=== PATIENT | male | born 1965 | race Hispanic/Latino ===

== ENCOUNTER 2022-12-14 12:26 | Observation (INO) | payer MEDICARE ==
--- OUTSIDE RECORDS SUMMARY | 2022-12-14 12:39 | XMS REPORT | Continuity of Care Document ---
:1965 Author Organization [facility] t Address [address] [place] [address] [place] [id number] Care Team Providers Name Role Phone Jamie Smith MD Primary Care Physician JOSELUIS LANIER Attending Clinician Unavailable ASTRID BANKS Attending Clinician Unavailable INOCENTE PATEL Attending Clinician Unavailable Jamie Smith MD Attending Clinician Tosha Bennett LVN Attending Clinician Unavailable JAMIE SMITH Attending Clinician Unavailable ROLAND DICKSON Attending Clinician Unavailable Epic, Generic Transmittal User Attending Clinician UnavailRAHUL Knight Attending Clinician Unavailable Teresa Cutler RN, I Attending Clinician Unavailable FRANKIE MONTANEZ Attending Clinician Unavailable AMANDA FELICIANO Attending Clinician Unavailable JAMIE SMITH Attending Clinician Unavailable Stew Payne LVN Attending Clinician Unavailable JOSELUIS LANIER Attending Clinician Unavailable Ashley Bell MA Attending Clinician Unavailable Gage Chambers MD Attending Clinician Bandar Bowser MD Attending Clinician Valerie Chase RPH Attending Clinician Unavailable MALACHI TRIPP Attending Clinician Unavailable Tej Brooke Attending Clinician ROLAND DICKSON Admitting Clinician Unavailable ANTONY BENDER Admitting Clinician Unavailable Payers Payer Name Policy Type Policy Number Effective Date Expiration Date S [place] [id number] 2022 ADVANTAGE HMO 00:00:00 [facility] [id number] 2020 00:00:00 [facility] [id number] 2022 (MEDICARE 00:00:00 REPLACEMENT HMO) [place] MEDICARE [id number] 2022 00:00:00 [facility] [id number] 2021 [employer]ICE [employer] 00:00:00 [facility] [id number] 2018 2020 00:00:00 00:00:00 Problems Condition Condition Condition Status Onset Resolution Last Treating Co mments Source Name Details Category Date Date Treatment Clinician Date Chronic Chronic Disease Active [facility] bilateral bilateral 5-18 [facility]al th low back low back 00:00: pain pain 00 without without sciatica sciatica Acute Acute Disease Active [facility] medial medial 4-06 Health meniscus meniscus 00:00: tear of tear of 00 right knee right knee Acute Acute Disease Active 2019-05 [facility] medial medial 2-11 Health meniscus meniscus 00:00: tear of tear of 00 left knee left knee Chondromal Chondromal Disease Active 2019-05 [facility] 2[facility]11 [facility] left left 00:00: patella patella 00 Chondromal Chondromal Disease Active [facility]10 [facility] right right 00:00: patella patella 00 Lumbar Lumbar Disease Active [facility] radiculopa radiculopa 8-06 He alth thy thy 00:00: 00 Osteoarthr Osteoarthr Disease Active [facility]is [facility] 7[facility]16 [facility] left knee left knee 00:00: 00 Osteoarthr Osteoarthr Disease Active [facility] 3-25 [facility] right knee right knee 00:00: 00 Migraine Migraine Disease Active Harri s without without 07-13 Health status status 00:00: migrainosu migrainosu 00 s, not s, not intractabl intractabl e e Type 2 Type 2 Disease Active Tan diabetes, diabetes, 07-13 Heal th controlled controlled 00:00: , with , with 00 neuropathy neuropathy Essential Essential Disease Active Bruce ris hypertensi hypertensi 07-13 He alth on, benign on, benign 00:00: 00 Mixed Mixed Disease Active Tan dyslipidem dyslipidem 07-13 He alth ia ia 00:00: 00 Primary Primary Disease Active Tan osteoarthr osteoarthr 07-13 He alth itis of itis of 00:00: both knees both knees 00 Benign Benign Disease Active Tan prostatic prostatic 07-13 Heal hyperplasi hyperplasi 00:00: a with a with 00 lower lower urinary urinary tract tract symptoms symptoms LUIS LUIS Disease Active 2014-05 Tan (obstructi (obstructi 0- He alth ve sleep ve sleep 00:00: apnea) apnea) 00 Major Major Disease Active Tan depression depression 02 He alth , , 00:00: recurrent recurrent 00 Degenerati Degenerati Disease Active H arris ve disc ve disc 5-28 Health disease, disease, 00:00: cervical cervical 00 Degenerati Degenerati Disease Active H arris ve disc ve disc 5-28 Health disease, disease, 00:00: lumbar lumbar 00 SENTHIL KNEE SENTHIL KNEE Diagnosis Active 2015-09-15 Memoria Active MH 16:54:00 l [facility] Allergies, Adverse Reactions, Alerts Allergy Allergy Status Severity Reaction(s) Onset Inactive Treating Comm ents Source Name Type Date Date Clinician Celecoxi Propensi Active Rash Tan b ty to 12 Health adverse 00:00: reaction 00 s to drug No Known DA Active U 2018-05 [facility] 06[facility]09 [facility] 00[facility]: e 00 [facility] No Known DA Active U 2018-05 [facility] 1[facility]19 [facility] [facility] e [facility] No Known DA Active U [facility] Allergie 4- Clear s 00:00: George 00 [facility] Family History Family Member Diagnosis Comments Start Date Stop Date Source Natural brother Diabetes Tan [place] Social History Social Habit Start Date Stop Date Quantity Comments Source Exposure to Not sure [facility] SARS-CoV-2 (event) [facility] Alcohol Std Drinks History [facility] Health Alcohol Binge [facility] Alcohol Comment History [facility] 2021-04-01 2021-04-01 1 [place] [facility] Worry 00:00:00 00:00:00 History [facility] Food 2021-04-01 2021-04-01 1 [place] [facility] Scarcity 00:00:00 00:00:00 Alcohol intake 2021-03-16 2021-03-16 Lifetime [facility] 00:00:00 00:00:00 non-drinker (finding) History [facility] 2020-12-30 2020-12-30 1 [facility] Alcohol Frequency 00:00:00 00:00:00 Social History 2020-06-29 2020-06-29 [facility] 23:53:06 23:53:06 Tobacco use and 2013-09-12 2013-09-12 Smokeless tobacco [facility] exposure 00:00:00 00:00:00 non-user Sex [birth year] Tan Maki alth 00:00:00 00:00:00 Smoking Status Start Date Stop Date Source Tobacco smoking consumption unknown [facility] Never smoked tobacco [facility] Medications Ordered Filled Start Stop Current Ordering Indication Dosage Frequency Signature Comments Components Source Medication Medication Date Date Medication? Clinician (SIG) Name Name fenofibrate 2021-05 Yes Mixed Take 1 Bruce ris (LOFIBRA) 1-15 dyslipidemi tablet by [employer] 160 mg 00:00: a mouth once tablet 00 daily glyBURIDE 2021-05 Yes Type 2 TAKE 1 Tere is (DIABETA) 5 1-15 diabetes TABLET BY [facility] mg tablet 00:00: mellitus MOUTH 00 without TWICE A complicatio DAY WITH n, with MEALS long-term current use of insulin metoprolol 2021-05 Yes Essential 25mg QD Take 1 [place]ox succinate 1-15 hypertensio tablet by [employer] (TOPROL XL) 00:00: n, benign mouth 25 mg 00 daily extended release tablet Miscellaneo 2021-05 Yes Impaired High [facility] rris [facility] 05-30 mobility Strength [facility] 00:[place]: and ADLs Light 00 Wheel Chair to Assist with ADLSElectr onically Signed Miscellaneo 2021-05 Yes Chronic Wheelchair Maddox [facility] 05-22 midline low [facility] 00:00: back pain ally 00 with Signed bilateral sciatica ticagrelor 2021-05 Yes Coronary 90mg Q.5D Take 1 H arris (BRILINTA) 05-22 artery tablet by alth 90 mg 00:00: disease mouth 2 tablet 00 involving times [place] daily heart without angina pectoris, unspecified vessel or lesion type lidocaine 2021-05 Yes Neuropathic 1{patch QD Apply 1 [place] (LIDODERM) 05-22 pain } [facility] patch 00:00: skin as 00 directed daily Leave patch(es) on for up to 12 hours, then 12 hours off. pregabalin Yes Neuropathy 150mg Q.5D Take 1 [place]ox (LYRICA) 7- capsule by [facility] 150 mg 00:00: mouth 2 capsule 00 times daily gabapentin Yes Neuropathy TAKE 2 [place]ox (NEURONTIN) 7- TABLETS BY alth 600 mg 00:00: MOUTH tablet 00 THREE TIMES DAILY hydroCHLORO Yes Essential 25mg QD Take 1 [place] thiazide 12-17 hypertensio tablet by [facility] (HYDRODIURI 00:00: n, benign mouth L) 25 mg 00 daily tablet losartan Yes Essential 100mg QD Take 1 H arris (COZAAR) 12-17 hypertensio tablet by [facility] 100 mg 00:00: n, benign mouth tablet 00 daily diazePAM Yes Depression 5mg Take 1 H arris (VALIUM) 5 12-17 with tablet by [facility] th mg tablet 00:00: anxiety mouth 00 every 12 hours as needed for Anxiety sertraline Yes Depression 25mg QD Take 1 [place]ox (ZOLOFT) 25 12-17 with tablet by [facility] lth mg tablet 00:00: anxiety mouth 00 daily fenofibrate 0 2021- No Mixed 160mg QD Take 1 H arris (LOFIBRA) 12-17 11-15 dyslipidemi tablet by [facility] 160 mg 00:00: 00:00 a mouth tablet 00 :00 daily pregabalin 2021- No Neuropathy 150mg Q.5D Take 1 [place] (LYRICA) 11-12 capsule by [facility] 150 mg 00:00: 00:00 mouth 2 capsule 00 :00 times daily triamcinolo 2021- Yes Pruritic Q.5D Apply to [place]ox ne 10-22 dermatitis affected Healt (KENALOG) 00:00: area 2 0.1 % 00 times ointment daily gabapentin 2021- No Neuropathy TAKE 2 [place]ox (NEURONTIN) 10-22 TABLETS BY [facility] 600 mg 00:00: 00:00 MOUTH tablet 00 :00 THREE TIMES DAILY hydroCHLORO 2021- No Essential 25mg QD Take 1 [place]ox thiazide 10-22 hypertensio tablet by [facility] (HYDRODIURI 00:00: 00:00 n, benign mouth L) 25 mg 00 :00 daily tablet losartan 2021- No Essential 100mg QD Take 1 [place] (COZAAR) 10-22 hypertensio tablet by [facility] 100 mg 00:00: 00:00 n, benign mouth tablet 00 :00 daily diazePAM 2021- No Depression 5mg Take 1 [place] (VALIUM) 5 10-22 with tablet by [facility] lth mg tablet 00:00: 00:00 anxiety mouth 00 :00 every 12 hours as needed for Anxiety sertraline 2021- No Depression 25mg QD Take 1 [place] (ZOLOFT) 25 10-22 with tablet by alth mg tablet 00:00: 00:00 anxiety mouth 00 :00 daily gabapentin 2021- No Neuropathy TAKE 2 [place] (NEURONTIN) 08-25 TABLETS BY [facility] 600 mg 00:00: 00:00 MOUTH tablet 00 :00 THREE TIMES DAILY ondansetron Yes COVID-19 4mg TAKE 1 [place] (ZOFRAN) 4 - virus TABLET BY [facility] lth mg tablet 00:00: infection MOUTH 00 EVERY 8 HOURS NEEDED FOR NAUSEA azithromyci 2021- Yes COVID-19 TAKE 2 [place] n 3-01 virus TABLETS BY [facility] (ZITHROMAX) 00:00: infection MOUTH ON 250 mg 00 DAY 1, AND tablet THEN TAKE 1 TABLET BY MOUTH ONCE A DAY ON DAY 2 THROUGH DAY 5 clonazePAM Anxiety .5mg Take 1 H arris (KLONOPIN) 06-23 state tablet by alth 0.5 mg 00:00: 00:00 mouth tablet 00 :00 daily as needed for Anxiety codeine-gua No COVID-19 5mL Take 5 mL [place] iFENesin 06-23 virus by mouth 3 [facility] (CHERATUSSI 00:00: 00:00 infection times N AC) 00 :00 daily as 10-100 mg/5 needed for mL syrup Cough azithromyci 2021- No COVID-19 Take 2 [place] n 06-23 virus tablets by [facility] (ZITHROMAX) 00:00: 00:00 infection mouth on 250 mg 00 :00 the first tablet day, then take one tablet every day for the next 4 days ondansetron COVID-19 4mg Take 1 [place] (ZOFRAN) 4 06-23 virus tablet by alth mg tablet 00:00: 00:00 infection mouth 00 :00 every 8 hours as needed for Nausea codeine-gua No COVID-19 5mL Take 5 mL [place] iFENesin 06-23 virus by mouth 3 [facility] (CHERATUSSI 00:00: 00:00 infection times N AC) 00 :00 daily as 10-100 mg/5 needed for mL syrup Cough losartan Yes Essential Take 1 [place] (COZAAR) 1-18 hypertensio tablet by [facility] 100 mg 00:00: n, benign mouth once tablet 00 daily fenofibrate Yes Mixed Take 1 Bruce ris (LOFIBRA) 1-18 dyslipidemi tablet by [facility] 160 mg 00:00: a mouth once tablet 00 daily hydroCHLORO Yes Essential Take 1 [place] thiazide 1-18 hypertensio tablet by [facility] (HYDRODIURI 00:00: n, benign mouth once L) 25 mg 00 daily tablet fenofibrate 2021- No Mixed Take 1 [place] r[facility] (LOFIBRA) 1-18 - dyslipidemi tablet by [facility] 160 mg 00:00: 00:00 a mouth once tablet 00 :00 daily losartan 2021- No Essential Take 1 H arris (COZAAR) 06-08 hypertensio tablet by [facility] 100 mg 00:00: 00:00 n, benign mouth once tablet 00 :00 daily hydroCHLORO 2021- No Essential Take 1 [place] thiazide 06-08 hypertensio tablet by [facility] (HYDRODIURI 00:00: 00:00 n, benign mouth once L) 25 mg 00 :00 daily tablet oxyCODONE-a 2020-05- No [id number] 1{tbl} Take 1-2 UT cetaminophe -04 05- 9109 tablets by kaye newsome 00:00: 05:59 mouth (Percocet) 00 :00 every 4 5-325 MG (four) tablet hours if needed for severe pain for up to 10 days. celecoxib 2020-05 Yes [id number] TAKE ONE UT (CeleBREX) 2-13 9109 CAPSULE BY a lth 200 MG 00:00: MOUTH capsule 00 TWICE A DAY FOR 14 DAYS celecoxib 2020-05 Yes [id number] TAKE ONE UT (CeleBREX) 2-13 9109 CAPSULE BY [facility] 200 MG 00:00: MOUTH capsule 00 TWICE A DAY FOR 14 DAYS celecoxib 2020-05 Yes [id number] TAKE ONE UT (CeleBREX) 2-13 9109 CAPSULE BY [facility] 200 MG 00:00: MOUTH capsule 00 TWICE A DAY FOR 14 DAYS celecoxib 2020-05 Yes [id number] TAKE ONE UT (CeleBREX) 2-13 9109 CAPSULE BY [facility] 200 MG 00:00: MOUTH capsule 00 TWICE A DAY FOR 14 DAYS celecoxib 2020-05 Yes [id number] TAKE ONE UT (CeleBREX) 2-13 9109 CAPSULE BY [facility] 200 MG 00:00: MOUTH capsule 00 TWICE A DAY FOR 14 DAYS celecoxib 2020-05 Yes [id number] TAKE ONE UT (CeleBREX) 2-13 9109 CAPSULE BY [facility] 200 MG 00:00: MOUTH capsule 00 TWICE A DAY FOR 14 DAYS Docusate 2020-05 No Notes: Memoria 2-02 (Same as: l 15:00: Colace) (Do Not Crush) Synjardy XR 2020-05 No Synjardy Me moria 12.5 2-02 XR 12.5 l mg-1000 mg 15:00: mg-1000 mg H ermann oral 00 oral tablet, tablet, extended extended release release, 1 tab, Route: PO, Daily, 04/22/21 9:00:00 CNC TECHNICIAN, Duration: 30 day, Stop date: 05/21/21 9:00:00 CNC TECHNICIAN ezetimibe 2020-05 No Notes: Memori a 2-02 (Same as: l 15:00: Zetia) Tricor 2020-05 No Notes: Memoria 2-02 (Same as: l 15:00: Tricor) Vascepa 1 g 2020-05 No Vascepa 1 M emoria oral 2-02 g oral l capsule 15:00: capsule, 2 Herm sheila 00 gm, Route: PO, Daily, 04/22/21 9:00:00 CNC TECHNICIAN, Duration: 30 day, Stop date: 05/21/21 9:00:00 CNC TECHNICIAN Tresiba 2020-05 No Tresiba Memoria FlexTouch 2-02 FlexTouch, l 15:00: 80 unit, Route: SUB-Q, Daily, 04/22/21 9:00:00 CNC TECHNICIAN, Duration: 30 day, Stop date: 05/21/21 9:00:00 CNC TECHNICIAN montelukast 2020-05 No Notes: Jesse elin 2-02 (Same l 15:00: as:Singula ir) pregabalin 2020-05 No Notes: Memor ia 2-02 (Same as: l 15:00: Lyrica) tadalafil 2020-05 No 5 mg, Memoria 2-02 Route: PO, l 15:00: Daily, Dosing Weight 121.818, kg, Start date: 04/22/21 9:00:00 CNC TECHNICIAN, Duration: 30 day, Stop date: 05/21/21 9:00:00 CNC TECHNICIAN Urecholine 2020-05 No Notes: Memor ia 2-02 Take on l 05:56: empty stomach. (Same As: Urecholine ) Cefazolin 2020-05 No Notes: Memori a 2-02 Same as: l 04:00: Ancef Carrier 00 Aspirin 81 2020-05 No Notes: Do Me moria MG Enteric 2-02 not crush l Coated 03:00: or chew. Scot Tablet 00 (Same As: Ecotrin) Celebrex 2020-05 No Notes: Memoria 2-02 NSAID. l 03:00: Please Scot 00 check indication . Not for seizure. (Same As: CeleBREX) sennosides, 2020-05 No Notes: Jesse elin NURSING HOME 2-02 (Same as: l 03:00: Senokot) Carrier rosuvastati 2020-05 No Notes: Jesse elin n 2-02 (Same As: l 03:00: Crestor) Scot Hydrochloro 2020-05 No Notes: Jesse elin thiazide 2-02 (Same as: l 02:00: Hydrodiuri Scot 00 l) With food. Losartan 2020-05 No Notes: Memoria 2-02 (Same as: l 02:00: Cozaar) Scot Metoprolol 2020-05 No Notes: Memor ia Succinate 2- (Same as: l ER 50 mg 02:00: Toprol XL) Her elliott oral 00 May split tablet, tab, but extended do not release crush. Acetaminoph 2020-05 No Notes: Max Memoria en 2-02 acetaminop l 01:00: hen 4000 Scot 00 mg/day (4 gm/day). (Same as: Tylenol Extra Strength) pregabalin 2020-05 No 100 mg, Jesse elin 2-02 Route: PO, l 01:00: Q8Hnow, Dosing Weight 121.818, kg, Start date: 04/21/21 19:00:00 CNC TECHNICIAN, Duration: 30 day, Stop date: 05/21/21 11:00:00 CNC TECHNICIAN celecoxib 2020-05 No 200 mg, Memor ia 2-02 Route: PO, l 01:00: [id number], Scot 00 Dosing Weight 121.818, kg, Not recommende d for eGFR < 30 or acute kidney injury., Start date: 04/21/21 19:00:00 CNC TECHNICIAN, Duration: 30 day, Stop date: 05/21/21 7:00:00 CNC TECHNICIAN Oxycodone 2020-05 No Notes: Memori a 2-02 (Same as: l 00:59: Roxicodone ) Morphine 2020-05 No Notes: Memoria 2-02 (Same l 00:59: as:MORPhin e Sulfate) Naloxone 2020-05 No Notes: Memoria 2- Same as l 00:59: Narcan tizanidine 2020-05 No Notes: Memor ia 2- (Same As: l 00:59: Zanaflex) Ondansetron 2020-05 No Notes: Jesse elin 2- (Same as: l 00:59: Zofran) MEDICATION WASTE Product Size: 4 mg Product Wasted: ___ mg Melatonin 2020-05 No Notes: Memori a 2- (Same as: l 00:59: Melatonin) Nalbuphine 2020-05 No Notes: Memor ia 2- (Same As: l 00:59: Nubain) gabapentin 2020-05 No Notes: Memor ia 600 MG Oral 2- (Same as: l Tablet 23:00: Neurontin) Glyburide 2020-05 No Notes: Memori a 2-01 Non-Formul l 23:00: karlene (Same as: Micronase, Diabeta) Take with meals. Hydralazine 2020-05 No Notes: Jesse elin 2-01 (Same as: l 22:16: Apresoline ) Push over 5 minutes propofol 2020-05 No Route: IV, Mem oria (ANES) 2- Drug form: l 22:10: INJ, ONCE, Stop date: 04/21/21 16:10:00 CNC TECHNICIAN ondansetron 2020-05 No Route: IV, Memoria (ANES) 2- Drug form: l 22:10: INJ, ONCE, Stop date: 04/21/21 16:10:00 CNC TECHNICIAN ropivacaine 2020-05 No Route: Jesse elin (ANES) 2- NERVE l 22:10: BLOCK, Drug Form: INJ, ONCE, Stop date: 04/21/21 16:10:00 CNC TECHNICIAN Trulicity 2020-05 No Trulicity Mem oria Pen - Pen, 3 mg, l 22:00: Route: Scot SUB-Q, qWeek, 04/21/21 16:00:00 CNC TECHNICIAN, Duration: 30 day, Stop date: 05/19/21 9:00:00 CNC TECHNICIAN Cefazolin 2020-05 No 2 gm, Memoria 06-22 Route: l 22:00: IVPB, Drug form: INJ, Q8H, Dosing Weight 121.818, kg, Start date: 04/21/21 16:00:00 CNC TECHNICIAN, Duration: 3 doses or times, Stop date: 04/22/21 8:00:00 CNC TECHNICIAN, ABX Indication : Surgical Prophylaxi s phenylephri 2020-05 No Route: IV, Memoria ne (ANES) 06-22 Drug form: l 21:49: INJ, ONCE, Stop date: 04/21/21 15:49:00 CNC TECHNICIAN ePHEDrine 2020-05 No Route: IV, Me moria (ANES) 06-22 Drug form: l 21:39: INJ, ONCE, Stop date: 04/21/21 15:39:00 CNC TECHNICIAN Synjardy XR 2020-05 Yes Synjardy Me moria 12.5 06-22 XR 12.5 l mg-1000 mg 21:34: mg-1000 mg H erm oral oral tablet, tablet, extended extended release release, 1 tab, PO, Daily, Refill(s) 0 Tresiba 2020-05 Yes Tresiba Memoria FlexTouch 06-22 FlexTouch, l 21:34: 80 unit =, Carrier SUB-Q, Daily, Refill(s) 0 Methocarbam 2020-05 No Notes: Jesse elin ol 06-22 (Same l 21:31: as:Robaxin Carrier ) Nitroglycer 2020-05 No Notes: Jesse elin in 0.4 MG 06-22 (Same l Sublingual 21:31: as:Nitroqu H ermann Tablet 00 ick, Nitrostat) "Do Not Crush" Sublingual tablet 1/2 NS 2020-05 No 1,000 mL, Memori a 1,000 mL 06-22 Rate: 75 l 21:30: ml/hr, Infuse over: 13.3 hr, Route: IV, Dosing Weight 121.818 kg, Total Volume: 1,000, Start date: 04/21/21 15:30:00 CNC TECHNICIAN, Duration: 30 day, Stop date: 05/21/21 15:29:00 CNC TECHNICIAN, BSA: 2.47 m2, 0 Lactated 2020-05 No Route: IV, Mem oria Ringers 06-22 Total l Injection 20:53: Volume: Nelly nn IV (ANES) 00 1,000, 1000 mL Start date: 04/21/21 14:53:00 CNC TECHNICIAN, Stop date: 04/21/21 15:53:00 CNC TECHNICIAN lidocaine 2020-05 No Route: IV, Me moria (ANES) 06-22 Drug form: l 20:48: INJ, ONCE, Stop date: 04/21/21 14:48:00 CNC TECHNICIAN Labetalol 2020-05 No 10 mg, 2 Jesse elin 2- mL, Route: l 20:46: IVP, Drug form: INJ, Q5Min, Dosing Weight 121.818, kg, PRN Elevated BP, Start date: 04/21/21 14:46:00 CNC TECHNICIAN, Duration: 5 doses or times, Stop date: Limited # of times, 0 Ibuprofen 2020-05 No Notes: Memori a 2- (Same as: l 20:46: Motrin) "Do Not Crush" Take with food. Oxycodone 2020-05 No Notes: Memori a Hydrochlori 2- (Same as: l de 5 MG 20:46: Roxicodone Herm sheila Oral Tablet ) Morphine 2020-05 No Notes: Memoria 2- (Same l 20:46: as:MORPhin Scot e Sulfate) Oxycodone 2020-05 No Notes: Memori a 2- (Same as: l 20:46: 'Roxicodon Scot e) Hydromorpho 2020-05 No Notes: Jesse elin ne - Same as: l 20:46: Dilaudid Carrier Fentanyl 2020-05 No Notes: Memoria 2- (Same as: l 20:46: Sublimaze) Scot Preservati ve free. Flumazenil 2020-05 No Notes: Memor ia 2-01 (Same as: l 20:46: Romazicon) Naloxone 2020-05 No Notes: Memoria 2-01 Same as l 20:46: Narcan Ephedrine 2020-05 No Notes: Memori a 2-01 final l 20:46: concentrat Carrier 00 ion 5 mg/mL Albuterol 2020-05 No Notes: SEE Me moria 0.83 MG/ML 2- RT l Inhalant 20:46: DOCUMENTAT Her elliott Solution 00 ION (Same as: Proventil) Diphenhydra 2020-05 No Notes: Jesse elin mine 2- (Same as: l 20:46: Benadryl) Racepinephr 2020-05 No Notes: Jesse elin ine 2- (racepinep l 20:46: hrine *2.25% inh 0.5ml SOLN) (Same as:S2) glycopyrron 2020-05 No Notes: Jesse elin ium 2- (Same as: l 20:46: Robinul) Meperidine 2020-05 No Notes: Memor ia 2-01 (Same as: l 20:46: Demerol) "Use Precaution in Elderly, Seizure disorders, and Renal impairment " naloxone 2020-05 No Notes: Memoria 400 2-01 Same as l microgram + 20:46: Narcan 00 Chloride 0.9% IV 1,000 mL Ondansetron 2020-05 No Notes: Jesse elin 2-01 (Same as: l 20:46: Zofran) MEDICATION WASTE Product Size: 4 mg Product Wasted: ___ mg Lorazepam 2020-05 No Notes: Memori a 2-01 (Same as: l 20:46: Ativan) fentaNYL 2020-05 No Route: IV, Mem oria (ANES) 2- Drug form: l 20:43: INJ, ONCE, Stop date: 04/21/21 14:43:00 CNC TECHNICIAN ropivacaine 2020-05 No Route: Jesse elin (ANES) 2- NERVE l 20:43: BLOCK, Scot 00 Drug Form: INJ, ONCE, Stop date: 04/21/21 14:43:00 CNC TECHNICIAN midazolam 2020-05 No Route: IV, Me moria (ANES) 2- Drug form: l 20:37: SOLN, Carrier 00 ONCE, Stop date: 04/21/21 14:37:00 CNC TECHNICIAN propofol 2020-05 No Route: IV, Mem oria (ANES) 2- Drug form: l 20:37: INJ, ONCE, Carrier 00 Stop date: 04/21/21 14:37:00 CNC TECHNICIAN Dilaudid 2020-05 No Route: IV, Mem oria (ANES) 2 Drug form: l 20:37: INJ, ONCE, Carrier 00 Stop date: 04/21/21 14:37:00 CNC TECHNICIAN ceFAZolin 2020-05 No Route: IV, Me moria (ANES) 2 Drug form: l 20:32: INJ, ONCE, Carrier 00 Stop date: 04/21/21 14:32:00 CNC TECHNICIAN tranexamic 2020-05 No Route: IV, M emoria acid (ANES) 06-22 Drug form: l 100 mg 19:55: INJ, Start Nelly nn 00 date: 04/21/21 13:55:00 CNC TECHNICIAN, Stop date: 04/21/21 14:55:00 CNC TECHNICIAN Lactated 2020-05 No Route: IV, Mem oria Ringers 06-22 Total l Injection 19:40: Volume: Nelly nn IV (ANES) 00 1,000, 1000 mL Start date: 04/21/21 13:40:00 CNC TECHNICIAN, Stop date: 04/21/21 14:40:00 CNC TECHNICIAN Ancef 2020-05 No Notes: Memoria 2- Same as: l 17:00: Ancef Scot 00 Lidocaine 2020-05 No Notes: Memori a Hydrochlori - Preservati l de 10 MG/ML 16:00: ve free. He rmann Injectable 00 (Same as: Solution Xylocaine MPF) ropivacaine 2020-05 No Notes: Jesse elin - NOT FOR l 16:00: IV use Carrier 00 Each mL contains: Ropivacain e 2.46 mg, Epinephrin e 0.005 mg, Clonidine 0.0008 mg and Ketorolac 0.3 mg in Sodium Chloride Tranexamic 2020-05 No Notes: Memor ia Acid 06-22 (Same As: l 16:00: Cyklokapro Scot 00 n) Cefazolin 2020-05 No 2 gm, Memoria 06-22 Route: l 16:00: IVP, Carrier 00 ONCALL, Dosing Weight 122.784, kg, (Patients weighing < 120 kg), Start date: 04/21/21 10:00:00 CNC TECHNICIAN, Duration: 1 doses or times, ABX Indication : Surgical Prophylaxi s Calcium 2020-05 No 1,000 mL, Memor ia Chloride 06-22 Rate: 75 l 0.0014 15:33: ml/hr, Carrier MEQ/ML / 00 Infuse Potassium over: 13.3 Chloride hr, Route: 0.004 IV, Dosing MEQ/ML / Weight Sodium 122.784 Chloride kg, Total 0.103 Volume: MEQ/ML / 1,000, Sodium Start Lactate date: 0.028 04/21/21 MEQ/ML 9:33:00 Injectable CNC TECHNICIAN, Solution Duration: 30 day, Stop date: 05/21/21 9:32:00 CNC TECHNICIAN, BSA: 2.48 m2, 0 Acetaminoph 2020-05 No Notes: Max Memoria en 06-22 acetaminop l 15:33: hen 4000 Scot 00 mg/day (4 gm/day). (Same as: Tylenol Extra Strength) Baclofen 2020-05 No Notes: Memoria 06-22 (Same As: l 15:33: Lioresal) Carrier 00 tiZANidine 2020-05 Yes [id number] 4mg Q6H Take 1 [facility] (Zanaflex) 1-30 9109 tablet (4 [facility]al [facility] 4 MG tablet 00:00: mg total) 00 by mouth every 6 (six) hours if needed for muscle spasms for up to 10 days. tiZANidine 2020-05 Yes [id number] 4mg Q6H Take 1 [facility] (Zanaflex) 1-30 9109 tablet (4 [facility] 4 MG tablet 00:00: mg total) 00 by mouth every 6 (six) hours if needed for muscle spasms for up to 10 days. tiZANidine 2020-05 Yes [id number] 4mg Q6H Take 1 [facility] (Zanaflex) 1-30 9109 tablet (4 [facility]al [facility] 4 MG tablet 00:00: mg total) 00 by mouth every 6 (six) hours if needed for muscle spasms for up to 10 days. tiZANidine 2020-05 Yes [id number] 4mg Q6H Take 1 UT (Zanaflex) 1-30 9109 tablet (4 [facility]al [facility] 4 MG tablet 00:00: mg total) 00 by mouth every 6 (six) hours if needed for muscle spasms for up to 10 days. tiZANidine 2020-05 Yes [id number] 4mg Q6H Take 1 UT (Zanaflex) 1-30 9109 tablet (4 [facility]al [facility] 4 MG tablet 00:00: mg total) 00 by mouth every 6 (six) hours if needed for muscle spasms for up to 10 days. tiZANidine 2020-05 Yes [id number] 4mg Q6H Take 1 UT (Zanaflex) 1-30 9109 tablet (4 [facility]al [facility] 4 MG tablet 00:00: mg total) 00 by mouth every 6 (six) hours if needed for muscle spasms for up to 10 days. gabapentin 2020-05 Yes Neuropathy TAKE 2 [facility] (NEURONTIN) 1-30 TABLETS BY [facility] al[facility] 600 mg 00:00: MOUTH tablet 00 THREE TIMES DAILY gabapentin 2020-05- No Neuropathy TAKE 2 [facility]ox (NEURONTIN) 1-30 -06 TABLETS BY H ealth 600 mg 00:00: 00:00 MOUTH tablet 00 :00 THREE TIMES DAILY aspirin 81 2020-05- No [id number] 81mg Q.5D Chew 1 UT MG chewable 06-20 9109 tablet (81 H ealth tablet 00:00: 05:59 mg total) 00 :00 2 (two) times a day. aspirin 81 2020-05- No [id number] 81mg Q.5D Chew 1 UT MG chewable -05-21 9109 tablet (81 H ealth tablet 00:00: 05:59 mg total) 00 :00 2 (two) times a day. celecoxib 2020-05- No [id number] 200mg Q.5D Take 1 [facility] (CeleBREX) 1-30 05-03 9109 capsule [facility]alt [facility] 200 MG 00:00: 00:00 (200 mg capsule 00 :00 total) by mouth 2 (two) times a day for 14 days. Aspirin 2020-05 No 81 mg, Memoria 1-17 Daily, 0 l 21:00: Refill(s) Scot 00 celecoxib 2020-05 No 200 mg = 1 Me moria 200 MG Oral 1-17 cap, PO, l Capsule 20:59: BID, 0 Scot [Celebrex] 00 Refill(s) rosuvastati 2020-05 Yes 40 mg = 1 M emoria n 40 mg 1-17 tab, PO, l oral tablet 20:55: Bedtime, # Carrier 00 90 tab, 1 Refill(s) Vitamin D2 2020-05 No 50,000 Memor ia 1-17 IntlUnit, l 20:53: PO, qWeek, Scot 00 0 Refill(s) Ensure 2020-05 No Notes: Memoria Pre-Surgery 1-16 (Same as: l Clear 21:00: Ensure Carrier 00 Pre-Surger y Clear) store in refrigerat or empaglifloz 2020-05 Yes Type 2 Take by Florentino dorsey in-metformi 06-03 diabetes mouth. He alth n 00:00: mellitus (SYNJARDY) 00 without 12.5-1,000 complicatio mg Tab n, without long-term current use of insulin insulin 2020-05 Yes Type 2 80U QD Inject 80 Bruce ris degludec - diabetes Units Health (TRESIBA 00:00: mellitus under the FLEXTOUCH 00 without skin U-100) 100 complicatio daily. unit/mL (3 n, without mL) InPn long-term current use of insulin dulaglutide 2020-05 Yes Type 2 Inject Phipps rris (TRULICITY) - diabetes under the Health 3 mg/0.5 mL 00:00: mellitus skin ONCE PnIj 00 without A WEEK. complicatio n, without long-term current use of insulin icosapent 2020-05 Yes Mixed Take by Tere stubbs ethyL 06-03 hyperlipide mouth. Healt h (VASCEPA) 1 00:00: daniella gram cap 00 empaglifloz 2020-05 Yes Type 2 Take by H willian in-metformi 1-13 diabetes mouth. He alth n 00:00: mellitus (SYNJARDY) 00 without 12.5-1,000 complicatio mg Tab n, without long-term current use of insulin insulin 2020-05 Yes Type 2 80U QD Inject 80 Bruce ris degludec - diabetes Units Health (TRESIBA 00:00: mellitus under the FLEXTOUCH 00 without skin U-100) 100 complicatio daily. unit/mL (3 n, without mL) InPn long-term current use of insulin dulaglutide 2020-05 Yes Type 2 Inject Phipps rris (TRULICITY) 06-03 diabetes under the Health 3 mg/0.5 mL 00:00: mellitus skin ONCE PnIj 00 without A WEEK. complicatio n, without long-term current use of insulin icosapent 2020-05 Yes Mixed Take by Tere is ethyL 13 hyperlipide mouth. Healt h (VASCEPA) 1 00:00: daniella gram cap 00 Tadalafil 5 2020-05 Yes Lower 5mg QD Take 1 Bruce ris mg tablet 0-13 urinary tablet by He alth 00:00: tract mouth 00 symptoms daily. (LUTS) Tadalafil 5 2020-05 Yes Lower 5mg QD Take 1 Bruce ris mg tablet 0-13 urinary tablet by He alth 00:00: tract mouth 00 symptoms daily. (LUTS) Metoprolol 2020-05 Yes 50 mg = 1 Me moria Succinate 0-11 tab, PO, l ER 50 mg 17:18: Daily, # Nelly nn oral 00 30 tab, 0 tablet, Refill(s) extended release ezetimibe 2020-05 Yes 10 mg = 1 Mem oria 10 mg oral 0-11 tab, PO, l tablet 17:18: Daily, # Scot 00 30 tab, 0 Refill(s) isosorbide 2020-05 Yes 60 mg = 1 Me moria mononitrate 0-11 tab, PO, l 60 mg oral 17:18: QAM, # 30 He rmann tablet, 00 tab, 0 extended Refill(s) release Sodium 2020-05 No 1,000 mL, Memori a Chloride 0-11 Rate: 75 l 0.9% IV 17:16: ml/hr, Carrier 1,000 mL 00 Infuse over: 13.3 hr, Route: IV, Dosing Weight 124.545 kg, Total Volume: 1,000, Start date: 03/01/21 12:16:00 CDT, Duration: 1 day, Stop date: 03/02/21 12:15:00 CDT, BSA: 2.5 m2, 0 icosapent 2020-05 Yes 2 gm = 2 Jesse elin ethyl 1000 0-11 cap, PO, l MG Oral 17:16: Daily, 0 Jose n Capsule 00 Refill(s) [Vascepa] losartan 2021- No Essential Take 1 H arris (COZAAR) 02-15 hypertensio tablet by [facility] 100 mg 00:00: 00:00 n, benign mouth once tablet 00 :00 daily hydroCHLORO 2021- No Essential Take 1 Maddox thiazide 02-15 hypertensio tablet by [facility] (HYDRODIURI 00:00: 00:00 n, benign mouth once L) 25 mg 00 :00 daily tablet losartan 2021- No Essential Take 1 H arris (COZAAR) 02-15 hypertensio tablet by [facility] 100 mg 00:00: 00:00 n, benign mouth once tablet 00 :00 daily hydroCHLORO 2021- No Essential Take 1 [place]ox thiazide 02-15 hypertensio tablet by [facility] (HYDRODIURI 00:00: 00:00 n, benign mouth once L) 25 mg 00 :00 daily tablet celecoxib Yes 100 mg = 1 Me moria 100 MG Oral 9-15 cap, PO, l Capsule 14:49: BID, PRN Jose n [Celebrex] 00 Pain Score 4-6, # 60 cap, 0 Refill(s), Pharmacy: [id number], 175.26, cm, 11/30/20 3:38:00 CDT, Height, 125.909, kg, 11/30/20 3:38:00 CDT, Weight celecoxib No 100 mg = 1 Me moria 100 MG Oral 9-15 cap, PO, l Capsule 14:47: BID, PRN Jose n [Celebrex] 00 Pain Score 4-6, # 60 cap, 0 Refill(s), Pharmacy: [id number], 175.26, cm, 11/30/20 3:38:00 CDT, Height, 125.909, kg, 11/30/20 3:38:00 CDT, Weight CPAP Device Yes Obstructive Auto CPAP Maddox 8-18 sleep apnea DeviceUse Hea lth 00:00: device as 00 directed. Date of Study: 09/21/2020 Diagnosis: G47.33Auto CPAP Pressure: 10-16 cm H2O with mask (fit to patient) and supplies as needed: YesElectro nically Signed. CPAP Device Yes Obstructive Auto CPAP Maddox 8-18 sleep apnea DeviceUse Hea lth 00:00: device as 00 directed. Date of Study: 09/21/2020 Diagnosis: G47.33Auto CPAP Pressure: 10-16 cm H2O with mask (fit to patient) and supplies as needed: YesElectro nically Signed. CPAP Device Yes Obstructive Auto CPAP Maddox 8-18 sleep apnea DeviceUse Hea lth 00:00: device as 00 directed. Date of Study: 09/21/2020 Diagnosis: G47.33Auto CPAP Pressure: 10-16 cm H2O with mask (fit to patient) and supplies as needed: YesElectro nically Signed. No known No No known UT medications 8-13 medication He alth 12:48: s 05 No known No No known UT medications 8-13 medication He alth 12:48: s 05 Ketorolac No 15 mg, Memori a 7-12 Route: IM, l 10:08: ONCE, Scot 00 Dosing Weight 125.909, kg, Start date: 11/30/20 5:08:00 CDT, Stop date: 11/30/20 5:08:00 CDT glyBURIDE Yes Type 2 TAKE 1 Tere is (DIABETA) 5 7-09 diabetes TABLET BY [facility] mg tablet 00:00: mellitus MOUTH 00 without TWICE A complicatio DAY WITH n, with MEALS. long-term current use of insulin pregabalin Yes DM type 2, 150mg Q.5D Take 1 Maddox (LYRICA) 11-27 uncontrolle capsule by [facility] 150 mg 00:00: d, with mouth 2 capsule 00 neuropathy times daily glyBURIDE Yes Type 2 TAKE 1 Tere is (DIABETA) 5 7-09 diabetes TABLET BY Health mg tablet 00:00: mellitus MOUTH 00 without TWICE A complicatio DAY WITH n, with MEALS. long-term current use of insulin pregabalin Yes DM type 2, 150mg Q.5D Take 1 [facility]ox (LYRICA) 11-27 uncontrolle capsule by Health 150 mg 00:00: d, with mouth 2 capsule 00 neuropathy times daily glyBURIDE Yes Type 2 TAKE 1 Tere is (DIABETA) 5 11-27 diabetes TABLET BY Health mg tablet 00:00: mellitus MOUTH 00 without TWICE A complicatio DAY WITH n, with MEALS. long-term current use of insulin pregabalin Yes DM type 2, 150mg Q.5D Take 1 [facility]ox (LYRICA) 11-27 uncontrolle capsule by Health 150 mg 00:00: d, with mouth 2 capsule 00 neuropathy times daily glyBURIDE 2021- No Type 2 TAKE 1 Bruce ris (DIABETA) 5 11-27 11-15 diabetes TABLET BY Health mg tablet 00:00: 00:00 mellitus MOUTH 00 :00 without TWICE A complicatio DAY WITH n, with MEALS. long-term current use of insulin pregabalin 2021- No DM type 2, 150mg Q.5D Take 1 [facility]ox (LYRICA) 11-27 06-24 uncontrolle capsule by Health 150 mg 00:00: 00:00 d, with mouth 2 capsule 00 :00 neuropathy times daily Tadalafil 5 Yes Lower TAKE ONE H arris mg tablet 6-16 urinary TABLET BY He alth 00:00: tract MOUTH 00 symptoms DAILY (LUTS) Tadalafil 5 Yes Lower TAKE ONE H arris mg tablet 6-16 urinary TABLET BY He alth 00:00: tract MOUTH 00 symptoms DAILY (LUTS) Tadalafil 5 2020- No Lower TAKE ONE Maddox mg tablet 6-16 10-13 urinary TABLET BY H ealth 00:00: 00:00 tract MOUTH 00 :00 symptoms DAILY (LUTS) fenofibrate Yes Mixed Take 1 Bruce ris (LOFIBRA) 5-27 dyslipidemi tablet by Health 160 mg 00:00: a mouth once tablet 00 daily fenofibrate Yes Mixed Take 1 Bruce ris (LOFIBRA) 10-15 dyslipidemi tablet by Health 160 mg 00:00: a mouth once tablet 00 daily fenofibrate 2021- No Mixed Take 1 Phipps rris (LOFIBRA) 10-15 dyslipidemi tablet by Health 160 mg 00:00: 00:00 a mouth once tablet 00 :00 daily fenofibrate 2021- No Mixed Take 1 Phipps rris (LOFIBRA) 10-15 dyslipidemi tablet by Health 160 mg 00:00: 00:00 a mouth once tablet 00 :00 daily lidocaine 2020- No [id number] 1mL UT (Xylocaine) 10-06 9106 Health 1 % 17:21: 17:21 injection 1 16 :00 mL bupivacaine 2020- No [id number] 1mL UT (Marcaine) 10-06 9106 Health 0.25 % 17:21: 17:21 injection 1 16 :00 mL methylPREDN 2020- No [id number] 40mg UT ISolone 10-06 9106 Health acetate 17:21: 17:21 (DEPO-Medro 16 :00 l) injection 40 mg methylPREDN 2020- No [id number] 40mg 40 mg, UT ISolone 10-06 9106 Intra-jaiden Healt [facility] acetate 17:21: 17:21 cular, (DEPO-Medro 16 :00 Once PRN l) Procedure, injection Starting 40 mg on Mon10/06/20 at 1221, For 1 dose bupivacaine 2020- No [id number] 1mL 1 mL, UT (Marcaine) 10-06 9106 Injection, He alth 0.25 % 17:21: 17:21 Once PRN injection 1 16 :00 Procedure, mL Starting on Mon10/06/20 at 1221, For 1 dose lidocaine 2020- No [id number] 1mL 1 mL, UT (Xylocaine) 10-06 9106 Injection, H ealth 1 % 17:21: 17:21 Once PRN injection 1 16 :00 Procedure, mL Starting on Mon10/06/20 at 1221, For 1 dose Trulicity 3 2020-0 Yes INJECT 3MG UT MG/0.5ML 5-11 (0.5ML) Health solution 00:00: SUBCUTANEO pen-injecto 00 USLY ONCE r A WEEK Trulicity 3 2020-0 Yes INJECT 3MG UT MG/0.5ML 5-11 (0.5ML) Health solution 00:00: SUBCUTANEO pen-injecto 00 USLY ONCE r A WEEK Trulicity 3 0 Yes INJECT 3MG UT MG/0.5ML 5-11 (0.5ML) Health solution 00:00: SUBCUTANEO pen-injecto 00 USLY ONCE r A WEEK Trulicity 3 0 Yes INJECT 3MG UT MG/0.5ML 5-11 (0.5ML) Health solution 00:00: SUBCUTANEO pen-injecto 00 USLY ONCE r A WEEK ulicity 3 0 Yes INJECT 3MG UT MG/0.5ML 5-11 (0.5ML) Health solution 00:00: SUBCUTANEO pen-injecto 00 USLY ONCE r A WEEK ulicity 3 0 Yes INJECT 3MG UT MG/0.5ML 5-11 (0.5ML) Health solution 00:00: SUBCUTANEO pen-injecto 00 USLY ONCE r A WEEK ulicity 3 0 Yes INJECT 3MG UT MG/0.5ML 5-11 (0.5ML) Health solution 00:00: SUBCUTANEO pen-injecto 00 USLY ONCE r A WEEK ulicity 3 0 Yes INJECT 3MG UT MG/0.5ML 5-11 (0.5ML) Health solution 00:00: SUBCUTANEO pen-injecto 00 USLY ONCE r A WEEK ulicity 3 0 Yes INJECT 3MG UT MG/0.5ML 5-11 (0.5ML) Health solution 00:00: SUBCUTANEO pen-injecto 00 USLY ONCE r A WEEK ulicity 3 0 Yes INJECT 3MG UT MG/0.5ML 5-11 (0.5ML) Health solution 00:00: SUBCUTANEO pen-injecto 00 USLY ONCE r A WEEK Trulicity 3 2021-0 Yes INJECT 3MG UT MG/0.5ML 5-11 (0.5ML) Health solution 00:00: SUBCUTANEO pen-injecto 00 USLY ONCE r A WEEK Trulicity 3 2020-0 Yes INJECT 3MG UT MG/0.5ML 5-11 (0.5ML) Health solution 00:00: SUBCUTANEO pen-injecto 00 USLY ONCE r A WEEK Trulicity 3 2020-0 Yes INJECT 3MG UT MG/0.5ML 5-11 (0.5ML) Health solution 00:00: SUBCUTANEO pen-injecto 00 USLY ONCE r A WEEK Trulicity 3 2020-0 Yes INJECT 3MG UT MG/0.5ML 5-11 (0.5ML) Health solution 00:00: SUBCUTANEO pen-injecto 00 USLY ONCE r A WEEK Trulicity 3 0 Yes INJECT 3MG UT MG/0.5ML 5-11 (0.5ML) Health solution 00:00: SUBCUTANEO pen-injecto 00 USLY ONCE r A WEEK Trulicity 3 2020-0 Yes INJECT 3MG UT MG/0.5ML 5-11 (0.5ML) Health solution 00:00: SUBCUTANEO pen-injecto 00 USLY ONCE r A WEEK Trulicity 3 0 Yes INJECT 3MG UT MG/0.5ML 5-11 (0.5ML) Health solution 00:00: SUBCUTANEO pen-injecto 00 USLY ONCE r A WEEK Trulicity 3 2020-0 Yes INJECT 3MG UT MG/0.5ML 5-11 (0.5ML) Health solution 00:00: SUBCUTANEO pen-injecto 00 USLY ONCE r A WEEK Trulicity 3 2020-0 Yes INJECT 3MG UT MG/0.5ML 5-11 (0.5ML) Health solution 00:00: SUBCUTANEO pen-injecto 00 USLY ONCE r A WEEK Trulicity 3 0 Yes INJECT 3MG UT MG/0.5ML 5-11 (0.5ML) Health solution 00:00: SUBCUTANEO pen-injecto 00 USLY ONCE r A WEEK Trulicity 3 2020-0 Yes INJECT 3MG UT MG/0.5ML 5-11 (0.5ML) Health solution 00:00: SUBCUTANEO pen-injecto 00 USLY ONCE r A WEEK Trulicity 3 2020-0 Yes INJECT 3MG UT MG/0.5ML 5-11 (0.5ML) Health solution 00:00: SUBCUTANEO pen-injecto 00 USLY ONCE r A WEEK Trulicity 3 2020-0 Yes INJECT 3MG UT MG/0.5ML 5-11 (0.5ML) Health solution 00:00: SUBCUTANEO pen-injecto 00 USLY ONCE r A WEEK Trulicity 3 0 Yes INJECT 3MG UT MG/0.5ML 5-11 (0.5ML) Health solution 00:00: SUBCUTANEO pen-injecto 00 USLY ONCE r A WEEK Trulicity 3 Yes INJECT 3MG UT MG/0.5ML 5-11 (0.5ML) Health solution 00:00: SUBCUTANEO pen-injecto 00 USLY ONCE r A WEEK metoprolol 0 Yes 50mg QD Take 50 mg U T succinate 5-10 by mouth 1 Heal th XL 00:00: (one) time (Toprol-XL) 00 each day. 50 MG 24 hr tablet rosuvastati 0 Yes 40mg QD Take 40 mg UT n (Crestor) 5-10 by mouth 1 He alth 40 MG 00:00: (one) time tablet 00 each day. Synjardy XR Yes 2{tbl} QD Take 2 UT 12.5-1000 5-10 tablets by Heal th MG 24 hr 00:00: mouth 1 tablet 00 (one) time each day. metoprolol 0 Yes 50mg QD Take 50 mg U T succinate 5-10 by mouth 1 Heal th XL 00:00: (one) time (Toprol-XL) 00 each day. 50 MG 24 hr tablet rosuvastati 2020-0 Yes 40mg QD Take 40 mg UT n (Crestor) 5-10 by mouth 1 He alth 40 MG 00:00: (one) time tablet 00 each day. Synjardy XR 2020-0 Yes 2{tbl} QD Take 2 UT 12.5-1000 5-10 tablets by Heal th MG 24 hr 00:00: mouth 1 tablet 00 (one) time each day. metoprolol 2021-0 Yes 50mg QD Take 50 mg U T succinate 5-10 by mouth 1 Heal th XL 00:00: (one) time (Toprol-XL) 00 each day. 50 MG 24 hr tablet rosuvastati 2021-0 Yes 40mg QD Take 40 mg UT n (Crestor) 5-10 by mouth 1 He alth 40 MG 00:00: (one) time tablet 00 each day. Synjardy XR 2021-0 Yes 2{tbl} QD Take 2 UT 12.5-1000 5-10 tablets by Heal th MG 24 hr 00:00: mouth 1 tablet 00 (one) time each day. metoprolol 2021-0 Yes 50mg QD Take 50 mg U T succinate 5-10 by mouth 1 Heal th XL 00:00: (one) time (Toprol-XL) 00 each day. 50 MG 24 hr tablet rosuvastati 2021-0 Yes 40mg QD Take 40 mg UT n (Crestor) 5-10 by mouth 1 He alth 40 MG 00:00: (one) time tablet 00 each day. Synjardy XR 2021-0 Yes 2{tbl} QD Take 2 UT 12.5-1000 5-10 tablets by Heal th MG 24 hr 00:00: mouth 1 tablet 00 (one) time each day. metoprolol 2021-0 Yes 50mg QD Take 50 mg U T succinate 5-10 by mouth 1 Heal th XL 00:00: (one) time (Toprol-XL) 00 each day. 50 MG 24 hr tablet rosuvastati 2021-0 Yes 40mg QD Take 40 mg UT n (Crestor) 5-10 by mouth 1 He alth 40 MG 00:00: (one) time tablet 00 each day. Synjardy XR 2021-0 Yes 2{tbl} QD Take 2 UT 12.5-1000 5-10 tablets by Heal th MG 24 hr 00:00: mouth 1 tablet 00 (one) time each day. metoprolol 2021-0 Yes 50mg QD Take 50 mg U T succinate 5-10 by mouth 1 Heal th XL 00:00: (one) time (Toprol-XL) 00 each day. 50 MG 24 hr tablet rosuvastati 2021-0 Yes 40mg QD Take 40 mg UT n (Crestor) 5-10 by mouth 1 He alth 40 MG 00:00: (one) time tablet 00 each day. Synjardy XR 2021-0 Yes 2{tbl} QD Take 2 UT 12.5-1000 5-10 tablets by Heal th MG 24 hr 00:00: mouth 1 tablet 00 (one) time each day. metoprolol 2021-0 Yes 50mg QD Take 50 mg U T succinate 5-10 by mouth 1 Heal th XL 00:00: (one) time (Toprol-XL) 00 each day. 50 MG 24 hr tablet rosuvastati 2021-0 Yes 40mg QD Take 40 mg UT n (Crestor) 5-10 by mouth 1 He alth 40 MG 00:00: (one) time tablet 00 each day. Synjardy XR 2021-0 Yes 2{tbl} QD Take 2 UT 12.5-1000 5-10 tablets by Heal th MG 24 hr 00:00: mouth 1 tablet 00 (one) time each day. metoprolol 2021-0 Yes 50mg QD Take 50 mg U T succinate 5-10 by mouth 1 Heal th XL 00:00: (one) time (Toprol-XL) 00 each day. 50 MG 24 hr tablet rosuvastati 2021-0 Yes 40mg QD Take 40 mg UT n (Crestor) 5-10 by mouth 1 He alth 40 MG 00:00: (one) time tablet 00 each day. Synjardy XR 2021-0 Yes 2{tbl} QD Take 2 UT 12.5-1000 5-10 tablets by Heal th MG 24 hr 00:00: mouth 1 tablet 00 (one) time each day. metoprolol 2021-0 Yes 50mg QD Take 50 mg U T succinate 5-10 by mouth 1 Heal th XL 00:00: (one) time (Toprol-XL) 00 each day. 50 MG 24 hr tablet rosuvastati 2021-0 Yes 40mg QD Take 40 mg UT n (Crestor) 5-10 by mouth 1 He alth 40 MG 00:00: (one) time tablet 00 each day. Synjardy XR 2021-0 Yes 2{tbl} QD Take 2 UT 12.5-1000 5-10 tablets by Heal th MG 24 hr 00:00: mouth 1 tablet 00 (one) time each day. Synjardy XR 2021-0 Yes 2{tbl} QD Take 2 UT 12.5-1000 5-10 tablets by [facility]al th MG 24 hr 00:00: mouth 1 tablet 00 (one) time each day. metoprolol 2021-0 Yes 50mg QD Take 50 mg U T succinate 5-10 by mouth 1 Heal th XL 00:00: (one) time (Toprol-XL) 00 each day. 50 MG 24 hr tablet rosuvastati 2021-0 Yes 40mg QD Take 40 mg UT n (Crestor) 5-10 by mouth 1 He alth 40 MG 00:00: (one) time tablet 00 each day. Synjardy XR 2021-0 Yes 2{tbl} QD Take 2 UT 12.5-1000 5-10 tablets by Heal th MG 24 hr 00:00: mouth 1 tablet 00 (one) time each day. metoprolol 2021-0 Yes 50mg QD Take 50 mg U T succinate 5-10 by mouth 1 Heal th XL 00:00: (one) time (Toprol-XL) 00 each day. 50 MG 24 hr tablet rosuvastati 2021-0 Yes 40mg QD Take 40 mg UT n (Crestor) 5-10 by mouth 1 He alth 40 MG 00:00: (one) time tablet 00 each day. Synjardy XR 2021-0 Yes 2{tbl} QD Take 2 UT 12.5-1000 5-10 tablets by Heal th MG 24 hr 00:00: mouth 1 tablet 00 (one) time each day. metoprolol 2021-0 Yes 50mg QD Take 50 mg U T succinate 5-10 by mouth 1 Heal th XL 00:00: (one) time (Toprol-XL) 00 each day. 50 MG 24 hr tablet rosuvastati 2021-0 Yes 40mg QD Take 40 mg UT n (Crestor) 5-10 by mouth 1 He alth 40 MG 00:00: (one) time tablet 00 each day. Synjardy XR 2021-0 Yes 2{tbl} QD Take 2 UT 12.5-1000 5-10 tablets by Heal th MG 24 hr 00:00: mouth 1 tablet 00 (one) time each day. metoprolol 2021-0 Yes 50mg QD Take 50 mg U T succinate 5-10 by mouth 1 Heal th XL 00:00: (one) time (Toprol-XL) 00 each day. 50 MG 24 hr tablet rosuvastati 2021-0 Yes 40mg QD Take 40 mg UT n (Crestor) 5-10 by mouth 1 He alth 40 MG 00:00: (one) time tablet 00 each day. metoprolol 2021-0 Yes 50mg QD Take 50 mg U T succinate 5-10 by mouth 1 Heal th XL 00:00: (one) time (Toprol-XL) 00 each day. 50 MG 24 hr tablet Synjardy XR 2021-0 Yes 2{tbl} QD Take 2 UT 12.5-1000 5-10 tablets by Heal th MG 24 hr 00:00: mouth 1 tablet 00 (one) time each day. metoprolol 1-0 Yes 50mg QD Take 50 mg U T succinate 5-10 by mouth 1 Heal th XL 00:00: (one) time (Toprol-XL) 00 each day. 50 MG 24 hr tablet rosuvastati 2021-0 Yes 40mg QD Take 40 mg UT n (Crestor) 5-10 by mouth 1 He alth 40 MG 00:00: (one) time tablet 00 each day. rosuvastati 1-0 Yes 40mg QD Take 40 mg UT n (Crestor) 5-10 by mouth 1 He alth 40 MG 00:00: (one) time tablet 00 each day. Synjardy XR 1-0 Yes 2{tbl} QD Take 2 UT 12.5-1000 5-10 tablets by Heal th MG 24 hr 00:00: mouth 1 tablet 00 (one) time each day. metoprolol 1-0 Yes 50mg QD Take 50 mg U T succinate 5-10 by mouth 1 Heal th XL 00:00: (one) time (Toprol-XL) 00 each day. 50 MG 24 hr tablet rosuvastati 2021-0 Yes 40mg QD Take 40 mg UT n (Crestor) 5-10 by mouth 1 He alth 40 MG 00:00: (one) time tablet 00 each day. Synjardy XR 2021-0 Yes 2{tbl} QD Take 2 UT 12.5-1000 5-10 tablets by Heal th MG 24 hr 00:00: mouth 1 tablet 00 (one) time each day. metoprolol 2021-0 Yes 50mg QD Take 50 mg U T succinate 5-10 by mouth 1 Heal th XL 00:00: (one) time (Toprol-XL) 00 each day. 50 MG 24 hr tablet rosuvastati 2021-0 Yes 40mg QD Take 40 mg UT n (Crestor) 5-10 by mouth 1 He alth 40 MG 00:00: (one) time tablet 00 each day. Synjardy XR 2021-0 Yes 2{tbl} QD Take 2 UT 12.5-1000 5-10 tablets by Heal th MG 24 hr 00:00: mouth 1 tablet 00 (one) time each day. metoprolol 2021-0 Yes 50mg QD Take 50 mg U T succinate 5-10 by mouth 1 Heal th XL 00:00: (one) time (Toprol-XL) 00 each day. 50 MG 24 hr tablet rosuvastati 2021-0 Yes 40mg QD Take 40 mg UT n (Crestor) 5-10 by mouth 1 He alth 40 MG 00:00: (one) time tablet 00 each day. Synjardy XR 2021-0 Yes 2{tbl} QD Take 2 UT 12.5-1000 5-10 tablets by Heal th MG 24 hr 00:00: mouth 1 tablet 00 (one) time each day. Synjardy XR 2021-0 Yes 2{tbl} QD Take 2 UT 12.5-1000 5-10 tablets by Heal th MG 24 hr 00:00: mouth 1 tablet 00 (one) time each day. metoprolol 2021-0 Yes 50mg QD Take 50 mg U T succinate 5-10 by mouth 1 Heal th XL 00:00: (one) time (Toprol-XL) 00 each day. 50 MG 24 hr tablet rosuvastati 2021-0 Yes 40mg QD Take 40 mg UT n (Crestor) 5-10 by mouth 1 He alth 40 MG 00:00: (one) time tablet 00 each day. Synjardy XR 2021-0 Yes 2{tbl} QD Take 2 UT 12.5-1000 5-10 tablets by Heal th MG 24 hr 00:00: mouth 1 tablet 00 (one) time each day. metoprolol 2021-0 Yes 50mg QD Take 50 mg U T succinate 5-10 by mouth 1 Heal th XL 00:00: (one) time (Toprol-XL) 00 each day. 50 MG 24 hr tablet rosuvastati 2021-0 Yes 40mg QD Take 40 mg UT n (Crestor) 5-10 by mouth 1 He alth 40 MG 00:00: (one) time tablet 00 each day. Synjardy XR 2021-0 Yes 2{tbl} QD Take 2 UT 12.5-1000 5-10 tablets by Heal th MG 24 hr 00:00: mouth 1 tablet 00 (one) time each day. metoprolol 2021-0 Yes 50mg QD Take 50 mg U T succinate 5-10 by mouth 1 Heal th XL 00:00: (one) time (Toprol-XL) 00 each day. 50 MG 24 hr tablet rosuvastati 2021-0 Yes 40mg QD Take 40 mg UT n (Crestor) 5-10 by mouth 1 He alth 40 MG 00:00: (one) time tablet 00 each day. Synjardy XR 2021-0 Yes 2{tbl} QD Take 2 UT 12.5-1000 5-10 tablets by [facility] MG 24 hr 00:00: mouth 1 tablet 00 (one) time each day. metoprolol 2021-0 Yes 50mg QD Take 50 mg U T succinate 5-10 by mouth 1 [facility] XL 00:00: (one) time (Toprol-XL) 00 each day. 50 MG 24 hr tablet rosuvastati 2021-0 Yes 40mg QD Take 40 mg UT n (Crestor) 5-10 by mouth 1 He alth 40 MG 00:00: (one) time tablet 00 each day. Synjardy XR 2021-0 Yes 2{tbl} QD Take 2 UT 12.5-1000 5-10 tablets by [facility] MG 24 hr 00:00: mouth 1 tablet 00 (one) time each day. metoprolol 2021-0 Yes 50mg QD Take 50 mg U T succinate 5-10 by mouth 1 [facility] XL 00:00: (one) time (Toprol-XL) 00 each day. 50 MG 24 hr tablet rosuvastati 2021-0 Yes 40mg QD Take 40 mg UT n (Crestor) 5-10 by mouth 1 He alth 40 MG 00:00: (one) time tablet 00 each day. Synjardy XR 2021-0 Yes 2{tbl} QD Take 2 UT 12.5-1000 5-10 tablets by [facility] MG 24 hr 00:00: mouth 1 tablet 00 (one) time each day. metoprolol 2021-0 Yes 50mg QD Take 50 mg U T succinate 5-10 by mouth 1 [facility] XL 00:00: (one) time (Toprol-XL) 00 each day. 50 MG 24 hr tablet rosuvastati 2021-0 Yes 40mg QD Take 40 mg UT n (Crestor) 5-10 by mouth 1 He alth 40 MG 00:00: (one) time tablet 00 each day. Synjardy XR 2021-0 Yes 2{tbl} QD Take 2 UT 12.5-1000 5-10 tablets by [facility] MG 24 hr 00:00: mouth 1 tablet 00 (one) time each day. metoprolol 2021-0 Yes 50mg QD Take 50 mg U T succinate 5-10 by mouth 1 [facility] XL 00:00: (one) time (Toprol-XL) 00 each day. 50 MG 24 hr tablet rosuvastati 1-0 Yes 40mg QD Take 40 mg UT n (Crestor) 5-10 by mouth 1 He alth 40 MG 00:00: (one) time tablet 00 each day. celecoxib 2021-0 Yes 200mg Q.5D Take 200 [facility] (CeleBREX) 5-07 mg by Health 200 MG 11:33: mouth 2 capsule 23 (two) times a day. celecoxib 2021-0 Yes 200mg Q.5D Take 200 [facility] (CeleBREX) 5-07 mg by Health 200 MG 11:33: mouth 2 capsule 23 (two) times a day. celecoxib 2021-0 Yes 200mg Q.5D Take 200 [facility] (CeleBREX) 5-07 mg by Health 200 MG 11:33: mouth 2 capsule 23 (two) times a day. celecoxib 2021-0 Yes 200mg Q.5D Take 200 [facility] (CeleBREX) 5-07 mg by Health 200 MG 11:33: mouth 2 capsule 23 (two) times a day. celecoxib 2021-0 Yes 200mg Q.5D Take 200 [facility] (CeleBREX) 5-07 mg by Health 200 MG 06:33: mouth 2 capsule 23 (two) times a day. celecoxib 2021-0 Yes 200mg Q.5D Take 200 [facility] (CeleBREX) 5-07 mg by Health 200 MG 06:33: mouth 2 capsule 23 (two) times a day. celecoxib 2021-0 Yes 200mg Q.5D Take 200 [facility] (CeleBREX) 5-07 mg by Health 200 MG 06:33: mouth 2 capsule 23 (two) times a day. celecoxib 2021-0 Yes 200mg Q.5D Take 200 [facility] (CeleBREX) 5-07 mg by Health 200 MG 06:33: mouth 2 capsule 23 (two) times a day. celecoxib 2021-0 Yes 200mg Q.5D Take 200 [facility] (CeleBREX) 5-07 mg by Health 200 MG 06:33: mouth 2 capsule 23 (two) times a day. celecoxib 2021-0 Yes 200mg Q.5D Take 200 [facility] (CeleBREX) 5-07 mg by Health 200 MG 06:33: mouth 2 capsule 23 (two) times a day. celecoxib 1-0 Yes 200mg Q.5D Take 200 [facility] (CeleBREX) 5-07 mg by Health 200 MG 06:33: mouth 2 capsule 23 (two) times a day. celecoxib 1-0 Yes 200mg Q.5D Take 200 [facility] (CeleBREX) 5-07 mg by Health 200 MG 06:33: mouth 2 capsule 23 (two) times a day. celecoxib 1-0 Yes 200mg Q.5D Take 200 [facility] (CeleBREX) 5-07 mg by Health 200 MG 06:33: mouth 2 capsule 23 (two) times a day. celecoxib 2021-0 Yes 200mg Q.5D Take 200 [facility] (CeleBREX) 5-07 mg by Health 200 MG 06:33: mouth 2 capsule 23 (two) times a day. celecoxib 2021-0 Yes 200mg Q.5D Take 200 [facility] (CeleBREX) 5-07 mg by Health 200 MG 06:33: mouth 2 capsule 23 (two) times a day. celecoxib 2021-0 Yes 200mg Q.5D Take 200 [facility] (CeleBREX) 5-07 mg by Health 200 MG 06:33: mouth 2 capsule 23 (two) times a day. celecoxib 2021-0 Yes 200mg Q.5D Take 200 [facility] (CeleBREX) 5-07 mg by Health 200 MG 06:33: mouth 2 capsule 23 (two) times a day. celecoxib 2021-0 Yes 200mg Q.5D Take 200 [facility] (CeleBREX) 5-07 mg by [facility] 200 MG 06:33: mouth 2 capsule 23 (two) times a day. celecoxib 2021-0 Yes 200mg Q.5D Take 200 [facility] (CeleBREX) 5-07 mg by [facility] 200 MG 06:33: mouth 2 capsule 23 (two) times a day. celecoxib 2021-0 Yes 200mg Q.5D Take 200 [facility] (CeleBREX) 5-07 mg by [facility] 200 MG 06:33: mouth 2 capsule 23 (two) times a day. celecoxib 2021-0 Yes 200mg Q.5D Take 200 [facility] (CeleBREX) 5-07 mg by [facility] 200 MG 06:33: mouth 2 capsule 23 (two) times a day. celecoxib 1-0 Yes 200mg Q.5D Take 200 [facility] (CeleBREX) 5-07 mg by [facility] 200 MG 06:33: mouth 2 capsule 23 (two) times a day. celecoxib 1-0 Yes 200mg Q.5D Take 200 [facility] (CeleBREX) 5-07 mg by Health 200 MG 06:33: mouth 2 capsule 23 (two) times a day. celecoxib 2020-0 Yes 200mg Q.5D Take 200 [facility] (CeleBREX) 5-07 mg by [facility] 200 MG 06:33: mouth 2 capsule 23 (two) times a day. celecoxib 2020-0 Yes 200mg Q.5D Take 200 [facility] (CeleBREX) 5-07 mg by [facility] 200 MG 06:33: mouth 2 capsule 23 (two) times a day. Tresiba 0 Yes INJECT 80 [facility] FlexTouch 4-13 UNITS Health 200 UNIT/ML 00:00: SUBCUTANEO injection 00 USLY ONCE DAILY Tresiba 2020-0 Yes INJECT 80 [facility] FlexTouch 4-13 UNITS [facility] 200 UNIT/ML 00:00: SUBCUTANEO injection 00 USLY ONCE DAILY Tresiba 2020-0 Yes INJECT 80 [facility] FlexTouch 4-13 UNITS [facility] 200 UNIT/ML 00:00: SUBCUTANEO injection 00 USLY ONCE DAILY Tresiba 2020-0 Yes INJECT 80 [facility] FlexTouch 4-13 UNITS [facility] 200 UNIT/ML 00:00: SUBCUTANEO injection 00 USLY ONCE DAILY Tresiba 2020-0 Yes INJECT 80 [facility] FlexTouch 4-13 UNITS [facility] 200 UNIT/ML 00:00: SUBCUTANEO injection 00 USLY ONCE DAILY Tresiba 0 Yes INJECT 80 [facility] FlexTouch 4-13 UNITS [facility] 200 UNIT/ML 00:00: SUBCUTANEO injection 00 USLY ONCE DAILY Tresiba 0 Yes INJECT 80 [facility] FlexTouch 4-13 UNITS [facility] 200 UNIT/ML 00:00: SUBCUTANEO injection 00 USLY ONCE DAILY Tresiba 0 Yes INJECT 80 [facility] FlexTouch 4-13 UNITS [facility] 200 UNIT/ML 00:00: SUBCUTANEO injection 00 USLY ONCE DAILY Tresiba 0 Yes INJECT 80 [facility] FlexTouch 4-13 UNITS [facility] 200 UNIT/ML 00:00: SUBCUTANEO injection 00 USLY ONCE DAILY Tresiba 0 Yes INJECT 80 [facility] FlexTouch 4-13 UNITS [facility] 200 UNIT/ML 00:00: SUBCUTANEO injection 00 USLY ONCE DAILY Tresiba 0 Yes INJECT 80 [facility] FlexTouch 4-13 UNITS [facility] 200 UNIT/ML 00:00: SUBCUTANEO injection 00 USLY ONCE DAILY Tresiba 0 Yes INJECT 80 [facility] FlexTouch 4-13 UNITS [facility] 200 UNIT/ML 00:00: SUBCUTANEO injection 00 USLY ONCE DAILY T[place]iba 0 Yes INJECT 80 [facility] FlexTouch 4-13 UNITS [facility] 200 UNIT/ML 00:00: SUBCUTANEO injection 00 USLY ONCE DAILY T[place]iba 0 Yes INJECT 80 [facility] FlexTouch 4-13 UNITS [facility] 200 UNIT/ML 00:00: SUBCUTANEO injection 00 USLY ONCE DAILY Tresiba 0 Yes INJECT 80 [facility] FlexTouch 4-13 UNITS [facility] 200 UNIT/ML 00:00: SUBCUTANEO injection 00 USLY ONCE DAILY Tresiba 0 Yes INJECT 80 [facility] FlexTouch 4-13 UNITS [facility] 200 UNIT/ML 00:00: SUBCUTANEO injection 00 USLY ONCE DAILY Tresiba 0 Yes INJECT 80 [facility] FlexTouch 4-13 UNITS [facility] 200 UNIT/ML 00:00: SUBCUTANEO injection 00 USLY ONCE DAILY Tresiba 0 Yes INJECT 80 [facility] FlexTouch 4-13 UNITS [facility] 200 UNIT/ML 00:00: SUBCUTANEO injection 00 USLY ONCE DAILY T[place]iba 2021-0 Yes INJECT 80 [facility] FlexTouch 4-13 UNITS [facility] 200 UNIT/ML 00:00: SUBCUTANEO injection 00 USLY ONCE DAILY [place] Yes INJECT 80 [facility] FlexTouch 4-13 UNITS [facility] 200 UNIT/ML 00:00: SUBCUTANEO injection 00 USLY ONCE DAILY [place] Yes INJECT 80 [facility] FlexTouch 4-13 UNITS [facility] 200 UNIT/ML 00:00: SUBCUTANEO injection 00 USLY ONCE DAILY T[place] Yes INJECT 80 [facility] FlexTouch 4-13 UNITS [facility] 200 UNIT/ML 00:00: SUBCUTANEO injection 00 USLY ONCE DAILY [place] Yes INJECT 80 [facility] FlexTouch 4-13 UNITS [facility] 200 UNIT/ML 00:00: SUBCUTANEO injection 00 USLY ONCE DAILY [place] Yes INJECT 80 [facility] FlexTouch 4-13 UNITS [facility] 200 UNIT/ML 00:00: SUBCUTANEO injection 00 USLY ONCE DAILY [place] Yes INJECT 80 [facility] FlexTouch 4-13 UNITS [facility] 200 UNIT/ML 00:00: SUBCUTANEO injection 00 USLY ONCE DAILY glyBURIDE 2020- No Type 2 TAKE 1 Bruce ris (DIABETA) 5 08-26 diabetes TABLET BY Health mg tablet 00:00: 00:00 mellitus MOUTH 00 :00 without TWICE A complicatio DAY WITH n, with MEALS long-term current use of insulin glyBURIDE 2020- No Type 2 TAKE 1 Bruce ris (DIABETA) 5 08-26 diabetes TABLET BY Health mg tablet 00:00: 00:00 mellitus MOUTH 00 :00 without TWICE A complicatio DAY WITH n, with MEALS long-term current use of insulin glyBURIDE 2020- No Type 2 TAKE 1 Bruce ris (DIABETA) 5 08-26- diabetes TABLET BY Health mg tablet 00:00: 00:00 mellitus MOUTH 00 :00 without TWICE A complicatio DAY WITH n, with MEALS long-term current use of insulin insulin Yes 80U QD Inject 80 [facility] degludec 3-30 Units Health (Tres[place] 00:00: under the FlexTouch) 00 skin 1 100 UNIT/ML (one) time injection each day. losartan 2021-0 Yes 100mg QD Take 100 [facility] (Cozaar) 3-30 mg by Health 100 MG 00:00: mouth 1 tablet 00 (one) time each day. gabapentin 2021-0 Yes 1200mg Take 1,200 [facility] (Neurontin) 3-30 mg by Health 600 MG 00:00: mouth. tablet 00 insulin 2021-0 Yes 80U QD Inject 80 [facility] degludec 3-30 Units [facility] ([place] 00:00: under the FlexTouch) 00 skin 1 100 UNIT/ML (one) time injection each day. losartan 2021-0 Yes 100mg QD Take 100 [facility] (Cozaar) 3-30 mg by Health 100 MG 00:00: mouth 1 tablet 00 (one) time each day. gabapentin 202-0 Yes 1200mg Take 1,200 [facility] (Neurontin) 3-30 mg by Health 600 MG 00:00: mouth. tablet 00 insulin 2020-0 Yes 80U QD Inject 80 [facility] degludec 3-30 Units [facility] ([place] 00:00: under the FlexTouch) 00 skin 1 100 UNIT/ML (one) time injection each day. losartan 2021-0 Yes 100mg QD Take 100 [facility] (Cozaar) 3-30 mg by Health 100 MG 00:00: mouth 1 tablet 00 (one) time each day. gabapentin 2020-0 Yes 1200mg Take 1,200 [facility] (Neurontin) 3-30 mg by Health 600 MG 00:00: mouth. tablet 00 insulin 2021-0 Yes 80U QD Inject 80 [facility] degludec 3-30 Units [facility] ([place] 00:00: under the FlexTouch) 00 skin 1 100 UNIT/ML (one) time injection each day. losartan 2021-0 Yes 100mg QD Take 100 [facility] (Cozaar) 3-30 mg by Health 100 MG 00:00: mouth 1 tablet 00 (one) time each day. gabapentin 2021-0 Yes 1200mg Take 1,200 [facility] (Neurontin) 3-30 mg by [facility] 600 MG 00:00: mouth. tablet 00 insulin 2021-0 Yes 80U QD Inject 80 [facility] degludec 3-30 Units [facility] ([place] 00:00: under the FlexTouch) 00 skin 1 100 UNIT/ML (one) time injection each day. losartan 2021-0 Yes 100mg QD Take 100 [facility] (Cozaar) 3-30 mg by [facility] 100 MG 00:00: mouth 1 tablet 00 (one) time each day. gabapentin 2020-0 Yes 1200mg Take 1,200 [facility] (Neurontin) 3-30 mg by Health 600 MG 00:00: mouth. tablet 00 insulin 2020-0 Yes 80U QD Inject 80 [facility] degludec 3-30 Units [facility] ([place] 00:00: under the FlexTouch) 00 skin 1 100 UNIT/ML (one) time injection each day. losartan 202-0 Yes 100mg QD Take 100 [facility] (Cozaar) 3-30 mg by Health 100 MG 00:00: mouth 1 tablet 00 (one) time each day. gabapentin 2020-0 Yes 1200mg Take 1,200 [facility] (Neurontin) 3-30 mg by Health 600 MG 00:00: mouth. tablet 00 insulin 2020-0 Yes 80U QD Inject 80 [facility] degludec 3-30 Units [facility] ([place] 00:00: under the FlexTouch) 00 skin 1 100 UNIT/ML (one) time injection each day. losartan 2020-0 Yes 100mg QD Take 100 [facility] (Cozaar) 3-30 mg by Health 100 MG 00:00: mouth 1 tablet 00 (one) time each day. gabapentin 2020-0 Yes 1200mg Take 1,200 [facility] (Neurontin) 3-30 mg by Health 600 MG 00:00: mouth. tablet 00 insulin 2020-0 Yes 80U QD Inject 80 [facility] degludec 3-30 Units [facility] ([place] 00:00: under the FlexTouch) 00 skin 1 100 UNIT/ML (one) time injection each day. losartan 2020-0 Yes 100mg QD Take 100 [facility] (Cozaar) 3-30 mg by Health 100 MG 00:00: mouth 1 tablet 00 (one) time each day. gabapentin 2020-0 Yes 1200mg Take 1,200 [facility] (Neurontin) 3-30 mg by Health 600 MG 00:00: mouth. tablet 00 insulin 2020-0 Yes 80U QD Inject 80 [facility] degludec 3-30 Units [facility] ([place] 00:00: under the FlexTouch) 00 skin 1 100 UNIT/ML (one) time injection each day. losartan 2021-0 Yes 100mg QD Take 100 [facility] (Cozaar) 3-30 mg by Health 100 MG 00:00: mouth 1 tablet 00 (one) time each day. gabapentin 2021-0 Yes 1200mg Take 1,200 [facility] (Neurontin) 3-30 mg by Health 600 MG 00:00: mouth. tablet 00 insulin 2021-0 Yes 80U QD Inject 80 [facility] degludec 3-30 Units [facility] ([place] 00:00: under the FlexTouch) 00 skin 1 100 UNIT/ML (one) time injection each day. losartan 2021-0 Yes 100mg QD Take 100 [facility] (Cozaar) 3-30 mg by Health 100 MG 00:00: mouth 1 tablet 00 (one) time each day. gabapentin 2021-0 Yes 1200mg Take 1,200 [facility] (Neurontin) 3-30 mg by Health 600 MG 00:00: mouth. tablet 00 gabapentin 2021-0 Yes 1200mg Take 1,200 [facility] (Neurontin) 3-30 mg by Health 600 MG 00:00: mouth. tablet 00 insulin 2021-0 Yes 80U QD Inject 80 [facility] degludec 3-30 Units [facility] ([place] 00:00: under the FlexTouch) 00 skin 1 100 UNIT/ML (one) time injection each day. losartan 2021-0 Yes 100mg QD Take 100 [facility] (Cozaar) 3-30 mg by Health 100 MG 00:00: mouth 1 tablet 00 (one) time each day. insulin 2021-0 Yes 80U QD Inject 80 [facility] degludec 3-30 Units [facility] ([place] 00:00: under the FlexTouch) 00 skin 1 100 UNIT/ML (one) time injection each day. gabapentin 2021-0 Yes 1200mg Take 1,200 [facility] (Neurontin) 3-30 mg by Health 600 MG 00:00: mouth. tablet 00 insulin 2021-0 Yes 80U QD Inject 80 [facility] degludec 3-30 Units [facility] ([place] 00:00: under the FlexTouch) 00 skin 1 100 UNIT/ML (one) time injection each day. losartan 2021-0 Yes 100mg QD Take 100 [facility] (Cozaar) 3-30 mg by Health 100 MG 00:00: mouth 1 tablet 00 (one) time each day. gabapentin 2021-0 Yes 1200mg Take 1,200 [facility] (Neurontin) 3-30 mg by Health 600 MG 00:00: mouth. tablet 00 losartan 2020-0 Yes 100mg QD Take 100 [facility] (Cozaar) 3-30 mg by Health 100 MG 00:00: mouth 1 tablet 00 (one) time each day. insulin 2021-0 Yes 80U QD Inject 80 [facility] degludec 3-30 Units [facility] ([place] 00:00: under the FlexTouch) 00 skin 1 100 UNIT/ML (one) time injection each day. losartan 202-0 Yes 100mg QD Take 100 [facility] (Cozaar) 3-30 mg by Health 100 MG 00:00: mouth 1 tablet 00 (one) time each day. gabapentin 2020-0 Yes 1200mg Take 1,200 [facility] (Neurontin) 3-30 mg by Health 600 MG 00:00: mouth. tablet 00 insulin 2020-0 Yes 80U QD Inject 80 [facility] degludec 3-30 Units [facility] ([place] 00:00: under the FlexTouch) 00 skin 1 100 UNIT/ML (one) time injection each day. losartan 2020-0 Yes 100mg QD Take 100 [facility] (Cozaar) 3-30 mg by Health 100 MG 00:00: mouth 1 tablet 00 (one) time each day. gabapentin 2020-0 Yes 1200mg Take 1,200 [facility] (Neurontin) 3-30 mg by Health 600 MG 00:00: mouth. tablet 00 insulin 2020-0 Yes 80U QD Inject 80 [facility] degludec 3-30 Units [facility] ([place] 00:00: under the FlexTouch) 00 skin 1 100 UNIT/ML (one) time injection each day. losartan 1-0 Yes 100mg QD Take 100 [facility] (Cozaar) 3-30 mg by Health 100 MG 00:00: mouth 1 tablet 00 (one) time each day. gabapentin 2020-0 Yes 1200mg Take 1,200 [facility] (Neurontin) 3-30 mg by Health 600 MG 00:00: mouth. tablet 00 insulin 2020-0 Yes 80U QD Inject 80 [facility] degludec 3-30 Units [facility] ([place] 00:00: under the FlexTouch) 00 skin 1 100 UNIT/ML (one) time injection each day. losartan 2021-0 Yes 100mg QD Take 100 [facility] (Cozaar) 3-30 mg by Health 100 MG 00:00: mouth 1 tablet 00 (one) time each day. gabapentin 2020-0 Yes 1200mg Take 1,200 [facility] (Neurontin) 3-30 mg by Health 600 MG 00:00: mouth. tablet 00 insulin 2020-0 Yes 80U QD Inject 80 [facility] degludec 3-30 Units [facility] ([place] 00:00: under the FlexTouch) 00 skin 1 100 UNIT/ML (one) time injection each day. losartan 2020-0 Yes 100mg QD Take 100 [facility] (Cozaar) 3-30 mg by Health 100 MG 00:00: mouth 1 tablet 00 (one) time each day. gabapentin 2020-0 Yes 1200mg Take 1,200 [facility] (Neurontin) 3-30 mg by Health 600 MG 00:00: mouth. tablet 00 losartan 0 Yes Essential 100mg QD Take 1 H arris (COZAAR) 3-30 hypertensio tablet by Health 100 mg 00:00: n, benign mouth tablet 00 daily. gabapentin 2020- Yes Neuropathy 1200mg Take 2 Maddox (NEURONTIN) 3-30 tablets by He alth 600 mg 00:00: mouth 3 tablet 00 times daily. dulaglutide Yes Inject Tere is (TRULICITY) 3-30 under the Hea lt 3 mg/0.5 mL 00:00: skin ONCE PnIj 00 A WEEK. insulin 2020-0 Yes 80U QD Inject 80 Harri s degludec 3-30 Units Health (TRESIBA 00:00: under the FLEXTOUCH 00 skin U-100) 100 daily. unit/mL (3 mL) InPn empaglifloz Yes Take by Bruce gabriel in-metformi 3-30 mouth. Health n 00:00: (SYNJARDY) 00 12.5-1,000 mg Tab losartan 2020-0 Yes Essential 100mg QD Take 1 H arris (COZAAR) 3-30 hypertensio tablet by Health 100 mg 00:00: n, benign mouth tablet 00 daily. gabapentin 2020-0 Yes Neuropathy 1200mg Take 2 Maddox (NEURONTIN) 3-30 tablets by He alth 600 mg 00:00: mouth 3 tablet 00 times daily. dulaglutide 2020- Yes Inject Tere is (TRULICITY) 3-30 under the Hea lth 3 mg/0.5 mL 00:00: skin ONCE PnIj 00 A WEEK. insulin 2020-0 Yes 80U QD Inject 80 Harri s degludec 3-30 Units Health (TRESIBA 00:00: under the FLEXTOUCH 00 skin U-100) 100 daily. unit/mL (3 mL) InPn empaglifloz 2020-0 Yes Take by Bruce ris in-metformi 3-30 mouth. Health n 00:00: (SYNJARDY) 00 12.5-1,000 mg Tab gabapentin 2020-0 Yes 1200mg Take 1,200 [facility] (Neurontin) 3-30 mg by Health 600 MG 00:00: mouth. tablet 00 insulin 2020-0 Yes 80U QD Inject 80 [facility] degludec 3-30 Units [facility] ([place] 00:00: under the FlexTouch) 00 skin 1 100 UNIT/ML (one) time injection each day. losartan 2020-0 Yes 100mg QD Take 100 [facility] (Cozaar) 3-30 mg by Health 100 MG 00:00: mouth 1 tablet 00 (one) time each day. gabapentin 2020-0 Yes 1200mg Take 1,200 [facility] (Neurontin) 3-30 mg by Health 600 MG 00:00: mouth. tablet 00 insulin 2020-0 Yes 80U QD Inject 80 [facility] degludec 3-30 Units [facility] ([place] 00:00: under the FlexTouch) 00 skin 1 100 UNIT/ML (one) time injection each day. losartan 2020-0 Yes 100mg QD Take 100 [facility] (Cozaar) 3-30 mg by Health 100 MG 00:00: mouth 1 tablet 00 (one) time each day. gabapentin 2020-0 Yes 1200mg Take 1,200 [facility] (Neurontin) 3-30 mg by Health 600 MG 00:00: mouth. tablet 00 insulin 2020-0 Yes 80U QD Inject 80 [facility] degludec 3-30 Units [facility] ([place] 00:00: under the FlexTouch) 00 skin 1 100 UNIT/ML (one) time injection each day. losartan 2021-0 Yes 100mg QD Take 100 [facility] (Cozaar) 3-30 mg by Health 100 MG 00:00: mouth 1 tablet 00 (one) time each day. gabapentin 202-0 Yes 1200mg Take 1,200 [facility] (Neurontin) 3-30 mg by Health 600 MG 00:00: mouth. tablet 00 insulin 2020-0 Yes 80U QD Inject 80 [facility] degludec 3-30 Units [facility] ([place] 00:00: under the FlexTouch) 00 skin 1 100 UNIT/ML (one) time injection each day. losartan 2020-0 Yes 100mg QD Take 100 [facility] (Cozaar) 3-30 mg by Health 100 MG 00:00: mouth 1 tablet 00 (one) time each day. gabapentin 2020-0 Yes 1200mg Take 1,200 [facility] (Neurontin) 3-30 mg by Health 600 MG 00:00: mouth. tablet 00 insulin 2020-0 Yes 80U QD Inject 80 [facility] degludec 3-30 Units [facility] ([place] 00:00: under the FlexTouch) 00 skin 1 100 UNIT/ML (one) time injection each day. losartan 2020-0 Yes 100mg QD Take 100 [facility] (Cozaar) 3-30 mg by Health 100 MG 00:00: mouth 1 tablet 00 (one) time each day. gabapentin 2020-0 Yes 1200mg Take 1,200 [facility] (Neurontin) 3-30 mg by Health 600 MG 00:00: mouth. tablet 00 insulin 2020-0 Yes 80U QD Inject 80 [facility] degludec 3-30 Units [facility] ([place] 00:00: under the FlexTouch) 00 skin 1 100 UNIT/ML (one) time injection each day. losartan 2020-0 Yes 100mg QD Take 100 [facility] (Cozaar) 3-30 mg by Health 100 MG 00:00: mouth 1 tablet 00 (one) time each day. gabapentin 2020-0 Yes 1200mg Take 1,200 [facility] (Neurontin) 3-30 mg by Health 600 MG 00:00: mouth. tablet 00 insulin 2020-0 Yes 80U QD Inject 80 [facility] degludec 3-30 Units [facility] ([place] 00:00: under the FlexTouch) 00 skin 1 100 UNIT/ML (one) time injection each day. losartan 2020-0 Yes 100mg QD Take 100 [facility] (Cozaar) 3-30 mg by Health 100 MG 00:00: mouth 1 tablet 00 (one) time each day. gabapentin 2020-0 2021- No Neuropathy 1200mg Take 2 Maddox (NEURONTIN) 3-30 11-30 tablets by ealth 600 mg 00:00: 00:00 mouth 3 tablet 00 :00 times daily. dulaglutide 2020- No Inject Bruce ris (TRULICITY) 08-18 under the He alth 3 mg/0.5 mL 00:00: 00:00 skin ONCE PnIj 00 :00 A WEEK. insulin 2020- No 80U QD Inject 80 Tere is degludec 08-18 Units Health (TRESIBA 00:00: 00:00 under the FLEXTOUCH 00 :00 skin U-100) 100 daily. unit/mL (3 mL) InPn empaglifloz 2020- No Take by Phipps rris in-metformi 08-18 mouth. Healt h n 00:00: 00:00 (SYNJARDY) 00 :00 12.5-1,000 mg Tab losartan 2020- No Essential 100mg QD Take 1 Maddox (COZAAR) 08-18 hypertensio tablet by Health 100 mg 00:00: 00:00 n, benign mouth tablet 00 :00 daily. losartan 2020- No Essential TAKE 1 H arris (COZAAR) 07-21 hypertensio TABLET BY Health 100 mg 00:00: 00:00 n, benign MOUTH tablet 00 :00 EVERY DAY losartan 2020- No Essential TAKE 1 H arris (COZAAR) 07-21 hypertensio TABLET BY Health 100 mg 00:00: 00:00 n, benign MOUTH tablet 00 :00 EVERY DAY losartan 2020- No Essential TAKE 1 H arris (COZAAR) 07-21 hypertensio TABLET BY Health 100 mg 00:00: 00:00 n, benign MOUTH tablet 00 :00 EVERY DAY Dilaudid No Route: IV, Mem oria (ANES) 2-10 Drug form: l 15:32: INJ, ONCE, Stop date: 07/01/20 9:32:00 CNC TECHNICIAN fentaNYL No Route: IV, Mem oria (ANES) 2-10 Drug form: l 15:21: INJ, ONCE, Stop date: 07/01/20 9:21:00 CNC TECHNICIAN Hydralazine No Notes: Jesse elin 2-10 (Same as: l 15:20: Apresoline ) Push over 5 minutes Labetalol No 10 mg, 2 Jesse elin 2-10 mL, Route: l 15:20: IVP, Drug form: INJ, Q5Min, Dosing Weight 123.636, kg, PRN Elevated BP, Start date: 07/01/20 9:20:00 CNC TECHNICIAN, Duration: 5 doses or times, Stop date: Limited # of times, 0 Ketorolac Yes 4 days Memor ia 2-10 l 15:20: MEDICATION WASTE Product Size: 30 mg Product Wasted: ___ mg Acetaminoph No Notes: Jesse elin en 2-10 Infuse l 15:20: over 15 minutes Do not exceed 4gm/day of acetaminop hen MEDICATION WASTE Product Size: 1000 mg Product Wasted: ___ mg Hydromorpho No Notes: Jesse elin ne 2-10 Same as: l 15:20: Dilaudid Flumazenil No Notes: Memor ia 2-10 (Same as: l 15:20: Romazicon) Naloxone No Notes: Memoria 2-10 Same as l 15:20: Narcan Ephedrine No Notes: Memori a 2-10 final l 15:20: concentrat ion 5 mg/mL Albuterol No Notes: SEE Me moria 0.83 MG/ML 2-10 RT l Inhalant 15:20: DOCUMENTAT Her elliott Solution 00 ION (Same as: Proventil) Diphenhydra No Notes: Jesse elin mine 2-10 (Same as: l 15:20: Benadryl) glycopyrron No Notes: Jesse elin ium 2-10 (Same as: l 15:20: Robinul) Meperidine No Notes: Memor ia 2-10 (Same as: l 15:20: Demerol) "Use Precaution in Elderly, Seizure disorders, and Renal impairment " Ondansetron No Notes: Jesse elin 2-10 (Same as: l 15:20: Zofran) MEDICATION WASTE Product Size: 4 mg Product Wasted: ___ mg Promethazin No 6.25 mg, Me moria e 2-10 25 mL, l 15:20: Route: IVPB, Drug form: SOLN, ONCE, Dosing Weight 123.636, kg, PRN Nausea & Vomiting, Start date: 07/01/20 9:20:00 CNC TECHNICIAN, 0 Fentanyl No Notes: Memoria 2-10 (Same as: l 15:20: Sublimaze) Preservati ve free. lidocaine No Route: IV, Me moria (ANES) 2-10 Drug form: l 15:16: INJ, ONCE, Stop date: 07/01/20 9:16:00 CNC TECHNICIAN propofol No Route: IV, Mem oria (ANES) 2-10 Drug form: l 15:16: INJ, ONCE, Stop date: 07/01/20 9:16:00 CNC TECHNICIAN ePHEDrine No Route: IV, Me moria (ANES) 2-10 Drug form: l 15:16: INJ, ONCE, Stop date: 07/01/20 9:16:00 CNC TECHNICIAN ceFAZolin No Route: IV, Me moria (ANES) 2-10 Drug form: l 15:11: INJ, ONCE, Stop date: 07/01/20 9:11:00 CNC TECHNICIAN midazolam No Route: IV, Me moria (ANES) 2-10 Drug form: l 15:06: SOLN, ONCE, Stop date: 07/01/20 9:06:00 CNC TECHNICIAN famotidine No Route: IV, M emoria (ANES) 2-10 Drug form: l 15:06: INJ, ONCE, Stop date: 07/01/20 9:06:00 CNC TECHNICIAN ondansetron No Route: IV, Memoria (ANES) 2-10 Drug form: l 15:06: INJ, ONCE, Stop date: 07/01/20 9:06:00 CNC TECHNICIAN Lactated No Route: IV, Mem oria Ringers 2-10 Total l Injection 14:26: Volume: Nelly nn IV (ANES) 00 1,000, 1000 mL Start date: 07/01/20 8:26:00 CNC TECHNICIAN, Stop date: 07/01/20 9:26:00 CNC TECHNICIAN Calcium No 1,000 mL, Memor ia Chloride 2-10 Rate: 75 l 0.0014 00:28: ml/hr, Scot MEQ/ML / 00 Infuse Potassium over: 13.3 Chloride hr, Route: 0.004 IV, Dosing MEQ/ML / Weight Sodium 123.636 Chloride kg, Total 0.103 Volume: MEQ/ML / 1,000, Sodium Start Lactate date: 0.028 06/30/20 MEQ/ML 18:28:00 Injectable CNC TECHNICIAN, Solution Duration: 30 day, Stop date: 07/30/20 18:27:00 CNC TECHNICIAN, 2.49, m2, 0 Acetaminoph No Notes: Max Memoria en 2-10 acetaminop l 00:28: hen 4000 mg/day (4 gm/day). (Same as: Tylenol Extra Strength) Baclofen No Notes: Memoria 2-10 (Same As: l 00:28: Lioresal) Cefazolin No Notes: Memori a 2-09 (Same As: l 21:00: Ancef, Kefzol) MEDICATION WASTE Product Size: 1000 mg Product Wasted: ___ mg Benadryl Yes 25 mg, PO, Mem oria 2-08 Daily, 0 l 22:52: Refill(s) Zyrtec Yes 10 mg, PO, Memor ia 2-08 Daily, 0 l 22:52: Refill(s) Omeprazole Yes 20 mg, PO, M emoria 2-08 Daily, 0 l 22:52: Refill(s) Aspirin Yes 162 mg, Memoria 2-08 PO, Daily, l 22:51: 0 Carrier 00 Refill(s) 24 HR 0 Yes 1 tab, PO, Memori a empaglifloz 2-08 Daily, 0 l in 12.5 MG 22:50: Refill(s) He rmann / Metformin 00 hydrochlori de 1000 MG Extended Release Oral Tablet [Synjardy] multivitami Yes 1 tab, PO, Memoria n 2-08 Daily, 0 l 22:50: Refill(s) Scot 00 Nitroglycer Yes 0.4 mg = 1 Memoria in 0.4 MG 2-08 tab, SL, l Sublingual 22:49: Q5Min, PRN H ermann Tablet 00 Chest pain, Give up to 3 doses. Call 911 if pain persists., # 100 tab, 0 Refill(s) Tresiba Yes 80 unit, Memori a FlexTouch 2-08 SUB-Q, l 22:49: Daily, 0 Scot 00 Refill(s) Trulicity Yes 3 mg, Memoria Pen 2-08 SUB-Q, l 22:49: qWeek, 0 Scot 00 Refill(s) montelukast Yes 10 mg, PO, Memoria 2-08 Daily, 0 l 22:48: Refill(s) Acetaminoph Yes 1 tab, PO, Memoria en 325 MG / 2-08 Q4H, PRN l butalbital 22:47: Headache, He rmann 50 MG / 00 Not to Caffeine 40 exceed MG Oral more than Tablet 6 tablets in 24 hours, # 60 tab, 0 Refill(s) metoprolol Yes 25 mg = 1 Me moria 25 mg oral 2-08 tab, PO, l tablet, 22:46: Daily, 0 Jose n extended 00 Refill(s) release pregabalin Yes 150 mg, Jesse elin 2-08 PO, Daily, l 22:46: 0 Carrier 00 Refill(s) tadalafil Yes 5 mg, PO, Mem oria 2-08 Daily, 0 l 22:45: Refill(s) rosuvastati Yes 10 mg, PO, Memoria n 2-08 Daily, 0 l 22:45: Refill(s) Scot 00 methocarbam Yes 1,500 mg = Memoria ol 750 mg 2-08 2 tab, PO, l oral tablet 22:44: TID, PRN He rmann 00 Spasm, # 42 tab, 0 Refill(s) Ketoconazol Yes 1 Memori a e 20 MG/ML 2-08 applicatio l Topical 22:44: n, TOP, 0 Nelly nn Cream 00 Refill(s) fenofibrate Yes TAKE 1 UT (Triglide) 1-25 TABLET BY [facility] 160 MG 00:00: MOUTH tablet 00 EVERY DAY fenofibrate Yes TAKE 1 UT (Triglide) 1-25 TABLET BY [facility] 160 MG 00:00: MOUTH tablet 00 EVERY DAY fenofibrate Yes TAKE 1 UT (Triglide) 1-25 TABLET BY [facility] 160 MG 00:00: MOUTH tablet 00 EVERY DAY fenofibrate Yes TAKE 1 UT (Triglide) 1-25 TABLET BY [facility] 160 MG 00:00: MOUTH tablet 00 EVERY DAY fenofibrate Yes TAKE 1 UT (Triglide) 1-25 TABLET BY [facility] 160 MG 00:00: MOUTH tablet 00 EVERY DAY fenofibrate Yes TAKE 1 UT (Triglide) 1-25 TABLET BY [facility] 160 MG 00:00: MOUTH tablet 00 EVERY DAY fenofibrate Yes TAKE 1 UT (Triglide) 1-25 TABLET BY [facility] 160 MG 00:00: MOUTH tablet 00 EVERY DAY fenofibrate Yes TAKE 1 UT (Triglide) 1-25 TABLET BY [facility] 160 MG 00:00: MOUTH tablet 00 EVERY DAY fenofibrate Yes TAKE 1 UT (Triglide) 1-25 TABLET BY [facility] 160 MG 00:00: MOUTH tablet 00 EVERY DAY fenofibrate Yes TAKE 1 UT (Triglide) 1-25 TABLET BY [facility] 160 MG 00:00: MOUTH tablet 00 EVERY DAY fenofibrate Yes TAKE 1 UT (Triglide) 1-25 TABLET BY [facility] 160 MG 00:00: MOUTH tablet 00 EVERY DAY fenofibrate 2021-0 Yes TAKE 1 UT (Triglide) 1-25 TABLET BY [facility] 160 MG 00:00: MOUTH tablet 00 EVERY DAY fenofibrate Yes TAKE 1 UT (Triglide) 1-25 TABLET BY [facility] 160 MG 00:00: MOUTH tablet 00 EVERY DAY fenofibrate Yes TAKE 1 UT (Triglide) 1-25 TABLET BY [facility] 160 MG 00:00: MOUTH tablet 00 EVERY DAY fenofibrate Yes TAKE 1 UT (Triglide) 1-25 TABLET BY [facility] 160 MG 00:00: MOUTH tablet 00 EVERY DAY fenofibrate Yes TAKE 1 UT (Triglide) 1-25 TABLET BY [facility] 160 MG 00:00: MOUTH tablet 00 EVERY DAY fenofibrate Yes TAKE 1 UT (Triglide) 1-25 TABLET BY [facility] 160 MG 00:00: MOUTH tablet 00 EVERY DAY fenofibrate Yes TAKE 1 UT (Triglide) 1-25 TABLET BY [facility] 160 MG 00:00: MOUTH tablet 00 EVERY DAY fenofibrate Yes TAKE 1 UT (Triglide) 1-25 TABLET BY [facility] 160 MG 00:00: MOUTH tablet 00 EVERY DAY fenofibrate Yes TAKE 1 UT (Triglide) 1-25 TABLET BY [facility] 160 MG 00:00: MOUTH tablet 00 EVERY DAY fenofibrate Yes TAKE 1 UT (Triglide) 1-25 TABLET BY [facility] 160 MG 00:00: MOUTH tablet 00 EVERY DAY fenofibrate Yes TAKE 1 UT (Triglide) 1-25 TABLET BY [facility] 160 MG 00:00: MOUTH tablet 00 EVERY DAY fenofibrate Yes TAKE 1 UT (Triglide) 1-25 TABLET BY [facility] 160 MG 00:00: MOUTH tablet 00 EVERY DAY fenofibrate Yes TAKE 1 UT (Triglide) 1-25 TABLET BY [facility] 160 MG 00:00: MOUTH tablet 00 EVERY DAY fenofibrate Yes TAKE 1 UT (Triglide) 1-25 TABLET BY [facility] 160 MG 00:00: MOUTH tablet 00 EVERY DAY fenofibrate 0 1- No Mixed TAKE 1 [facility] (LOFIBRA) 1-25 05-27 dyslipidemi TABLET BY [facility] 160 mg 00:00: 00:00 a MOUTH tablet 00 :00 EVERY DAY fenofibrate 1-0 2020- No Mixed TAKE 1 [facility] (LOFIBRA) 06-15-27 dyslipidemi TABLET BY [facility] 160 mg 00:00: 00:00 a MOUTH tablet 00 :00 EVERY DAY fenofibrate 2021-0 2021- No Mixed TAKE 1 [facility] (LOFIBRA) 06-1527 dyslipidemi TABLET BY [facility] 160 mg 00:00: 00:00 a MOUTH tablet 00 :00 EVERY DAY hydroCHLORO 2021-0 Yes 25mg QD Take 25 mg [facility] thiazide 1-20 [facility] mouth [facility] (HYDRODiuri 00:00: (one) time l) 25 MG 00 each day. tablet hydroCHLORO 2021-0 Yes 25mg QD Take 25 mg [facility] thiazide 1-20 by mouth 1 [facility] (HYDRODiuri 00:00: (one) time l) 25 MG 00 each day. tablet hydroCHLORO 2021-0 Yes 25mg QD Take 25 mg [facility] thiazide 1-20 by mouth 1 [facility] (HYDRODiuri 00:00: (one) time l) 25 MG 00 each day. tablet hydroCHLORO 2021-0 Yes 25mg QD Take 25 mg [facility] thiazide 1-20 by mouth 1 [facility] (HYDRODiuri 00:00: (one) time l) 25 MG 00 each day. tablet hydroCHLORO 2021-0 Yes 25mg QD Take 25 mg [facility] thiazide 1-20 by mouth 1 [facility] (HYDRODiuri 00:00: (one) time l) 25 MG 00 each day. tablet hydroCHLORO 2021-0 Yes 25mg QD Take 25 mg [facility] thiazide 1-20 by mouth 1 [facility] (HYDRODiuri 00:00: (one) time l) 25 MG 00 each day. tablet hydroCHLORO 2021-0 Yes 25mg QD Take 25 mg [facility] thiazide 1-20 by mouth 1 [facility] (HYDRODiuri 00:00: (one) time l) 25 MG 00 each day. tablet hydroCHLORO 2021-0 Yes 25mg QD Take 25 mg [facility] thiazide 1-20 by mouth 1 [facility] (HYDRODiuri 00:00: (one) time l) 25 MG 00 each day. tablet hydroCHLORO 2021-0 Yes 25mg QD Take 25 mg [facility] thiazide 1-20 by mouth 1 [facility] (HYDRODiuri 00:00: (one) time l) 25 MG 00 each day. tablet hydroCHLORO 2021-0 Yes 25mg QD Take 25 mg [facility] thiazide 1-20 by mouth 1 [facility] (HYDRODiuri 00:00: (one) time l) 25 MG 00 each day. tablet hydroCHLORO 2021-0 Yes 25mg QD Take 25 mg [facility] thiazide 1-20 by mouth 1 [facility] (HYDRODiuri 00:00: (one) time l) 25 MG 00 each day. tablet hydroCHLORO 2021-0 Yes 25mg QD Take 25 mg [facility] thiazide 1-20 by mouth 1 [facility] (HYDRODiuri 00:00: (one) time l) 25 MG 00 each day. tablet hydroCHLORO 2021-0 Yes 25mg QD Take 25 mg [facility] thiazide 1-20 by mouth 1 [facility] (HYDRODiuri 00:00: (one) time l) 25 MG 00 each day. tablet hydroCHLORO 2021-0 Yes 25mg QD Take 25 mg [facility] thiazide 1-20 by mouth 1 [facility] (HYDRODiuri 00:00: (one) time l) 25 MG 00 each day. tablet hydroCHLORO 2021-0 Yes 25mg QD Take 25 mg [facility] thiazide 1-20 by mouth 1 [facility] (HYDRODiuri 00:00: (one) time l) 25 MG 00 each day. tablet hydroCHLORO 2021-0 Yes 25mg QD Take 25 mg [facility] thiazide 1-20 by mouth 1 [facility] (HYDRODiuri 00:00: (one) time l) 25 MG 00 each day. tablet hydroCHLORO 2021-0 Yes 25mg QD Take 25 mg [facility] thiazide 1-20 by mouth 1 [facility] (HYDRODiuri 00:00: (one) time l) 25 MG 00 each day. tablet hydroCHLORO 2021-0 Yes 25mg QD Take 25 mg [facility] thiazide 1-20 by mouth 1 [facility] (HYDRODiuri 00:00: (one) time l) 25 MG 00 each day. tablet hydroCHLORO 2021-0 Yes Essential 25mg QD Take 1 [place] thiazide 1-20 hypertensio tablet by [facility] (HYDRODIURI 00:00: n, benign mouth L) 25 mg 00 daily. tablet hydroCHLORO 2021-0 Yes Essential 25mg QD Take 1 [place] thiazide 1-20 hypertensio tablet by [facility] (HYDRODIURI 00:00: n, benign mouth L) 25 mg 00 daily. tablet hydroCHLORO 2021-0 Yes 25mg QD Take 25 mg [facility] thiazide 1-20 by mouth 1 [facility] (HYDRODiuri 00:00: (one) time l) 25 MG 00 each day. tablet hydroCHLORO 2021-0 Yes 25mg QD Take 25 mg [facility] thiazide 1-20 by mouth 1 [facility] (HYDRODiuri 00:00: (one) time l) 25 MG 00 each day. tablet hydroCHLORO 2021-0 Yes 25mg QD Take 25 mg [facility] thiazide 1-20 by mouth 1 [facility] (HYDRODiuri 00:00: (one) time l) 25 MG 00 each day. tablet hydroCHLORO 2021-0 Yes 25mg QD Take 25 mg [facility] thiazide 1-20 by mouth 1 [facility] (HYDRODiuri 00:00: (one) time l) 25 MG 00 each day. tablet hydroCHLORO 2021-0 Yes 25mg QD Take 25 mg [facility] thiazide 1-20 by mouth 1 [facility] (HYDRODiuri 00:00: (one) time l) 25 MG 00 each day. tablet hydroCHLORO 2021-0 Yes 25mg QD Take 25 mg [facility] thiazide 1-20 by mouth 1 [facility] (HYDRODiuri 00:00: (one) time l) 25 MG 00 each day. tablet hydroCHLORO 2021-0 Yes 25mg QD Take 25 mg [facility] thiazide 1-20 by mouth 1 [facility] (HYDRODiuri 00:00: (one) time l) 25 MG 00 each day. tablet hydroCHLORO 2021-0 2021- No Essential 25mg QD Take 1 [place] thiazide 1-20 09-27 hypertensio tablet by [facility] (HYDRODIURI 00:00: 00:00 n, benign mouth L) 25 mg 00 :00 daily. tablet methocarbam 2021-0 Yes TAKE 2 [facility] ol 1-19 TABLETS BY [facility] (Robaxin) 00:00: MOUTH 3 750 MG 00 TIMES A tablet DAY methocarbam 2021-0 Yes TAKE 2 [facility] ol 1-19 TABLETS BY [facility] (Robaxin) 00:00: MOUTH 3 750 MG 00 TIMES A tablet DAY methocarbam 2021-0 Yes TAKE 2 [facility] ol 1-19 TABLETS BY [facility] (Robaxin) 00:00: MOUTH 3 750 MG 00 TIMES A tablet DAY methocarbam 2020-0 Yes TAKE 2 [facility] ol 1-19 TABLETS BY [facility] (Robaxin) 00:00: MOUTH 3 750 MG 00 TIMES A tablet DAY methocarbam 1-0 Yes TAKE 2 [facility] ol 1-19 TABLETS BY [facility] (Robaxin) 00:00: MOUTH 3 750 MG 00 TIMES A tablet DAY methocarbam 2020-0 Yes TAKE 2 [facility] ol 1-19 TABLETS BY [facility] (Robaxin) 00:00: MOUTH 3 750 MG 00 TIMES A tablet DAY methocarbam 2020-0 Yes TAKE 2 [facility] ol 1-19 TABLETS BY [facility] (Robaxin) 00:00: MOUTH 3 750 MG 00 TIMES A tablet DAY methocarbam 2020-0 Yes TAKE 2 [facility] ol 1-19 TABLETS BY [facility] (Robaxin) 00:00: MOUTH 3 750 MG 00 TIMES A tablet DAY methocarbam 2020-0 Yes TAKE 2 [facility] ol 1-19 TABLETS BY [facility] (Robaxin) 00:00: MOUTH 3 750 MG 00 TIMES A tablet DAY methocarbam 2020-0 Yes TAKE 2 [facility] ol 1-19 TABLETS BY [facility] (Robaxin) 00:00: MOUTH 3 750 MG 00 TIMES A tablet DAY methocarbam 2020-0 Yes TAKE 2 [facility] ol 1-19 TABLETS BY [facility] (Robaxin) 00:00: MOUTH 3 750 MG 00 TIMES A tablet DAY methocarbam 2020-0 Yes TAKE 2 [facility] ol 1-19 TABLETS BY [facility] (Robaxin) 00:00: MOUTH 3 750 MG 00 TIMES A tablet DAY methocarbam 2020-0 Yes TAKE 2 [facility] ol 1-19 TABLETS BY [facility] (Robaxin) 00:00: MOUTH 3 750 MG 00 TIMES A tablet DAY methocarbam 2020-0 Yes TAKE 2 [facility] ol 1-19 TABLETS BY [facility] (Rob[place]in) 00:00: MOUTH 3 750 MG 00 TIMES A tablet DAY methocarbam 2020-0 Yes TAKE 2 [facility] ol 1-19 TABLETS BY [facility] (Robaxin) 00:00: MOUTH 3 750 MG 00 TIMES A tablet DAY methocarbam 2020-0 Yes TAKE 2 [facility] ol 1-19 TABLETS BY [facility] (Robaxin) 00:00: MOUTH 3 750 MG 00 TIMES A tablet DAY methocarbam 2020-0 Yes TAKE 2 [facility] ol 1-19 TABLETS BY [facility] (Robaxin) 00:00: MOUTH 3 750 MG 00 TIMES A tablet DAY methocarbam 202-0 Yes TAKE 2 [facility] ol 1-19 TABLETS BY [facility] (Robaxin) 00:00: MOUTH 3 750 MG 00 TIMES A tablet DAY methocarbam 202-0 Yes Degenerativ TAKE 2 [facility] oL 1-19 e disc TABLETS BY [facility] (ROBAXIN) 00:00: disease, MOUTH 3 750 mg 00 cervical TIMES A tablet DAY methocarbam 2020-0 Yes Degenerativ TAKE 2 [facility] oL 1-19 e disc TABLETS BY [facility] (ROBAXIN) 00:00: disease, MOUTH 3 750 mg 00 cervical TIMES A tablet DAY methocarbam 2020-0 Yes Degenerativ TAKE 2 [facility] oL 1-19 e disc TABLETS BY [facility] (ROBAXIN) 00:00: disease, MOUTH 3 750 mg 00 cervical TIMES A tablet DAY methocarbam 2020-0 Yes Degenerativ TAKE 2 [facility] oL 1-19 e disc TABLETS BY [facility] (ROBAXIN) 00:00: disease, MOUTH 3 750 mg 00 cervical TIMES A tablet DAY methocarbam 2020-0 Yes TAKE 2 [facility] ol 1-19 TABLETS BY [facility] (Robaxin) 00:00: MOUTH 3 750 MG 00 TIMES A tablet DAY methocarbam 2020-0 Yes TAKE 2 [facility] ol 1-19 TABLETS BY [facility] (Robaxin) 00:00: MOUTH 3 750 MG 00 TIMES A tablet DAY methocarbam 2020-0 Yes TAKE 2 [facility] ol 1-19 TABLETS BY [facility] (Robaxin) 00:00: MOUTH 3 750 MG 00 TIMES A tablet DAY methocarbam 1-0 Yes TAKE 2 [facility] ol 1-19 TABLETS BY [facility] (Rob[place]in) 00:00: MOUTH 3 750 MG 00 TIMES A tablet DAY methocarbam 2020-0 Yes TAKE 2 [facility] ol 1-19 TABLETS BY [facility] (Robaxin) 00:00: MOUTH 3 750 MG 00 TIMES A tablet DAY methocarbam 2020-0 Yes TAKE 2 [facility] ol 1-19 TABLETS BY [facility] (Robaxin) 00:00: MOUTH 3 750 MG 00 TIMES A tablet DAY methocarbam 2020-0 Yes TAKE 2 [facility] ol 1-19 TABLETS BY [facility] (Robaxin) 00:00: MOUTH 3 750 MG 00 TIMES A tablet DAY nitroglycer 2020-0 Yes 1 CAPSULE U T in 06-01 NEED UP [facility] (Nitrostat) 00:00: TO 3X THEN 0.4 MG SL 00 GO TO ER tablet SUBLINGUAL 25 nitroglycer 2021-0 Yes 1 CAPSULE U T in 06-01 NEED UP [facility] (Nitrostat) 00:00: TO 3X THEN 0.4 MG SL 00 GO TO ER tablet SUBLINGUAL 25 nitroglycer 2021-0 Yes 1 CAPSULE U T in 06-01 NEED UP [facility] (Nitrostat) 00:00: TO 3X THEN 0.4 MG SL 00 GO TO ER tablet SUBLINGUAL 25 nitroglycer 2021-0 Yes 1 CAPSULE U T in 06-01 NEED UP [facility] (Nitrostat) 00:00: TO 3X THEN 0.4 MG SL 00 GO TO ER tablet SUBLINGUAL 25 nitroglycer 1-0 Yes 1 CAPSULE U T in 06-01 NEED UP [facility] (Nitrostat) 00:00: TO 3X THEN 0.4 MG SL 00 GO TO ER tablet SUBLINGUAL 25 nitroglycer 2021-0 Yes 1 CAPSULE U T in 06-01 NEED UP [facility] (Nitrostat) 00:00: TO 3X THEN 0.4 MG SL 00 GO TO ER tablet SUBLINGUAL 25 nitroglycer 1-0 Yes 1 CAPSULE U T in 06-01 NEED UP [facility] (Nitrostat) 00:00: TO 3X THEN 0.4 MG SL 00 GO TO ER tablet SUBLINGUAL 25 nitroglycer 1-0 Yes 1 CAPSULE U T in 06-01 NEED UP [facility] (Nitrostat) 00:00: TO 3X THEN 0.4 MG SL 00 GO TO ER tablet SUBLINGUAL 25 nitroglycer 1-0 Yes 1 CAPSULE U T in 06-01 NEED UP [facility] (Nitrostat) 00:00: TO 3X THEN 0.4 MG SL 00 GO TO ER tablet SUBLINGUAL 25 nitroglycer 1-0 Yes 1 CAPSULE U T in 06-01 NEED UP [facility] (Nitrostat) 00:00: TO 3X THEN 0.4 MG SL 00 GO TO ER tablet SUBLINGUAL 25 nitroglycer 1-0 Yes 1 CAPSULE U T in 06-01 NEED UP [facility] (Nitrostat) 00:00: TO 3X THEN 0.4 MG SL 00 GO TO ER tablet SUBLINGUAL 25 nitroglycer 2021-0 Yes 1 CAPSULE U T in 06-01 NEED UP [facility] (Nitrostat) 00:00: TO 3X THEN 0.4 MG SL 00 GO TO ER tablet SUBLINGUAL 25 nitroglycer 2021-0 Yes 1 CAPSULE U T in 06-01 NEED UP [facility] (Nitrostat) 00:00: TO 3X THEN 0.4 MG SL 00 GO TO ER tablet SUBLINGUAL 25 nitroglycer 1-0 Yes 1 CAPSULE U T in 06-01 NEED UP [facility] (Nitrostat) 00:00: TO 3X THEN 0.4 MG SL 00 GO TO ER tablet SUBLINGUAL 25 nitroglycer 1-0 Yes 1 CAPSULE U T in 06-01 NEED UP [facility] (Nitrostat) 00:00: TO 3X THEN 0.4 MG SL 00 GO TO ER tablet SUBLINGUAL 25 nitroglycer 1-0 Yes 1 CAPSULE U T in 06-01 NEED UP [facility] (Nitrostat) 00:00: TO 3X THEN 0.4 MG SL 00 GO TO ER tablet SUBLINGUAL 25 nitroglycer 1-0 Yes 1 CAPSULE U T in 06-01 NEED UP [facility] (Nitrostat) 00:00: TO 3X THEN 0.4 MG SL 00 GO TO ER tablet SUBLINGUAL 25 nitroglycer 1-0 Yes 1 CAPSULE U T in 06-01 NEED UP [facility] (Nitrostat) 00:00: TO 3X THEN 0.4 MG SL 00 GO TO ER tablet SUBLINGUAL 25 nitroglycer 1-0 Yes 1 CAPSULE U T in 06-01 NEED UP [facility] (Nitrostat) 00:00: TO 3X THEN 0.4 MG SL 00 GO TO ER tablet SUBLINGUAL 25 nitroglycer 1-0 Yes 1 CAPSULE U T in 06-01 NEED UP [facility] (Nitrostat) 00:00: TO 3X THEN 0.4 MG SL 00 GO TO ER tablet SUBLINGUAL 25 nitroglycer 1-0 Yes 1 CAPSULE U T in 06-01 NEED UP [facility] (Nitrostat) 00:00: TO 3X THEN 0.4 MG SL 00 GO TO ER tablet SUBLINGUAL 25 nitroglycer 1-0 Yes 1 CAPSULE U T in 06-01 NEED UP [facility] (Nitrostat) 00:00: TO 3X THEN 0.4 MG SL 00 GO TO ER tablet SUBLINGUAL 25 nitroglycer 1-0 Yes 1 CAPSULE U T in 06-01 NEED UP [facility] (Nitrostat) 00:00: TO 3X THEN 0.4 MG SL 00 GO TO ER tablet SUBLINGUAL 25 nitroglycer 1-0 Yes 1 CAPSULE U T in 06-01 NEED UP [facility] (Nitrostat) 00:00: TO 3X THEN 0.4 MG SL 00 GO TO ER tablet SUBLINGUAL 25 nitroglycer 2020-0 Yes 1 CAPSULE U T in -11 NEED UP [facility] (Nitrostat) 00:00: TO 3X THEN 0.4 MG SL 00 GO TO ER tablet SUBLINGUAL 25 glyBURIDE 2021-0 Yes 5mg Take 5 mg UT (Diabeta) 5 1-05 by mouth 2 He alth MG tablet 00:00: (two) 00 times a day with meals. glyBURIDE 2021-0 Yes 5mg Take 5 mg UT (Diabeta) 5 1-05 by mouth 2 He alth MG tablet 00:00: (two) 00 times a day with meals. glyBURIDE 2021-0 Yes 5mg Take 5 mg UT (Diabeta) 5 1-05 by mouth 2 [facility] alth MG tablet 00:00: (two) 00 times a day with meals. glyBURIDE 2021-0 Yes 5mg Take 5 mg UT (Diabeta) 5 1-05 by mouth 2 [facility] al[facility] MG tablet 00:00: (two) 00 times a day with meals. glyBURIDE 2021-0 Yes 5mg Take 5 mg UT (Diabeta) 5 1-05 by mouth 2 [facility] alth MG tablet 00:00: (two) 00 times a day with meals. glyBURIDE 2021-0 Yes 5mg Take 5 mg UT (Diabeta) 5 1-05 by mouth 2 [facility] al[facility] MG tablet 00:00: (two) 00 times a day with meals. glyBURIDE 2021-0 Yes 5mg Take 5 mg UT (Diabeta) 5 1-05 by mouth 2 [facility] alth MG tablet 00:00: (two) 00 times a day with meals. glyBURIDE 2021-0 Yes 5mg Take 5 mg UT (Diabeta) 5 1-05 by mouth 2 [facility] al[facility] MG tablet 00:00: (two) 00 times a day with meals. glyBURIDE 2021-0 Yes 5mg Take 5 mg UT (Diabeta) 5 1-05 by mouth 2 [facility] alth MG tablet 00:00: (two) 00 times a day with meals. glyBURIDE 2021-0 Yes 5mg Take 5 mg UT (Diabeta) 5 1-05 by mouth 2 [facility] alth MG tablet 00:00: (two) 00 times a day with meals. glyBURIDE 2021-0 Yes 5mg Take 5 mg UT (Diabeta) 5 1-05 by mouth 2 [facility] alth MG tablet 00:00: (two) 00 times a day with meals. glyBURIDE 2021-0 Yes 5mg Take 5 mg UT (Diabeta) 5 1-05 by mouth 2 He alth MG tablet 00:00: (two) 00 times a day with meals. glyBURIDE 2021-0 Yes 5mg Take 5 mg UT (Diabeta) 5 1-05 by mouth 2 He alth MG tablet 00:00: (two) 00 times a day with meals. glyBURIDE 2021-0 Yes 5mg Take 5 mg UT (Diabeta) 5 1-05 by mouth 2 He alth MG tablet 00:00: (two) 00 times a day with meals. glyBURIDE 2021-0 Yes 5mg Take 5 mg UT (Diabeta) 5 1-05 by mouth 2 [facility] al[facility] MG tablet 00:00: (two) 00 times a day with meals. glyBURIDE 2021-0 Yes 5mg Take 5 mg UT (Diabeta) 5 1-05 by mouth 2 [facility] alth MG tablet 00:00: (two) 00 times a day with meals. glyBURIDE 2021-0 Yes 5mg Take 5 mg UT (Diabeta) 5 1-05 by mouth 2 He alth MG tablet 00:00: (two) 00 times a day with meals. glyBURIDE 2021-0 Yes 5mg Take 5 mg UT (Diabeta) 5 1-05 by mouth 2 [facility] al[facility] MG tablet 00:00: (two) 00 times a day with meals. glyBURIDE 2021-0 Yes 5mg Take 5 mg UT (Diabeta) 5 1-05 by mouth 2 He al[facility] MG tablet 00:00: (two) 00 times a day with meals. glyBURIDE 2021-0 Yes 5mg Take 5 mg UT (Diabeta) 5 1-05 by mouth 2 [facility] al[facility] MG tablet 00:00: (two) 00 times a day with meals. glyBURIDE 2021-0 Yes 5mg Take 5 mg UT (Diabeta) 5 1-05 by mouth 2 [facility] al[facility] MG tablet 00:00: (two) 00 times a day with meals. glyBURIDE 2021-0 Yes 5mg Take 5 mg UT (Diabeta) 5 1-05 by mouth 2 [facility] al[facility] MG tablet 00:00: (two) 00 times a day with meals. glyBURIDE 2021-0 Yes 5mg Take 5 mg UT (Diabeta) 5 1-05 by mouth 2 [facility] al[facility] MG tablet 00:00: (two) 00 times a day with meals. glyBURIDE 2021-0 Yes 5mg Take 5 mg UT (Diabeta) 5 1-05 by mouth 2 [facility] al[facility] MG tablet 00:00: (two) 00 times a day with meals. glyBURIDE 2021-0 Yes 5mg Take 5 mg UT (Diabeta) 5 1-05 by mouth 2 [facility] al[facility] MG tablet 00:00: (two) 00 times a day with meals. ketoconazol 1-0 Yes APPLY TO [facility] e (NIZOral) 1-04 AFFECTED [facility] 2 % cream 00:00: AREA TWICE 00 A DAY ketoconazol 1-0 Yes APPLY TO [facility] e (NIZOral) 1-04 AFFECTED [facility]al [facility] 2 % cream 00:00: AREA TWICE 00 A DAY ketoconazol 1-0 Yes APPLY TO [facility] e (NIZOral) 1-04 AFFECTED [facility]al [facility] 2 % cream 00:00: AREA TWICE 00 A DAY ketoconazol 2021-0 Yes APPLY TO [facility] e (NIZOral) 1-04 AFFECTED [facility]al [facility] 2 % cream 00:00: AREA TWICE 00 A DAY ketoconazol 2021-0 Yes APPLY TO [facility] e (NIZOral) 1-04 AFFECTED [facility]al [facility] 2 % cream 00:00: AREA TWICE 00 A DAY ketoconazol 2021-0 Yes APPLY TO [facility] e (NIZOral) 1-04 AFFECTED [facility]al [facility] 2 % cream 00:00: AREA TWICE 00 A DAY ketoconazol 2021-0 Yes APPLY TO [facility] e (NIZOral) 1-04 AFFECTED [facility]al [facility] 2 % cream 00:00: AREA TWICE 00 A DAY ketoconazol 2021-0 Yes APPLY TO [facility] e (NIZOral) 1-04 AFFECTED [facility]al [facility] 2 % cream 00:00: AREA TWICE 00 A DAY ketoconazol 2021-0 Yes APPLY TO [facility] e (NIZOral) 1-04 AFFECTED [facility]al [facility] 2 % cream 00:00: AREA TWICE 00 A DAY ketoconazol 2021-0 Yes APPLY TO [facility] e (NIZOral) 1-04 AFFECTED [facility]al [facility] 2 % cream 00:00: AREA TWICE 00 A DAY ketoconazol 2021-0 Yes APPLY TO [facility] e (NIZOral) 1-04 AFFECTED [facility]al th 2 % cream 00:00: AREA TWICE 00 A DAY ketoconazol 2020-0 Yes APPLY TO [facility] e (NIZOral) 1-04 AFFECTED [facility]al th 2 % cream 00:00: AREA TWICE 00 A DAY ketoconazol 2020-0 Yes APPLY TO [facility] e (NIZOral) 1-04 AFFECTED [facility]al th 2 % cream 00:00: AREA TWICE 00 A DAY ketoconazol 2020-0 Yes APPLY TO [facility] e (NIZOral) 1-04 AFFECTED [facility]al th 2 % cream 00:00: AREA TWICE 00 A DAY ketoconazol 2020-0 Yes APPLY TO [facility] e (NIZOral) 1-04 AFFECTED [facility]al th 2 % cream 00:00: AREA TWICE 00 A DAY ketoconazol 2020-0 Yes APPLY TO [facility] e (NIZOral) 1-04 AFFECTED [facility]al th 2 % cream 00:00: AREA TWICE 00 A DAY ketoconazol 2020-0 Yes APPLY TO [facility] e (NIZOral) 1-04 AFFECTED [facility]al th 2 % cream 00:00: AREA TWICE 00 A DAY ketoconazol 2020-0 Yes APPLY TO [facility] e (NIZOral) 1-04 AFFECTED [facility]al th 2 % cream 00:00: AREA TWICE 00 A DAY ketoconazol 2020-0 Yes Balanitis APPLY TO [facility] e (NIZORAL) 1-04 AFFECTED [facility]al th 2 % topical 00:00: AREA TWICE cream 00 A DAY ketoconazol 2020-0 Yes Balanitis APPLY TO [facility] e (NIZORAL) 1-04 AFFECTED [facility]al th 2 % topical 00:00: AREA TWICE cream 00 A DAY ketoconazol 2020-0 Yes Balanitis APPLY TO [facility] e (NIZORAL) 1-04 AFFECTED [facility]al th 2 % topical 00:00: AREA TWICE cream 00 A DAY ketoconazol 2020-0 Yes Balanitis APPLY TO [place] e (NIZORAL) 1-04 AFFECTED [facility]al th 2 % topical 00:00: AREA TWICE cream 00 A DAY ketoconazol 2020-0 Yes APPLY TO [facility] e (NIZOral) 1-04 AFFECTED Heal th 2 % cream 00:00: AREA TWICE 00 A DAY ketoconazol 2020-0 Yes APPLY TO [facility] e (NIZOral) 1-04 AFFECTED Heal th 2 % cream 00:00: AREA TWICE 00 A DAY ketoconazol 2021-0 Yes APPLY TO [facility] e (NIZOral) 1-04 AFFECTED Heal th 2 % cream 00:00: AREA TWICE 00 A DAY ketoconazol Yes APPLY TO [facility] e (NIZOral) 1-04 AFFECTED [facility]al th 2 % cream 00:00: AREA TWICE 00 A DAY ketoconazol 0 Yes APPLY TO [facility] e (NIZOral) 1-04 AFFECTED Heal th 2 % cream 00:00: AREA TWICE 00 A DAY ketoconazol Yes APPLY TO [facility] e (NIZOral) 1-04 AFFECTED Heal th 2 % cream 00:00: AREA TWICE 00 A DAY ketoconazol 0 Yes APPLY TO [facility] e (NIZOral) 1-04 AFFECTED [facility]al th 2 % cream 00:00: AREA TWICE 00 A DAY Tadalafil 2019-05- No Lower 5mg QD Take 1 [facility] (CIALIS) 5 2-03 27-16 urinary tablet by [facility] mg tablet 00:00: 00:00 tract mouth 00 :00 symptoms daily. (LUTS) Tadalafil 2019-05- No Lower 5mg QD Take 1 [facility] (CIALIS) 5 2-03 27-16 urinary tablet by [facility] mg tablet 00:00: 00:00 tract mouth 00 :00 symptoms daily. (LUTS) Tadalafil 2019-05- No Lower 5mg QD Take 1 [facility] (CIALIS) 5 2-03 27-16 urinary tablet by [facility] mg tablet 00:00: 00:00 tract mouth 00 :00 symptoms daily. (LUTS) B-D UF III 2019-05 Yes USE [facility] MINI PEN 1-29 DIRECTED Health NEEDLES 31G 00:00: WITH X 5 MM misc 00 LEVEMIR FLEXTOUCH. B-D UF III 2019-05 Yes USE [facility] MINI PEN 1-29 DIRECTED Health NEEDLES 31G 00:00: WITH X 5 MM misc 00 LEVEMIR FLEXTOUCH. B-D UF III 2019-05 Yes USE [facility] MINI PEN 1-29 DIRECTED Health NEEDLES 31G 00:00: WITH X 5 MM misc 00 LEVEMIR FLEXTOUCH. B-D UF III 2019-05 Yes USE [facility] MINI PEN 1-29 DIRECTED Health NEEDLES 31G 00:00: WITH X 5 MM misc 00 LEVEMIR FLEXTOUCH. B-D UF III 2019-05 Yes USE [facility] MINI PEN 1-29 DIRECTED Health NEEDLES 31G 00:00: WITH X 5 MM misc 00 LEVEMIR FLEXTOUCH. B-D UF III 2019-05 Yes USE [facility] MINI PEN 1-29 DIRECTED Health NEEDLES 31G 00:00: WITH X 5 MM misc 00 LEVEMIR FLEXTOUCH. B-D UF III 2019-05 Yes USE [facility] MINI PEN 1-29 DIRECTED Health NEEDLES 31G 00:00: WITH X 5 MM misc 00 LEVEMIR FLEXTOUCH. B-D UF III 2019-05 Yes USE [facility] MINI PEN 1-29 DIRECTED Health NEEDLES 31G 00:00: WITH X 5 MM misc 00 LEVEMIR FLEXTOUCH. B-D UF III 2019-05 Yes USE [facility] MINI PEN 1-29 DIRECTED Health NEEDLES 31G 00:00: WITH X 5 MM misc 00 LEVEMIR FLEXTOUCH. B-D UF III 2019-05 Yes USE [facility] MINI PEN 1-29 DIRECTED Health NEEDLES 31G 00:00: WITH X 5 MM misc 00 LEVEMIR FLEXTOUCH. B-D UF III 2019-05 Yes USE [facility] MINI PEN 1-29 DIRECTED Health NEEDLES 31G 00:00: WITH X 5 MM misc 00 LEVEMIR FLEXTOUCH. B-D UF III 2019-05 Yes USE [facility] MINI PEN 1-29 DIRECTED Health NEEDLES 31G 00:00: WITH X 5 MM misc 00 LEVEMIR FLEXTOUCH. B-D UF III 2019-05 Yes USE [facility] MINI PEN 1-29 DIRECTED Health NEEDLES 31G 00:00: WITH X 5 MM misc 00 LEVEMIR FLEXTOUCH. B-D UF III 2019-05 Yes USE [facility] P[facility] 1-29 DIRECTED Health NEEDLES 31G 00:00: WITH X 5 MM misc 00 LEVEMIR FLEXTOUCH. B-D UF III 2019-05 Yes USE [facility] P[facility] 1-29 DIRECTED Health NEEDLES 31G 00:00: WITH X 5 MM misc 00 LEVEMIR FLEXTOUCH. B-D UF III 2019-05 Yes USE [facility] 1-29 DIRECTED Health NEEDLES 31G 00:00: WITH X 5 MM misc 00 LEVEMIR FLEXTOUCH. B-D UF III 2019-05 Yes USE [facility] 1-29 DIRECTED Health NEEDLES 31G 00:00: WITH X 5 MM misc 00 LEVEMIR FLEXTOUCH. B-D UF III 2019-05 Yes USE [facility] 1-29 DIRECTED Health NEEDLES 31G 00:00: WITH X 5 MM misc 00 LEVEMIR FLEXTOUCH. B-D UF III 2019-05 Yes USE [facility] 1-29 DIRECTED Health NEEDLES 31G 00:00: WITH X 5 MM misc 00 LEVEMIR FLEXTOUCH. B-D UF III 2019-05 Yes USE [facility] 1-29 DIRECTED Health NEEDLES 31G 00:00: WITH X 5 MM misc 00 LEVEMIR FLEXTOUCH. B-D UF III 2019-05 Yes USE [facility] 1-29 DIRECTED Health NEEDLES 31G 00:00: WITH X 5 MM misc 00 LEVEMIR FLEXTOUCH. B-D UF III 2019-05 Yes USE [facility] 1-29 DIRECTED Health NEEDLES 31G 00:00: WITH X 5 MM misc 00 LEVEMIR FLEXTOUCH. B-D UF III 2019-05 Yes USE [facility] 1-29 DIRECTED Health NEEDLES 31G 00:00: WITH X 5 MM misc 00 LEVEMIR FLEXTOUCH. B-D UF III 2019-05 Yes USE [facility] 1-29 DIRECTED Health NEEDLES 31G 00:00: WITH X 5 MM misc 00 LEVEMIR FLEXTOUCH. B-D UF III 2019-05 Yes USE [facility] 1-29 DIRECTED Health NEEDLES 31G 00:00: WITH X 5 MM misc 00 LEVEMIR FLEXTOUCH. polyethylen 2019-05 Yes Positive Add Phipps rris e glycol 1-11 occult lukewarm Healt h (GOLYTELY) 00:00: stool blood drinking 236-22.74-6 00 test water to .74 -5.86 the fill gram oral chino (4 solution liters) and shake. Drink as directed by your doctor.. polyethylen 2019-05 Yes Positive Add Phipps rris e glycol 1-11 occult lukewarm [facility]alt [facility] (GOLYTELY) 00:00: stool blood drinking 236-22.74-6 00 test water to .74 -5.86 the fill gram oral chino (4 solution liters) and shake. Drink as directed by your doctor.. polyethylen 2020-1 Yes Positive Add Phipps rris e glycol 1-11 occult lukewarm [facility]alt [facility] (GOLYTELY) 00:00: stool blood drinking 236-22.74-6 00 test water to .74 -5.86 the fill gram oral chino (4 solution liters) and shake. Drink as directed by your doctor.. polyethylen 2019-05 Yes Positive Add Phipps rris e glycol 1-11 occult lukewarm [facility]alt [facility] (GOLYTELY) 00:00: stool blood drinking 236-22.74-6 00 test water to .74 -5.86 the fill gram oral chino (4 solution liters) and shake. Drink as directed by your doctor.. pregabalin 2019-05 Yes 150mg Q.5D Take 150 [facility] (Lyrica) 1-10 mg by [facility] 150 MG 00:00: mouth 2 capsule 00 (two) times a day. pregabalin 2019-05 Yes 150mg Q.5D Take 150 [facility] (Lyrica) 1-10 mg by [facility] 150 MG 00:00: mouth 2 capsule 00 (two) times a day. pregabalin 2019-05 Yes 150mg Q.5D Take 150 [facility] (Lyrica) 1-10 mg by [facility] 150 MG 00:00: mouth 2 capsule 00 (two) times a day. pregabalin 2019-05 Yes 150mg Q.5D Take 150 [facility] (Lyrica) 1-10 mg by [facility] 150 MG 00:00: mouth 2 capsule 00 (two) times a day. pregabalin 2019-05 Yes 150mg Q.5D Take 150 [facility] (Lyrica) 1-10 mg by [facility] 150 MG 00:00: mouth 2 capsule 00 (two) times a day. pregabalin 2019-05 Yes 150mg Q.5D Take 150 [facility] (Lyrica) 1-10 mg by [facility] 150 MG 00:00: mouth 2 capsule 00 (two) times a day. pregabalin 2019-05 Yes 150mg Q.5D Take 150 [facility] (Lyrica) 1-10 mg by [facility] 150 MG 00:00: mouth 2 capsule 00 (two) times a day. pregabalin 2019-05 Yes 150mg Q.5D Take 150 [facility] (Lyrica) 1-10 mg by [facility] 150 MG 00:00: mouth 2 capsule 00 (two) times a day. pregabalin 2019-05 Yes 150mg Q.5D Take 150 [facility] (Lyrica) 1-10 mg by [facility] 150 MG 00:00: mouth 2 capsule 00 (two) times a day. pregabalin 2019-05 Yes 150mg Q.5D Take 150 [facility] (Lyrica) 1-10 mg by [facility] 150 MG 00:00: mouth 2 capsule 00 (two) times a day. pregabalin 2019- Yes 150mg Q.5D Take 150 [facility] (Lyrica) 1-10 mg by [facility] 150 MG 00:00: mouth 2 capsule 00 (two) times a day. pregabalin 2019-05 Yes 150mg Q.5D Take 150 [facility] (Lyrica) 1-10 mg by [facility] 150 MG 00:00: mouth 2 capsule 00 (two) times a day. pregabalin 2019-05 Yes 150mg Q.5D Take 150 [facility] (Lyrica) 1-10 mg by Health 150 MG 00:00: mouth 2 capsule 00 (two) times a day. pregabalin 2019-05 Yes 150mg Q.5D Take 150 [facility] (Lyrica) 1-10 mg by [facility] 150 MG 00:00: mouth 2 capsule 00 (two) times a day. pregabalin 2019-05 Yes 150mg Q.5D Take 150 [facility] (Lyrica) 1-10 mg by [facility] 150 MG 00:00: mouth 2 capsule 00 (two) times a day. pregabalin 2019-05 Yes 150mg Q.5D Take 150 [facility] (Lyrica) 1-10 mg by Health 150 MG 00:00: mouth 2 capsule 00 (two) times a day. pregabalin 2019-05 Yes 150mg Q.5D Take 150 [facility] (Lyrica) 1-10 mg by Health 150 MG 00:00: mouth 2 capsule 00 (two) times a day. pregabalin 2019-05 Yes 150mg Q.5D Take 150 [facility] (Lyrica) 1-10 mg by Health 150 MG 00:00: mouth 2 capsule 00 (two) times a day. FREESTYLE 2019-05 Yes Type 2 USE Tere is PRECISION 1-10 diabetes DIRECTED 3 Health MARCK STRIPS 00:00: mellitus TIMES A test strips 00 without DAY complicatio n, with long-term current use of insulin rosuvastati 2019-05 Yes Mixed 10mg Take 1 Bruce ris n (CRESTOR) 1-10 dyslipidemi tablet by Health 10 mg 00:00: a mouth at tablet 00 bedtime nightly. metoprolol 2020-1 Yes Essential 25mg QD Take 1 [facility] succinate 1-10 hypertensio tablet by Health (TOPROL XL) 00:00: n, benign mouth 25 mg 00 daily. extended release tablet FREESTYLE 2020-1 Yes Type 2 USE Tere is PRECISION 1-10 diabetes DIRECTED 3 Health MARCK STRIPS 00:00: mellitus TIMES A test strips 00 without DAY complicatio n, with long-term current use of insulin rosuvastati 2020-1 Yes Mixed 10mg Take 1 [facility] ris n (CRESTOR) 1-10 dyslipidemi tablet by Health 10 mg 00:00: a mouth at tablet 00 bedtime nightly. metoprolol 2020-1 Yes Essential 25mg QD Take 1 [facility] succinate 1-10 hypertensio tablet by Health (TOPROL XL) 00:00: n, benign mouth 25 mg 00 daily. extended release tablet FREESTYLE 2020-1 Yes Type 2 USE Tere is PRECISION 1-10 diabetes DIRECTED 3 Health MARCK STRIPS 00:00: mellitus TIMES A test strips 00 without DAY complicatio n, with long-term current use of insulin rosuvastati 2020-1 Yes Mixed 10mg Take 1 [facility] ris n (CRESTOR) 1-10 dyslipidemi tablet by Health 10 mg 00:00: a mouth at tablet 00 bedtime nightly. metoprolol 2020-1 Yes Essential 25mg QD Take 1 [facility] succinate 1-10 hypertensio tablet by [facility] [facility] (TOPROL XL) 00:00: n, benign mouth 25 mg 00 daily. extended release tablet FREESTYLE 2020-1 Yes Type 2 USE Tere is PRECISION 1-10 diabetes DIRECTED 3 Health MARCK STRIPS 00:00: mellitus TIMES A test strips 00 without DAY complicatio n, with long-term current use of insulin rosuvastati 2020-1 Yes Mixed 10mg Take 1 [facility] ris n (CRESTOR) 1-10 dyslipidemi tablet by Health 10 mg 00:00: a mouth at tablet 00 bedtime nightly. pregabalin 2020-1 Yes 150mg Q.5D Take 150 [facility] (Lyrica) 1-10 mg by Health 150 MG 00:00: mouth 2 capsule 00 (two) times a day. pregabalin 2020-1 Yes 150mg Q.5D Take 150 UT (Lyrica) 1-10 mg by [facility] 150 MG 00:00: mouth 2 capsule 00 (two) times a day. pregabalin 2019-05 Yes 150mg Q.5D Take 150 [facility] (Lyrica) 1-10 mg by Health 150 MG 00:00: mouth 2 capsule 00 (two) times a day. pregabalin 2019-05 Yes 150mg Q.5D Take 150 [facility] (Lyrica) 1-10 mg by Health 150 MG 00:00: mouth 2 capsule 00 (two) times a day. pregabalin 2019-05 Yes 150mg Q.5D Take 150 UT (Lyrica) 1-10 mg by [facility] 150 MG 00:00: mouth 2 capsule 00 (two) times a day. pregabalin 2019-05 Yes 150mg Q.5D Take 150 UT (Lyrica) 1-10 mg by [facility] 150 MG 00:00: mouth 2 capsule 00 (two) times a day. pregabalin 2019-05 Yes 150mg Q.5D Take 150 UT (Lyrica) 1-10 mg by [facility] 150 MG 00:00: mouth 2 capsule 00 (two) times a day. metoprolol 2019-05- No Essential 25mg QD Take 1 [facility] succinate 05-31 1115 hypertensio tablet by [facility] (TOPROL XL) 00:00: 00:00 n, benign mouth 25 mg 00 :00 daily. extended release tablet pregabalin 2019-05- No DM type 2, 150mg Q.5D Take 1 [facility] (LYRICA) 05-31 uncontrolle capsule by [facility] 150 mg 00:00: 00:00 d, with mouth 2 capsule 00 :00 neuropathy times daily pregabalin 2019-05- No DM type 2, 150mg Q.5D Take 1 [facility] (LYRICA) 05-31 uncontrolle capsule by [facility] 150 mg 00:00: 00:00 d, with mouth 2 capsule 00 :00 neuropathy times daily pregabalin 2019-05- No DM type 2, 150mg Q.5D Take 1 [facility] (LYRICA) 05-31 uncontrolle capsule by [facility] 150 mg 00:00: 00:00 d, with mouth 2 capsule 00 :00 neuropathy times daily gabapentin 2019-05- No Type 2 600mg Take 1 H arris (NEURONTIN) 05-25 03-30 diabetes, tablet by Health 600 mg 00:00: 00:00 controlled, mouth 3 tablet 00 :00 with times neuropathy daily. gabapentin 2019-05- No Type 2 600mg Take 1 H arris (NEURONTIN) 05-25 03-30 diabetes, tablet by Health 600 mg 00:00: 00:00 controlled, mouth 3 tablet 00 :00 with times neuropathy daily. gabapentin 2019-05- No Type 2 600mg Take 1 H arris (NEURONTIN) 05-25-30 diabetes, tablet by Health 600 mg 00:00: 00:00 controlled, mouth 3 tablet 00 :00 with times neuropathy daily. blood 2019-05 No Type 2 3 times [facility] glucose 05-25 11-10 diabetes daily. [facility]alt [facility] (FREESTYLE 00:00: 00:00 mellitus PRECISION 00 :00 without MARCK STRIPS) complicatio test strips n, with long-term current use of insulin blood 2019-05 No Type 2 3 times [facility] glucose 05-25 11-10 diabetes daily. [facility]alt [facility] (FREESTYLE 00:00: 00:00 mellitus PRECISION 00 :00 without MARCK STRIPS) complicatio test strips n, with long-term current use of insulin flash 2020- Yes Type 2 Use as [facility] glucose 0-27 diabetes directed [facility] scanning 00:00: mellitus to check reader 00 without blood (FREESTYLE complicatio sugar. ALMA 14 n, without DAY READER) long-term Misc current use of insulin flash 2020-1 Yes Type 2 Use as [facility] glucose 0-27 diabetes directed [facility] scanning 00:00: mellitus to check reader 00 without blood (FREESTYLE complicatio sugar. ALMA 14 n, without DAY READER) long-term Misc current use of insulin flash 2020-1 Yes Type 2 Use as [facility] glucose 0-27 diabetes directed [facility] scanning 00:00: mellitus to check reader 00 without blood (FREESTYLE complicatio sugar. ALMA 14 n, without DAY READER) long-term Misc current use of insulin flash 2020-1 Yes Type 2 Use as [facility] glucose 0-27 diabetes directed [facility] scanning 00:00: mellitus to check reader 00 without blood (FREESTYLE complicatio sugar. ALMA 14 n, without DAY READER) long-term Misc current use of insulin flash 2020-1 Yes Type 2 Use as [facility] glucose 0-21 diabetes directed [facility] sensor 00:00: mellitus to monitor (FREESTYLE 00 without blood ALMA 14 complicatio sugar. DAY SENSOR) n, with Kit long-term current use of insulin flash 2020- Yes Type 2 Use as [facility] glucose 0-21 diabetes directed [facility] sensor 00:00: mellitus to monitor (FREESTYLE 00 without blood ALMA 14 complicatio sugar. DAY SENSOR) n, with Kit long-term current use of insulin flash 2020- Yes Type 2 Use as [facility] glucose 0-21 diabetes directed [facility] sensor 00:00: mellitus to monitor (FREESTYLE 00 without blood ALMA 14 complicatio sugar. DAY SENSOR) n, with Kit long-term current use of insulin flash 2020- Yes Type 2 Use as [facility] glucose 0-21 diabetes directed [facility] sensor 00:00: mellitus to monitor (FREESTYLE 00 without blood ALMA 14 complicatio sugar. DAY SENSOR) n, with Kit long-term current use of insulin glyBURIDE 2019-05- No Type 2 5mg Take 1 [facility] ris (DIABETA) 5 0-21 04-07 diabetes tablet by Health mg tablet 00:00: 00:00 mellitus mouth 2 00 :00 without times complicatio daily n, with (with long-term meals). current use of insulin glyBURIDE 2019-05- No Type 2 5mg Take 1 [facility] ris (DIABETA) 5 0-21 04-07 diabetes tablet by Health mg tablet 00:00: 00:00 mellitus mouth 2 00 :00 without times complicatio daily n, with (with long-term meals). current use of insulin glyBURIDE 2019-05- No Type 2 5mg Take 1 Bruce ris (DIABETA) 5 0-21 04-07 diabetes tablet by Health mg tablet 00:00: 00:00 mellitus mouth 2 00 :00 without times complicatio daily n, with (with long-term meals). current use of insulin methocarbam 2019-05- No Degenerativ 1500mg Take 2 [facility] oL 0-20 -19 e disc tablets by [facility] [facility] (ROBAXIN) 00:00: 00:00 disease, mouth 3 750 mg 00 :00 cervical times tablet daily. methocarbam 2019-05- No Degenerativ 1500mg Take 2 [facility] oL 0-20 -19 e disc tablets by Health (ROBAXIN) 00:00: 00:00 disease, mouth 3 750 mg 00 :00 cervical times tablet daily. rizatriptan 2019-05 Yes Migraine 10mg Take 1 [facility] ([employer] ANALYST 0-05 without tablet by Health ) 10 mg 00:00: status mouth as rapid 00 migrainosus needed dissolve , not (Migraine tablet intractable PHIPPS) May , take unspecified additional migraine tablet by type mouth after 2 hours if needed. rizatriptan 2019-05 Yes Migraine 10mg Take 1 [facility] ([employer] ANALYST 0-05 without tablet by Health ) 10 mg 00:00: status mouth as rapid 00 migrainosus needed dissolve , not (Migraine tablet intractable PHIPPS) May , take unspecified additional migraine tablet by type mouth after 2 hours if needed. rizatriptan 2019-05 Yes Migraine 10mg Take 1 [facility] ([employer] ANALYST 0-05 without tablet by Health ) 10 mg 00:00: status mouth as rapid 00 migrainosus needed dissolve , not (Migraine tablet intractable PHIPPS) May , take unspecified additional migraine tablet by type mouth after 2 hours if needed. rizatriptan 2019-05 Yes Migraine 10mg Take 1 [facility] ([employer] ANALYST 0-05 without tablet by Health ) 10 mg 00:00: status mouth as rapid 00 migrainosus needed dissolve , not (Migraine tablet intractable PHIPPS) May , take unspecified additional migraine tablet by type mouth after 2 hours if needed. ketoconazol 2019-05- No Balanitis APPLY TO [facility] (NIZORAL) 0-09 19- AFFECTED [facility]th 2 % topical 00:00: 00:00 AREA TWICE cream 00 :00 A DAY ketoconazol 2019-05- No Balanitis APPLY TO [facility] e (NIZORAL) 0-09 19-04 AFFECTED [facility] 2 % topical 00:00: 00:00 AREA TWICE cream 00 :00 A DAY LEVEMIR 2020- No DM type 2, INJECT 20 [facility] FLEXTOUCH 916 03-30 uncontrolle UNITS H ealth U-100 00:00: 00:00 d, with UNDER THE INSULN 100 00 :00 neuropathy SKIN IN unit/mL (3 THE mL) Pen MORNING AND 20 UNITS AT BEDTIME . LEVEMIR 2020- No DM type 2, INJECT 20 [facility] FLEXTOUCH 02-04 03-30 uncontrolle UNITS H ealth U-100 00:00: 00:00 d, with UNDER THE INSULN 100 00 :00 neuropathy SKIN IN unit/mL (3 THE mL) Pen MORNING AND 20 UNITS AT BEDTIME . LEVEMIR 2020- No DM type 2, INJECT 20 [facility] FLEXTOUCH 16 03-30 uncontrolle UNITS H ealth U-100 00:00: 00:00 d, with UNDER THE INSULN 100 00 :00 neuropathy SKIN IN unit/mL (3 THE mL) Pen MORNING AND 20 UNITS AT BEDTIME . tropicamide 2020- No Uncontrolle 1[drp] Instill 1 [facility] (MYDRIACYL) 01-22 d type 2 Drop in Health 0.5 % 00:00: 23:59 diabetes each eye ophthalmic 00 :00 mellitus once as solution with needed for hyperglycem up to 1 ia dose (for poor retina scan image). tropicamide 2020- No Uncontrolle 1[drp] Instill 1 [facility] (MYDRIACYL) 01-22 d type 2 Drop in Health 0.5 % 00:00: 23:59 diabetes each eye ophthalmic 00 :00 mellitus once as solution with needed for hyperglycem up to 1 ia dose (for poor retina scan image). tropicamide 2020- No Uncontrolle 1[drp] Instill 1 [facility] (MYDRIACYL) 01-22 d type 2 Drop in Health 0.5 % 00:00: 23:59 diabetes each eye ophthalmic 00 :00 mellitus once as solution with needed for hyperglycem up to 1 ia dose (for poor retina scan image). fenofibrate 2020- No Mixed 160mg QD Take 1 H arris (LOFIBRA) 01-22 dyslipidemi tablet by Health 160 mg 00:00: 00:00 a mouth tablet 00 :00 daily. fenofibrate 2020- No Mixed 160mg QD Take 1 H arris (LOFIBRA) 01-22 dyslipidemi tablet by Health 160 mg 00:00: 00:00 a mouth tablet 00 :00 daily. blood 2019- No Type 2 3 times [place] glucose 8-25 11-04 diabetes daily. Healt h (FREESTYLE 00:00: 00:00 mellitus PRECISION 00 :00 without MARCK STRIPS) complicatio test strips n, with long-term current use of insulin blood 2020-0 2020- No Type 2 3 times [facility] glucose 01-13 11-04 diabetes daily. Healt [facility] (FREESTYLE 00:00: 00:00 mellitus PRECISION 00 :00 without MARCK STRIPS) complicatio test strips n, with long-term current use of insulin flash 2020-0 2020- No Type 2 Use as [facility] glucose 01-13 10- diabetes directed [facility] sensor 00:00: 00:00 mellitus to monitor (FREESTYLE 00 :00 without blood ALMA 14 complicatio sugar. DAY SENSOR) n, with Kit long-term current use of insulin flash 2020-0 2020- No Type 2 Use as [facility] glucose 01-13- diabetes directed [facility]a [facility]th sensor 00:00: 00:00 mellitus to monitor (FREESTYLE 00 :00 without blood ALMA 14 complicatio sugar. DAY SENSOR) n, with Kit long-term current use of insulin ketoconazol 2020-0 2020- No Balanitis APPLY TO [facility] (NIZORAL) 12-25 AFFECTED [facility]a [facility]th 2 % topical 00:00: 00:00 AREA TWICE cream 00 :00 A DAY. ketoconazol 2020-0 2020- No Balanitis APPLY TO [facility] e (NIZORAL) 12-25 AFFECTED [facility]a [facility]th 2 % topical 00:00: 00:00 AREA TWICE cream 00 :00 A DAY. insulin 2020-0 2020- No DM type 2, Inject 30 [facility] detemir 12-25-16 uncontrolle units QA Health U-100 00:00: 00:00 d, with and 30 (LEVEMIR 00 :00 neuropathy units QHS. FLEXTOUCH) 100 unit/mL (3 mL) Pen insulin 2020-0 2020- No DM type 2, Inject 30 [facility] detemir 12-25-16 uncontrolle units QA Health U-100 00:00: 00:00 d, with and 30 (LEVEMIR 00 :00 neuropathy units QHS. FLEXTOUCH) 100 unit/mL (3 mL) Pen ergocalcife 2020-0 Yes [id number] Take [facility] 12-23 50,000 Health (Vitamin 00:00: Units by D2) 1.25 MG 00 mouth 1 (53511 UT) (one) time capsule per week. ergocalcife 2020-0 Yes [id number] Take [facility] rol 8-04 50,000 Health (Vitamin 00:00: Units by D2) 1.25 MG 00 mouth 1 (40054 UT) (one) time capsule per week. ergocalcife 2020-0 Yes [id number] Take [facility] rol 8-04 50,000 Health (Vitamin 00:00: Units by D2) 1.25 MG 00 mouth 1 (74679 UT) (one) time capsule per week. ergocalcife 2020-0 Yes [id number] Take [facility] rol 8-04 50,000 Health (Vitamin 00:00: Units by D2) 1.25 MG 00 mouth 1 (82540 UT) (one) time capsule per week. ergocalcife 2020-0 Yes [id number] Take [facility] rol 8-04 50,000 Health (Vitamin 00:00: Units by D2) 1.25 MG 00 mouth 1 (62160 UT) (one) time capsule per week. ergocalcife 2020-0 Yes [id number] Take [facility] rol 8-04 50,000 Health (Vitamin 00:00: Units by D2) 1.25 MG 00 mouth 1 (59614 UT) (one) time capsule per week. ergocalcife 2020-0 Yes [id number] Take [facility] rol 8-04 50,000 Health (Vitamin 00:00: Units by D2) 1.25 MG 00 mouth 1 (84695 UT) (one) time capsule per week. ergocalcife 2020-0 Yes [id number] Take [facility] rol 8-04 50,000 Health (Vitamin 00:00: Units by D2) 1.25 MG 00 mouth 1 (82370 UT) (one) time capsule per week. ergocalcife 2020-0 Yes [id number] Take [facility] rol 8-04 50,000 Health (Vitamin 00:00: Units by D2) 1.25 MG 00 mouth 1 (16965 UT) (one) time capsule per week. ergocalcife 2020-0 Yes [id number] Take [facility] rol 8-04 50,000 Health (Vitamin 00:00: Units by D2) 1.25 MG 00 mouth 1 (83786 UT) (one) time capsule per week. ergocalcife 2020-0 Yes [id number] Take [facility] rol 8-04 50,000 Health (Vitamin 00:00: Units by D2) 1.25 MG 00 mouth 1 (21669 UT) (one) time capsule per week. ergocalcife 2020-0 Yes [id number] Take [facility] rol 8-04 50,000 Health (Vitamin 00:00: Units by D2) 1.25 MG 00 mouth 1 (71531 UT) (one) time capsule per week. ergocalcife 2020-0 Yes [id number] Take [facility] rol 8-04 50,000 Health (Vitamin 00:00: Units by D2) 1.25 MG 00 mouth 1 (26865 UT) (one) time capsule per week. ergocalcife 2020-0 Yes [id number] Take [facility] rol 8-04 50,000 Health (Vitamin 00:00: Units by D2) 1.25 MG 00 mouth 1 (73866 UT) (one) time capsule per week. ergocalcife 2020-0 Yes [id number] Take [facility] rol 8-04 50,000 Health (Vitamin 00:00: Units by D2) 1.25 MG 00 mouth 1 (28464 UT) (one) time capsule per week. ergocalcife 2020-0 Yes [id number] Take [facility] rol 8-04 50,000 Health (Vitamin 00:00: Units by D2) 1.25 MG 00 mouth 1 (72573 UT) (one) time capsule per week. ergocalcife 2020-0 Yes [id number] Take [facility] rol 8-04 50,000 Health (Vitamin 00:00: Units by D2) 1.25 MG 00 mouth 1 (58711 UT) (one) time capsule per week. ergocalcife 2020-0 Yes [id number] Take [facility] rol 8-04 50,000 Health (Vitamin 00:00: Units by D2) 1.25 MG 00 mouth 1 (25202 UT) (one) time capsule per week. ergocalcife 2020-0 Yes [id number] Take [facility] rol 8-04 50,000 Health (Vitamin 00:00: Units by D2) 1.25 MG 00 mouth 1 (00955 UT) (one) time capsule per week. ergocalcife 2020-0 Yes [id number] Take [facility] rol 8-04 50,000 Health (Vitamin 00:00: Units by D2) 1.25 MG 00 mouth 1 (46252 UT) (one) time capsule per week. ergocalcife 2020-0 Yes [id number] Take [facility] rol 8-04 50,000 Health (Vitamin 00:00: Units by D2) 1.25 MG 00 mouth 1 (51074 UT) (one) time capsule per week. ergocalcife 2020-0 Yes [id number] Take [facility] rol 8-04 50,000 Health (Vitamin 00:00: Units by D2) 1.25 MG 00 mouth 1 (84179 UT) (one) time capsule per week. ergocalcife 2020-0 Yes [id number] Take [facility] rol 8-04 50,000 Health (Vitamin 00:00: Units by D2) 1.25 MG 00 mouth 1 (02652 UT) (one) time capsule per week. ergocalcife 2020-0 Yes [id number] Take [facility] rol 8-04 50,000 Health (Vitamin 00:00: Units by D2) 1.25 MG 00 mouth 1 (36277 UT) (one) time capsule per week. ergocalcife 2020-0 Yes [id number] Take [facility] rol 8-04 50,000 Health (Vitamin 00:00: Units by D2) 1.25 MG 00 mouth 1 (65673 UT) (one) time capsule per week. losartan 2020- No Essential 100mg QD Take 1 [facility] (COZAAR) 12-09 hypertensio tablet by Health 100 mg 00:00: 00:00 n, benign mouth tablet 00 :00 daily. losartan 2020- No Essential 100mg QD Take 1 [facility] (COZAAR) 12-09 hypertensio tablet by Health 100 mg 00:00: 00:00 n, benign mouth tablet 00 :00 daily. losartan 2020- No Essential 100mg QD Take 1 [facility] (COZAAR) 12-09 hypertensio tablet by Health 100 mg 00:00: 00:00 n, benign mouth tablet 00 :00 daily. gabapentin 2019-2019- No Type 2 600mg Take 1 H arris (NEURONTIN) 11-12 diabetes, tablet by Health 600 mg 00:00: 00:00 controlled, mouth 3 tablet 00 :00 with times neuropathy daily. gabapentin 2019-2019- No Type 2 600mg Take 1 H arris (NEURONTIN) 11-12 diabetes, tablet by Health 600 mg 00:00: 00:00 controlled, mouth 3 tablet 00 :00 with times neuropathy daily. flash 2020-0 Yes Type 2 Use as [facility] glucose 6-12 diabetes directed Heal th sensor 00:00: mellitus to check (FREESTYLE 00 without blood ALMA 14 complicatio sugar. DAY SENSOR) n, with Kit long-term current use of insulin flash 2020-0 Yes Type 2 Use as [facility] glucose 6-12 diabetes directed Heal sensor 00:00: mellitus to check (FREESTYLE 00 without blood ALMA 14 complicatio sugar. DAY SENSOR) n, with Kit long-term current use of insulin flash 2020-0 Yes Type 2 Use as [facility] glucose 6-12 diabetes directed Heal th sensor 00:00: mellitus to check (FREESTYLE 00 without blood ALMA 14 complicatio sugar. DAY SENSOR) n, with Kit long-term current use of insulin flash 2020-0 Yes Type 2 Use as [facility] glucose 6-12 diabetes directed Heal sensor 00:00: mellitus to check (FREESTYLE 00 without blood ALMA 14 complicatio sugar. DAY SENSOR) n, with Kit long-term current use of insulin FREESTYLE 2020-0 Yes DM type 2, USE [facility] ALMA 14 6-08 uncontrolle DIRECTED Health DAY SENSOR 00:00: d, with TO CHECK Kit 00 neuropathy BLOOD SUGAR FREESTYLE 2020-0 Yes DM type 2, USE [facility] ALMA 14 6-08 uncontrolle DIRECTED Health DAY SENSOR 00:00: d, with TO CHECK Kit 00 neuropathy BLOOD SUGAR FREESTYLE 2020-0 Yes DM type 2, USE [facility] ALMA 14 6-08 uncontrolle DIRECTED Health DAY SENSOR 00:00: d, with TO CHECK Kit 00 neuropathy BLOOD SUGAR FREESTYLE 2020-0 Yes DM type 2, USE [facility] ALMA 14 6-08 uncontrolle DIRECTED Health DAY SENSOR 00:00: d, with TO CHECK Kit 00 neuropathy BLOOD SUGAR glucose 2020-0 Yes CHECK [facility] blood 6-03 BLOOD Health (Precision 00:00: SUGAR 3 QID Test) 00 TIMES test strip DAILY. glucose 2020-0 Yes CHECK UT blood 6-03 BLOOD Health (Precision 00:00: SUGAR 3 QID Test) 00 TIMES test strip DAILY. glucose 2020-0 Yes CHECK UT blood 6-03 BLOOD Health (Precision 00:00: SUGAR 3 QID Test) 00 TIMES test strip DAILY. glucose 2020-0 Yes CHECK UT blood 6-03 BLOOD Health (Precision 00:00: SUGAR 3 QID Test) 00 TIMES test strip DAILY. glucose 2020-0 Yes CHECK UT blood 6-03 BLOOD Health (Precision 00:00: SUGAR 3 QID Test) 00 TIMES test strip DAILY. glucose 2020-0 Yes CHECK UT blood 6-03 BLOOD Health (Precision 00:00: SUGAR 3 QID Test) 00 TIMES test strip DAILY. glucose 2020-0 Yes CHECK UT blood 6-03 BLOOD Health (Precision 00:00: SUGAR 3 QID Test) 00 TIMES test strip DAILY. glucose 2020-0 Yes CHECK UT blood 6-03 BLOOD Health (Precision 00:00: SUGAR 3 QID Test) 00 TIMES test strip DAILY. glucose 2020-0 Yes CHECK UT blood 6-03 BLOOD Health (Precision 00:00: SUGAR 3 QID Test) 00 TIMES test strip DAILY. glucose 2020-0 Yes CHECK UT blood 6-03 BLOOD Health (Precision 00:00: SUGAR 3 QID Test) 00 TIMES test strip DAILY. glucose 2020-0 Yes CHECK UT blood 6-03 BLOOD Health (Precision 00:00: SUGAR 3 QID Test) 00 TIMES test strip DAILY. glucose 2020-0 Yes CHECK UT blood 6-03 BLOOD Health (Precision 00:00: SUGAR 3 QID Test) 00 TIMES test strip DAILY. glucose 2020-0 Yes CHECK UT blood 6-03 BLOOD Health (Precision 00:00: SUGAR 3 QID Test) 00 TIMES test strip DAILY. glucose 2020-0 Yes CHECK UT blood 6-03 BLOOD Health (Precision 00:00: SUGAR 3 QID Test) 00 TIMES test strip DAILY. glucose 2020-0 Yes CHECK UT blood 6-03 BLOOD Health (Precision 00:00: SUGAR 3 QID Test) 00 TIMES test strip DAILY. glucose 2020-0 Yes CHECK UT blood 6-03 BLOOD Health (Precision 00:00: SUGAR 3 QID Test) 00 TIMES test strip DAILY. glucose 2020-0 Yes CHECK UT blood 6-03 BLOOD Health (Precision 00:00: SUGAR 3 QID Test) 00 TIMES test strip DAILY. glucose 2020-0 Yes CHECK UT blood 6-03 BLOOD Health (Precision 00:00: SUGAR 3 QID Test) 00 TIMES test strip DAILY. blood 2020-0 Yes DM type 2, CHECK [facility] glucose 6-03 uncontrolle BLOOD Heal th test strips 00:00: d, with SUGAR 3 00 neuropathy TIMES DAILY. blood 2020-0 Yes DM type 2, CHECK [facility] glucose 6-03 uncontrolle BLOOD Heal th test strips 00:00: d, with SUGAR 3 00 neuropathy TIMES DAILY. blood 2020-0 Yes DM type 2, CHECK [facility] glucose 6-03 uncontrolle BLOOD Heal th test strips 00:00: d, with SUGAR 3 00 neuropathy TIMES DAILY. blood 2020-0 Yes DM type 2, CHECK [facility] glucose 6-03 uncontrolle BLOOD [facility]al th test strips 00:00: d, with SUGAR 3 00 neuropathy TIMES DAILY. glucose 2020-0 Yes CHECK [facility] blood 6-03 BLOOD Health (Precision 00:00: SUGAR 3 QID Test) 00 TIMES test strip DAILY. glucose 2020-0 Yes CHECK [facility] blood 6-03 BLOOD Health (Precision 00:00: SUGAR 3 QID Test) 00 TIMES test strip DAILY. glucose 2020-0 Yes CHECK [facility] blood 6-03 BLOOD Health (Precision 00:00: SUGAR 3 QID Test) 00 TIMES test strip DAILY. glucose 2020-0 Yes CHECK [facility] blood 6-03 BLOOD Health (Precision 00:00: SUGAR 3 QID Test) 00 TIMES test strip DAILY. glucose 2020-0 Yes CHECK [facility] blood 6-03 BLOOD Health (Precision 00:00: SUGAR 3 QID Test) 00 TIMES test strip DAILY. glucose 2020-0 Yes CHECK [facility] blood 6-03 BLOOD Health (Precision 00:00: SUGAR 3 QID Test) 00 TIMES test strip DAILY. glucose 2020-0 Yes CHECK [facility] blood 6-03 BLOOD Health (Precision 00:00: SUGAR 3 QID Test) 00 TIMES test strip DAILY. methocarbam 2020-0 2020- No Degenerativ 1500mg Take 2 [place] oL 5-29 10-20 e disc tablets by Health (ROBAXIN) 00:00: 00:00 disease, mouth 3 750 mg 00 :00 cervical times tablet daily. methocarbam 2020-0 2020- No Degenerativ 1500mg Take 2 [place] oL 5-29 10-20 e disc tablets by Health (ROBAXIN) 00:00: 00:00 disease, mouth 3 750 mg 00 :00 cervical times tablet daily. butalbital- 2018-05 Yes 1{capsu Take 1 U T acetaminoph 2-12 le} capsule by He alth en-caffeine 00:00: mouth. (Esgic) 00 50-325-40 MG capsule Continuous 2018-05 Yes Use as [facility] Blood Gluc 2-12 directed Healt h Potato Grader 00:00: to check (FreeStyle 00 blood [place] sugar. reader) device butalbital- 2018-05 Yes 1{capsu Take 1 U T acetaminoph 2-12 le} capsule by [facility] alth en-caffeine 00:00: mouth. (Esgic) 00 50-325-40 MG capsule Continuous 2018-05 Yes Use as [facility] Blood Gluc 2-12 directed [facility]alt [facility] Potato Grader 00:00: to check (FreeStyle 00 blood [place] sugar. reader) device butalbital- 2018-05 Yes 1{capsu Take 1 U T acetaminoph 2-12 le} capsule by [facility] alth en-caffeine 00:00: mouth. (Esgic) 00 50-325-40 MG capsule Continuous 2018-05 Yes Use as [facility] Blood Gluc 2-12 directed [facility]alt [facility] Pot[facility] Grader 00:00: to check (FreeStyle 00 blood [place] sugar. reader) device butalbital- 2018-05 Yes 1{capsu Take 1 U T acetaminoph 2-12 le} capsule by [facility] alth en-caffeine 00:00: mouth. (Esgic) 00 50-325-40 MG capsule Continuous 2018-05 Yes Use as [facility] Blood Gluc 2-12 directed [facility]alt [facility] Pot[facility]ader 00:00: to check (FreeStyle 00 blood [place] sugar. reader) device butalbital2018-05 Yes 1{capsu Take 1 U T acetaminoph 2-12 le} capsule by [facility] alth en-caffeine 00:00: mouth. (Esgic) 00 50-325-40 MG capsule Continuous 2018-05 Yes Use as [facility] Blood Gluc 2-12 directed [facility]alt [facility] Pot[facility] Grader 00:00: to check (FreeStyle 00 blood [place] sugar. reader) device butalbital2018-05 Yes 1{capsu Take 1 U T acetaminoph 2-12 le} capsule by [facility] alth en-caffeine 00:00: mouth. (Esgic) 00 50-325-40 MG capsule Continuous 2018-05 Yes Use as [facility] Blood Gluc 2-12 directed [facility]alt [facility] Potato Grader 00:00: to check (FreeStyle 00 blood [place] sugar. reader) device butalbital- 2018-05 Yes 1{capsu Take 1 U T acetaminoph 2-12 le} capsule by He alth en-caffeine 00:00: mouth. (Esgic) 00 50-325-40 MG capsule Continuous 2018-05 Yes Use as [facility] Blood Gluc 2-12 directed [facility]alt [facility] Pot[facility]ader 00:00: to check (FreeStyle 00 blood [place] sugar. reader) device butalbital- 2018-05 Yes 1{capsu Take 1 U T acetaminoph 2-12 le} capsule by He alth en-caffeine 00:00: mouth. (Esgic) 00 50-325-40 MG capsule butalbital- 2018-05 Yes 1{capsu Take 1 U T acetaminoph 2-12 le} capsule by [facility] alth en-caffeine 00:00: mouth. (Esgic) 00 50-325-40 MG capsule Continuous 2018-05 Yes Use as [facility] Blood Gluc 2-12 directed [facility]alt [facility] Potato Grader 00:00: to check (FreeStyle 00 blood [place] sugar. reader) device Continuous 2018-05 Yes Use as [facility] Blood Gluc 2-12 directed [facility]alt [facility] Potato Grader 00:00: to check (FreeStyle 00 blood [place] sugar. reader) device butalbital- 2018-05 Yes 1{capsu Take 1 U T acetaminoph 2-12 le} capsule by [facility] alth en-caffeine 00:00: mouth. (Esgic) 00 50-325-40 MG capsule Continuous 2018-05 Yes Use as UT Blood Gluc 2-12 directed [facility]alt [facility] Pot[facility] Grader 00:00: to check (FreeStyle 00 blood [place] sugar. reader) device butalbital2018-05 Yes 1{capsu Take 1 U T acetaminoph 2-12 le} capsule by [facility] alth en-caffeine 00:00: mouth. (Esgic) 00 50-325-40 MG capsule Continuous 2018-05 Yes Use as [facility] Blood Gluc 2-12 directed [facility]alt [facility] Pot[facility] Grader 00:00: to check (FreeStyle 00 blood [place] sugar. reader) device butalbital- 2018-05 Yes 1{capsu Take 1 U T acetaminoph 2-12 le} capsule by [facility] alth en-caffeine 00:00: mouth. (Esgic) 00 50-325-40 MG capsule Continuous 2018-05 Yes Use as UT Blood Gluc 2-12 directed [facility]alt [facility] Pot[facility] 00:00: to check (FreeStyle 00 blood [place] sugar. reader) device butalbital- 2018-05 Yes 1{capsu Take 1 U T acetaminoph 2-12 le} capsule by He alth en-caffeine 00:00: mouth. (Esgic) 00 50-325-40 MG capsule Continuous 2018-05 Yes Use as UT Blood Gluc 2-12 directed [facility]alt [facility] Potato Grader 00:00: to check (FreeStyle 00 blood [place] sugar. reader) device butalbital- 2018-05 Yes 1{capsu Take 1 U T acetaminoph 2-12 le} capsule by He alth en-caffeine 00:00: mouth. (Esgic) 00 50-325-40 MG capsule Continuous 2018-05 Yes Use as UT Blood Gluc 2-12 directed [facility]alt [facility] Potato Grader 00:00: to check (FreeStyle 00 blood [place] sugar. reader) device butalbital- 2018-05 Yes 1{capsu Take 1 U T acetaminoph 2-12 le} capsule by He alth en-caffeine 00:00: mouth. (Esgic) 00 50-325-40 MG capsule Continuous 2018-05 Yes Use as UT Blood Gluc 2-12 directed [facility]alt [facility] Pot[facility] Grader 00:00: to check (FreeStyle 00 blood [place] sugar. reader) device butalbital2018-05 Yes 1{capsu Take 1 U T acetaminoph 2-12 le} capsule by He alth en-caffeine 00:00: mouth. (Esgic) 00 50-325-40 MG capsule Continuous 2018-05 Yes Use as UT Blood Gluc 2-12 directed [facility]alt [facility] Pot[facility] 00:00: to check (FreeStyle 00 blood [place] sugar. reader) device butalbital- 2018-05 Yes 1{capsu Take 1 U T acetaminoph 2-12 le} capsule by He alth en-caffeine 00:00: mouth. (Esgic) 00 50-325-40 MG capsule Continuous 2018-05 Yes Use as UT Blood Gluc 2-12 directed [facility]alt [facility] Pot[facility] 00:00: to check (FreeStyle 00 blood [place] sugar. reader) device butalbital- 2018-05 Yes 1{capsu Take 1 U T acetaminoph 2-12 le} capsule by He alth en-caffeine 00:00: mouth. (Esgic) 00 50-325-40 MG capsule Continuous 2018-05 Yes Use as UT Blood Gluc 2-12 directed [facility]alt [facility] 00:00: to check (FreeStyle 00 blood [place] sugar. reader) device BUTALBITAL- 2018-05 Yes Migraine 1{capsu Take 1 [place] APAP-CAFFEI 2-12 without le} capsule by [facility] [place] 00:00: status mouth 50-325-40 00 migrainosus every 8 mg cap , not hours as intractable needed , (headache) unspecified . migraine type pen needle, 2018-05 Yes DM type 2, Use as [place] diabetic 31 2-12 uncontrolle directed Health gauge x 00:00: d, with with 3/16" 00 neuropathy Levemir needles Flextouch. flash 2018-05 Yes DM type 2, Use as [facility] is glucose 2-12 uncontrolle directed H ealth scanning 00:00: d, with to check reader 00 neuropathy blood (FREESTYLE sugar. [place] 10 DAY READER[place] [facility] [place]-05 Yes Migraine 1{capsu Take 1 [place] APAP-CAFFEI 2-12 without le} capsule by [facility] [place] 00:00: status mouth 50-325-40 00 migrainosus every 8 mg cap , not hours as intractable needed , (headache) unspecified . migraine type pen needle, 2018-05 Yes DM type 2, Use as [place] diabetic 31 2-12 uncontrolle directed Health gauge x 00:00: d, with with 3/16" 00 neuropathy Levemir needles Flextouch. flash 2018-05 Yes DM type 2, Use as [facility] is glucose 2-12 uncontrolle directed H ealth scanning 00:00: d, with to check reader 00 neuropathy blood (FREESTYLE sugar. [place] 10 DAY READER) [facility] [place]-05 Yes Migraine 1{capsu Take 1 [place] APAP-CAFFEI 2-12 without le} capsule by [facility] [place] 00:00: status mouth 50-325-40 00 migrainosus every 8 mg cap , not hours as intractable needed , (headache) unspecified . migraine type pen needle, 2018-05 Yes DM type 2, Use as [place] diabetic 31 2-12 uncontrolle directed Health gauge x 00:00: d, with with 3/16" 00 neuropathy Levemir needles Flextouch. flash 2018-05 Yes DM type 2, Use as [facility] is glucose 2-12 uncontrolle directed H ealth scanning 00:00: d, with to check reader 00 neuropathy blood (FREESTYLE sugar. [place] 10 DAY READER) [facility] [place] 2018-05 Yes Migraine 1{capsu Take 1 [place] APAP-CAFFEI 2-12 without le} capsule by [facility] [place] 00:00: status mouth 50-325-40 00 migrainosus every 8 mg cap , not hours as intractable needed , (headache) unspecified . migraine type pen needle, 2018-05 Yes DM type 2, Use as [place] diabetic 31 2-12 uncontrolle directed Health gauge x 00:00: d, with with 316" 00 neuropathy Levemir needles Flextouch. flash 2018-05 Yes DM type 2, Use as [facility] is glucose 2-12 uncontrolle directed H ealth scanning 00:00: d, with to check reader 00 neuropathy blood (FREESTYLE sugar. ALMA 10 DAY READER) Misc butalbital- 2018-05 Yes 1{capsu Take 1 U T acetaminoph 2-12 le} capsule by He alth en-caffeine 00:00: mouth. (Esgic) 00 50-325-40 MG capsule Continuous 2018-05 Yes Use as UT Blood Gluc 2-12 directed [facility]alt [facility] Pot[facility]ader 00:00: to check (FreeStyle 00 blood [place] sugar. reader) device butalbital- 2018-05 Yes 1{capsu Take 1 U T acetaminoph 2-12 le} capsule by He alth en-caffeine 00:00: mouth. (Esgic) 00 50-325-40 MG capsule Continuous 2018-05 Yes Use as UT Blood Gluc 2-12 directed Healt [facility] Potato Grader 00:00: to check (FreeStyle 00 blood [place] sugar. reader) device butalbital- 2018-05 Yes 1{capsu Take 1 U T acetaminoph 2-12 le} capsule by He alth en-caffeine 00:00: mouth. (Esgic) 00 50-325-40 MG capsule Continuous 2018-05 Yes Use as UT Blood Gluc 2-12 directed [facility]alt h Potato Grader 00:00: to check (FreeStyle 00 blood [place] sugar. reader) device butalbital- 2018-05 Yes 1{capsu Take 1 U T acetaminoph 2-12 le} capsule by He alth en-caffeine 00:00: mouth. (Esgic) 00 50-325-40 MG capsule Continuous 2018-05 Yes Use as UT Blood Gluc 2-12 directed [facility]alt [facility] Potato Grader 00:00: to check (FreeStyle 00 blood [place] sugar. reader) device butalbital- 2018-05 Yes 1{capsu Take 1 U T acetaminoph 2-12 le} capsule by He alth en-caffeine 00:00: mouth. (Esgic) 00 50-325-40 MG capsule Continuous 2018-05 Yes Use as UT Blood Gluc 2-12 directed [facility]alt h Potato Grader 00:00: to check (FreeStyle 00 blood [place] sugar. reader) device butalbital- 2018-05 Yes 1{capsu Take 1 U T acetaminoph 2-12 le} capsule by He alth en-caffeine 00:00: mouth. (Esgic) 00 50-325-40 MG capsule Continuous 2018-05 Yes Use as UT Blood Gluc 2-12 directed Healt h Potato Grader 00:00: to check (FreeStyle 00 blood [place] sugar. reader) device butalbital- 2018-05 Yes 1{capsu Take 1 U T acetaminoph 2-12 le} capsule by He alth en-caffeine 00:00: mouth. (Esgic) 00 50-325-40 MG capsule Continuous 2018-05 Yes Use as UT Blood Gluc 2-12 directed Healt [facility] Potato Grader 00:00: to check (FreeStyle 00 blood [place] sugar. reader) device tadalafil 2018-05 Yes 5mg QD Take 5 mg UT (Cialis) 5 0-23 by mouth 1 Hea lth MG tablet 00:00: (one) time 00 each day. tadalafil 2018-05 Yes 5mg QD Take 5 mg UT (Cialis) 5 0-23 by mouth 1 Hea lth MG tablet 00:00: (one) time 00 each day. tadalafil 2018-05 Yes 5mg QD Take 5 mg UT (Cialis) 5 0-23 by mouth 1 Hea lth MG tablet 00:00: (one) time 00 each day. tadalafil 2018- Yes 5mg QD Take 5 mg UT (Cialis) 5 0-23 by mouth 1 Hea lth MG tablet 00:00: (one) time 00 each day. tadalafil 2018- Yes 5mg QD Take 5 mg UT (Cialis) 5 0-23 by mouth 1 Hea lth MG tablet 00:00: (one) time 00 each day. tadalafil 2018-05 Yes 5mg QD Take 5 mg UT (Cialis) 5 0-23 by mouth 1 Hea lth MG tablet 00:00: (one) time 00 each day. tadalafil 2019- Yes 5mg QD Take 5 mg UT (Cialis) 5 0-23 by mouth 1 Hea lth MG tablet 00:00: (one) time 00 each day. tadalafil 2019-1 Yes 5mg QD Take 5 mg UT (Cialis) 5 0-23 by mouth 1 Hea lth MG tablet 00:00: (one) time 00 each day. tadalafil 2019-1 Yes 5mg QD Take 5 mg UT (Cialis) 5 0-23 by mouth 1 Hea lth MG tablet 00:00: (one) time 00 each day. tadalafil 2019-1 Yes 5mg QD Take 5 mg UT (Cialis) 5 0-23 by mouth 1 Hea lth MG tablet 00:00: (one) time 00 each day. tadalafil 2019- Yes 5mg QD Take 5 mg UT (Cialis) 5 0-23 by mouth 1 Hea lth MG tablet 00:00: (one) time 00 each day. tadalafil 2018- Yes 5mg QD Take 5 mg UT (Cialis) 5 0-23 by mouth 1 Hea lth MG tablet 00:00: (one) time 00 each day. tadalafil 2019-1 Yes 5mg QD Take 5 mg UT (Cialis) 5 0-23 by mouth 1 Hea lth MG tablet 00:00: (one) time 00 each day. tadalafil 2019- Yes 5mg QD Take 5 mg UT (Cialis) 5 0-23 by mouth 1 Hea lth MG tablet 00:00: (one) time 00 each day. tadalafil 2019-1 Yes 5mg QD Take 5 mg UT (Cialis) 5 0-23 by mouth 1 Hea lth MG tablet 00:00: (one) time 00 each day. tadalafil 2019-1 Yes 5mg QD Take 5 mg UT (Cialis) 5 0-23 by mouth 1 Hea lth MG tablet 00:00: (one) time 00 each day. tadalafil 2019-1 Yes 5mg QD Take 5 mg UT (Cialis) 5 0-23 by mouth 1 Hea lth MG tablet 00:00: (one) time 00 each day. tadalafil 2018-05 Yes 5mg QD Take 5 mg UT (Cialis) 5 0-23 by mouth 1 Hea lth MG tablet 00:00: (one) time 00 each day. isosorbide 2018-05 Yes Essential 30mg QD Take 1 [place] mononitrate 0-23 hypertensio tablet by Health (IMDUR) 30 00:00: n, benign mouth mg extended 00 daily. release tablet Tadalafil 2018-05 Yes Lower 5mg QD Take 1 [facility] (CIALIS) 5 0-23 urinary tablet by H ealth mg tablet 00:00: tract mouth 00 symptoms daily. (LUTS) isosorbide 2018-05 Yes Essential 30mg QD Take 1 [place] mononitrate 0-23 hypertensio tablet by [employer] (IMDUR) 30 00:00: n, benign mouth mg extended 00 daily. release tablet Tadalafil 2018-05 Yes Lower 5mg QD Take 1 [facility] (CIALIS) 5 0-23 urinary tablet by H ealth mg tablet 00:00: tract mouth 00 symptoms daily. (LUTS) isosorbide 2018-05 Yes Essential 30mg QD Take 1 [place] mononitrate 0-23 hypertensio tablet by [employer] (IMDUR) 30 00:00: n, benign mouth mg extended 00 daily. release tablet Tadalafil 2018-05 Yes Lower 5mg QD Take 1 [facility] (CIALIS) 5 0-23 urinary tablet by H ealth mg tablet 00:00: tract mouth 00 symptoms daily. (LUTS) isosorbide 2018-05 Yes Essential 30mg QD Take 1 [place] mononitrate 0-23 hypertensio tablet by Health (IMDUR) 30 00:00: n, benign mouth mg extended 00 daily. release tablet Tadalafil 2018-05 Yes Lower 5mg QD Take 1 [facility] (CIALIS) 5 0-23 urinary tablet by H ealth mg tablet 00:00: tract mouth 00 symptoms daily. (LUTS) tadalafil 2018-05 Yes 5mg QD Take 5 mg UT (Cialis) 5 0-23 by mouth 1 Hea lth MG tablet 00:00: (one) time 00 each day. tadalafil 2018-05 Yes 5mg QD Take 5 mg UT (Cialis) 5 0-23 by mouth 1 Hea lth MG tablet 00:00: (one) time 00 each day. tadalafil 2018- Yes 5mg QD Take 5 mg UT (Cialis) 5 0-23 by mouth 1 Hea lth MG tablet 00:00: (one) time 00 each day. tadalafil 2018- Yes 5mg QD Take 5 mg UT (Cialis) 5 0-23 by mouth 1 Hea lth MG tablet 00:00: (one) time 00 each day. tadalafil 2018- Yes 5mg QD Take 5 mg UT (Cialis) 5 0-23 by mouth 1 Hea lth MG tablet 00:00: (one) time 00 each day. tadalafil 2018- Yes 5mg QD Take 5 mg UT (Cialis) 5 0-23 by mouth 1 Hea lth MG tablet 00:00: (one) time 00 each day. tadalafil 2018- Yes 5mg QD Take 5 mg UT (Cialis) 5 0-23 by mouth 1 Hea lth MG tablet 00:00: (one) time 00 each day. metFORMIN 2018-05- No DM type 2, 1000mg Take 1 [place] (GLUCOPHAGE 0-23 03-30 uncontrolle tablet by [employer] ) 1,000 mg 00:00: 00:00 d, with mouth 2 tablet 00 :00 neuropathy times daily (with meals). metFORMIN 2018-05- No DM type 2, 1000mg Take 1 [place] (GLUCOPHAGE 0-23 03-30 uncontrolle tablet by [employer] ) 1,000 mg 00:00: 00:00 d, with mouth 2 tablet 00 :00 neuropathy times daily (with meals). metFORMIN 2018-05- No DM type 2, 1000mg Take 1 [place] (GLUCOPHAGE 0-23 03-30 uncontrolle tablet by [employer] ) 1,000 mg 00:00: 00:00 d, with mouth 2 tablet 00 :00 neuropathy times daily (with meals). hydroCHLORO 2018-05- No Essential 25mg QD Take 1 [place] thiazide 0-23 01-20 hypertensio tablet by [employer] (HYDRODIURI 00:00: 00:00 n, benign mouth L) 25 mg 00 :00 daily. tablet hydroCHLORO 2018-05- No Essential 25mg QD Take 1 [place] thiazide 0-23 01-20 hypertensio tablet by [employer] (HYDRODIURI 00:00: 00:00 n, benign mouth L) 25 mg 00 :00 daily. tablet rosuvastati 2018-05- No Mixed 10mg Take 1 [facility] rris n (CRESTOR) 0-23 11-10 dyslipidemi tablet by Health 10 mg 00:00: 00:00 a mouth at tablet 00 :00 bedtime nightly. metoprolol 2018-05- No Essential 25mg QD Take 1 [place] succinate 0-23 11-10 hypertensio tablet by [facility] (TOPROL XL) 00:00: 00:00 n, benign mouth 25 mg 00 :00 daily. extended release tablet pregabalin 2018-05- No DM type 2, 150mg Q.5D Take 1 [place] (LYRICA) 0- 11-10 uncontrolle capsule by [facility] 150 mg 00:00: 00:00 d, with mouth 2 capsule 00 :00 neuropathy times daily rosuvastati 2018-05- No Mixed 10mg Take 1 [facility]ipp[facility] rris n (CRESTOR) 0- 11-10 dyslipidemi tablet by Health 10 mg 00:00: 00:00 a mouth at tablet 00 :00 bedtime nightly. metoprolol 2018-05- No Essential 25mg QD Take 1 [place] succinate 0- 11-10 hypertensio tablet by [employer] (TOPROL XL) 00:00: 00:00 n, benign mouth 25 mg 00 :00 daily. extended release tablet pregabalin 2018-05- No DM type 2, 150mg Q.5D Take 1 [place] (LYRICA) 0- 11-10 uncontrolle capsule by Health 150 mg 00:00: 00:00 d, with mouth 2 capsule 00 :00 neuropathy times daily rizatriptan 2018-05- No Migraine 10mg Take 1 [place] ([employer] ANALYST 0-23 10-05 without tablet by Health ) 10 mg 00:00: 00:00 status mouth as rapid 00 :00 migrainosus needed dissolve , not (Migraine tablet intractable PHIPPS) May , take unspecified additional migraine tablet by type mouth after 2 hours if needed. rizatriptan 2018-05- No Migraine 10mg Take 1 [place] ([employer] ANALYST 0-23 10-05 without tablet by Health ) 10 mg 00:00: 00:00 status mouth as rapid 00 :00 migrainosus needed dissolve , not (Migraine tablet intractable PHIPPS) May , take unspecified additional migraine tablet by type mouth after 2 hours if needed. fenofibrate 2018-05 No Mixed 160mg QD Take 1 H arris (LOFIBRA) 01-22 dyslipidemi tablet by Health 160 mg 00:00: 00:00 a mouth tablet 00 :00 daily. fenofibrate 2018-05 No Mixed 160mg QD Take 1 H arris (LOFIBRA) 01-22 dyslipidemi tablet by Health 160 mg 00:00: 00:00 a mouth tablet 00 :00 daily. oxygen (O2) Yes Check [facility] gas 6-05 blood Health 00:00: sugar 4 00 times daily. oxygen (O2) Yes Check UT gas 6-05 blood Health 00:00: sugar 4 00 times daily. oxygen (O2) Yes Check UT gas 6-05 blood Health 00:00: sugar 4 00 times daily. oxygen (O2) Yes Check UT gas 6-05 blood Health 00:00: sugar 4 00 times daily. oxygen (O2) Yes Check UT gas 6-05 blood Health 00:00: sugar 4 00 times daily. oxygen (O2) Yes Check UT gas 6-05 blood Health 00:00: sugar 4 00 times daily. oxygen (O2) Yes Check UT gas 6-05 blood Health 00:00: sugar 4 00 times daily. oxygen (O2) Yes Check UT gas 6-05 blood Health 00:00: sugar 4 00 times daily. oxygen (O2) Yes Check UT gas 6-05 blood Health 00:00: sugar 4 00 times daily. oxygen (O2) Yes Check UT gas 6-05 blood Health 00:00: sugar 4 00 times daily. oxygen (O2) 0 Yes Check [facility] gas 6-05 blood Health 00:00: sugar 4 00 times daily. oxygen (O2) 0 Yes Check UT gas 6-05 blood Health 00:00: sugar 4 00 times daily. oxygen (O2) 2018-0 Yes Check UT gas 6-05 blood Health 00:00: sugar 4 00 times daily. oxygen (O2) Yes Check UT gas 6-05 blood Health 00:00: sugar 4 00 times daily. oxygen (O2) Yes Check UT gas 6-05 blood Health 00:00: sugar 4 00 times daily. oxygen (O2) Yes Check UT gas 6-05 blood Health 00:00: sugar 4 00 times daily. oxygen (O2) 0 Yes Check [facility] gas 6-05 blood Health 00:00: sugar 4 00 times daily. oxygen (O2) Yes Check [facility] gas 6-05 blood Health 00:00: sugar 4 00 times daily. blood Yes Diabetes Check [place] glucose 6-05 mellitus blood Health (TRUE 00:00: type 2, sugar 4 METRIX 00 uncontrolle times GLUCOSE d, without daily. TEST STRIP) complicatio test strips ns blood Yes Diabetes Check [place] glucose 6-05 mellitus blood Health (TRUE 00:00: type 2, sugar 4 METRIX 00 uncontrolle times GLUCOSE d, without daily. TEST STRIP) complicatio test strips ns blood Yes Diabetes Check [place] glucose 6-05 mellitus blood Health (TRUE 00:00: type 2, sugar 4 METRIX 00 uncontrolle times GLUCOSE d, without daily. TEST STRIP) complicatio test strips ns blood Yes Diabetes Check [place] glucose 6-05 mellitus blood Health (TRUE 00:00: type 2, sugar 4 METRIX 00 uncontrolle times GLUCOSE d, without daily. TEST STRIP) complicatio test strips ns oxygen (O2) Yes Check [facility] gas 6-05 blood Health 00:00: sugar 4 00 times daily. oxygen (O2) Yes Check UT gas 6-05 blood Health 00:00: sugar 4 00 times daily. oxygen (O2) Yes Check UT gas 6-05 blood Health 00:00: sugar 4 00 times daily. oxygen (O2) Yes Check UT gas 6-05 blood Health 00:00: sugar 4 00 times daily. oxygen (O2) Yes Check UT gas 6-05 blood Health 00:00: sugar 4 00 times daily. oxygen (O2) 0 Yes Check UT gas 6-05 blood Health 00:00: sugar 4 00 times daily. oxygen (O2) Yes Check UT gas 6-05 blood Health 00:00: sugar 4 00 times daily. blood Yes Diabetes Use as [place] glucose 5-08 mellitus directed.. He alth meter (TRUE 00:00: type 2, METRIX 00 uncontrolle GLUCOSE d, without METER) complicatio blood Yes Diabetes Use as [place] glucose 5-08 mellitus directed.. He alth meter (TRUE 00:00: type 2, METRIX 00 uncontrolle GLUCOSE d, without MET[facility]) [facility] Use as [place] glucose 5-08 mellitus directed.. He alth meter (TRUE 00:00: type 2, METRIX 00 uncontrolle GLUCOSE d, without METER) complicatio blood Yes Diabetes Use as [place] glucose 5-08 mellitus directed.. He alth meter (TRUE 00:00: type 2, METRIX 00 uncontrolle GLUCOSE d, without METER) [facility] Yes Chronic 10mg Q.5D Take 1 [facility] rris (ZYRTEC) 10 1-25 urticaria tablet by Health mg tablet 00:00: mouth 2 00 times daily. cetirizine Yes Chronic 10mg Q.5D Take 1 [facility] rris (ZYRTEC) 10 1-25 urticaria tablet by Health mg tablet 00:00: mouth 2 00 times daily. cetirizine Yes Chronic 10mg Q.5D Take 1 [facility] rris (ZYRTEC) 10 1-25 urticaria tablet by Health mg tablet 00:00: mouth 2 00 times daily. cetirizine Yes Chronic 10mg Q.5D Take 1 [facility] rris (ZYRTEC) 10 1-25 urticaria tablet by Health mg tablet 00:00: mouth 2 00 times daily. montelukast Yes Chronic 10mg Take 1 H arris (SINGULAIR) 1-24 urticaria tablet by Health 10 mg 00:00: mouth at tablet 00 bedtime nightly. montelukast Yes Chronic 10mg Take 1 H arris (SINGULAIR) 1-24 urticaria tablet by Health 10 mg 00:00: mouth at tablet 00 bedtime nightly. montelukast Yes Chronic 10mg Take 1 H arris (SINGULAIR) 1-24 urticaria tablet by Health 10 mg 00:00: mouth at tablet 00 bedtime nightly. montelukast Yes Chronic 10mg Take 1 H arris (SINGULAIR) 1-24 urticaria tablet by [facility] 10 mg 00:00: mouth at tablet 00 bedtime nightly. ergocalcife 2017-0 Yes Vitamin D 35804Q Take 1 [place] rol 7-13 deficiency capsule by [facility] (VITAMIN 00:00: mouth D2) 50,000 00 weekly. unit capsule ergocalcife Yes Vitamin D 35092F Take 1 [place] rol 7-13 deficiency capsule by [facility] (VITAMIN 00:00: mouth D2) 50,000 00 weekly. unit capsule ergocalcife 0 Yes Vitamin D 47409G Take 1 [place] rol 7-13 deficiency capsule by [facility] (VITAMIN 00:00: mouth D2) 50,000 00 weekly. unit capsule ergocalcife 0 Yes Vitamin D 39823M Take 1 [place] rol 7-13 deficiency capsule by [facility] (VITAMIN 00:00: mouth D2) 50,000 00 weekly. unit capsule Nitroglycer No 0.4 mg = 1 Memoria in 0.4 MG 15 tab, SL, l Sublingual 17:32: Q5Min, PRN H ermann Tablet 00 Chest Pain, Give up to 3 doses. Call 911 if pain persists. not to exceed 3 doses/15 min--if pain persists, seek medical attention, # 100 tab, 0 Refill(s) Nitroglycer No Notes: Jesse elin in 15 (Same l 17:31: as:Nitroqu ick, Nitrostat) "Do Not Crush" Sublingual tablet Insulin No Notes: Memoria Lispro -14 Roll in l 23:05: palms of Carrier 00 hands gently; Do not shake `vigorousl y. (Same as: Humalog ) "Single Patient Use Only " WASTE: F/P - Black; E - Municipal Trash Bin Stable for 28 days at room temperatur e. Expires in days from ____Date Dextrose No 12.5 gm, Memor ia 50% Syringe 1-14 25 mL, l 23:05: Route: Carrier 00 IVP, Drug Form: INJ, Dosing Weight 121.364, kg, PRN, PRN Blood Glucose Results, Start date: 06/04/17 17:05:00 CNC TECHNICIAN, Duration: 30 day, Stop date: 07/04/17 17:04:00 CNC TECHNICIAN Glucagon No 1 mg, Memoria 06-04 Route: IM, l 23:05: Drug form: PDR/INJ, PRN, Dosing Weight 121.364, kg, PRN Blood Glucose Results, Start date: 06/04/17 17:05:00 CNC TECHNICIAN, Duration: 30 day, Stop date: 07/04/17 17:04:00 CNC TECHNICIAN metoprolol No Notes: Memor ia extended 06-04 (Same as: l release 15:00: Toprol XL) Do Not Crush Losartan No Notes: Memoria 14 (Same as: l 15:00: Cozaar) aspirin 81 No Notes: Do Me moria mg tablet, 06-04 not crush l enteric 15:00: or chew. Jose n coated (Same As: Ecotrin) Fluoxetine No Notes: Memor ia 14 (Same as: l 15:00: Prozac) Aspirin 81 No Notes: Do Me moria MG Enteric 06-04 not crush l Coated 15:00: or chew. Tablet (Same As: Ecotrin) Dextrose No 25 mL, Memoria 50% Syringe 06-04 Route: l 14:47: IVP, Dosing Weight 121.364, kg, PRN, PRN Blood Glucose Results, Start date: 06/04/17 8:47:00 CNC TECHNICIAN, Duration: 30 day, Stop date: 07/04/17 8:46:00 CNC TECHNICIAN Glucagon No 1 mg, Memoria 06-04 Route: IM, l 14:47: PRN, Dosing Weight 121.364, kg, PRN Blood Glucose Results, Start date: 06/04/17 8:47:00 CNC TECHNICIAN, Duration: 30 day, Stop date: 07/04/17 8:46:00 CNC TECHNICIAN Glucotrol No Notes: Memori a -14 (Same as: l 13:30: Glucotrol) 30 min before meals. atorvastati No Notes: Jesse elin n -14 (Same as: l 03:00: Lipitor) Saline No Notes: Memoria Flush 0.9% 06-04 preservati l 03:00: ve free. Tylenol No Notes: Do Memor ia 06-04 not exceed l 02:29: 4 gm/day. (Same as: Tylenol) gabapentin Yes 600 mg = 1 M emoria 600 MG Oral -13 tab, PO, l Tablet 23:00: TID, # 90 Jose n 00 tab, 1 Refill(s) Alprazolam No 0.25 mg = Me moria 0.25 MG 13 1 tab, PO, l Oral Tablet 23:00: Daily, # He rmann 00 30 tab, 0 Refill(s) FLUoxetine Yes 20 mg = 2 Me moria 10 mg oral -13 cap, PO, l capsule 23:00: Daily, # Jose n 00 90 cap, 0 Refill(s) Acetaminoph No 1 tab, PO, Memoria en 300 MG / 13 Q4H, PRN l Codeine 23:00: Pain, # 42 Herm sheila Phosphate 00 tab, 0 30 MG Oral Refill(s) Tablet Ergocalcife Yes 50,000 Jesse elin rol [id number] 06-03 IntlUnit = l UNT Oral 23:00: 1 cap, PO, Her elliott Capsule 00 qWeek, # 12 cap, 0 Refill(s) methocarbam No 1,500 mg = Memoria ol 750 mg 06-03 2 tab, PO, l oral tablet 23:00: TID, # 84 H ermann 00 tab, 0 Refill(s) Metformin Yes 1,000 mg = Me moria hydrochlori 13 1 tab, PO, l de 1000 MG 23:00: BID-Meals, H ermann Oral Tablet 00 # 60 tab, 0 Refill(s) amLODIPine Yes 10 mg = 1 Me moria 10 mg oral -13 tab, PO, l tablet 23:00: Daily, # Scot 00 90 tab, 1 Refill(s) pregabalin No 150 mg = 1 M emoria 150 MG Oral 1-13 cap, PO, l Capsule 23:00: BID, # 60 Nelly nn [Lyrica] 00 cap, 1 Refill(s) losartan 2018-0 Yes 100 mg = 1 Mem oria 100 mg oral 1-13 tab, PO, l tablet 23:00: Daily, # Scot 00 90 tab, 1 Refill(s) Tricor 2018-0 Yes 145 mg, Memoria 1-13 PO, Daily, l 23:00: 0 Carrier 00 Refill(s) Hydrochloro 2018-0 Yes 25 mg, PO, Memoria thiazide 1-13 Daily, 0 l 23:00: Refill(s) Carrier tamsulosin Yes 0.4 mg = 1 M emoria 0.4 mg oral 1-13 cap, PO, l capsule 23:00: Daily, # Jose n 00 90 cap, 0 Refill(s) rosuvastati 0 Yes 10 mg = 1 M emoria n 10 mg 1-13 tab, PO, l oral tablet 23:00: Bedtime, # Scot 00 90 tab, 0 Refill(s) glyBURIDE 5 Yes 10 mg = 2 M emoria mg oral 1-13 tab, PO, l tablet 23:00: BID-Meals, Nelly nn 00 # 60 tab, 1 Refill(s) rizatriptan No 10 mg = 1 M emoria 10 mg oral 1-13 tab, PO, l tablet 23:00: Daily, PRN Nelly nn 00 for migraine headache, # 12 tab, 0 Refill(s) Nitroglycer No 0.4 mg = 1 Memoria in 0.4 MG -13 tab, SL, l Sublingual 23:00: Q5Min, PRN H ermann Tablet 00 Chest Pain, Give up to 3 doses. Call 911 if pain persists., # 25 tab, 3 Refill(s) Glyburide 0 No 10 mg, Memori a -13 Route: PO, l 23:00: Drug form: Scot TAB, BID, Dosing Weight 121.364, kg, Start date: 06/03/17 17:00:00 CNC TECHNICIAN, Duration: 30 day, Stop date: 07/03/17 9:00:00 CNC TECHNICIAN Heparin - 2017-0 No 4,000 Memoria one time 1-13 unit, 4 l bolus for 22:50: mL, Route: He rmann ACS 00 IV, Drug form: INJ, ONCE, Dosing Weight 121.364, kg, Priority: STAT, Start date: 06/03/17 16:50:00 CNC TECHNICIAN, Stop date: 06/03/17 16:50:00 CNC TECHNICIAN Heparin 60 0 No Route: Memor ia unit/kg 1-13 IVP, PRN, l Bolus 22:50: 5,400 Scot (Heparin 00 unit, 5.4 Dosing mL, Drug Weight) form: INJ, PRN, Heparin Protocol, Start date: 06/03/17 16:50:00 CNC TECHNICIAN Stop date: 07/03/17 16:49:00 CNC TECHNICIAN, 30 day heparin 2017-0 No 500 mL, Memoria additive 1- Rate: l 25,000 unit 22:50: 21.83 Nelly nn [12 00 ml/hr, unit/kg/hr] Infuse + Premix over: 22.9 Diluent hr, Route: Dextrose 5% IV, Dosing 500 mL Weight 90.97 kg, Total Volume: 500 mL, Start date: 06/03/17 16:50:00 CNC TECHNICIAN, Stop date: 07/03/17 16:49:00 CNC TECHNICIAN, 2.12, m2 Heparin 30 No Route: Memor ia unit/kg 1-13 IVP, PRN, l Bolus 22:50: 2,700 Scot (Heparin 00 unit, 2.7 Dosing mL, Drug Weight) form: INJ, PRN, Heparin Protocol, Start date: 06/03/17 16:50:00 CNC TECHNICIAN Stop date: 07/03/17 16:49:00 CNC TECHNICIAN, 30 day Glucagon 2018-0 No 1 mg, Memoria 1-13 Route: IM, l 22:49: Drug form: Carrier 00 PDR/INJ, PRN, Dosing Weight 121.364, kg, PRN Blood Glucose Results, Start date: 06/03/17 16:49:00 CNC TECHNICIAN, Duration: 30 day, Stop date: 07/03/17 16:48:00 CNC TECHNICIAN Dextrose 2018-0 No 12.5 gm, Memor ia 50% Syringe -13 25 mL, l 22:49: Route: Carrier 00 IVP, Drug Form: INJ, Dosing Weight 121.364, kg, PRN, PRN Blood Glucose Results, Start date: 06/03/17 16:49:00 CNC TECHNICIAN, Duration: 30 day, Stop date: 07/03/17 16:48:00 CNC TECHNICIAN Saline No Notes: Memoria Flush 0.9% 06-03 preservati l 21:15: ve free. Nitroglycer No Notes: Jesse elin in 06-03 (Same l 21:15: as:Nitroqu ick, Nitrostat) "Do Not Crush" Sublingual tablet Aspirin No 324 mg, Memoria 06-03 Route: l 19:12: CHEW, Drug form: CHEWTAB, ONCE, Dosing Weight 81.364, kg, Priority: STAT, Start date: 06/03/17 13:12:00 CNC TECHNICIAN, Stop date: 06/03/17 13:12:00 CNC TECHNICIAN Saline No Notes: Memoria Flush 0.9% 06-03 preservati l 19:11: ve free. nitroGLYCER Yes Coronary Dissolve 1 [place] 05-29 artery tablet [employer] (NITROSTAT) 00:00: disease of under the 0.4 mg 00 [place] tongue sublingual artery of every 5 tablet [place] minutes as heart with needed, up stable to 3 angina times. If pectoris chest pain persists, call 911. nitroGLYCER Yes Coronary Dissolve 1 [place] 05-29 artery tablet [employer] (NITROSTAT) 00:00: disease of under the 0.4 mg 00 [place] tongue sublingual artery of every 5 tablet [place] minutes as heart with needed, up stable to 3 angina times. If pectoris chest pain persists, call 911. nitroGLYCER Yes Coronary Dissolve 1 [place] 05-29 artery tablet Health (NITROSTAT) 00:00: disease of under the 0.4 mg 00 [place] tongue sublingual artery of every 5 tablet [place] minutes as heart with needed, up stable to 3 angina times. If pectoris chest pain persists, call 911. nitroGLYCER Yes Coronary Dissolve 1 [place] 05-29 artery tablet Health (NITROSTAT) 00:00: disease of under the 0.4 mg 00 [place] tongue sublingual artery of every 5 tablet [place] minutes as heart with needed, up stable to 3 angina times. If pectoris chest pain persists, call 911. blood 2015- Yes Type 2 3 times [place] glucose 4-25 diabetes daily to [facility] (TRUETEST 00:00: mellitus, test blood TEST 00 controlled sugar. STRIPS) test strips blood Yes Type 2 3 times [place] glucose 4-25 diabetes daily to [facility] (TRUETEST 00:00: mellitus, test blood TEST 00 controlled sugar. STRIPS) test strips blood Yes Type 2 3 times [place] glucose 4-25 diabetes daily to [facility] (TRUETEST 00:00: mellitus, test blood TEST 00 controlled sugar. STRIPS) test strips blood Yes Type 2 3 times [place] glucose 4-25 diabetes daily to [facility] (TRUETEST 00:00: mellitus, test blood TEST 00 controlled sugar. STRIPS) test strips Immunizations Ordered Immunization Filled Immunization Date Status Commen ts Source Name Name AGE 5 MOS+ INFLUENZA 2022-03-22 Completed [facility] VACCINE <AFLURIA, 00:00:00 FLUZONE, FLULAVAL, FLUARIX> PREFILLED SYRINGE, QUADD Zoster Vaccine 2022-03-22 Completed [facility] (Shingrix) 00:00:00 Pfizer Sars-cov-2 2021-08-13 Completed [facility] Vaccination 00:00:00 Pfizer Sars-cov-2 2021-07-23 Completed [facility] Vaccination 00:00:00 PPV 23 (Pneumococcal 2021-04-01 Completed [facility] Polysaccharide 23 00:00:00 Valent) PPV 23 (Pneumococcal 2021-04-01 Completed [facility] Polysaccharide 23 00:00:00 Valent) Influenza, 2021-03-10 Completed [facility] Vaccine<FLUCELVAX>(Mul 00:00:00 ti-Dose) Influenza, 2021-03-10 Completed [facility] Vaccine<FLUCELVAX>(Mul 00:00:00 ti-Dose) Influenza 2020-04-08 Completed [facility] <Unspecified> 00:00:00 Influenza 2020-04-08 Completed [facility] <Unspecified> 00:00:00 Influenza 2020-04-08 Completed [facility] <Unspecified> 00:00:00 Influenza 2020-04-08 Completed [facility] <Unspecified> 00:00:00 Zoster Vaccine 2020-03-20 Completed [facility] (Shingrix) 00:00:00 Zoster Vaccine 2020-03-20 Completed [facility] lth (Shingrix) 00:00:00 Zoster Vaccine 2020-03-20 [facility]:00 Zoster Vaccine 2020-03-20 Completed [facility] lth (Shingrix) 00:00:00 Influenza, 2019-03-13 Completed [facility] Vaccine<FLUCELVAX>(Mul 00:00:00 ti-Dose) Tdap (Tetanus Toxoid, 2019-03-13 Completed [facility] Reduced Diphtheria 00:00:00 Toxoid And Acellular Pertussis, Absorbed) Influenza, 2019-03-[address] [facility] Vaccine<FLUCELVAX>(Mul 00:00:00 ti-Dose) Tdap (Tetanus Toxoid, 2019-03-13 Completed [facility] Reduced Diphtheria 00:00:00 Toxoid And Acellular Pertussis, Absorbed) Influenza, 2019-03-[address] [facility] Vaccine<FLUCELVAX>(Mul 00:00:00 ti-Dose) Tdap (Tetanus Toxoid, 2019-03-13 Completed [facility] Reduced Diphtheria 00:00:00 Toxoid And Acellular Pertussis, Absorbed) Influenza, 2019-03-[address] [facility] Vaccine<FLUCELVAX>(Mul 00:00:00 ti-Dose) Tdap (Tetanus Toxoid, 2019-03-13 Completed [facility] Reduced Diphtheria 00:00:00 Toxoid And Acellular Pertussis, Absorbed) Influenza Vaccine, 2017-03-[address] [facility] Seasonal, Injectable 00:00:00 Influenza Vaccine, 2017-03-[address] [facility] Seasonal, Injectable 00:00:00 Influenza Vaccine, 2017-03-[address] [facility] Seasonal, Injectable 00:00:00 Influenza Vaccine, 2017-03-[address] [facility] Seasonal, Injectable 00:00:00 Influenza Vaccine 2016-03-09 Completed [facility] 00:00:00 Influenza Vaccine 2016-03-09 Completed [facility] 00:00:00 Influenza Vaccine 2016-03-09 Completed [facility] 00:00:00 Influenza Vaccine 2016-03-09 Completed [facility] 00:00:00 Vital Signs Vital Name Observation Time Observation Value Comments Source Body height 2021-03-16 18:46:00 [facility] weight 2021-03-16 18:46:00 [facility]471 [facility] BMI 2021-03-16 18:46:00 39.87 kg/m2 [facility] Body height 2021-02-26 15:32:47 [facility].3 [facility] Body weight 2021-02-26 15:32:47 124[facility]545 [facility] BMI 2021-02-26 15:32:47 40.55 kg/m2 [facility] Body height 2021-02-26 15:32:47 175.3 [facility] Body weight 2021-02-26 15:32:47 124.545 [facility] BMI 2021-02-26 15:32:47 40.55 kg/m2 [facility] Body height 2021-02-26 15:32:47 [facility].3 [facility] Body weight 2021-02-26 15:32:47 124.545 [facility] BMI 2021-02-26 15:32:47 40.55 kg/m2 [facility] Body height 2021-02-26 15:32:47 175.3 [facility] Body weight 2021-02-26 15:32:47 124.545 [facility] BMI 2021-02-26 15:32:47 40.55 kg/m2 [facility] Systolic blood 2020-12-30 19:41:00 135 mm[Hg] [facility] Diastolic blood 2020-12-30 19:41:00 80 mm[Hg] [facility] Heart rate 2020-12-30 19:41:00 76 /min [facility] Body temperature 2020-12-30 19:41:00 [facility].72 [facility] Body height 2020-12-30 19:41:00 [facility].3 [facility] Body weight 2020-12-30 19:41:00 124.286 [facility] BMI 2020-12-30 19:41:00 40.46 kg/m2 [facility] Systolic blood 2020-12-30 19:41:00 135 mm[Hg] [facility] Diastolic blood 2020-12-30 19:41:00 80 mm[Hg] [facility] Heart rate 2020-12-30 19:41:00 76 /min [facility] Body temperature 2020-12-30 19:41:00 [facility].72 [facility] Body height 2020-12-30 19:41:00 [facility].3 [facility] Body weight 2020-12-30 19:41:00 124.286 [facility] BMI 2020-12-30 19:41:00 40.46 kg[facility]m2 [facility] Body height 2020-12-18 18:56:00 [facility].3 [facility] Body weight 2020-12-18 18:56:00 124.286 [facility] BMI 2020-12-18 18:56:00 40.46 kg/m2 [facility] Body height 2020-12-18 18:56:00 [facility].3 cm [facility] Body weight 2020-12-18 18:56:00 124.286 [facility] BMI 2020-12-18 18:56:00 40.46 kg[facility]m2 [facility] Body height 2020-11-17 14:18:00 [facility].3 [facility] Body weight 2020-11-17 14:18:00 125.646 [facility] BMI 2020-11-17 14:18:00 40.91 kg[facility]m2 [facility] Body height 2020-11-17 14:18:00 [facility].3 [facility] Body weight 2020-11-17 14:18:00 125.646 [facility] BMI 2020-11-17 14:18:00 40.91 [facility]m2 [facility] Systolic blood 2021-10-22 14:10:00 99 mm[Hg] [facility] pressure Diastolic blood 2021-10-22 14:10:00 63 mm[Hg] [facility] Heart rate 2021-10-22 14:10:00 71 /min [facility] 2021-10-22 14:10:00 36.78 Gemini [facility] Respiratory rate 2021-10-22 14:10:00 18 /min [facility] Body height 2021-10-22 14:10:00 175.3 cm [facility] Body weight 2021-10-22 14:10:00 122.925 kg [facility] BMI 2021-10-22 14:10:00 40.02 kg/m2 [facility] Temperature Oral (F) 2021-04-22 17:00:00 98.7 F [facility] Heart Rate 2021-04-22 17:00:00 [facility] Respitory Rate 2021-04-22 17:00:00 [facility] Systolic (mm Hg) 2021-04-22 17:00:00 Jesse rial [facility] Diastolic (mm Hg) 2021-04-22 17:00:00 Mem orial Scot Respitory Rate 2021-04-22 13:33:00 Memori al [facility] Systolic (mm Hg) 2021-04-22 13:33:00 Jesse rial [facility] Diastolic (mm Hg) 2021-04-22 13:33:00 Mem orial [facility]rier Temperature Oral (F) 2021-04-22 13:33:00 97.7 F [facility] Heart Rate 2021-04-22 13:33:00 [facility] Heart Rate 2021-04-22 10:14:00 [facility] Respitory Rate 2021-04-22 10:14:00 Memori al Scot Systolic (mm Hg) 2021-04-22 10:14:00 Jesse rial [facility] Diastolic (mm Hg) 2021-04-22 10:14:00 Mem orial [facility] Temperature Oral (F) 2021-04-22 00:02:00 97.5 F [facility] Height 2021-04-21 16:29:00 175.26 cm [facility] Weight 2021-04-21 16:29:00 [facility] BMI Calculated 2021-04-21 16:29:00 Memori al Scot Height 2021-04-07 20:51:00 175.26 cm [facility] Weight 2021-04-07 20:51:00 [facility] BMI Calculated 2021-04-07 20:51:00 Memori al [facility] Systolic blood 2021-04-01 14:19:00 127 mm[Hg] [facility] pressure Diastolic blood 2021-04-01 14:19:00 66 mm[Hg] [facility] pressure Heart rate 2021-04-01 14:19:00 81 /min [facility] ealth Body temperature 2021-04-01 14:19:00 36.89 [facility] Respiratory rate 2021-04-01 14:19:00 20 /min [facility] Body height 2021-04-01 14:19:00 175.3 cm [facility] Body weight 2021-04-01 14:19:[address] [facility] BMI 2021-04-01 14:19:00 39.90 kg/m2 [facility] Respitory Rate 2021-03-01 19:55:00 Memori al [facility] Systolic (mm Hg) 2021-03-01 19:55:00 Jesse rial [facility] Diastolic (mm Hg) 2021-03-01 19:55:00 Mem orial Scot Respitory Rate 2021-03-01 19:40:00 Memori al Scot Systolic (mm Hg) 2021-03-01 19:40:00 Jesse rial Scot Diastolic (mm Hg) 2021-03-01 19:40:00 Mem orial [facility] Heart Rate 2021-03-01 19:25:00 [facility] Respitory Rate 2021-03-01 19:25:00 Memori al [facility] Systolic (mm Hg) 2021-03-01 19:25:00 Jesse rial Scot Diastolic (mm Hg) 2021-03-01 19:25:00 Mem orial [facility] Heart [facility] 2021-03-01 [facility] 15:32:00 175.26 cm [facility] Scot Weight 2021-02-26 [facility] 2021-02-26 15:32:00 Memori al [facility] Systolic (mm Hg) 2020-11-30 11:00:00 Jesse rial Scot Diastolic (mm Hg) 2020-11-30 11:00:00 Mem orial Scot Respitory Rate 2020-11-30 11:00:00 Memori al [facility] Systolic (mm Hg) 2020-11-30 10:00:00 Jesse rial [facility]rier Diastolic (mm Hg) 2020-11-30 10:00:00 Mem orial Scot Respitory Rate 2020-11-30 10:00:00 [facility] Systolic (mm Hg) 2020-11-30 09:12:00 Jesse rial [facility]rier Diastolic (mm Hg) 2020-11-30 09:12:00 Mem orial Scot Respitory Rate 2020-11-30 09:12:00 [facility] Height 2020-11-30 08:38:00 175.26 cm [facility] BMI Calculated 2020-11-30 08:38:00 Memori al Scot Weight 2020-11-30 08:38:00 [facility] Heart Rate 2020-11-30 08:38:00 [facility] Temperature Oral (F) 2020-11-30 08:38:00 98.2 F [facility] Respitory Rate 2020-07-01 17:40:00 [facility]ori [facility] Systolic (mm Hg) 2020-07-01 17:40:00 Jesse rial [facility]rier Diastolic (mm Hg) 2020-07-01 17:40:00 Mem orial [facility] Respitory Rate 2020-07-01 17:35:00 Memori al [facility] Systolic (mm Hg) 2020-07-01 17:35:00 Jesse rial Scot Diastolic (mm Hg) 2020-07-01 17:35:00 Mem orial Scot Respitory Rate 2020-07-01 17:25:00 Memori al Scot Systolic (mm Hg) 2020-07-01 17:25:00 Jesse rial Scot Diastolic (mm Hg) 2020-07-01 17:25:00 Mem orial Scot Heart Rate 2020-07-01 13:32:00 [facility] Height 2020-07-01 13:25:00 177.8 cm [facility] Weight 2020-07-01 13:25:00 [facility] BMI Calculated 2020-07-01 13:25:00 [facility] Height 2020-06-29 23:00:00 175.26 cm [facility] Weight 2020-06-29 23:00:00 [facility] BMI Calculated 2020-06-29 23:00:00 [facility] Body height 2020-05-06 10:41:00 175.3 cm [facility] Body weight 2020-05-06 10:41:00 120.657 kg [facility] BMI 2020-05-06 10:41:00 39.28 kg/m2 [facility] Systolic blood 2020-01-23 08:47:00 129 mm[Hg] [facility] pressure Diastolic blood 2020-01-23 08:47:00 59 mm[Hg] [facility] pressure Heart rate 2020-01-23 08:47:00 70 /min [facility] Body temperature 2020-01-23 08:47:00 36.67 [facility] Respiratory rate 2020-01-23 08:47:00 18 /min [facility] Heart Rate 2017-06-05 22:00:00 [facility] Systolic (mm Hg) 2017-06-05 22:00:00 Jesse rial [facility] Diastolic (mm Hg) 2017-06-05 22:00:00 Mem orial [facility] Respitory Rate 2017-06-05 22:00:00 [facility] Temperature Oral (F) 2017-06-05 22:00:00 98.8 F [facility] Heart Rate 2017-06-05 21:30:00 [facility] Respitory Rate 2017-06-05 21:30:00 [facility] Systolic (mm Hg) 2017-06-05 21:30:00 Jesse rial [facility] Diastolic (mm Hg) 2017-06-05 21:30:00 Mem o[facility] Heart Rate 2017-06-05 20:30:00 [facility] Respitory Rate 2017-06-05 20:30:00 Memori [facility] Systolic (mm Hg) 2017-06-05 20:30:00 Jesse rial Soct Diastolic (mm Hg) 2017-06-05 20:30:00 Mem orial Scot Temperature Oral (F) 2017-06-05 13:00:00 98.3 F [facility] Temperature Oral (F) 2017-06-05 10:00:00 97.9 F [facility] Height 2017-06-03 22:50:00 175.26 cm [facility] Weight 2017-06-03 22:50:00 [facility] BMI Calculated 2017-06-03 22:50:00 [facility] Height 2017-06-03 19:15:00 175.26 cm [facility] BMI Calculated 2017-06-03 19:15:00 [facility] Weight 2017-06-03 19:15:00 [facility] Procedures Procedure Date / Time Performing Clinician Source Performed XR KNEE 3 VIEWS LEFT 2021-05-04 17:30:10 Yolande [facility] DIABETIC FOOT EXAM 2021-04-01 14:48:38 Jamie [facility] SURGICAL PATHOLOGY 2021-03-01 19:16:00 [facility] 2021-03-01 19:16:00 [facility] MRI LUMBAR SPINE WO 2020-11-26 11:57:21 Yolande [facility] CONTRAST MRI LUMBAR SPINE WO 2020-11-26 11:57:21 [facility] CONTRAST CA ARTHROCENTESIS 2020-10-06 17:21:16 Yolande [facility] ASPIR&/INJ MAJOR JT/BURSA W/O OPHTHALMOLOGY RETINAL SCAN 2020-04-22 11:05:06 Jamie Smith [facility] LIPID PROFILE 2020-04-02 08:41:00 Jamie Smith HEMOGLOBIN A1C 2020-04-02 08:41:00 Jamie Smith COMPREHENSIVE METABOLIC 2020-04-02 08:41:00 Jamie Smith [facility] PANEL VIT D, 25-HYDROXY 2020-04-02 08:41:00 Jamie Smith [facility] TESTOSTERONE 2020-04-02 08:41:00 Jamie Smith PROSTATE SPECIFIC ANTIGEN 2020-04-02 08:41:00 Jamie Smith [facility] (PSA) FECAL OCCULT BLOOD 2020-03-16 16:18:00 Jamie Smith [facility] HEMOCCULT KIT FOR SPECIMEN 2020-03-11 14:17:36 Jamie Smith [facility] COLLECTION AT HOME HEMOCCULT KIT FOR SPECIMEN 2020-01-23 09:11:24 Jamie Smith [facility] COLLECTION AT HOME DIABETIC FOOT EXAM 2020-01-23 08:48:04 Jamie Smith [facility] U/S HERNIA ABDOMEN 2020-01-02 13:07:17 Jamie Smith [facility] CBC/DIFF 2020-01-02 07:55:[address] [facility] COMPREHENSIVE METABOLIC 2020-01-02 07:55:00 Valerie Chase [facility] PANEL HEMOGLOBIN A1C 2020-01-02 07:55:00 [facility] LIPID PROFILE 2020-01-02 07:55:00 Salvatore [facility] THYROID STIMULATING HORMONE 2020-01-02 07:55:[address] [facility] ([facility]) CBC 2020-01-02 07:55:00 Valerie [facility] Cardiac catheterization [facility] Plan of Care Planned Activity Planned Date Details Comments Source Future Scheduled Test 2029 Imm Pneumococcal 0-64 [facility] 00:00:00 (2 of 2 - PPSV23) [code = Imm Pneumococcal 0-64 (2 of 2 - PPSV23)] Future Scheduled Test 2022-04-01 DM Foot Exam (Yearly) [facility] 00:00:00 [code = DM Foot Exam (Yearly)] Future Scheduled Test 2022-04-01 Imm Pneumococcal 0-64 [facility] 00:00:00 (2 - PCV) [code = Imm Pneumococcal 0-64 (2 - PCV)] Future Scheduled Test 2021-10-08 COVID-19 Vaccine (3 - [facility] 00:00:00 Booster for Pfizer series) [code = COVID-19 Vaccine (3 - Booster for Pfizer series)] Future Scheduled Test 2021-04-22 DM Retinal Exam [facility] 00:00:00 (Yearly) [code = DM Retinal Exam (Yearly)] Future Scheduled Test 2021-04-22 DM Retinal Exam [facility] 00:00:00 (Yearly) [code = DM Retinal Exam (Yearly)] Future Scheduled Test 2021-04-22 DM Retinal Exam [facility] 00:00:00 (Yearly) [code = DM Retinal Exam (Yearly)] Future Scheduled Test 2021-04-[address] [facility] 00:00:00 AGE 18 AND UP [code = CORONARY ARTERY DISEASE AGE 18 AND UP] Future Scheduled Test 2021-04-02 Hemoglobin A1c [facility] 00:00:00 measurement (procedure) [code = [id number]] Future Scheduled Test 2021-04-[address] [facility] 00:00:00 AGE 18 AND UP [code = CORONARY ARTERY DISEASE AGE 18 AND UP] Future Scheduled Test 2021-04-02 Hemoglobin A1c [facility] 00:00:00 measurement (procedure) [code = [id number]] Future Scheduled Test 2021-04-02 CORONARY ARTERY DISEASE [facility] 00:00:00 AGE 18 AND UP [code = CORONARY ARTERY DISEASE AGE 18 AND UP] Future Scheduled Test 2021-04-02 Hemoglobin A1c [facility] 00:00:00 measurement (procedure) [code = [id number]] Future Scheduled Test 2021-04-02 CORONARY ARTERY DISEASE [facility] 00:00:00 AGE 18 AND UP [code = CORONARY ARTERY DISEASE AGE 18 AND UP] Future Scheduled Test 2021-01-22 DM Foot Exam (Yearly) [facility] 00:00:00 [code = DM Foot Exam (Yearly)] Future Scheduled Test 2021-01-22 DM Foot Exam (Yearly) [facility] 00:00:00 [code = DM Foot Exam (Yearly)] Future Scheduled Test 2014 Screening for malignant [facility] 00:00:00 neoplasm of colon (procedure) [code = 989513749] Future Scheduled Test 2014 Screening for malignant [facility] 00:00:00 neoplasm of colon (procedure) [code = 805912492] Future Scheduled Test 2014 Screening for malignant [facility] 00:00:00 neoplasm of colon (procedure) [code = 543178944] Future Scheduled Test 2014 Screening for malignant [facility] 00:00:00 neoplasm of colon (procedure) [code = 278352513] Future Scheduled Test 2014 Screening for malignant [facility] 00:00:00 neoplasm of colon (procedure) [code = 784232581] Future Scheduled Test 2014 Screening for malignant [facility] 00:00:00 neoplasm of colon (procedure) [code = 787917369] Future Scheduled Test 2014 Screening for malignant [facility] 00:00:00 neoplasm of colon (procedure) [code = 530847079] Future Scheduled Test 2014 Screening for malignant [facility] 00:00:00 neoplasm of colon (procedure) [code = 987593999] Future Scheduled Test 2014 Screening for malignant [facility] 00:00:00 neoplasm of colon (procedure) [code = 113225106] Future Scheduled Test 2014 Screening for malignant [facility] 00:00:00 neoplasm of colon (procedure) [code = 119472740] Future Scheduled Test 2014 Screening for malignant [facility] 00:00:00 neoplasm of colon (procedure) [code = 791280687] Future Scheduled Test 2014 Screening for malignant [facility] 00:00:00 neoplasm of colon (procedure) [code = 485767665] Future Scheduled Test 2014 Screening for malignant [facility] 00:00:00 neoplasm of colon (procedure) [code = 079221289] Future Scheduled Test 2014 Screening for malignant [facility] 00:00:00 neoplasm of colon (procedure) [code = 602523872] Future Scheduled Test 2014 Screening for malignant [facility] 00:00:00 neoplasm of colon (procedure) [code = 189720107] Future Scheduled Test 2014 Screening for malignant [facility] 00:00:00 neoplasm of colon (procedure) [code = 976858060] Future Scheduled Test 2014 Screening for malignant [facility] 00:00:00 neoplasm of colon (procedure) [code = 038782735] Future Scheduled Test 2014 Screening for malignant [facility] 00:00:00 neoplasm of colon (procedure) [code = 372374315] Future Scheduled Test 2014 Screening for malignant [facility] 00:00:00 neoplasm of colon (procedure) [code = 646647936] Future Scheduled Test 2014 Screening for malignant [facility] 00:00:00 neoplasm of colon (procedure) [code = 963582410] Future Scheduled Test 1976 COVID-19 Vaccine (1) [facility] 00:00:00 [code = COVID-19 Vaccine (1)] Future Scheduled Test 1976 COVID-19 Vaccine (1) [facility] 00:00:00 [code = COVID-19 Vaccine (1)] Future Scheduled Test 1969 COVID-19 Vaccine (1) [facility] 00:00:00 [code = COVID-19 Vaccine (1)] Encounters Start End Encounter Admission Attending Care Care Encounter Source Date/Time Date/Time Type Type Clinicians Facility Department ID 2022-07-20 Outpatient [facility] [id number] [place] 11:54:44 [id number] Health 2022-07-13 Outpatient [facility] [id number] [place] 05:19:17 [id number] Health 2022-07-07 Outpatient [facility] [id number] [place] 14:33:23 [id number] [facility] 2022-06-27 Outpatient [facility] [id number] [place] 16:56:16 [id number] [facility] 2022-05-28 Outpatient [facility] [id number] [place] 07:03:04 [id number] [facility] 2022-04-07 Outpatient [facility] [id number] [place] 09:40:48 [id number] [facility] 2021-07-21 Outpatient YOLANDE, [facility] [id number] [place] 01:03:34 JOSELUIS [facility] 2021-06-22 Outpatient [facility] [id number] [place] 13:28:59 [facility] 2021-05-04 Outpatient [facility] [id number] [place] 11:17:18 [facility] 2020-12-30 Outpatient JOCELYN, [facility] [id number] [place] 15:18:28 ASTRID [facility] 2020-09-30 Outpatient JORGE, [facility] [id number] [place] 10:53:04 [facility] 2022-11-11 2022-11-11 Outpatient DMG DMG [id number] [facility] 00:00[facility] 00:00:[id number] 2022-11-08 2022-11-08 Outpatient DMG DMG [id number] [facility] 00:00:00 00:00:00 [id number] [facility] 2022-05-02 2022-05-02 Lauren Smith [facility] [id number] [place] 00:00:00 00:00:00 Only Jamie good 2022-03-31 2022-03-31 Yasmine Bennett [facility] [id number] [place] 00:00:00 00:00:00 Tosha Maki [facility] 2022-03-30 2022-03-30 Lauren Smith [facility] [id number] [place] 00:00:00 00:00:00 Only Jamie good 2022-03-24 2022-03-24 Yasmine Smith [facility] [id number] [place] 00:00:00 00:00:00 Jamie good 2022-03-22 2022-03-22 Michelle Smith [facility] [id number] [place] 11:20:00 13:08:46 Visit Jamie John 2022-03-18 2022-03-18 Outpatient SARAH, [facility] [id number] [place] 00:00:00 00:00:00 [facility] 2022-03-15 2022-03-15 Outpatient SARAH, [facility] [id number] [place] 00:00:00 00:00:00 [facility] 2022-03-09 2022-03-09 Outpatient SARAH, [facility] [id number] [place] 00:00:00 00:00:00 [facility] 2022-03-04 2022-03-04 Outpatient [facility] [id number] [place] 00:00:00 00:00:00 [facility] 2022-03-03 2022-03-03 Outpatient SARAH, [facility] [id number] [place] 00:00:00 00:00:00 [facility] 2022-02-25 2022-02-25 Outpatient [facility] [id number] [place] 00:00:00 00:00:00 [facility] 2022-02-24 2022-02-24 Outpatient SARAH, [facility] [id number] [place] 00:00:00 00:00:00 [facility] 2022-02-24 2022-02-24 Outpatient [facility] [id number] [place] 00:00:00 00:00:00 [facility] 2022-02-18 2022-02-18 Outpatient SARAH, [facility] [id number] [place] 00:00:00 00:00:00 [facility] 2022-02-18 2022-02-18 Outpatient SARAH, [facility] [id number] [place] 00:00:00 00:00:00 [facility] 2022-02-04 2022-02-04 Outpatient [facility] [id number] [place] 00:00:00 00:00:00 [facility] 2022-02-02 2022-02-02 Outpatient MHIE MHIE [id number] [place] 11:00:00 11:00:00 24 l Carrier 2022-02-02 2022-02-02 Outpatient MHIE MHIE [id number] [place] 11:00:00 11:00:00 24 l Carrier 2022-02-02 2022-02-02 Outpatient MHIE MHIE [id number] [place] 10:30:00 10:30:00 23 l Carrier 2022-02-02 2022-02-02 Outpatient MHIE MHIE [id number] [place] 10:30:00 10:30:00 23 l Carrier 2022-01-21 2022-01-21 Outpatient [facility] [id number] [place] 00:00:00 00:00:00 [facility] 2022-01-16 2022-01-17 Outpatient AMANDA NOVANE MHNE [id number] MHNE 09:03:00 18:44:00 SHINOBU 2022-01-17 2022-01-17 Outpatient [facility] [id number] [place] 00:00:00 00:00:00 [facility] 2022-01-13 2022-01-13 Orders [facility], [facility] [id number] [place] 00:00:00 00:00:00 Only Generic [facility] Transmittal User 2022-01-12 2022-01-12 Outpatient MHIE MHIE [id number] [place] 13:30:00 13:30:00 21 l Carrier 2022-01-12 2022-01-12 Outpatient MHIE MHIE [id number] [place] 13:30:00 13:30:00 21 l Carrier 2021-12-26 2021-12-28 Inpatient E KAROL MHNE MHNE [id number] MHNE 16:14:00 16:13:00 [facility] 2021-12-20 2021-12-20 Nurse Only Jamie Smith [facility] [id number] [place] 10:20:00 10:54:53 Teresa [facility] 2021-12-17 2021-12-17 Telemedici Sarah [facility] [id number] [place] 11:20:00 11:56:39 ne Jamie good 2021-12-16 2021-12-16 Outpatient QAFLORESRI, [facility] [id number] [place] 00:00:00 00:00:00 [facility] 2021-11-12 2021-11-12 Orders Sarah [facility] [id number] [place] 00:00:00 00:00:00 Only Jamie good 2021-11-09 2021-11-09 Outpatient AMANDA FELICIANO [facility] [id number] [place] 00:00:00 00:00:00 [facility] 2021-11-02 2021-11-02 Outpatient MHIE MHIE [id number] [place] 10:00:00 10:00:00 22 jesus Ellsion 2021-11-02 2021-11-02 Outpatient MHIE MHIE [id number] [place] 10:00:00 10:00:00 22 jesus Ellison 2021-10-22 2021-10-22 [facility] [id number] [place] 14:00:00 15:07:18 Visit Jamie Eubanks Juliabarbara 2021-10-22 2021-10-22 [facility] [id number] [place] 00:00:00 00:00:00 Only Jamie Eubanks Dora florentino 2021-10-20 2021-10-20 Outpatient MHIE MHIE [id number] [place] 13:15:00 13:15:00 17 jesus Carrier 2021-10-20 2021-10-20 Outpatient MHIE MHIE [id number] [place] 13:15:00 13:15:00 17 jesus Scot 2021-10-14 2021-10-14 Outpatient MHIE MHIE [id number] [place] 13:00:00 13:00:00 19 jesus Carrier 2021-10-14 2021-10-14 Outpatient MHIE MHIE [id number] [place] 13:00:00 13:00:00 19 jesus Carrier 2021-10-11 2021-10-11 Office JEANINE Lanier 1.2.840.114 [id number] [place] 09:15:00 09:49:26 Visit [facility] [id number] Health [place] 9.2.7.2.686 SMI [id number] 1 2021-09-27 2021-09-27 Office YolandeJEANINE 1.2.840.114 [id number] [place] 10:45:00 10:46:05 Visit [facility] [id number] Health [place] 9.2.7.2.686 S[place] [id number] 1 2021-09-23 2021-09-23 Outpatient MHIE MHIE [id number] [place] 11:00:00 11:00:00 20 jesus Scot 2021-09-23 2021-09-23 Outpatient MHIE MHIE [id number] [place] 11:00:00 11:00:00 20 jesus Ellison 2021-09-21 2021-09-21 Office JEANINE Lanier 1.2.840.114 [id number] [place] 13:45:00 14:17:15 Visit [facility] [id number] [facility] 9.2.7.2.686 [facility] [id number] 1 2021-09-15 2021-09-15 Outpatient MHIE MHIE [id number] [place] 14:30:00 14:30:00 18 jesus Scot 2021-09-15 2021-09-15 Outpatient MHIE MHIE [id number] [place] 14:30:00 14:30:00 18 l Scot 2021-09-07 2021-09-07 Outpatient MHIE MHIE [id number] [place] 12:00:00 12:00:00 16 jesus Scot 2021-09-07 2021-09-07 Outpatient MHIE MHIE [id number] [place] 12:00:00 12:00:00 16 jesus Ellison 2021-08-18 2021-08-18 [facility] [id number] [place] 00:00:00 00:00:00 Jamie John 2021-08-13 2021-08-13 Immunizati Sarah, [facility] [id number] [place] 09:00:00 09:54:51 on Jamie Dumontt h 2021-08-13 2021-08-13 [facility] [id number] [place] 00:00:00 00:00:00 Only Teresa John h 2021-08-10 2021-08-10 Outpatient MHIE MHIE [id number] [place] 10:30:00 10:30:00 15 jesus Ellison 2021-08-10 2021-08-10 Outpatient MHIE MHIE [id number] [place] 10:30:00 10:30:00 15 l Scot 2021-08-04 2021-08-04 Outpatient MHIE MHIE [id number] [place] 14:00:00 14:00:00 14 l Scot 2021-08-04 2021-08-04 Outpatient MHIE MHIE [id number] [place] 14:00:00 14:00:00 14 jesus Ellison 2021-07-23 2021-07-23 Immunizati Jamie Smith [facility] [id number] [place] 10:20:00 10:40:00 on Teresa [facility] 2021-07-21 2021-07-21 Nurse Only Sarah [facility] [id number] [place] 00:00:00 00:00:00 Jamie John 2021-07-12 2021-07-12 Outpatient [facility] PDPFDTG [facility] 00:00:00 00:00:00 [facility]-[id number] 2021-07-10 2021-07-10 Outpatient SARAH RICHIE TW [id number] MHTW 12:23:00 23:59:00 JAMIE 2021-07-09 2021-07-09 Refill Sarah [facility] [id number] [place] 00:00:00 00:00:00 Jamie John 2021-07-05 2021-07-05 Outpatient [facility] PDPFDTG [facility] 00:00:00 00:00:00 [facility]-[id number] 2021-06-28 2021-06-28 Outpatient [facility] PDPFDTG [facility] 00:00:00 00:00:00 [facility]-[id number] 2021-06-24 2021-06-24 Patient Kerry [facility] [id number] [place] 00:00:00 00:00:00 Outreach Stew John 2021-06-23 2021-06-23 Telemedici Sarah [facility] [id number] [place] 09:20:00 10:10:50 ne Jamie John 2021-06-22 2021-06-22 Office Yolande [facility] 1.2.840.114 [id number] [place] 13:45:00 13:51:08 Visit [facility] [id number] [facility] 9.2.7.2.686 [facility] [id number] 2021-06-21 2021-06-21 Outpatient [facility]H CO[facility] PDPFDTG [facility] 00:00:00 00:00:00 [facility]-[id number] 2021-06-07 2021-06-07 Outpatient YOLANDE [facility] [id number] [place] 10:45:00 10:45:00 JOSELUIS [facility] 2021-06-03 2021-06-03 Outpatient SARAH [facility] [id number] [place] 00:00:00 00:00:00 [facility] 2021-06-01 2021-06-01 Outpatient YOLANDE, [facility] [id number] [place] 09:45:00 09:45:00 [facility] 2021-06-01 2021-06-01 [facility] [id number] [place] 00:00:00 00:00:00 Jamiebarbara John 2021-04-23 2021-05-22 [id number] [facility] 17:00:00 00:00:00 Patients r Eliseo 06 jesus Ellison 2021-05-04 2021-05-04 Office JEANINE Lanier 1.2.840.114 [id number] [place] 10:15:00 12:06:03 Visit [facility] [id number] Health [place] 9.2.7.2.686 [facility] [id number] 1 2021-05-02 2021-05-02 Refill JEANINE Lanier 1.2.840.114 [id number] [place] 00:00:00 00:00:00 [facility] [id number] Health [place] 9.2.7.2.686 [facility] [id number] 1 2021-04-21 2021-04-22 Bedded [facility] [id number] [place] 15:59:00 19:10:00 Outpatient ag Ellison [address] 2021-04-21 2021-04-22 Outpatient AMANDA LANIERTW MHTW [id number] MHTW 09:59:00 13:10:00 JOSELUIS 2021-04-19 2021-04-19 Yasmine Smith, [facility] [id number] [place] 00:00:00 00:00:00 Jmaie John 2021-04-07 2021-04-07 Outpatient MHIE MHIE [id number] [place] 08:45:00 08:45:00 13 jesus Ellison 2021-04-07 2021-04-07 Outpatient MHIE MHIE [id number] [place] 08:45:00 08:45:00 13 l Carrier 2021-04-02 2021-04-03 Outpt Diag nullFlavo [facility] [id number] [place] 13:13:00 05:59:00 Services r Outpatient 03 l Imaging [facility] 2021-04-02 2021-04-02 EXT [facility] OP Yolande, EXT MSRDP 1.2.840.114 [id number] [place] 00:00:00 00:00:00 Joseluis LOCATION 350.1.13.58 H ealth 9.2.7.2.686 [id number] 2021-04-02 2021-04-02 EXT [facility] OP Yolande, EXT MSRDP 1.2.840.114 [id number] [place] 00:00:00 00:00:00 Joseluis LOCATION 350.1.13.58 H ealth 9.2.7.2.686 [id number] 2021-04-01 2021-04-01 [facility] [id number] [place] 14:06:07 15:01:12 Visit Jamie John 2021-03-31 2021-03-31 EXT [facility] OP Yolande, EXT MSRDP 1.2.840.114 [id number] [place] 00:00:00 00:00:00 Joseluis LOCATION 350.1.13.58 H ealth 9.2.7.2.686 [id number] 2021-03-31 2021-03-31 EXT [facility] OP Yolande, EXT MSRDP 1.2.840.114 [id number] [place] 00:00:00 00:00:00 Joseluis LOCATION 350.1.13.58 H ealth 9.2.7.2.686 [id number] 2021-03-25 2021-03-25 Ashley Fischer 1.2.840.114 [id number] [place] 00:00:00 00:00:00 Only Ashley Bell 350.1.13.58 Health [place] 9.2.7.2.686 [facility] [id number] 2021-03-18 2021-03-20 Phone nullFlavo MNA [id number] [place] 20:05:10 04:59:59 Message r Neuroscienc 06 l e [facility] 2021-03-15 2021-03-17 Phone nullFlavo MNA [id number] [place] 16:03:55 04:59:59 Message r Neuroscienc 05 l e [facility] 2021-03-16 2021-03-16 Office JEANINE Lanier 1.2.840.114 [id number] [place] 13:33:46 14:47:47 Visit [facility] [id number] [facility] 9.2.7.2.686 [facility] [id number] 2021-03-10 2021-03-10 Nurse Only Jamie Smith [facility] [id number] [place] 13:06:22 13:17:36 Teresa Cutler [facility] 2021-03-09 2021-03-09 Outpatient MHIE MHIE [id number] [place] 12:15:00 12:15:00 12 [facility] 2021-03-09 2021-03-09 Outpatient MHIE MHIE [id number] [place] 12:15:00 12:15:00 12 l Carrier 2021-03-09 2021-03-09 Outpatient MHIE MHIE [id number] [place] 12:00:00 12:00:00 10 l Carrier 2021-03-09 2021-03-09 Outpatient MHIE MHIE [id number] [place] 12:00:00 12:00:00 10 l Carrier 2021-03-09 2021-03-09 Outpatient MHIE MHIE [id number] [place] 11:45:00 11:45:00 11 l Carrier 2021-03-09 2021-03-09 Outpatient MHIE MHIE [id number] [place] 11:45:00 11:45:00 11 l Carrier 2021-03-03 2021-03-03 Outpatient MHIE MHIE [id number] [place] 09:30:00 09:30:00 09 jesus Scot 2021-03-03 2021-03-03 Outpatient MHIE MHIE [id number] [place] 09:30:00 09:30:00 09 [facility] 2021-03-03 2021-03-03 SAHIL Thakkar [id number] [place] 00:00:00 00:00:00 Only Jamie good 2021-03-02 2021-03-02 Outpatient MHIE MHIE [id number] 365 [place] 09:30:00 09:30:00 08 jesus Carrier 2021-03-02 2021-03-02 Outpatient MHIE MHIE [id number] [place] 09:30:00 09:30:00 08 jesus Carrier 2021-03-01 2021-03-01 Bedded nullFlavo [facility] [id number] [place] 16:15:00 20:08:00 Outpatient r Scot 07 l [facility] 2021-03-01 2021-03-01 EXT [facility] OP JOCELYN, EXT MSRDP 1.2.840.114 [id number] [place] 13:24:02 14:24:02 ASTRID LOCATION 350.1.13.58 Health 9.2.7.2.686 [id number] 2021-03-01 2021-03-01 EXT [facility] OP Jocelyn, EXT MSRDP 1.2.840.114 [id number] [place] 13:24:02 14:24:02 Astrid LOCATION 350.1.13.58 Health 9.2.7.2.686 [id number] 2021-02-26 2021-02-28 Phone nullFlavo MNA [id number] [place] 17:14:04 04:59:59 Message r Neuroscienc 04 l e [facility] 2021-02-23 2021-02-25 Phone nullFlavo MNA [id number] [place] 16:28:27 04:59:59 Message r Neuroscienc 03 l e [facility] 2021-02-23 2021-02-25 Phone nullFlavo MNA [id number] [place] 14:36:21 04:59:59 Message r Neuroscienc 02 l e [facility] 2021-02-24 2021-02-24 Outpatient MHIE MHIE [id number] [place] 10:45:00 10:45:00 07 jesus Carrier 2021-02-24 2021-02-24 Outpatient MHIE MHIE [id number] [place] 10:45:00 10:45:00 07 jesus Ellison 2021-02-23 2021-02-23 Outpatient MHIE MHIE [id number] [place] 09:45:00 09:45:00 06 l Scot 2021-02-23 2021-02-23 Outpatient MHIE MHIE [id number] [place] 09:45:00 09:45:00 06 jesus Ellison 2021-02-17 2021-02-17 Outpatient MHIE MHIE [id number] [place] 10:00:00 10:00:00 05 jesus Ellison 2021-02-17 2021-02-17 Outpatient MHIE MHIE [id number] [place] 10:00:00 10:00:00 05 jesus Ellison 2021-02-12 2021-02-12 [facility] [id number] [place] 00:00:00 00:00:00 Jamie good 2021-02-09 2021-02-09 Outpatient MHIE MHIE [id number] [place] 08:00:00 08:00:00 04 jesus Ellison 2021-02-09 2021-02-09 Outpatient MHIE MHIE [id number] [place] 08:00:00 08:00:00 04 jesus Ellison 2021-02-03 2021-02-03 Outpatient MHIE MHIE [id number] [place] 09:00:00 09:00:00 02 jesus Ellison 2021-02-03 2021-02-03 Outpatient MHIE MHIE [id number] [place] 09:00:00 09:00:00 02 jesus Ellison 2021-01-12 2021-01-12 Outpatient MHIE MHIE [id number] [place] 08:30:00 08:30:00 03 jesus Ellison 2021-01-12 2021-01-12 Outpatient MHIE MHIE [id number] 365 [place] 08:30:00 08:30:00 03 jesus Carrier 2021-01-06 2021-01-06 [facility]ici [facility] [id number] [place] 07:09:57 08:43:31 james good 2020-12-29 2020-12-31 [facility] [id number] [place] 15:34:52 04:59:59 Message r Neuroscienc 01 l e [facility] 2020-12-31 2020-12-31 EXT [facility] OP Jocelyn, EXT MSRDP 1.2.840.114 [id number] [place] 00:00:00 00:00:00 Astrid LOCATION [id number] Health 9.2.7.2.686 [id number] 2020-12-31 2020-12-31 EXT [facility] OP Jocelyn, EXT MSRDP 1.2.840.114 [id number] [place] 00:00:00 00:00:00 Astrid LOCATION 350.1.13.58 Health 9.2.7.2.686 [id number] 2020-12-30 2020-12-30 Office Jocelyn [facility] 1.2.840.114 [id number] [place] 14:07:31 15:24:06 Visit Astrid [facility] 350.1.13.58 H ealth [address] 9.2.7.2.686 [id number] 2020-12-30 2020-12-30 Office Jocelyn UTP [facility] 1.2.840.114 [id number] 14:07:31 15:24:06 Visit Astrid [facility] [id number] [address] 9.2.7.2.686 [id number] 2020-12-29 2020-12-29 Outpatient MHIE MHIE [id number] [place] 08:45:00 08:45:00 01 l Carrier 2020-12-29 2020-12-29 Outpatient MHIE MHIE [id number] [place] 08:45:00 08:45:00 01 l Carrier 2020-12-22 2020-12-23 Outpt Diag nullFlavo [facility] [id number] [place] 20:45:00 04:59:00 Services r Outpatient 02 l Imaging [facility] 2020-12-21 2020-12-21 Outpatient MHIE MHIE [id number] [place] 10:00:00 10:00:00 00 l Carrier 2020-12-21 2020-12-21 Outpatient MHIE MHIE [id number] [place] 10:00:00 10:00:00 00 l Carrier 2020-12-18 2020-12-18 Office JEANINE Lanier 1.2.840.114 [id number] [place] 13:50:10 14:47:39 Visit [facility] [id number] Health [place] 9.2.7.2.686 [facility] [id number] 2020-12-18 2020-12-18 Office JEANINE Lanier 1.2.840.114 [id number] 13:50:10 14:47:39 Visit [facility] [id number] [place] 9.2.7.2.686 [facility] [id number] 2020-11-30 2020-12-02 Phone nullFlavo PRA [id number] [place] 20:47:31 04:59:59 Message r [facility] 00 l e [facility] 2020-11-30 2020-11-30 Emergency nullFlavo [facility] [id number] Mem[place] 08:27:25 11:46:[address] 2020-11-26 2020-11-27 Outpt Diag nullFlavo [facility] [id number] [place] 11:46:00 04:59:00 Services r [address] Imaging [facility] 2020-11-27 2020-11-27 Orders Sarah, [facility] [id number] [place] 00:00:00 00:00:00 Only Jamie good 2020-11-24 2020-11-24 EXT [facility] OP Yolande, EXT MSRDP [id number] [place] 00:00:00 00:00:00 Joseluis LOCATION [id number] H ealth [id number] 2020-11-19 2020-11-19 EXT [facility] OP Yolande, EXT [facility]SR[facility] [id number] [place] 00:00:00 00:00:00 Joseluis LOCATION [id number] H ealth [id number] [id number] 2020-11-19 2020-11-19 EXT [facility] OP Yolande, EXT MSRDP [id number] [place] 00:00:00 00:00:00 Joseluis LOCATION [id number] H ealth [id number] [id number] 2020-11-17 2020-11-17 Office JEANINE Lanier [id number] [place] 09:11:44 10:36:17 Visit [facility] [id number] [facility] [id number] SMI [id number] 2020-11-17 2020-11-17 Office JEANINE Lanier [id number] 09:11:44 10:36:17 [id number] [place] 9.2.7.2.686 SMI [id number] 1 2020-10-12 2020-11-11 OP Therapy nullFlavo [facility] [id number] [facility] 16:00:00 04:59:00 Patients r Gomes 04 l Scot 2020-11-03 2020-11-03 [facility] [id number] [place] 00:00:00 00:00:00 [facility] 2020-10-29 2020-10-29 [facility] [id number] 56 [place] 00:00:00 00:00:00 [facility] 2020-10-14 2020-10-14 [facility] [id number] [place] 00:00:00 00:00:00 [facility] 2020-10-09 2020-10-09 EXT [facility] OP Yolande, EXT MSRDP 1.2.840.114 [id number] [place] 00:00:00 00:00:00 Joseluis LOCATION [id number] H ealth [id number] [id number] 2020-10-09 2020-10-09 EXT MH OP Yolande, EXT MSRDP [id number] [place] 00:00:00 00:00:00 Joseluis LOCATION [id number] H ealth [id number] [id number] 2020-10-06 2020-10-06 Office JEANINE Lanier [id number] [place] 09:06:52 10:42:50 Visit [facility] [id number] Health [facility] [id number] [facility] [id number] 1 2020-10-06 2020-10-06 Office JEANINE Lanier [id number] 09:06:52 10:42:50 Visit [facility] [id number] [place] 9.2.7.2.686 [facility] [id number] 2020-10-05 2020-10-05 [facility] [id number] [place] 00:00:00 00:00:00 Only Gage Briceño [facility] 2020-10-05 2020-10-05 [facility] [id number] [place] 00:00:00 00:00:00 Only Gage Jesus [facility] 2020-09-21 2020-09-22 Outpatient [facility] [id number] [place] 20:23:00 04:59:[address] 2020-09-21 2020-09-21 EXT [facility] OP Sarah, EXT MSRDP [id number] [place] 00:00:00 00:00:00 Jamie J LOCATION [id number] Health [id number] [id number] 2020-09-21 2020-09-21 EXT [facility] OP Sarah, EXT MSRDP [id number] [place] 00:00:00 00:00:00 Jamie J LOCATION [id number] Health [id number] [id number] 2020-08-14 2020-09-13 [id number] [place] 15:52:00 04:59:00 Patients r Gomes 03 [facility] 2020-08-22 2020-08-22 [facility] [id number] [place] 00:00:00 00:00:00 Jamie J Dora 2020-08-18 2020-08-18 Telemedici Sarah, [facility] [id number] [place] 05:30:12 15:51:41 ne Jamie Dumontt h 2020-07-15 2020-08-14 OP Therapy nullFlavo [facility] 8533 [id number] [place] 19:42:00 04:59:00 Patients r Eliseo 02 l [facility] 2020-07-17 2020-07-17 Refill Sarah, [facility] [id number] [place] 00:00:00 00:00:00 Jamie Dumontt 2020-07-01 2020-07-01 Day nullFlavo [facility] [id number] [place] 12:02:00 18:26:00 Surgery r Scot [address] 2020-07-01 2020-07-01 [id number] 06:02:00 12:26:00 JOSELUIS 2020-01-29 2020-02-28 OP Therapy nullFlavo [facility] 8533 [id number] [place] 16:12:00 04:59:00 Patients r Eliseo 01 l [facility] 2019-12-30 2020-01-29 OP Therapy nullFlavo [facility] 8533 [id number] [place] 18:00:00 04:59:00 Patients r Eliseo 00 l [facility] 2019-08-21 2019-08-22 Outpt Diag nullFlavo [facility] [id number] [place] 13:56:00 04:59:00 Services r [facility] 02 [facility] 2019-08-02 2019-08-[address] [facility] [id number] [facility] 10:54:00 22:38:[address] [place] [address] 2018-12-24 2018-12-24 Outpatient [facility] [id number] [place] 00:00:00 00:00:00 [facility] 2018-12-24 2018-12-24 Outpatient [facility] [id number] [place] 00:00:00 00:00:00 [facility] 2018-12-21 2018-12-21 Outpatient [facility] [id number] [place] 00:00:00 00:00:00 [facility] 2018-12-17 2018-12-17 Outpatient [facility] [id number] [place] 00:00:00 00:00:00 [facility] 2018-12-17 2018-12-17 Outpatient [facility] [id number] [place] 00:00:00 00:00:00 [facility] 2018-12-17 2018-12-17 Outpatient [facility] [id number] [place] 00:00:00 00:00:00 [facility] 2018-11-21 2018-11-21 Outpatient [facility] [id number] [place] 14:33:41 14:33:41 [facility] 2018-11-21 2018-11-21 Outpatient [facility] [id number] [place] 13:21:57 13:21:57 [facility] 2018-11-21 2018-11-21 Outpatient JOSEE, [facility] [id number] [place] 10:02:25 10:53:32 MALACHI [facility] 2018-10-25 2018-10-25 Outpatient [facility] [id number] [place] 00:00:00 00:00:00 [facility] 2018-10-24 2018-10-24 Outpatient [facility] [id number] [place] 15:33:11 15:33:11 [facility] 2018-10-24 2018-10-24 Outpatient [facility] [id number] [place] 14:37:22 14:37:22 [facility] 2018-09-26 2018-09-26 Outpatient [facility] [id number] [place] 13:14:12 13:14:12 [facility] 2018-09-26 2018-09-26 Outpatient [facility] [id number] [place] 12:59:05 12:59:05 [facility] 2018-09-25 2018-09-25 Outpatient [facility] [id number] [place] 00:00:00 00:00:00 [facility] 2018-09-19 2018-09-19 Outpatient [facility] [id number] [place] 00:00:00 00:00:00 [facility] 2018-09-14 2018-09-14 Outpatient [facility] [id number] [place] 08:49:03 08:49:03 [facility] 2018-09-12 2018-09-12 Outpatient [facility] [id number] [place] 10:40:25 10:40:25 [facility] 2018-07-10 2018-07-10 Outpatient [facility] [id number] [place] 13:44:12 13:44:12 [facility] 2018-06-19 2018-06-19 Outpatient [facility] [id number] [place] 00:00:00 00:00:00 [facility] 2018-06-15 2018-06-15 Outpatient [facility] [id number] [place] 08:41:38 08:41:38 [facility] 2018-06-14 2018-06-14 Outpatient [facility] [id number] [place] 15:44:06 15:44:06 [facility] 2018-05-10 2018-05-10 Outpatient [facility] [id number] [place] 00:00:00 00:00:00 [facility] 2018-03-23 2018-03-23 Outpatient [facility] [id number] [place] 10:50:41 10:50:41 [facility] 2018-02-19 2018-02-19 Outpatient [facility] [id number] [place] 00:00:00 00:00:00 [facility] 2018-02-16 2018-02-16 Outpatient [facility] [id number] [place] 08:12:44 08:12:44 [facility] 2018-02-14 2018-02-14 Outpatient [facility] [id number] [place] 00:00:00 00:00:00 [facility] 2018-02-09 2018-02-09 Outpatient [facility] [id number] [place] 09:10:51 09:10:51 [facility] 2018-02-07 2018-02-07 Outpatient [facility] [id number] [place] 10:32:02 10:32:02 [facility] 2018-01-08 2018-01-08 Outpatient [facility] [id number] [place] 00:00:00 00:00:00 [facility] 2018-01-01 2018-01-01 Outpatient [facility] [id number] [place] 08:17:11 08:17:11 [facility] 2017-12-06 2017-12-06 Outpatient [facility] [id number] [place] 13:03:46 13:03:46 [facility] 2017-12-04 2017-12-04 Outpatient [facility] [id number] [place] 09:13:46 09:13:46 [facility] 2017-12-04 2017-12-04 Outpatient [facility] [id number] [place] 08:45:49 08:45:49 [facility] 2017-12-02 2017-12-02 Outpatient [facility] [id number] [place] 09:53:51 09:53:51 [facility] 2017-12-02 2017-12-02 Outpatient [facility] [id number] [place] 09:49:36 09:49:36 [facility] 2017-12-01 2017-12-01 Outpatient [facility] [id number] [place] 13:08:27 13:08:27 [facility] 2017-11-21 2017-11-21 Outpatient [facility] [id number] [place] 00:00:00 00:00:00 [facility] 2017-11-14 2017-11-14 Outpatient [facility] [id number] [place] 00:00:00 00:00:00 [facility] 2017-08-30 2017-08-31 Outpatient Suyapao [facility] [id number] [place] 23:00:00 11:00:00 ag Ellison 02 l [facility] 2017-08-24 2017-08-24 Outpatient [facility] [id number] [place] 08:30:11 08:30:11 [facility] 2017-08-23 2017-08-23 Outpatient [facility] [id number] [place] 08:28:46 08:28:46 [facility] 2017-08-22 2017-08-22 Outpatient [facility] [id number] [place] 00:00:00 00:00:00 [facility] 2017-07-27 2017-07-27 Outpatient [facility] [id number] [place] 08:07:19 08:07:19 [facility] 2017-07-27 2017-07-27 Outpatient [facility] [id number] [place] 00:00:00 00:00:00 [facility] 2017-07-13 2017-07-13 Outpatient [facility] [id number] [place] 09:53:46 09:53:46 [facility] 2017-07-07 2017-07-07 Outpatient [facility] [id number] [place] 00:00:00 00:00:00 [facility] 2017-07-03 2017-07-03 Outpatient [facility] [id number] [place] 00:00:00 00:00:00 [facility] 2017-06-13 2017-06-13 Outpatient [facility] [id number] [place] 00:00:00 00:00:00 [facility] 2017-06-03 2017-06-05 Inpatient nullFlavo [facility] [id number] [place] 19:05:00 23:25:00 ag Ellison 00 l [facility] 2017-06-01 2017-06-01 Outpatient [facility] [id number] [place] 00:00:00 00:00:00 [facility] 2017-05-29 2017-05-29 Outpatient [facility] [id number] [place] 13:18:57 13:18:57 [facility] 2017-05-24 2017-05-24 Outpatient [facility] [id number] [place] 00:00:00 00:00:00 [facility] 2017-05-18 2017-05-18 Outpatient [facility] HHS [id number] [place] 13:26:43 13:26:43 Health 2017-05-17 2017-05-17 Outpatient HHS [facility] [id number] [place] 00:00:00 00:00:00 [facility] 2017-05-16 2017-05-16 Outpatient [facility] [id number] [place] 10:49:30 10:49:30 [facility] 2017-05-12 2017-05-12 Outpatient [facility] [id number] [place] 07:43:15 07:43:15 [facility] 2017-05-05 2017-05-05 Outpatient [facility] [id number] [place] 00:00:00 00:00:00 [facility] 2017-05-04 2017-05-04 Outpatient [facility] [id number] [place] 08:02:55 08:02:55 [facility] 2017-05-04 2017-05-04 Outpatient [facility] [id number] [place] 00:00:00 00:00:00 [facility] 2017-05-02 2017-05-02 Outpatient [facility] [id number] [place] 09:14:00 09:14:00 [facility] 2017-04-21 2017-04-21 Outpatient [facility] [id number] [place] 08:29:16 08:29:16 [facility] 2017-04-19 2017-04-19 Outpatient [facility] [id number] [place] 13:18:02 13:18:02 [facility] 2017-03-28 2017-03-28 Outpatient [facility] [id number] [place] 08:29:53 08:29:53 [facility] 2016-11-29 2016-11-29 Outpatient [facility] [id number] [place] 15:24:09 15:24:09 [facility] 2016-07-04 2016-07-05 Outpt Diag nullFlavo [facility] [id number] [place] 14:13:00 05:59:00 Services r Outpatient 00 l Shaina Rodriguez 2015-09-15 2015-10-15 OP Therapy nullFlavo [place] [id number] [place] 21:52:00 04:59:00 Patients r Gomes 00 l Scot 2015-09-15 2015-10-15 OP Therapy nullFlavo [place] [id number] [place] 21:52:00 04:59:00 Patients r Gomes 00 l [facility] 2015-09-15 2015-10-14 Outpatient Edwardo [id number] 16:52:00 23:59:00 Tej Car [id number] 2015-03-04 2015-03-04 Outpatient [facility] [id number] [place] 06:57:05 06:57:05 Health Results Test Description Test Time Test Comments Results Result Comments Source IMMUNOLOGY 2021-04-16 14:17:00 Test Item Value Reference Range Interpretation Comme nts Coronavirus (COVID-19) SELAM (test code = Not Detected *NA*(04/16/21 8:17 AM) Coronavirus (COVID-19) SELAM) [facility] AND [id number] 21:50:00 Test Item Value Reference Range Interpretation Comments UA Turbidity (test code Slight *ABN*(04/07/21 = UA Turbidity) 3:50 PM) [facility] AND [id number] 21:50:00 Test Item Value Reference Range Interpretation Comments UA Spec Grav (test code = UA Spec 1.017 1 Grav) [facility] AND [id number] 21:50:00 Test Item Value Reference Range Interpretation Comments UA pH (test code = UA pH) 6.0 1 5.0-8.0 [facility] AND [id number] 21:50:00 Test Item Value Reference Range Interpretation Comments UA Protein (test code = UA Negative mg/dL Protein) [facility] AND [id number] 21:50:00 Test Item Value Reference Range Interpretation Comments UA Glucose (test code = UA Glucose) 500 mg/dL [facility] AND [id number] 21:50:00 Test Item Value Reference Range Interpretation Comments UA Ketones (test code = UA Negative mg/dL Ketones) [facility] AND [id number] 21:50:00 Test Item Value Reference Range Interpretation Comments UA Bili (test code = Negative *NA*(04/07/21 UA Bili) 3:50 PM) [facility] [id number] 21:50:00 Test Item Value Reference Range Interpretation Comments UA Blood (test code = Negative (04/07/21 3:50 UA Blood) PM) [facility] [id number] 21:50:00 Test Item Value Reference Range Interpretation Comments UA Nitrite (test code Negative (04/07/21 3:50 = UA Nitrite) PM) [facility] AND [id number] 21:50:00 Test Item Value Reference Range Interpretation Comments UA Leuk Est (test Negative (04/07/21 3:50 code = UA Leuk Est) PM) [facility] AND [id number] 21:50:00 Test Item Value Reference Range Interpretation Comments UA WBC (test code = 1 See_Comment [Automa shae message] The UA WBC) system which ge nerated this result transmit shae reference range : <=5. The reference range was not used to interpr et this result as danyell l/abnormal. [facility] AND [id number] 21:50:00 Test Item Value Reference Range Interpretation Comments UA Mucus (test code = UA Mucus) Few /LPF [facility] AND [id number] 21:50:00 Test Item Value Reference Range Interpretation Comments UA Sq Epi (test code = UA Sq Epi) None Seen [facility] AND [id number] 21:50:00 Test Item Value Reference Range Interpretation Comments UA Color (test code = UA Color) YELLOW [facility] AND [id number] 21:50:00 Test Item Value Reference Range Interpretation Comments UA Urobilinogen (test code = UA <=1.0 mg/dL 0.1-1.0 Urobilinogen) [place] [id number] 21:34:00 Test Item Value Reference Range Interpretation Comments Glucose Lvl (test code = Glucose Lvl) 98 70-99 [place] [id number] 21:34:00 Test Item Value Reference Range Interpretation Comments BUN (test code = BUN) 21 7-22 [place] [id number] 21:34:00 Test Item Value Reference Range Interpretation Comments Creatinine Lvl (test code = Creatinine 1.06 0.50-1.40 Lvl) [place] [id number] 21:34:00 Test Item Value Reference Range Interpretation Comments Sodium Lvl (test code = Sodium Lvl) 140 135-145 [place] [id number] 21:34:00 Test Item Value Reference Range Interpretation Comments Potassium Lvl (test code = Potassium 3.8 3.5-5.1 Lvl) [place] [id number] 21:34:00 Test Item Value Reference Range Interpretation Comments Chloride Lvl (test code = Chloride Lvl) 107 95-109 [facility] [id number] 21:34:00 Test Item Value Reference Range Interpretation Comments CO2 (test code = CO2) 30 24-32 [facility] [id number] 21:34:00 Test Item Value Reference Range Interpretation Comments Calcium Lvl (test code = Calcium Lvl) 9.7 8.5-10.5 [facility] [id number] 21:34:00 Test Item Value Reference Range Interpretation Comments Total Protein (test code = Total 7.7 6.4-8.4 Protein) [facility] [id number] 21:34:00 Test Item Value Reference Range Interpretation Comments Albumin Lvl (test code = Albumin Lvl) 4.0 3.5-5.0 [facility] [id number] 21:34:00 Test Item Value Reference Range Interpretation Comments ALT (test code = ALT) 29 See_Comment [Auto mated message] The system which ge nerated this result transmit shae reference range : <=65. The reference range was not used to interpr et this result as danyell l/abnormal. [facility] [id number] 21:34:00 Test Item Value Reference Range Interpretation Comments AST (test code = AST) 22 See_Comment [Auto mated message] The system which ge nerated this result transmit shae reference range : <=37. The reference range was not used to interpr et this result as danyell l/abnormal. [facility] [employer] [id number] 21:34:00 Test Item Value Reference Range Interpretation Comments Alk Phos (test code = Alk Phos) 44 39-136 [facility] [id number] 21:34:00 Test Item Value Reference Range Interpretation Comments Bili Total (test code = Bili Total) 0.2 0.2-1.3 [facility] [id number] 21:34:00 Test Item Value Reference Range Interpretation Comments AGAP (test code = AGAP) 6.8 10.0-20.0 [facility] [id number] 21:34:00 Test Item Value Reference Range Interpretation Comments B/C Ratio (test code = B/C Ratio) 20 1 6-25 [place] [id number] 21:34:00 Test Item Value Reference Range Interpretation Comments Globulin (test code = Globulin) 3.7 2.7-4.2 [place] [id number] 21:34:00 Test Item Value Reference Range Interpretation Comments A/G Ratio (test code = A/G Ratio) 1.1 1 0.7-1.6 [place] [id number] 21:34:00 Test Item Value Reference Range Interpretation Comments eGFR (test code = eGFR) 78 [place] [id number] 21:34:00 Test Item Value Reference Range Interpretation Comments WBC (test code = WBC) 5.7 3.7-10.4 [place] [id number] 21:34:00 Test Item Value Reference Range Interpretation Comments RBC (test code = RBC) 4.96 4.70-6.10 [place] [id number] 21:34:00 Test Item Value Reference Range Interpretation Comments Hgb (test code = Hgb) 14.3 14.0-18.0 [place] [id number] 21:34:00 Test Item Value Reference Range Interpretation Comments Hct (test code = Hct) 42.3 42.0-54.0 [place] [id number] 21:34:00 Test Item Value Reference Range Interpretation Comments MCV (test code = MCV) 85.2 80.0-94.0 [place] [id number] 21:34:00 Test Item Value Reference Range Interpretation Comments MCH (test code = MCH) 28.9 pg 27.0-31.0 [place] [id number] 21:34:00 Test Item Value Reference Range Interpretation Comments MCHC (test code = MCHC) 33.9 32.0-36.0 [place] [id number] 21:34:00 Test Item Value Reference Range Interpretation Comments RDW (test code = RDW) 15.7 11.5-14.5 [place] [id number] 21:34:00 Test Item Value Reference Range Interpretation Comments Platelet (test code = Platelet) 273 133-[address] [facility], [id number] 21:34:00 Test Item Value Reference Range Interpretation Comments MPV (test code = MPV) 6.8 7.4-10.4 [place] [id number] 21:34:00 Test Item Value Reference Range Interpretation Comments PT (test code = PT) 13.0 s 12.0-14.7 [place] [id number] 21:34:00 Test Item Value Reference Range Interpretation Comments INR (test code = INR) 0.99 1 0.85-1.17 [place] [id number] 21:34:00 Test Item Value Reference Range Interpretation Comments PTT (test code = PTT) 27.3 s 22.9-35.8 [place] [id number] 21:34:00 Test Item Value Reference Range Interpretation Comments Segs (test code = Segs) 60.4 45.0-75.0 [place] [id number] 21:34:00 Test Item Value Reference Range Interpretation Comments Lymphocytes (test code = Lymphocytes) 29.4 20.0-40.0 [place] [id number] 21:34:00 Test Item Value Reference Range Interpretation Comments Monocytes (test code = Monocytes) 7.2 2.0-12.0 [place] [id number] 21:34:00 Test Item Value Reference Range Interpretation Comments Eosinophils (test code = 2.0 See_Comment [A utomated message] The Eosinophils) system which ge nerated this result tra nsmitted reference range : <=4.0. The reference r owen was not used to int erpret this result as normal/abnormal . [place] [id number] 21:34:00 Test Item Value Reference Range Interpretation Comments Basophils (test code = 1.0 See_Comment [Aut omated message] The Basophils) system which ge nerated this result tra nsmitted reference range : <=1.0. The reference r owen was not used to int erpret this result as normal/abnormal . [place] [id number] 21:34:00 Test Item Value Reference Range Interpretation Comments Neutrophils # (test code = Neutrophils 3.5 1.5-8.1 #) [place] [id number] 21:34:00 Test Item Value Reference Range Interpretation Comments Lymphocytes # (test code = Lymphocytes 1.7 1.0-5.5 #) [id number] 21:34:00 Test Item Value Reference Range Interpretation Comments Monocytes # (test code 0.4 See_Comment [Aut omated message] The = Monocytes #) system which generated this result tra nsmitted reference range : <=0.8. The reference r owen was not used to int erpret this result as normal/abnormal . [facility] [place], [id number] 21:34:00 Test Item Value Reference Range Interpretation Comments Eosinophils # (test code 0.1 See_Comment [A utomated message] The = Eosinophils #) system whic h generated this result tra nsmitted reference range : <=0.5. The reference r owen was not used to int erpret this result as normal/abnormal . [facility], [id number] 21:34:00 Test Item Value Reference Range Interpretation Comments Basophils # (test code 0.1 See_Comment [Aut omated message] The = Basophils #) system which generated this result tra nsmitted reference range : <=0.2. The reference r owen was not used to int erpret this result as normal/abnormal . [facility] [id number] 21:34:00 Test Item Value Reference Range Interpretation Comments Hgb A1C (test code = Hgb A1C) 6.4 [facility] [id number] 19:16:00 Test Item Value Reference Range Interpretation Comments Diagnosis (test code Colon, sigmoid, = 5262281) polypectomy: ? ? ? -Tubular adenoma. Specimen Source Sigmoid colon polyp (test code = cold snare 1839719) Clinical Information Clinical History: (test code = ScreeningOperative 5537766) Procedure: ColonoscopyOperative Findings: Colon polyp, diverticulosis Gross Description Specimen "sigmoid colon (test code = polyp" consists of a 4 x 4 [id number]) x 2 mm segovia tissue, all in 1A. 03/01/2021 15:03 Microscopic A microscopic examination Description (test has been performed and the code = 9041621) findings are incorporated in the diagnosis above. The positive and negative controls for all histochemical and immunohistochemical stains, if performed for this case, have been reviewed and, unless otherwise noted, have been found to be appropriate. Non Clinical [id number] examined at Documentation (test [facility] code = 7591660) [facility].Final diagnosis rendered at [facility].[address] [place], [place] ?[address]. [facility] [id number] 19:16:00 Test Item Value Reference Range Interpretation Comments Diagnosis (test code Colon, sigmoid, = 7753072) polypectomy: ? ? ? -Tubular adenoma. Specimen Source Sigmoid colon polyp (test code = cold snare 7552666) Clinical Information Clinical History: (test code = ScreeningOperative 3102532) Procedure: ColonoscopyOperative Findings: Colon polyp, diverticulosis Gross Description Specimen "sigmoid colon (test code = polyp" consists of a 4 x 4 [id number]) x 2 mm segovia tissue, all in 1A. 03/01/2021 15:03 Microscopic A microscopic examination Description (test has been performed and the code = 0845769) findings are incorporated in the diagnosis above. The positive and negative controls for all histochemical and immunohistochemical stains, if performed for this case, have been reviewed and, unless otherwise noted, have been found to be appropriate. Non Clinical [id number] examined at [facility] (test [facility] code = [id number]) [facility].Final diagnosis rendered at [facility].[address] [place], [place] ?[address]. [place] SgrdbiMDEKWRDVQP1712-05-21 15:05:00 Test Item Value Reference Range Interpretation Comments Coronavirus (COVID-19) Not Detected SELAM (test code = *NA*(02/26/21 10:05 Coronavirus (COVID-19) AM) SELAM) [facility]icsAbtwiqxCHFEOWKLJE0203-14-99 09:10:00 Test Item Value Reference Range Interpretation Comments Hep C Ab (test code = Hep C Ab) NON-REACTIVE [facility]icsQygmldqTNYGZMJCSY5733-59-44 09:10:00 Test Item Value Reference Range Interpretation Comments Hep Signal to Cut-Off (test code = Hep 0.01 1 Signal to Cut-Off) [facility]icsUjyhrisAPPJMKGFYJ6808-69-14 09:10:00 Test Item Value Reference Range Interpretation Comments CDC HIV 4th GEN (test Negative *NA*(11/30/20 code = CDC HIV 4th 4:10 AM) GEN) [facility]icsCARDIAC VWIHVQF0973-46-52 09:08:00 Test Item Value Reference Range Interpretation Comments Troponin-I (test code no gt See_Comment [Auto mated message] The = Troponin-I) system which g enerated this result transmit shae reference range : <=0.40. The reference r owen was not used to interpr et this result as danyell l/abnormal. [facility]2021-07-12 09:08:00 Test Item Value Reference Range Interpretation Comments Glucose Lvl (test code = Glucose Lvl) 206 70-99 [place] 691861-07-12 09:08:00 Test Item Value Reference Range Interpretation Comments BUN (test code = BUN) 23 7-22 [place] 691861-07-12 09:08:00 Test Item Value Reference Range Interpretation Comments Creatinine Lvl (test code = Creatinine 1.22 0.50-1.40 Lvl) [place] 691861-07-12 09:08:00 Test Item Value Reference Range Interpretation Comments Sodium Lvl (test code = Sodium Lvl) 137 135-145 [place] 691861-07-12 09:08:00 Test Item Value Reference Range Interpretation Comments Potassium Lvl (test code = Potassium 3.7 3.5-5.1 Lvl) [place] 691861-07-12 09:08:00 Test Item Value Reference Range Interpretation Comments Chloride Lvl (test code = Chloride Lvl) 106 95-109 [place] 691861-07-12 09:08:00 Test Item Value Reference Range Interpretation Comments CO2 (test code = CO2) 22 24-32 [place] 691861-07-12 09:08:00 Test Item Value Reference Range Interpretation Comments Calcium Lvl (test code = Calcium Lvl) 9.5 8.5-10.5 [place] 691861-07-12 09:08:00 Test Item Value Reference Range Interpretation Comments Total Protein (test code = Total 7.5 6.4-8.4 Protein) [place] 691861-07-12 09:08:00 Test Item Value Reference Range Interpretation Comments Albumin Lvl (test code = Albumin Lvl) 3.9 3.5-5.0 [place] 691861-07-12 09:08:00 Test Item Value Reference Range Interpretation Comments ALANINE AMINOTRANSFERASE 27 See_Comment [A utomated message] (test code = ALANINE The sys tem which AMINOTRANSFERASE) generated this result transmitted ref erence range: <=65. Th e reference range was not used to int erpret this result as normal/abnormal . [place] 691861-07-12 09:08:00 Test Item Value Reference Range Interpretation Comments ASPARTATE TRANSAMINASE 13 See_Comment [Aut omated message] (test code = ASPARTATE The s ystem which TRANSAMINASE) generated this result transmitted ref erence range: <=37. Th e reference range was not used to interpr et this result as normal/abnormal . [place] 691861-07-12 09:08:00 Test Item Value Reference Range Interpretation Comments Alk Phos (test code = Alk Phos) 49 39-136 [place] 691861-07-12 09:08:00 Test Item Value Reference Range Interpretation Comments Bili Total (test code = Bili Total) 0.5 0.2-1.3 [place] 691861-07-12 09:08:00 Test Item Value Reference Range Interpretation Comments AGAP (test code = AGAP) 12.7 10.0-20.0 [place] 691861-07-12 09:08:00 Test Item Value Reference Range Interpretation Comments B/C Ratio (test code = B/C Ratio) 19 1 6-25 [place] 691861-07-12 09:08:00 Test Item Value Reference Range Interpretation Comments Globulin (test code = Globulin) 3.6 2.7-4.2 [place] 691861-07-12 09:08:00 Test Item Value Reference Range Interpretation Comments A/G Ratio (test code = A/G Ratio) 1.1 1 0.7-1.6 [place] 691861-07-12 09:08:00 Test Item Value Reference Range Interpretation Comments eGFR (test code = eGFR) 66 [place] 894141-07-12 09:08:00 Test Item Value Reference Range Interpretation Comments WBC X 10x3 (test code = WBC X 10x3) 9.9 3.7-10.4 [place] 894141-07-12 09:08:00 Test Item Value Reference Range Interpretation Comments RBC X 10x6 (test code = RBC X 10x6) 4.62 4.70-6.10 [place] 894141-07-12 09:08:00 Test Item Value Reference Range Interpretation Comments Hgb (test code = Hgb) 13.6 14.0-18.[address] [facility] [place], [place]QjhbkdmOAJEFKLKVN6198-12-51 09:08:00 Test Item Value Reference Range Interpretation Comments Hct (test code = Hct) 40.1 42.0-54.[address] [facility] [place], [place]NobnzipMVGMPWGXRJ9275-04-00 09:08:00 Test Item Value Reference Range Interpretation Comments MCV (test code = MCV) 86.8 80.0-94.[address] [facility] [place], [place]FwfhfadEVKHQDLJKB4317-19-28 09:08:00 Test Item Value Reference Range Interpretation Comments MCH (test code = MCH) 29.4 pg 27.0-31.[address] [facility] [place], TXLpfstmuTQLYLYOHMY0499-93-76 09:08:00 Test Item Value Reference Range Interpretation Comments MCHC (test code = MCHC) 33.9 32.0-36.[address] [facility] [place], TXGbzfyufNUSPBVZBYB4111-57-99 09:08:00 Test Item Value Reference Range Interpretation Comments RDW (test code = RDW) 15.3 11.5-14.[address] [facility] [place], [place]PdpehzqNEQAUMQNUX5959-85-16 09:08:00 Test Item Value Reference Range Interpretation Comments Platelet (test code = Platelet) 246 133-[address] [facility] [place], [place]PgrdrhwHWXSLKHABO8457-83-54 09:08:00 Test Item Value Reference Range Interpretation Comments MPV (test code = MPV) 6.8 7.4-10.4 [place] 894141-07-12 09:08:00 Test Item Value Reference Range Interpretation Comments Segs (test code = Segs) 84.8 45.0-75.[address] [facility] [place], TXZjgiyrlUROZCQTUEF1146-88-35 09:08:00 Test Item Value Reference Range Interpretation Comments Lymphocytes (test code = Lymphocytes) 8.7 20.0-40.0 [place] 894141-07-12 09:08:00 Test Item Value Reference Range Interpretation Comments Monocytes (test code = Monocytes) 4.9 2.0-12.0 [place] 894141-07-12 09:08:00 Test Item Value Reference Range Interpretation Comments Eosinophils (test code = 0.9 See_Comment [A utomated message] The Eosinophils) system which ge nerated this result tra nsmitted reference range : <=4.0. The reference r owen was not used to int erpret this result as normal/abnormal . [facility] [place], TXRcbxqaoSOJEFZRTHF1646-20-68 09:08:00 Test Item Value Reference Range Interpretation Comments Basophils (test code = 0.7 See_Comment [Aut omated message] The Basophils) system which ge nerated this result tra nsmitted reference range : <=1.0. The reference r owen was not used to int erpret this result as normal/abnormal . [facility] [place], TXJlsespsASGIISBDDW2734-02-36 09:08:00 Test Item Value Reference Range Interpretation Comments Neutrophils # (test code = Neutrophils 8.4 1.5-8.1 #) [facility] [place], TXYddusfyDFHXLQANAG7144-62-93 09:08:00 Test Item Value Reference Range Interpretation Comments Lymphocytes # (test code = Lymphocytes 0.9 1.0-5.5 #) [facility] [place], TXYrbhywrCTZBDWRVYX9616-85-74 09:08:00 Test Item Value Reference Range Interpretation Comments Monocytes # (test code 0.5 See_Comment [Aut omated message] The = Monocytes #) system which generated this result tra nsmitted reference range : <=0.8. The reference r owen was not used to int erpret this result as normal/abnormal . [facility] [place], TXDmnycqdPOCTDKRFVW3880-86-59 09:08:00 Test Item Value Reference Range Interpretation Comments Eosinophils # (test code 0.1 See_Comment [A utomated message] The = Eosinophils #) system whic h generated this result tra nsmitted reference range : <=0.5. The reference r owen was not used to int erpret this result as normal/abnormal . [facility], TXFjxykgcIRQEQTBTGZ1053-62-76 09:08:00 Test Item Value Reference Range Interpretation Comments Basophils # (test code 0.1 See_Comment [Aut omated message] The = Basophils #) system which generated this result tra nsmitted reference range : <=0.2. The reference r owen was not used to int erpret this result as normal/abnormal . [facility] Inj/Asp: L zuve7053-82-26 17:21:16Joseluis Lanier MD ? ? 10/06/2020 12:23 PML Inj/Asp: L knee on 10/06/2020 12:21 PMIndications: pain and joint swellingDetails: 25 G needle, anterolateral approachMedications: 1 mL lidocaine 1 %; 1 mL bupivacaine 0.25 %; 40 mg methylPREDNISolone acetate 40 MG/MLOutcome: tolerated well, no immediate complicationsProcedure, treatment alternatives, risks and benefits explained, specific risks discussed. Consent was given by the patient. Patient was prepped and draped in the usual sterile fashion.[facility]ZvipxwZUVYHTSSCE4923-99-32 16:14:00 Test Item Value Reference Range Interpretation Comments PT (test code = PT) 13.2 s 12.0-14.[address] [facility] [place], TXVbxzdhjMDYJUUKQBQ4683-01-58 16:14:00 Test Item Value Reference Range Interpretation Comments INR (test code = INR) 1.01 1 0.85-1.17 [place] 894141-02-09 16:14:00 Test Item Value Reference Range Interpretation Comments PTT (test code = PTT) 29.5 s 22.9-35.8 [facility]2021-02-06 15:52:00 Test Item Value Reference Range Interpretation Comments Glucose Lvl (test code = Glucose Lvl) 103 70-99 [facility]2021-02-06 15:52:00 Test Item Value Reference Range Interpretation Comments BUN (test code = BUN) 26 7-22 [place] 691861-02-06 15:52:00 Test Item Value Reference Range Interpretation Comments Creatinine Lvl (test code = Creatinine 1.17 0.50-1.40 Lvl) [place] 691861-02-06 15:52:00 Test Item Value Reference Range Interpretation Comments Sodium Lvl (test code = Sodium Lvl) 139 135-145 [place] 691861-02-06 15:52:00 Test Item Value Reference Range Interpretation Comments Potassium Lvl (test code = Potassium 4.0 3.5-5.1 Lvl) [place] 691861-02-06 15:52:00 Test Item Value Reference Range Interpretation Comments Chloride Lvl (test code = Chloride Lvl) 102 95-109 [place] 691861-02-06 15:52:00 Test Item Value Reference Range Interpretation Comments CO2 (test code = CO2) 30 24-32 [place] 691861-02-06 15:52:00 Test Item Value Reference Range Interpretation Comments Calcium Lvl (test code = Calcium Lvl) 9.8 8.5-10.5 [facility]2021-02-06 15:52:00 Test Item Value Reference Range Interpretation Comments AGAP (test code = AGAP) 11.0 10.0-20.0 [facility]2021-02-06 15:52:00 Test Item Value Reference Range Interpretation Comments eGFR (test code = eGFR) [address] [facility] [place], TXJndpxewQWJWKKMBKW1919-65-64 15:52:00 Test Item Value Reference Range Interpretation Comments WBC (test code = WBC) 5.5 3.7-10.4 [place] 894141-02-06 15:52:00 Test Item Value Reference Range Interpretation Comments RBC (test code = RBC) 4.86 4.70-6.10 [place] 894141-02-06 15:52:00 Test Item Value Reference Range Interpretation Comments Hgb (test code = Hgb) 13.9 14.0-18.0 [place] 894141-02-06 15:52:00 Test Item Value Reference Range Interpretation Comments Hct (test code = Hct) 41.0 42.0-54.0 [place] 894141-02-06 15:52:00 Test Item Value Reference Range Interpretation Comments MCV (test code = MCV) 84.3 80.0-94.0 [place] 894141-02-06 15:52:00 Test Item Value Reference Range Interpretation Comments MCH (test code = MCH) 28.5 pg 27.0-31.0 [place] 894141-02-06 15:52:00 Test Item Value Reference Range Interpretation Comments MCHC (test code = MCHC) 33.8 32.0-36.0 [place] 894141-02-06 15:52:00 Test Item Value Reference Range Interpretation Comments RDW (test code = RDW) 15.1 11.5-14.5 [place] 894141-02-06 15:52:00 Test Item Value Reference Range Interpretation Comments Platelet (test code = Platelet) 231 133-450 [place] 894141-02-06 15:52:00 Test Item Value Reference Range Interpretation Comments MPV (test code = MPV) 7.0 7.4-10.4 [place] 894141-02-06 15:52:00 Test Item Value Reference Range Interpretation Comments Segs (test code = Segs) 58.8 45.0-75.0 [place] 894141-02-06 15:52:00 Test Item Value Reference Range Interpretation Comments Lymphocytes (test code = Lymphocytes) 29.6 20.0-40.0 [place] 894141-02-06 15:52:00 Test Item Value Reference Range Interpretation Comments Monocytes (test code = Monocytes) 7.0 2.0-12.0 [place] 894141-02-06 15:52:00 Test Item Value Reference Range Interpretation Comments Eosinophils (test code = 2.4 See_Comment [A utomated message] The Eosinophils) system which ge nerated this result tra nsmitted reference range : <=4.0. The reference r owen was not used to int erpret this result as normal/abnormal . [place] 894141-02-06 15:52:00 Test Item Value Reference Range Interpretation Comments Basophils (test code = 2.2 See_Comment [Aut omated message] The Basophils) system which ge nerated this result tra nsmitted reference range : <=1.0. The reference r owen was not used to int erpret this result as normal/abnormal . [place] 894141-02-06 15:52:00 Test Item Value Reference Range Interpretation Comments Neutrophils # (test code = Neutrophils 3.2 1.5-8.1 #) [place] 894141-02-06 15:52:00 Test Item Value Reference Range Interpretation Comments Lymphocytes # (test code = Lymphocytes 1.6 1.0-5.5 #) [place] 894141-02-06 15:52:00 Test Item Value Reference Range Interpretation Comments Monocytes # (test code 0.4 See_Comment [Aut omated message] The = Monocytes #) system which generated this result tra nsmitted reference range : <=0.8. The reference r owen was not used to int erpret this result as normal/abnormal . [place] 894141-02-06 15:52:00 Test Item Value Reference Range Interpretation Comments Eosinophils # (test code 0.1 See_Comment [A utomated message] The = Eosinophils #) system [facility] h generated this result tra nsmitted reference range : <=0.5. The reference r owen was not used to int erpret this result as normal/abnormal . [facility]icsIcavwxvZNXFNDPWDX5096-49-15 15:52:00 Test Item Value Reference Range Interpretation Comments Basophils # (test code 0.1 See_Comment [Aut omated message] The = Basophils #) system which generated this result tra nsmitted reference range : <=0.2. The reference r owen was not used to int erpret this result as normal/abnormal . [facility]icsSPECIAL JZVSPHKNH8227-41-43 15:52:00 Test Item Value Reference Range Interpretation Comments Hgb A1C (test code = Hgb A1C) 6.2 [facility]icsWttccqoSPDSQKTARW7107-91-72 15:13:00 Test Item Value Reference Range Interpretation Comments Coronavirus (COVID-19) Not Detected SELAM (test code = *NA*(06/27/20 9:13 AM) Coronavirus (COVID-19) SELAM) [facility]icsOPHTHALMOLOGY RETINAL YQDW3550-80-96 06:56:16 Test Item Value Reference Range Interpretation Comments RETINAL SCAN-FINAL NORMAL RESULT (test code = 51366) Right Diabetic None Retinopathy (test code = 085131) Right Macular Edema None (test code = 61941) Right Other Suspected None Conditions (test code = 46970) Right Image Quality Gradable Image (test code = 15216) Left Diabetic None Retinopathy (test code = 87716) Left Macular Edema None (test code = 42151) Left Other Suspected None Conditions (test code = 94406) Left Image Quality Gradable Image (test code = 64817) REI (test code = REI) Retinal Study Result for ASHLEY SIERRA, a 54 y/o, M (: 1965, )presented to [facility] on 04-22-2020 for a retinal imaging study of the left and right eyes. Based on the findings of the study, the following is recommended for ASHLEY Bowenrmal Scan: Please advise the patient to return for another scan in 1 year. Interpreting Provider's Comments: No comments provided Right eye findings: Normal Result. Negative for Diabetic Retinopathy. Left eye findings: Normal Result. Negative for Diabetic Retinopathy. This result was electronically signed by Ifeanyi Shelton MD, , Taxonomy: [id number] on 04/23/2020 6:56 AM. NOTE: Any pathology noted on this diabetic retinal evaluation should be confirmed by an appropriate ophthalmic examination. [facility] BOZX6315-05-01 06:56:16 Test Item Value Reference Range Interpretation Comments RETINAL SCAN-FINAL NORMAL RESULT (test code = 54943) Right Diabetic None Retinopathy (test code = 434476) Right Macular Edema None (test code = 33236) Right Other Suspected None Conditions (test code = 03924) Right Image Quality Gradable Image (test code = 52326) Left Diabetic None Retinopathy (test code = 27516) Left Macular Edema None (test code = 01079) Left Other Suspected None Conditions (test code = 24666) Left Image Quality Gradable Image (test code = 20309) REI (test code = REI) Retinal Study Result for angle ADAMS 54 y/o, M (: 1965, )presented to [facility] on 04-22-2020 for a retinal imaging study of the left and right eyes. Based on the findings of the study, the following is recommended for ASHLEY Bowenrmal Scan: Please advise the patient to return for another scan in 1 year. Interpreting Provider's Comments: No comments provided Right eye findings: Normal Result. Negative for Diabetic Retinopathy. Left eye findings: Normal Result. Negative for Diabetic Retinopathy. This result was electronically signed by Ifeanyi Shelton MD, , Taxonomy: [id number] on 04/23/2020 6:56 AM. NOTE: Any pathology noted on this diabetic retinal evaluation should be confirmed by an appropriate ophthalmic examination. [facility], 24-Dmqdekqvepopbrnpt7050-39-13 08:58:00 Test Item Value Reference Range Interpretation Comments Vit D, 25-Hydroxy (test 57.0 ng/mL 30-100 code = 18029309) Vitamin D Interpretation Sufficient Sufficient Suf ficient: (test code = 97434958) >30.0 Insufficient: 20.0 - 29.9Deficient: <20.0 Lab Interpretation (test Normal code = 59273-2) [facility], 77-Zxteiboxossaoejwh5778-60-13 08:58:00 Test Item Value Reference Range Interpretation Comments Vit D, 25-Hydroxy (test 57.0 ng/mL 30-100 code = 00372615) Vitamin D Interpretation Sufficient Sufficient Suf ficient: (test code = 33799207) >30.0 Insufficient: 20.0 - 29.9Deficient: <20.0 Lab Interpretation (test Normal code = 81930-8) [facility] [id number] 17:15:00 Test Item Value Reference Range Interpretation Comments Hemoglobin A1c (test code = 4548-4) 10.0 % 4.3-6.1 H Estimated Average Glucose (test 240 mg/dL 70-110 H code = 25734746) Lab Interpretation (test code = Abnormal 69080-8) [facility] [id number] 17:15:00 Test Item Value Reference Range Interpretation Comments Hemoglobin A1c (test code = 4548-4) 10.0 % 4.3-6.1 H Estimated Average Glucose (test 240 mg/dL 70-110 H code = 26780057) Lab Interpretation (test code = Abnormal 47395-5) [facility] Vscyeiz3023-57-81 15:51:00 Test Item Value Reference Range Interpretation Comments Cholesterol (test code 157.0 mg/dL See_Comment [Aut omated = 2092-3) message] The sy stem which generated this result transmitted reference range : <=200.0. The reference range was not used to interpret this result as normal/abnormal . Triglyceride (test 637 mg/dL <150 H code = 40894359) HDL (test code = 28.0 mg/dL See Reference 2084-9) Range Narrative. LDL (test code = Triglycerid e value 70083-6) is > 400 mg/dl. Unable to calcu late LDL value due t o high triglyceri de. Patient Fasting? (test Yes code = 42613931) Lab Interpretation Abnormal (test code = 38963-8) [facility] Ptufv1933-53-79 15:51:00 Test Item Value Reference Range Interpretation Comments Sodium (test code = 138 mmol/L 630-633 5893-2) Potassium (test code = 4.4 mmol/L 3.5-5.1 2823-3) Chloride (test code = 100 mmol/L 98-107 2075-0) CO2 (test code = 28 mmol/L 21-31 17160008) Glucose (test code = 199 mg/dL 70-110 H 86225336) Calcium (test code = 9.6 mg/dL 8.6-10.3 22912810) Urea Nitrogen (test 21.0 mg/dL 7-25 code = 52166131) Creatinine (test code = 1.0 mg/dL 0.7-1.3 42598445) Alkaline Phosphatase 44 U/L 34-104 (test code = 84317340) ALT (test code = 23 U/L 7-52 61854247) AST (test code = 19 U/L 13-39 67243195) Total Protein (test 7.1 g/dL 6-8.3 code = 2885-2) eGFR If non- Am 78 See_Comment L [Aut omated message] (test code = 39481550) The s ystem which generated this result transmit shae reference range : >=90 mL/min/1.7 3 m2. The reference r owen was not used to interpret this result as normal/abnormal . Albumin (test code = 4.4 g/dL 4.2-5.5 49243-0) Anion Gap (test code = 10 mmol/L 5-16 30129993) Lab Interpretation Abnormal (test code = 19512-8) [facility] Eopqxal9894-00-14 15:51:00 Test Item Value Reference Range Interpretation Comments Cholesterol (test code 157.0 mg/dL See_Comment [Aut omated = 2092-3) message] The sy stem which generated this result transmitted reference range : <=200.0. The reference range was not used to interpret this result as normal/abnormal . Triglyceride (test 637 mg/dL <150 H code = 98133472) HDL (test code = 28.0 mg/dL See Reference 2084-9) Range Narrative. LDL (test code = Triglycerid e value 97783-1) is > 400 mg/dl. Unable to calcu late LDL value due t o high triglyceri de. Patient Fasting? (test Yes code = 65879894) Lab Interpretation Abnormal (test code = 37103-1) [facility] Sbofh3394-76-20 15:51:00 Test Item Value Reference Range Interpretation Comments Sodium (test code = 138 mmol/L 652-826 3894-2) Potassium (test code = 4.4 mmol/L 3.5-5.1 2823-3) Chloride (test code = 100 mmol/L 98-107 2075-0) CO2 (test code = 28 mmol/L 21-31 91911263) Glucose (test code = 199 mg/dL 70-110 H 75723387) Calcium (test code = 9.6 mg/dL 8.6-10.3 66920275) Urea Nitrogen (test 21.0 mg/dL 7-25 code = 91135177) Creatinine (test code = 1.0 mg/dL 0.7-1.3 47724342) Alkaline Phosphatase 44 U/L 34-104 (test code = 85584311) ALT (test code = 23 U/L 7-52 46994956) AST (test code = 19 U/L 13-39 29070960) Total Protein (test 7.1 g/dL 6-8.3 code = 2885-2) eGFR If non- Am 78 See_Comment L [Aut omated message] (test code = 10721685) The s ystem which generated this result transmit shae reference range : >=90 mL/min/1.7 3 m2. The reference r owen was not used to interpret this result as normal/abnormal . Albumin (test code = 4.4 g/dL 4.2-5.5 96593-2) Anion Gap (test code = 10 mmol/L 5-16 37795671) Lab Interpretation Abnormal (test code = 78187-2) [place] [address]ScrrsaMSG3502-58-24 15:33:00 Test Item Value Reference Range Interpretation Comments PSA (test code = 0.310 ng/mL See_Comment [Automated 28432436) message] The sy stem which generated this result transmitted reference range : <=4.000. The reference range was not used to interpret this result as normal/abnormal . Lab Interpretation Normal (test code = 46774-0) [place] [id number] 15:33:00 Test Item Value Reference Range Interpretation Comments PSA (test code = 0.310 ng/mL See_Comment [Automated [id number]) message] The sy stem which generated this result transmitted reference range : <=4.000. The reference range was not used to interpret this result as normal/abnormal . Lab Interpretation Normal (test code = 36229-7) [facility] 15:32:00 Test Item Value Reference Range Interpretation Comments Testosterone (test code = 08685002) 153 ng/dL 150-684 Lab Interpretation (test code = Normal 27729-9) [id number] 15:32:00 Test Item Value Reference Range Interpretation Comments Testosterone (test code = 04005467) 153 ng/dL 150-684 Lab Interpretation (test code = Normal 07573-4) [facility] [id number] 16:23:00 Test Item Value Reference Range Interpretation Comments Occult Blood (test code = Positive Negative A 10562-3) REI (test code = REI) Collection Date:03/16/2020 Lab Interpretation (test Abnormal code = 47686-9) [facility] OCCULT [id number] 16:23:00 Test Item Value Reference Range Interpretation Comments Occult Blood (test code = Positive Negative A 82854-3) REI (test code = REI) Collection Date:03/16/2020 Lab Interpretation (test Abnormal code = 34200-4) [facility] [id number] 08:48:04Jamie Smtih MD 01/23/2020 10:41 AMDiabetic Foot Exam was performed at 01/23/2020 10:35 AM. Right foot sensation is normal, right foot pulses are normal, right foot appearance is normal. Left foot sensation is normal, left foot pulses are normal, left foot appearance is normal.[facility] [id number] 08:48:04Jamie Smith MD 01/23/2020 10:41 AMDiabetic Foot Exam was performed at 01/23/2020 10:35 AM. Right foot sensation is normal, right foot pulses are normal, right foot appearance is normal. Left foot sensation is normal, left foot pulses are normal, left foot appearance is normal.[facility] HERNIA [id number] 15:27:49IMPRESSION: No fluid collection or mass appreciated. Dictated By: Rao Cohn MD, 01/02/2020 2:08 PM I have reviewed the study and agree with the findings in this report. Signed By: Zaheer Garcia MD, 01/02/2020 3:27 PM Interface, Rad/Mammog In - 01/02/2020 3:32 PM CDTFormatting of this note might b e different from the original.INDICATION: abdominal swellingTECHNIQUE: Ultrasound images obtained inthe area of clinical concern.FINDINGS:These images show subcutaneous fat and musculature in a normaldistribution. There is no abscess. No mass which could bedistinguished from subcutaneous fat and muscle. No radiopaque foreignbodies noted. Patient reports no direct traumatic injury.IMPRESSIONIMPRESSION:No fluid collection or mass appreciated.Dictated By: Rao Cohn MD, 01/02/2020 2:08 PMI have reviewed the study and agree with the findings in this report.Signed By: Zaheer Garcia MD, 01/02/2020 3:27 PM[facility]- [facility] KNEE 3 V [id number] 12:39:00 FAX: Corky Ricci [place]: [place] St: REG Name: ASHLEY SIERRA [facility] FSED : 1965 Age/S: 54/M [address] [facility] [address] Unit #: [id number] Loc: [facility] [address] Phys: Corky Ricci MD [place], [place] [address] Acct: [id number] Dis Date: Status: REG ER PHONE #: Exam Date: 08/02/2019 1124 FAX #: Reason: B/L KNEE PAIN X 4 WEEKS EXAMS: CPT CODE: [id number] XR KNEE 3 [place] [address] CLINICAL HISTORY: B/L KNEE PAIN X 4 WEEKS TECHNIQUE: 3 views of bilateral knees COMPARISON: None FINDINGS: No acute fracture. Bonytrabecular pattern is unremarkable. No cortical destruction or periosteal reaction. No joint effusion is present. No stranding in Hoffa's fat pad. Regional soft tissues are unremarkable. 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 - MRI C-SPINE W/O [id number] 08:02:00 FAX: Lul Best [phone] [place]: St: ADM FAX: Lesia Sheppard [phone] --- Name: ASHLEY SIERRA [facility] : 1965 Age/S: 53/M [address] [place] [address] Unit #: [id number] Loc: G[address] [place] [address] Phys: Lesia Barney MD Acct: [id number] Dis Date: Status: ADM IN PHONE #: [phone] Exam Date: 04/10/20192108 FAX #: [phone] Reason: daily neck/head pain EXAMS: CPT CODE: [id number] MRI C-SPINE W/O CONT 61764 Patient Name: ASHLEY SIERRA : 1965; Age: 53 years y/o Male MR: [id number] Study: - MRI C-SPINE W/O CONT 04/10/2019 5:07 PM Ordering Physician: Lesia Barney MD Clinical Indication: daily neck/head pain Comparison: None TECHNIQUE: Multiplanar noncontrast MR cervical spine was performed on a 1.5 Jerica magnet. FINDINGS: The STIR and axial T2 sequences limited by patient motion. ALIGNMENT AND GENERAL ASSESSMENT: Normal cervical lordosis. No abnormal bone marrow signal. No spinal cord signal abnormality. Mildly degenerated disc at the cervical spine. Small multilevel anterior osteophytes in the mid cervical spine. DISC SPACES: C2-C3: No significant disc protrusion, spinal canal narrowing, or neural foraminal narrowing. C3-C4: No significant disc protr usion, spinal canal narrowing, or neural foraminal narrowing. C4-C5: Posterior disc osteophyte complex without foraminal or canal stenosis. C5-C6: Posterior disc osteophyte complex without foraminal orcanal stenosis. C6-C7: Posterior disc osteophyte complex without foraminal or canal stenosis. C7-T1:No significant disc protrusion, spinal canal narrowing, or neural foraminal narrowing. PAGE 1 Signed Report (CONTINUED) FAX: Lul Best [phone] [place]: St: [facility] FAX: Lesia Sheppard [phone] Name: ASHLEY SIERRA [facility] : 1965 Age/S: 53/M [address] [place] [address] Unit #: [id number] Loc: [address] [place] [address] Phys: Lesia Barney MD Acct: [id number] Dis Date: Status: ADMIN PHONE #: [phone] Exam Date: 04/10/20192108 FAX #: [phone] Reason: daily neck/head pain EXAMS: CPT CODE: [id number] MRI C-SPINE W/O CONT 17398 (Continued) IMPRESSION: Mild degenerative changes, as detailed above, without significant foraminal or canal stenosis. SL: [id number] at 0802 Reported and signed by: Keyon Aaron M.D. CC: Lul Best DO; Lesia Barney MD Technologist: Ahsan Sweet, RT(R)(CT) Trnscrd Date/Time/By: 04/11/2019 (08) : By: [email or web address] Orig Print D/T: S: 04/11/2019 (804) PAGE 2 Signed ReportPROTHROMBIN [id number] 06:09:00 Test Item Value Reference Range Interpretation Comments PROTHROMBIN TIME 11.2 SECONDS 9.3-12.9 N PATIENT (test code = PTP) INTERNATIONAL NORMAL 1.0 0.8-1.2 N TARGET INR BY RATIO (test code = INDICATIO N Indication INR) INR1. Prophylax is of venous thrombos is 2.0 - 3.0 (orthoped ic surgery), Proph ylaxis of venous thro mbosis (other than hig h-risk surgery), Treat ment of Deep Vein Thrombosis/Pulm onary Embolism, Preve ntion of systemic emb olism - Tissue heart va lves, Acute Myocardia l Infarction (to prevent systemic emboli sm), Valvular heart disease, Atrial Fibrillation, Bileaflet mecha nical valve in aortic position.2. Mec hanical prosthetic valv es (high risk), 2. 5 - 3.5 Presence of Lup us Anticoagulant o r Antiphospholipi d Antibodies, Pre vention of systemic emb olism - Acute Myocardia l Infarction (to prevent recurrent infar ct). THROMBOPLASTIN TIME [id number] 06:09:00 Test Item Value Reference Range Interpretation Comments THROMBOPLASTIN TIME 32.2 Seconds 25.0-39.5 N Therape utic Range: PARTIAL (test code = 50.4 - 88.3 Seconds PTT) Effective 09/04/2018 BASIC METABOLIC [id number] 06:09:00 Test Item Value Reference Range Interpretation Comments SODIUM (test code = NA) 134 mEq/L 134-147 N POTASSIUM (test code = 3.9 mEq/L 3.4-5.0 N K) CHLORIDE (test code = 102 mEq/L 100-108 N CL) CARBON DIOXIDE (test 26 mEq/L 21-33 N code = CO2) ANION GAP (test code = 10 0-20 N GAP) GLUCOSE (test code = 239 mg/dL 70-110 H GLU) BLOOD UREA NITROGEN 14 mg/dL 7-18 N (test code = BUN) GLOMERULAR FILTRATION 87.9 90-95 L Units of measure = RATE (test code = GFR) ml/mi n/1.73 m2 CREATININE (test code = 0.9 mg/dL 0.6-1.3 N CREAT) CALCIUM (test code = 9.2 mg/dL 8.0-10.5 N CA) COMMENTS: To be done morning of Heart CathBASIC METABOLIC [id number] 06:06:00 Test Item Value Reference Range Interpretation Comments SODIUM (test code = NA) 134 mEq/L 134-147 N POTASSIUM (test code = K) 3.9 mEq/L 3.4-5.0 N CHLORIDE (test code = CL) 102 mEq/L 100-108 N CARBON DIOXIDE (test code = CO2) 26 mEq/L 21-33 N ANION GAP (test code = GAP) 10 0-20 N GLUCOSE (test code = GLU) 239 mg/dL 70-110 H BLOOD UREA NITROGEN (test code = 14 mg/dL 7-18 N BUN) GLOMERULAR FILTRATION RATE (test 90-95 code = GFR) CREATININE (test code = CREAT) mg/dL 0.6-1.3 CALCIUM (test code = CA) 9.2 mg/dL 8.0-10.5 N COMMENTS: To be done morning of Heart CathCBC W/AUTO [id number] 05:50:00 Test Item Value Reference Range Interpretation Comments WHITE BLOOD CELL (test code = 5.51 x10 3/uL 4.5-11.0 N WBC) RED BLOOD CELL (test code = 4.69 x10 6/uL 4.00-5.60 N RBC) HEMOGLOBIN (test code = HGB) 14.1 g/dL 12.5-16.9 N HEMATOCRIT (test code = HCT) 41.3 % 37.5-50.7 N MEAN CELL VOLUME (test code = 88.1 fL 81.0-99.0 N MCV) MEAN CELL HGB (test code = MCH) 30.1 pg 27.0-33.0 N MEAN CELL HGB CONCETRATION 34.1 g/dL 33.0-37.0 N (test code = MCHC) RED CELL DISTRIBUTION WIDTH CV 12.2 % 11.5-14.5 N (test code = RDW) RED CELL DISTRIBUTION WIDTH SD 38.9 fL 37.0-54.0 N (test code = RDW-SD) PLATELET COUNT (test code = 197 x10 3/uL 150-400 N PLT) MEAN PLATELET VOLUME (test code 9.0 fL 7.0-9.0 N = MPV) NEUTROPHIL % (test code = NT%) 68.9 % 56.0-77.0 N IMMATURE GRANULOCYTE % (test 0.5 % 0.0-2.0 N code = IG%) LYMPHOCYTE % (test code = LY%) 21.8 % 14.0-32.0 N MONOCYTE % (test code = MO%) 6.5 % 4.8-9.0 N EOSINOPHIL % (test code = EO%) 1.6 % 0.3-3.7 N BASOPHIL % (test code = BA%) 0.7 % 0.0-2.0 N NUCLEATED RBC % (test code = 0.0 % 0-0 N NRBC%) NEUTROPHIL # (test code = NT#) 3.79 x10 3/uL 2.0-7.6 N IMMATURE GRANULOCYTE # (test 0.03 x10 3/uL 0.00-0.03 N code = IG#) LYMPHOCYTE # (test code = LY#) 1.20 x10 3/uL 1.0-3.8 N MONOCYTE # (test code = MO#) 0.36 x10 3/uL 0.1-0.8 N EOSINOPHIL # (test code = EO#) 0.09 x10 3/uL 0.0-0.2 N BASOPHIL # (test code = BA#) 0.04 x10 3/uL 0.0-0.2 N NUCLEATED RBC # (test code = 0.00 x10 3/uL 0.0-0.1 N NRBC#) MANUAL DIFF REQUIRED (test code NO = MDIFF) COMMENTS: To be done morning of Heart [id number] 21:16:00 Test Item Value Reference Range Interpretation Comments GLUBED (test code = 219 MG/DL 70-110 H Performe d by certified GLUBED) heading saw operator at [facility] [id number] 17:28:00 Test Item Value Reference Range Interpretation Comments GLUBED (test code = 372 MG/DL 70-110 H Performe d by certified GLUBED) heading saw operator at [facility] - MRA HEAD W/O [id number] 15:27:00 FAX: Lul Best [phone] [place]: St: ADM FAX: Galen Snwoden MD [phone] ------- Name: ASHLEY SIERRA [facility] : 1965 Age/S: 53/M [address] [place] [address] Unit #: [id number] Loc: [address] [address] Phys: Galen Lea MD Acct: [id number] Dis Date: Status: ADM IN PHONE #: [phone] ExamDate: 04/10/2019 1419 FAX #: [phone] Reason: POST CONCUSSION SYNDROME, PHIPPS/DIZZY/MIGRAINE EXAMS: CPT CODE: [id number] MRA HEAD W/O CONTRAST 79207 EXAM: MRI BRAIN WITHOUT CONTRAST EXAM: MRA BRAIN WITHOUT CONTRAST EXAM: MRA NECK WITHOUT CONTRAST DATE: 04/10/2019 9:53 PM INDICATION: Headache, dizziness. Suspected stroke. COMPARISON: March 02, 2015 CT head TECHNIQUE: - Multiplanar noncontrast MRI images of the brain. - Three-dimensional time of flight brain MR angiography of intracranial vessels is performed, and maximum intensity projection reformatted images are presented in multiple three-dimensional rotational projections. - Two-dimensional time of flight neck MR angiography of extracranial arterial system was performed and reformatted images are presented in three-dimensional maximum intensity rotational projections. Three-dimensional yffv-zn-izjqxg MR angiography centered at the carotid bifurcations was included. FINDINGS: BRAIN MRI: No abnormality is present on the diffusion weighted images. No edema, hemorrhage, or extra axial collection is identified. There is no mass or mass-effect. The ventricles and sulci are normal in size and shape. The basal cisterns are patent. Mild mucosal thickening in the right maxillary sinus. Otherwise, the skull base, paranasal sinuses, and orbits have normal appearance. BRAIN MRA: There is no aneurysm, stenosis, vascular malformation or branch occlusion. NECK MRA: Carotid circulation: PAGE 1 Signed Report (CONTINUED) FAX: Lul Best [phone] [place]: St: [facility] FAX: Galen Snowden MD [phone] Name: ASHLEY SIERRA [facility] : 1965 Age/S:53/M [address] [place] [address] Blvd Unit #: [id number] Loc: [address] [place] [address] Phys: Galen Lea MD Acct: [id number] Dis Date: Status: ADM IN PHONE #: [phone] Exam Date: 04/10/2019 141 FAX #: [phone] Reason: POST CONCUSSION SYNDROME, PHIPPS/DIZZY/MIGRAINE EXAMS: CPT CODE: [id number] MRA HEAD W/O CONTRAST 53880 (Continued) The cervical common and internal carotid arteries have a normal course caliber and contour. No hemodynamically significant stenosis is identified at the carotid bifurcations. Vertebrobasilar circulation: The vertebral arteries have a normal course caliber and contour in the neck. IMPRESSION: 1. Normal MRI of the brain without contrast 2. Normal MRA of the brain without contrast 3. Normal MRA of the neck without contrast. All qualitative and quantitative assessments of carotid bifurcation and proximal internal carotid artery stenosis are made referencing the distal internal carotid artery (NASCET criteria). SL: [id number] at 1527 Reported and signed by: Keyon Aaron M.D. CC: Lul Best DO; Galen Lea MD Technologist: Kadie Thompson, RT(R)(MRI) Trnscrd Date/Time/By: 04/10/2019 (1527) : By: Victor Hugo [email or web address] Orig Print D/T: S: 04/10/2019 (3369) PAGE 2 Signed Report- MRA NECK W/O [id number] 15:27:00 FAX: Lul Best [phone] [place]: St: ADM FAX: Galen Snowden MD [phone] ------- Name: ASHLEY SIERRA [facility] : 1965 Age/S: 53/M [address] [place] [address] Blvd Unit #: [id number] Loc: [address] [place] [address] Phys: Galen Lae MD Acct: [id number] Dis Date: Status: ADM IN PHONE #: [phone] Exam Date: 04/10/2019 1419 FAX #: [phone] Reason: POST CONCUSSION SYNDROME, PHIPPS/DIZZY/MIGRAINE EXAMS: CPT CODE: [id number] MRA NECK W/O CONT 24834 EXAM: MRI BRAIN WITHOUT CONTRAST EXAM: MRA BRAIN WITHOUT CONTRAST EXAM: MRA NECK WITHOUT CONTRAST DATE: 04/10/2019 9:53 PM INDICATION: Headache, dizziness. Suspected stroke. COMPARISON: March 02, 2015 CT head TECHNIQUE: - Multiplanar noncontrast MRI images of the brain. - Three-dimensional time of flight brain MR angiography of intracranial vessels is performed, and maximum intensity projection reformatted images are presented in multiple three-dimensional rotational projections. - Two-dimensional time of flight neck MR angiography of extracranial arterial system was performed and reformatted images are presented in three-dimensional maximum intensity rotational projections. Three- dimensional wzdl-pp-qpimas MR angiography centered at the carotidbifurcations was included. FINDINGS: BRAIN MRI: No abnormality is present on the diffusion weighted images. No edema, hemorrhage, or extra axial collection is identified. There is no mass or mass-effect. The ventricles and sulci are normal in size and shape. The basal cisterns are patent. Mild mucosal thickening in the right maxillary sinus. Otherwise, the skull base, paranasal sinuses, and orbits have normal appearance. BRAIN MRA: There is no aneurysm, stenosis, vascular malformation or branch occlusion. NECK MRA: Carotid circulation: PAGE 1 Signed Report (CONTINUED) FAX: Lul Best [phone] [place]: St: ADM FAX: Galen Snowden MD [phone] Name: ASHLEY SIERRA [facility] : 1965 Age/S: 53/M [address] [place] [address] Blvd Unit #: [id number] Loc: [address] [address] Phys: Galen Lea MD Acct: [id number] Dis Date: Status: ADM IN PHONE #: [phone] Exam Date: 04/10/2019 1419 FAX #: Reason: POST CONCUSSION SYNDROME, PHIPPS/DIZZY/MIGRAINE EXAMS: CPT CODE: [id number] MRA NECK W/O CONT 82309 (Continued) The cervical common and internal carotid arteries have a normal course caliber and contour. No hemodynamically significant stenosis is identified at the carotid bifurcations. Vertebrobasilar circulation: The vertebral arteries have a normal course caliber and contour in the neck. IMPRESSION: 1. Normal MRI of the brain without contrast 2. Normal MRA of the brain without contrast 3. Normal MRA of the neck without contrast. All qualitative and quantitative assessments of carotid bifurcation and proximal internal carotid artery stenosis are made referencing the distal internal c arotid artery (NASCET criteria). SL: [id number] at 1526 Reported and signed by: Keyon Aaron M.D. CC: Lul Best DO; Galen Renteria MD Technologist: RT Trip(R)(MRI) Trnscrd Date/Time/By: 04/10/2019 (3623) : By: [email or web address] Orig Print D/T: S: 04/10/2019 (5355) PAGE 2 Signed Report- MRI BRAIN W/O [id number] 15:27:00 FAX: Lul Best [phone] [place]: St: ADM FAX: Galen Snowden MD [phone] ------- Name: ASHLEY SIERRA [facility] : 1965 Age/S: 53/M [address] [place] [address] Unit #: [id number] Loc: [address] [address] Phys: Galen Lea MD Acct: [id number] Dis Date: Status: ADM IN PHONE #: [phone] ExamDate: 04/10/2019 1419 FAX #: [phone] Reason: POST CONCUSSION SYNDROME, PHIPPS/DIZZY/MIGRAINE EXAMS:CPT CODE: [id number] MRI BRAIN W/O CONT 14416 EXAM: MRI BRAIN WITHOUT CONTRAST EXAM: MRA BRAIN WITHOUT CONTRAST EXAM: MRA NECK WITHOUT CONTRAST DATE: 04/10/2019 9:53 PM INDICATION: Headache, dizziness. Suspected stroke. COMPARISON: March 02, 2015 CT head TECHNIQUE: - Multiplanar noncontrast MRI images of the brain. - Three-dimensional time of flight brain MR angiography of intracranial vessels is performed, and maximum intensity projection reformatted images are presented in multiple three-dimensional rotational projections. - Two-dimensional time of flight neck MR angiography of extracranial arterial system was performed and reformatted images are presented in three-dimensional maximum intensityrotational projections. Three-dimensional qhci-dv-qnzbpb MR angiography centered at the carotid bifurcations was included. FINDINGS: BRAIN MRI: No abnormality is present on the diffusion weighted images. No edema, hemorrhage, or extra axial collection is identified. There is no mass or mass-effect. The ventricles and sulci are normal in size and shape. The basal cisterns are patent. Mild mucosal thickening in the right maxillary sinus. Otherwise, the skull base, paranasal sinuses, and orbits have normal appearance. BRAIN MRA: There is no aneurysm, stenosis, vascular malformation or branch occlusion. NECK MRA: Carotid circulation: PAGE 1 Signed Report (CONTINUED) FAX: Lul Best [phone] [place]: St: [facility] FAX: Galen Snowden MD [phone] Name: ASHLEY SIERRA [facility] : 1965 Age/S: 53/M[address] [facility] [address] Unit #: [id number] Loc: [address] [address] Phys: Galen Lea MD Acct: [id number] Dis Date: Status: ADM IN PHONE #: [phone] Exam Date: 04/10/2019 1419 FAX #: [phone] Reason: POST CONCUSSION SYNDROME, PHIPPS/DIZZY/MIGRAINE EXAMS: CPT CODE: [id number] MRI BRAIN W/O CONT 89882 (Continued) The cervical common and internal carotid arteries have a normal course caliber and contour. No hemodynamically significant stenosis is identified at the carotid bifurcations. Vertebrobasilar circulation: The vertebral arteries have a normal course caliber and contour in the neck. I MPRESSION: 1. Normal MRI of the brain without contrast 2. Normal MRA of the brain without contrast 3. Normal MRA of the neck without contrast. All qualitative and quantitative assessments of carotid bifurcation and proximal internal carotid artery stenosis are made referencing the distal internal carot id artery (NASCET criteria). SL: [id number] at 1527 Reported and signed by: Keyon Aaron M.D. CC: Lul Best DO; Galen Ortez [facility] Technologist: Kadie Thompson RT(R)(MRI) Trnscrd Date/Time/By: 04/10/2019 (6796) : By: [email or web address] Orig Print D/T: S: 04/10/2019 (5390) PAGE 2 Signed [id number] 12:22:00 Test Item Value Reference Range Interpretation Comments GLUBED (test code = 210 MG/DL 70-110 H Performe d by certified GLUBED) heading saw operator at [facility] [id number] 08:47:00 Test Item Value Reference Range Interpretation Comments GLUBED (test code = 205 MG/DL 70-110 H Performe d by certified GLUBED) heading saw operator at [facility] BASIC METABOLIC [id number] 05:13:00 Test Item Value Reference Range Interpretation Comments SODIUM (test code = NA) 136 mEq/L 134-147 N POTASSIUM (test code = 3.8 mEq/L 3.4-5.0 N K) CHLORIDE (test code = 104 mEq/L 100-108 N CL) CARBON DIOXIDE (test 25 mEq/L 21-33 N code = CO2) ANION GAP (test code = 11 0-20 N GAP) GLUCOSE (test code = 282 mg/dL 70-110 H GLU) BLOOD UREA NITROGEN 15 mg/dL 7-18 N (test code = BUN) GLOMERULAR FILTRATION 87.9 90-95 L Units of measure = RATE (test code = GFR) ml/mi n/1.73 m2 CREATININE (test code = 0.9 mg/dL 0.6-1.3 N CREAT) CALCIUM (test code = 8.0 mg/dL 8.0-10.5 N CA) CBC W/AUTO [id number] 04:59:00 Test Item Value Reference Range Interpretation Comments WHITE BLOOD CELL (test code = 5.08 x10 3/uL 4.5-11.0 N WBC) RED BLOOD CELL (test code = 4.33 x10 6/uL 4.00-5.60 N RBC) HEMOGLOBIN (test code = HGB) 13.1 g/dL 12.5-16.9 N HEMATOCRIT (test code = HCT) 38.5 % 37.5-50.7 N MEAN CELL VOLUME (test code = 88.9 fL 81.0-99.0 N MCV) MEAN CELL HGB (test code = MCH) 30.3 pg 27.0-33.0 N MEAN CELL HGB CONCETRATION 34.0 g/dL 33.0-37.0 N (test code = MCHC) RED CELL DISTRIBUTION WIDTH CV 12.5 % 11.5-14.5 N (test code = RDW) RED CELL DISTRIBUTION WIDTH SD 40.6 fL 37.0-54.0 N (test code = RDW-SD) PLATELET COUNT (test code = 185 x10 3/uL 150-400 N PLT) MEAN PLATELET VOLUME (test code 9.0 fL 7.0-9.0 N = MPV) NEUTROPHIL % (test code = NT%) 51.8 % 56.0-77.0 L IMMATURE GRANULOCYTE % (test 0.8 % 0.0-2.0 N code = IG%) LYMPHOCYTE % (test code = LY%) 34.6 % 14.0-32.0 H MONOCYTE % (test code = MO%) 9.6 % 4.8-9.0 H EOSINOPHIL % (test code = EO%) 2.4 % 0.3-3.7 N BASOPHIL % (test code = BA%) 0.8 % 0.0-2.0 N NUCLEATED RBC % (test code = 0.0 % 0-0 N NRBC%) NEUTROPHIL # (test code = NT#) 2.63 x10 3/uL 2.0-7.6 N IMMATURE GRANULOCYTE # (test 0.04 x10 3/uL 0.00-0.03 H code = IG#) LYMPHOCYTE # (test code = LY#) 1.76 x10 3/uL 1.0-3.8 N MONOCYTE # (test code = MO#) 0.49 x10 3/uL 0.1-0.8 N EOSINOPHIL # (test code = EO#) 0.12 x10 3/uL 0.0-0.2 N BASOPHIL # (test code = BA#) 0.04 x10 3/uL 0.0-0.2 N NUCLEATED RBC # (test code = 0.00 x10 3/uL 0.0-0.1 N NRBC#) MANUAL DIFF REQUIRED (test code NO = MDIFF) CBC W/AUTO [id number] 23:44:00 Test Item Value Reference Range Interpretation Comments WHITE BLOOD CELL (test code = 6.66 x10 3/uL 4.5-11.0 N WBC) RED BLOOD CELL (test code = 4.60 x10 6/uL 4.00-5.60 N RBC) HEMOGLOBIN (test code = HGB) 13.9 g/dL 12.5-16.9 N HEMATOCRIT (test code = HCT) 40.2 % 37.5-50.7 N MEAN CELL VOLUME (test code = 87.4 fL 81.0-99.0 N MCV) MEAN CELL HGB (test code = MCH) 30.2 pg 27.0-33.0 N MEAN CELL HGB CONCETRATION 34.6 g/dL 33.0-37.0 N (test code = MCHC) RED CELL DISTRIBUTION WIDTH CV 12.3 % 11.5-14.5 N (test code = RDW) RED CELL DISTRIBUTION WIDTH SD 39.4 fL 37.0-54.0 N (test code = RDW-SD) PLATELET COUNT (test code = 191 x10 3/uL 150-400 N PLT) MEAN PLATELET VOLUME (test code 8.9 fL 7.0-9.0 N = MPV) NEUTROPHIL % (test code = NT%) 57.7 % 56.0-77.0 N IMMATURE GRANULOCYTE % (test 0.8 % 0.0-2.0 N code = IG%) LYMPHOCYTE % (test code = LY%) 30.8 % 14.0-32.0 N MONOCYTE % (test code = MO%) 7.2 % 4.8-9.0 N EOSINOPHIL % (test code = EO%) 2.7 % 0.3-3.7 N BASOPHIL % (test code = BA%) 0.8 % 0.0-2.0 N NUCLEATED RBC % (test code = 0.0 % 0-0 N NRBC%) NEUTROPHIL # (test code = NT#) 3.85 x10 3/uL 2.0-7.6 N IMMATURE GRANULOCYTE # (test 0.05 x10 3/uL 0.00-0.03 H code = IG#) LYMPHOCYTE # (test code = LY#) 2.05 x10 3/uL 1.0-3.8 N MONOCYTE # (test code = MO#) 0.48 x10 3/uL 0.1-0.8 N EOSINOPHIL # (test code = EO#) 0.18 x10 3/uL 0.0-0.2 N BASOPHIL # (test code = BA#) 0.05 x10 3/uL 0.0-0.2 N NUCLEATED RBC # (test code = 0.00 x10 3/uL 0.0-0.1 N NRBC#) MANUAL DIFF REQUIRED (test code NO = MDIFF) SED RATE [id number] 23:44:00 Test Item Value Reference Range Interpretation Comments SED RATE WESTERGREN (test code = 9 mm/hr 0-15 N SEDW) COMPREHENSIVE METABOLIC [id number] 23:40:00 Test Item Value Reference Range Interpretation Comments SODIUM (test code = NA) 136 mEq/L 134-147 N POTASSIUM (test code = 3.5 mEq/L 3.4-5.0 N K) CHLORIDE (test code = 103 mEq/L 100-108 N CL) CARBON DIOXIDE (test 26 mEq/L 21-33 N code = CO2) ANION GAP (test code = 11 0-20 N GAP) GLUCOSE (test code = 236 mg/dL 70-110 H GLU) BLOOD UREA NITROGEN 17 mg/dL 7-18 N (test code = BUN) GLOMERULAR FILTRATION 87.9 90-95 L Units of measure = RATE (test code = GFR) ml/mi n/1.73 m2 CREATININE (test code = 0.9 mg/dL 0.6-1.3 N CREAT) TOTAL PROTEIN (test 6.5 g/dL 6.4-8.2 N code = PROT) ALBUMIN (test code = 3.20 g/dL 3.4-5.0 L ALB) CALCIUM (test code = 8.3 mg/dL 8.0-10.5 N CA) BILIRUBIN TOTAL (test 0.6 MG/DL <1.5 N code = BILT) SGOT/AST (test code = 10 IUnit/L 15-37 L AST) SGPT/ALT (test code = 26 IUnit/L 15-65 N ALT) ALKALINE PHOSPHATASE 76 IUnit/L 20-125 N TOTAL (test code = ALKP) LIPID PROFILE (CORONARY RISK)2019-04-09 23:40:00 Test Item Value Reference Range Interpretation Comments TRIGLYCERIDES (test 392 mg/dL 40-150 H code = TRIG) CHOLESTEROL (test 190 mg/dL <200 code = CHOL) CHOLESTEROL/HDL 5.14 RATIO 3.43-4.97 H RISK ASSOCIA SHAE WITH RATIO (test code = CHOL/HDL RATIOS: RISK CHOLHDL) MALE FEMALE1/2 AVERAGE 3.43 3.27AVERAG E 4.97 4.442X AVERAGE 9.55 7.053X AVERAGE 23.39 11.04 NOTE THAT THE REFERENCE VALUE IS RELATEDTO RISK LEVELS RECOMMENDED BY THE NATL.HEART, MILLIE G, AND BLOOD INST. HDL CHOLESTEROL 37.0 mg/dL 32-72 N (test code = HDL) LIPOPROTEIN LDL 95 mg/dL 0-100 N <100 OPTIMAL 100-129 (test code = LDL) NEAR OPTIM AL/ABOVE [id number] LENIZDRJKG765-1 89 HIGH>NB=557 RHETT Y HIGH*Guidelines provided by the National Choles terol EducationProgra m Adult Treatment Panel III THYROID STIMULATING [id number] 23:40:00 Test Item Value Reference Range Interpretation Comments THYROID STIMULATING 1.83 0.42-5.47 N Results in HORMONE (test code = TSH) mi lli-International Units/mL HGBA1C%2019-04-09 23:29:00 Test Item Value Reference Range Interpretation Comments HGBA1C% (test code = HGBA1C%) 8.8 %A1C 4.8-6.0 H CBC W/AUTO [id number] 23:09:00 Test Item Value Reference Range Interpretation Comments WHITE BLOOD CELL (test code = 6.66 x10 3/uL 4.5-11.0 N WBC) RED BLOOD CELL (test code = 4.60 x10 6/uL 4.00-5.60 N RBC) HEMOGLOBIN (test code = HGB) 13.9 g/dL 12.5-16.9 N HEMATOCRIT (test code = HCT) 40.2 % 37.5-50.7 N MEAN CELL VOLUME (test code = 87.4 fL 81.0-99.0 N MCV) MEAN CELL HGB (test code = MCH) 30.2 pg 27.0-33.0 N MEAN CELL HGB CONCETRATION 34.6 g/dL 33.0-37.0 N (test code = MCHC) RED CELL DISTRIBUTION WIDTH CV 12.3 % 11.5-14.5 N (test code = RDW) RED CELL DISTRIBUTION WIDTH SD 39.4 fL 37.0-54.0 N (test code = RDW-SD) PLATELET COUNT (test code = 191 x10 3/uL 150-400 N PLT) MEAN PLATELET VOLUME (test code 8.9 fL 7.0-9.0 N = MPV) NEUTROPHIL % (test code = NT%) 57.7 % 56.0-77.0 N IMMATURE GRANULOCYTE % (test 0.8 % 0.0-2.0 N code = IG%) LYMPHOCYTE % (test code = LY%) 30.8 % 14.0-32.0 N MONOCYTE % (test code = MO%) 7.2 % 4.8-9.0 N EOSINOPHIL % (test code = EO%) 2.7 % 0.3-3.7 N BASOPHIL % (test code = BA%) 0.8 % 0.0-2.0 N NUCLEATED RBC % (test code = 0.0 % 0-0 N NRBC%) NEUTROPHIL # (test code = NT#) 3.85 x10 3/uL 2.0-7.6 N IMMATURE GRANULOCYTE # (test 0.05 x10 3/uL 0.00-0.03 H code = IG#) LYMPHOCYTE # (test code = LY#) 2.05 x10 3/uL 1.0-3.8 N MONOCYTE # (test code = MO#) 0.48 x10 3/uL 0.1-0.8 N EOSINOPHIL # (test code = EO#) 0.18 x10 3/uL 0.0-0.2 N BASOPHIL # (test code = BA#) 0.05 x10 3/uL 0.0-0.2 N NUCLEATED RBC # (test code = 0.00 x10 3/uL 0.0-0.1 N NRBC#) MANUAL DIFF REQUIRED (test code NO = MDIFF) SED RATE [id number] 23:09:00 Test Item Value Reference Range Interpretation Comments SED RATE DONNELL (test code = SEDW) mm/hr 0-15 [id number] 22:12:00 Test Item Value Reference Range Interpretation Comments GLUBED (test code = 173 MG/DL 70-110 H Performe d by certified GLUBED) heading saw operator at [facility] CHEM [id number] 20:27:00 Test Item Value Reference Range Interpretation Comments eGFR (test code = eGFR) 87 [facility] [id number] 20:27:00 Test Item Value Reference Range Interpretation Comments Creatinine Lvl (test code = Creatinine 0.99 0.50-1.40 Lvl) [facility]:10:00 Test Item Value Reference Range Interpretation Comments PT (test code = PT) 12.5 s 12.0-14.[address] [facility] [place], TXJkgmbssWQHEAKEQTG6806-32-48 00:10:00 Test Item Value Reference Range Interpretation Comments INR (test code = INR) 0.93 1 0.85-1.[address] [facility] [place], TXCpisgakJDICBPPIZB3106-07-64 00:10:00 Test Item Value Reference Range Interpretation Comments PTT (test code = PTT) 35.7 s 22.9-35.8 [facility]CdmynegUGERZFBNEG4357-36-74 17:29:00 Test Item Value Reference Range Interpretation Comments PTT (test code = PTT) 38.3 s 22.9-35.8 [facility]AoqyvmwRDHMVDPRBE8823-98-18 08:09:00 Test Item Value Reference Range Interpretation Comments MPV (test code = MPV) 7.0 7.4-10.[address] [facility] [place], TXSvtpztaLOVWSWGVTZ6557-37-38 08:09:00 Test Item Value Reference Range Interpretation Comments Platelet (test code = Platelet) 255 133-450 [facility]TtnvmjkTIQIMSKMWG2795-22-29 08:09:00 Test Item Value Reference Range Interpretation Comments RDW (test code = RDW) 14.0 11.5-14.5 [facility]XdvlsfxOYNZJHMEWB1227-55-92 08:09:00 Test Item Value Reference Range Interpretation Comments MCHC (test code = MCHC) 34.7 32.0-36.0 [facility] HospitalHlwfhgnMYLLGEXRZW5030-14-09 08:09:00 Test Item Value Reference Range Interpretation Comments MCH (test code = MCH) 30.5 pg 27.0-31.0 [facility] HospitalYsdlockWHFSTBAIRV8889-73-36 08:09:00 Test Item Value Reference Range Interpretation Comments MCV (test code = MCV) 87.9 80.0-94.[address] [facility] [place], TXJvzdphxVCHXHHTFQQ9974-76-84 08:09:00 Test Item Value Reference Range Interpretation Comments Hgb (test code = Hgb) 13.1 14.0-18.[address] [facility] [place], TXUorrjhjTPEGHPXKLW2785-71-89 08:09:00 Test Item Value Reference Range Interpretation Comments RBC (test code = RBC) 4.29 4.70-6.[address] [facility] [place], TXEzbqhiuNFHMDBULPP1490-12-09 08:09:00 Test Item Value Reference Range Interpretation Comments Hct (test code = Hct) 37.7 42.0-54.[address] [facility] [place], TXDdaisesRMOVWNXJTP6905-00-44 08:09:00 Test Item Value Reference Range Interpretation Comments WBC (test code = WBC) 5.4 3.7-10.[address] [facility] [place], TXWdybpquEVULFBFXAK5920-83-83 08:09:00 Test Item Value Reference Range Interpretation Comments PTT (test code = PTT) 37.3 s 22.9-35.[address] [facility] [place], TXIixgsurCZUTZXGPPF7148-74-01 08:09:00 Test Item Value Reference Range Interpretation Comments Basophils # (test code 0.1 See_Comment [Aut omated message] The = Basophils #) system which generated this result tra nsmitted reference range : <=0.2. The reference r owen was not used to int erpret this result as normal/abnormal . [facility] [place], TXBccshgwAGDBZTLJTF3190-28-02 08:09:00 Test Item Value Reference Range Interpretation Comments Eosinophils # (test code 0.2 See_Comment [A utomated message] The = Eosinophils #) system whic h generated this result tra nsmitted reference range : <=0.5. The reference r owen was not used to int erpret this result as normal/abnormal . [facility] [place], TXTdpkduoMDVJCHUCGW4960-83-53 08:09:00 Test Item Value Reference Range Interpretation Comments Eosinophils (test code = 4.2 See_Comment [A utomated message] The Eosinophils) system which ge nerated this result tra nsmitted reference range : <=4.0. The reference r owen was not used to int erpret this result as normal/abnormal . [facility] [place], TXYngzsanZLYKNEOUAJ5866-14-97 08:09:00 Test Item Value Reference Range Interpretation Comments Monocytes # (test code 0.4 See_Comment [Aut omated message] The = Monocytes #) system which generated this result tra nsmitted reference range : <=0.8. The reference r owen was not used to int erpret this result as normal/abnormal . [facility]IvozbjjWZMZCOZSXC3170-07-48 08:09:00 Test Item Value Reference Range Interpretation Comments Lymphocytes # (test code = Lymphocytes 2.3 1.0-5.5 #) [facility] CenterJnfkapeFVMWXPVAGU9602-94-76 08:09:00 Test Item Value Reference Range Interpretation Comments Segs-Bands # (test code = Segs-Bands #) 2.4 1.5-8.1 [facility] CenterWzthznjIFYFBEGATH3900-94-03 08:09:00 Test Item Value Reference Range Interpretation Comments Basophils (test code = 1.4 See_Comment [Aut omated message] The Basophils) system which ge nerated this result tra nsmitted reference range : <=1.0. The reference r owen was not used to int erpret this result as normal/abnormal . [facility] CenterIzcxrmeLZLAMJZSUX2207-90-47 08:09:00 Test Item Value Reference Range Interpretation Comments Monocytes (test code = Monocytes) 7.0 2.0-12.0 [facility] CenterEmucvmkUPYBSWZVSC0389-24-27 08:09:00 Test Item Value Reference Range Interpretation Comments Lymphocytes (test code = Lymphocytes) 43.4 20.0-40.0 [facility] CenterMcokwxuFPVYKIOLTZ0792-61-71 08:09:00 Test Item Value Reference Range Interpretation Comments Segs (test code = Segs) 44.0 45.0-75.0 [facility]Basha2018-[facility] 02:54:00 Test Item Value Reference Range Interpretation Comments CK MB Index (test no gt See_Comment [Automate d message] The code = CK MB Index) system w [facility] generated this result transmit shae reference range : <=2.5. The reference range was not used to interpr et this result as danyell l/abnormal. [facility] 02:54:00 Test Item Value Reference Range Interpretation Comments CK MB (test code = CK MB) no gt 0.5-3.6 [facility] [employer]2018-01-14 02:54:00 Test Item Value Reference Range Interpretation Comments Troponin-I (test code no gt See_Comment [Auto mated message] The = Troponin-I) system which g enerated this result transmit shae reference range : <=0.40. The reference r owen was not used to interpr et this result as danyell l/abnormal. [facility] [employer] [place] RUZYQTH9089-15-30 02:54:00 Test Item Value Reference Range Interpretation Comments Total CK (test code = Total CK) 107 12-191 [facility] [employer] [place] XVVBXLL1616-43-00 23:26:00 Test Item Value Reference Range Interpretation Comments Troponin-I (test code no gt See_Comment [Auto mated message] The = Troponin-I) system which g enerated this result transmit shae reference range : <=0.40. The reference r owen was not used to interpr et this result as danyell l/abnormal. [facility] [employer]2018-01-13 23:26:00 Test Item Value Reference Range Interpretation Comments Total CK (test code = Total CK) 112 12-191 [facility] [employer]2018-01-13 23:26:00 Test Item Value Reference Range Interpretation Comments CK MB Index (test 0.7 1 See_Comment [Automate d message] The code = CK MB Index) system w [facility] generated this result transmit shae reference range : <=2.5. The reference range was not used to interpr et this result as danyell l/abnormal. [facility] [employer]2018-01-13 23:26:00 Test Item Value Reference Range Interpretation Comments CK MB (test code = CK MB) 0.8 0.5-3.6 [facility] [employer] TechnologyCHEM RDNAJ3051-71-25 23:26:00 Test Item Value Reference Range Interpretation Comments Magnesium Lvl (test code = Magnesium 1.9 1.8-2.4 Lvl) [facility] DilgynwDOYOJRWBSHCK8464-76-15 23:26:00 Test Item Value Reference Range Interpretation Comments Chloride Lvl (test code = Chloride Lvl) 99 95-109 [facility] RjsnvexTGMHYZEINASX1150-02-84 23:26:00 Test Item Value Reference Range Interpretation Comments CO2 (test code = CO2) 28 24-32 [facility] OludwoaLLWHWADXWFHP1299-68-06 23:26:00 Test Item Value Reference Range Interpretation Comments AGAP (test code = AGAP) 10.4 10.0-20.0 [facility]th[facility]xuWEYYERWERRCZ5894-60-92 23:26:00 Test Item Value Reference Range Interpretation Comments Calcium Lvl (test code = Calcium Lvl) 9.3 8.5-10.5 [place] [address]-01-13 23:26:00 Test Item Value Reference Range Interpretation Comments eGFR (test code = eGFR) 96 [facility] HospitalKsuxbluLBTJDDCQUEZO5762-55-43 23:26:00 Test Item Value Reference Range Interpretation Comments BUN (test code = BUN) 19 7-22 [facility]KfmdzsfRPGZFNABWTUL0400-47-93 23:26:00 Test Item Value Reference Range Interpretation Comments Sodium Lvl (test code = Sodium Lvl) 134 135-145 [facility] HospitalDzpaquxNTWLNKXWZGBO0494-27-47 23:26:00 Test Item Value Reference Range Interpretation Comments Potassium Lvl (test code = Potassium 3.4 3.5-5.1 Lvl) [facility] HospitalBkvlretXFLNGFOPBAQW5357-68-77 23:26:00 Test Item Value Reference Range Interpretation Comments Creatinine Lvl (test code = Creatinine 0.91 0.50-1.40 Lvl) [facility] HospitalYrrignkKDYZWVAZFEBU8232-92-67 23:26:00 Test Item Value Reference Range Interpretation Comments Glucose Lvl (test code = Glucose Lvl) 175 70-[address] [facility] [place], TXMehahpqLJPDMLGFQB5072-23-35 23:26:00 Test Item Value Reference Range Interpretation Comments MCV (test code = MCV) 88.2 80.0-94.[address] [facility] [place], TXIrbwrvaMDTIWZZGQL9666-00-68 23:26:00 Test Item Value Reference Range Interpretation Comments WBC (test code = WBC) 5.2 3.7-10.[address] [facility] [place], TXRxctyowZXGOUYHQID9838-79-33 23:26:00 Test Item Value Reference Range Interpretation Comments Hct (test code = Hct) 38.4 42.0-54.[address] [facility] [place], TXEaxxqolUWWYQNHSHN4409-32-36 23:26:00 Test Item Value Reference Range Interpretation Comments Hgb (test code = Hgb) 13.4 14.0-18.[address] [facility] [place], TXOctntvrOPGQFNUCHY2118-21-91 23:26:00 Test Item Value Reference Range Interpretation Comments RBC (test code = RBC) 4.36 4.70-6.[address] [facility] [place], TXWtrwnujNJATVOHSNZ1648-69-26 23:26:00 Test Item Value Reference Range Interpretation Comments MCHC (test code = MCHC) 34.9 32.0-36.[address] [facility] [place], TXWncdidmEJXYKHYMSH7426-91-95 23:26:00 Test Item Value Reference Range Interpretation Comments MCH (test code = MCH) 30.8 pg 27.0-31.[address] [facility] [place], TXCzrfivsGEETOMDRGX6142-24-33 23:26:00 Test Item Value Reference Range Interpretation Comments MPV (test code = MPV) 7.0 7.4-10.[address] [facility] [place], TXZrcwblePZYUCYUZUV0474-66-64 23:26:00 Test Item Value Reference Range Interpretation Comments Platelet (test code = Platelet) 267 133-[address] [facility] [place], TXFcjpaeqHBXFTTKTFQ9620-12-94 23:26:00 Test Item Value Reference Range Interpretation Comments RDW (test code = RDW) 13.8 11.5-14.[address] [facility] [place], TXSijtnhrUZQBUBRMXT8781-47-20 23:26:00 Test Item Value Reference Range Interpretation Comments PT (test code = PT) 12.8 s 12.0-14.[address] [facility] [place], TXFhaizjaOCTPVCPPNV5734-82-07 23:26:00 Test Item Value Reference Range Interpretation Comments INR (test code = INR) 0.96 1 0.85-1.[address] [facility] [place], TXYibvnoaPEJVJEEPUI9529-04-37 23:26:00 Test Item Value Reference Range Interpretation Comments Basophils (test code = 1.0 See_Comment [Aut omated message] The Basophils) system which ge nerated this result tra nsmitted reference range : <=1.0. The reference r owen was not used to int erpret this result as normal/abnormal . [facility] [place], TXHskftglWOCOJKFGEL8369-46-07 23:26:00 Test Item Value Reference Range Interpretation Comments Eosinophils (test code = 3.5 See_Comment [A utomated message] The Eosinophils) system which ge nerated this result tra nsmitted reference range : <=4.0. The reference r owen was not used to int erpret this result as normal/abnormal . [facility] [place], TXXgxwtltTCYSEUDCPN7892-59-56 23:26:00 Test Item Value Reference Range Interpretation Comments Monocytes (test code = Monocytes) 7.3 2.0-12.[address] [facility] [place], TXNazagshYDMOAQESQN4405-91-89 23:26:00 Test Item Value Reference Range Interpretation Comments Eosinophils # (test code 0.2 See_Comment [A utomated message] The = Eosinophils #) system whic h generated this result tra nsmitted reference range : <=0.5. The reference r owen was not used to int erpret this result as normal/abnormal . [facility] [place], TXRhyjvwhYZFUMTDFFU5177-00-37 23:26:00 Test Item Value Reference Range Interpretation Comments Monocytes # (test code 0.4 See_Comment [Aut omated message] The = Monocytes #) system which generated this result tra nsmitted reference range : <=0.8. The reference r owen was not used to int erpret this result as normal/abnormal . [facility] [place], TXIsjfjcsUMOHYAIGEN2081-30-34 23:26:00 Test Item Value Reference Range Interpretation Comments Lymphocytes (test code = Lymphocytes) 38.8 20.0-40.[address] [facility] [place], TXAgmuijdABVAWWKWSU6354-17-04 23:26:00 Test Item Value Reference Range Interpretation Comments Segs (test code = Segs) 49.4 45.0-75.[address] [facility] [place], TXRympatyELOUQSDBWH4839-22-88 23:26:00 Test Item Value Reference Range Interpretation Comments Lymphocytes # (test code = Lymphocytes 2.0 1.0-5.5 #) [facility] [place], TXXmrujevARGYRVYIQJ9827-60-81 23:26:00 Test Item Value Reference Range Interpretation Comments Segs-Bands # (test code = Segs-Bands #) 2.6 1.5-8.1 [facility]fcpczNUGWXH2887[facility]95-[facility] 23:26:00 Test Item Value Reference Range Interpretation Comments VLDL (test code = VLDL) 70 1 [facility] HospitalRkiceozMDMOMM3911-50-51 23:26:00 Test Item Value Reference Range Interpretation Comments Trig (test code = Trig) 349 [facility] HospitalTcpafyyTIORGQ6205-72-56 23:26:00 Test Item Value Reference Range Interpretation Comments Chol (test code = Chol) 147 [facility] HospitalCwnffkdJJHMXE1050-09-53 23:26:00 Test Item Value Reference Range Interpretation Comments CHD Risk (test code = CHD Risk) 4.74 1 4.00-7.30 [facility] HospitalVmrdwhoHKUOMH6273-86-51 23:26:00 Test Item Value Reference Range Interpretation Comments HDL (test code = HDL) 31 [facility] HospitalJsxiurqZWTAGT8417-32-06 23:26:00 Test Item Value Reference Range Interpretation Comments LDL (Calculated) (test code = LDL 46 (Calculated)) [facility] [employer]CAR[employer]AC AFSZTYB7993-24-13 19:36:00 Test Item Value Reference Range Interpretation Comments Total CK (test code = Total CK) 119 12-191 [facility]GOSO AYSRIEK3458-63-60 19:36:00 Test Item Value Reference Range Interpretation Comments CK MB (test code = CK MB) 0.7 0.5-3.6 [facility] [employer] HJKGCUY3730-09-03 19:36:00 Test Item Value Reference Range Interpretation Comments Troponin-I (test code no gt See_Comment [Auto mated message] The = Troponin-I) system which g enerated this result transmit shae reference range : <=0.40. The reference r owen was not used to interpr et this result as danyell l/abnormal. [facility] [employer]2018-01-13 19:36:00 Test Item Value Reference Range Interpretation Comments CK MB Index (test 0.6 1 See_Comment [Automate d message] The code = CK MB Index) system w [facility] generated this result transmit shae reference range : <=2.5. The reference range was not used to interpr et this result as danyell l/abnormal. [facility] [employer]2018-01-13 19:36:00 Test Item Value Reference Range Interpretation Comments eGFR (test code = eGFR) 82 [facility] [employer]2018-01-13 19:36:00 Test Item Value Reference Range Interpretation Comments A/G Ratio (test code = A/G Ratio) 0.9 1 0.7-1.6 [facility] [employer]2018-01-13 19:36:00 Test Item Value Reference Range Interpretation Comments Bili Total (test code = Bili Total) 0.4 0.2-1.3 [facility] [employer]2018-01-13 19:36:00 Test Item Value Reference Range Interpretation Comments Chloride Lvl (test code = Chloride Lvl) 99 95-109 [facility] [employer]2018-01-13 19:36:00 Test Item Value Reference Range Interpretation Comments Calcium Lvl (test code = Calcium Lvl) 9.3 8.5-10.5 [facility] [employer]2018-01-13 19:36:00 Test Item Value Reference Range Interpretation Comments CO2 (test code = CO2) 23 24-32 [facility]2018-01-13 19:36:00 Test Item Value Reference Range Interpretation Comments AST (test code = AST) 19 See_Comment [Auto mated message] The system which ge nerated this result transmit shae reference range : <=37. The reference range was not used to interpr et this result as danyell l/abnormal. [facility]2018-01-13 19:36:00 Test Item Value Reference Range Interpretation Comments Alk Phos (test code = Alk Phos) 66 39-136 [facility]2018-01-13 19:36:00 Test Item Value Reference Range Interpretation Comments AGAP (test code = AGAP) 14.8 10.0-20.0 [facility]2018-01-13 19:36:00 Test Item Value Reference Range Interpretation Comments B/C Ratio (test code = B/C Ratio) 18 1 6-25 [facility]2018-01-13 19:36:00 Test Item Value Reference Range Interpretation Comments Globulin (test code = Globulin) 4.0 2.7-4.2 [facility]2018-01-13 19:36:00 Test Item Value Reference Range Interpretation Comments Total Protein (test code = Total 7.7 6.4-8.4 Protein) [facility]2018-01-13 19:36:00 Test Item Value Reference Range Interpretation Comments Albumin Lvl (test code = Albumin Lvl) 3.7 3.5-5.0 [facility]2018-01-13 19:36:00 Test Item Value Reference Range Interpretation Comments ALT (test code = ALT) 36 See_Comment [Auto mated message] The system which ge nerated this result transmit shae reference range : <=65. The reference range was not used to interpr et this result as danyell l/abnormal. [facility]2018-01-13 19:36:00 Test Item Value Reference Range Interpretation Comments Potassium Lvl (test code = Potassium 3.8 3.5-5.1 Lvl) [facility]2018-01-13 19:36:00 Test Item Value Reference Range Interpretation Comments Sodium Lvl (test code = Sodium Lvl) 133 135-145 [facility]2018-01-13 19:36:00 Test Item Value Reference Range Interpretation Comments Glucose Lvl (test code = Glucose Lvl) 261 70-99 [facility]2018-01-13 19:36:00 Test Item Value Reference Range Interpretation Comments BUN (test code = BUN) 19 7-22 [facility]2018-01-13 19:36:00 Test Item Value Reference Range Interpretation Comments Creatinine Lvl (test code = Creatinine 1.04 0.50-1.40 Lvl) [facility] [place], [id number] 19:36:00 Test Item Value Reference Range Interpretation Comments MPV (test code = MPV) 7.3 7.4-10.[address] [facility] [place], [id number] 19:36:00 Test Item Value Reference Range Interpretation Comments Platelet (test code = Platelet) 270 133-[address] [facility] [place], [id number] 19:36:00 Test Item Value Reference Range Interpretation Comments RDW (test code = RDW) 14.2 11.5-14.[address] [facility] [place], [id number] 19:36:00 Test Item Value Reference Range Interpretation Comments MCHC (test code = MCHC) 33.9 32.0-36.[address] [facility] [place], [id number] 19:36:00 Test Item Value Reference Range Interpretation Comments MCH (test code = MCH) 29.9 pg 27.0-31.[address] [facility] [place], [id number] 19:36:00 Test Item Value Reference Range Interpretation Comments Hct (test code = Hct) 40.0 42.0-54.[address] [facility] [place], [id number] 19:36:00 Test Item Value Reference Range Interpretation Comments MCV (test code = MCV) 88.0 80.0-94.[address] [facility] [place], [id number] 19:36:00 Test Item Value Reference Range Interpretation Comments Hgb (test code = Hgb) 13.6 14.0-18.[address] [facility] [place], [id number] 19:36:00 Test Item Value Reference Range Interpretation Comments WBC (test code = WBC) 5.4 3.7-10.[address] [facility] [place], [id number] 19:36:00 Test Item Value Reference Range Interpretation Comments RBC (test code = RBC) 4.55 4.70-6.[address] [facility] [place], [id number] 19:36:00 Test Item Value Reference Range Interpretation Comments Lymphocytes (test code = Lymphocytes) 29.2 20.0-40.[address] [facility] [place], [id number] 19:36:00 Test Item Value Reference Range Interpretation Comments Segs (test code = Segs) 61.1 45.0-75.[address] [facility] [place], [id number] 19:36:00 Test Item Value Reference Range Interpretation Comments Eosinophils # (test code 0.2 See_Comment [A utomated message] The = Eosinophils #) system whic h generated this result tra nsmitted reference range : <=0.5. The reference r owen was not used to int erpret this result as normal/abnormal . [facility] [place], [id number] 19:36:00 Test Item Value Reference Range Interpretation Comments Monocytes # (test code 0.3 See_Comment [Aut omated message] The = Monocytes #) system which generated this result tra nsmitted reference range : <=0.8. The reference r owen was not used to int erpret this result as normal/abnormal . [facility] [place], [id number] 19:36:00 Test Item Value Reference Range Interpretation Comments Segs-Bands # (test code = Segs-Bands #) 3.3 1.5-8.[address] [facility] [place], [id number] 19:36:00 Test Item Value Reference Range Interpretation Comments Lymphocytes # (test code = Lymphocytes 1.6 1.0-5.5 #) [facility] [place], [id number] 19:36:00 Test Item Value Reference Range Interpretation Comments Basophils (test code = 0.7 See_Comment [Aut omated message] The Basophils) system which ge nerated this result tra nsmitted reference range : <=1.0. The reference r owen was not used to int erpret this result as normal/abnormal . [facility] [place], [id number] 19:36:00 Test Item Value Reference Range Interpretation Comments Monocytes (test code = Monocytes) 5.6 2.0-12.[address] [facility] [place], [id number] 19:36:00 Test Item Value Reference Range Interpretation Comments Eosinophils (test code = 3.4 See_Comment [A utomated message] The Eosinophils) system which ge nerated this result tra nsmitted reference range : <=4.0. The reference r owen was not used to int erpret this result as normal/abnormal . [facility] Notes Date/Time Note Provider Source 2019-08-02 11:46:00-00:00 [facility] ([facility]) EMERGENCY PROVIDER REPORT REPORT#:[id number] REPORT STATUS: Signed DATE:08/02/19 TIME: 1146 PATIENT: ASHLEY SIERRA UNIT #: [id number] ROOM/BED: AGE: 54 SEX: M PCP PHYS: No Primary or Family Ph ysician SERVICE AUTHOR: Corky Ricci MD * ALL edits or amendments must be made on the [employer]/computer document * HPI-Knee Prob/Inj General Initial Greet Date/Time 08/02/19 1105 Presentation Chief Complaint Knee pain R, Knee pain L Free Text HPI Notes Free Text HPI Notes 54-year-old male patient with history of hyperte nsion, diabetes, arthritis presents with chronic knee pain for the last several months. Patient is unable to see his PCP on time hence presents to the [facility] room. Complains of bilateral knee pain. Denies any fever, swelling, vomiting. Patient is able to walk. Review of Systems ROS Statements All systems rev neg except as marked. Focused Review of Systems Constitutional Denies: Fever. Past Medical History - Adult Stated Complaint KNEE PAIN Allergies Coded Allergies: No Known Allergies (04/09/19) Home Medications Active Scripts DULoxetine DR (CYMBALTA) 30 MG PO BEDTIME DULoxetine DR (CYMBALTA) 30 MG PO BEDTIME #30 C AP Ref 1 Prov: 04/11/19 BUTALBITAL/APAP/CAFF 50/325/40 MG (FIORICET) 1 T AB PO Q4H PRN PRN HEADACHE BUTALBITAL/APAP/CAFF 50/325/40 MG (FIORICET) 1 TAB PO Q4H PRN PRN HEADACHE #30 TAB Prov: 04/11/19 Reported Medications metFORMIN (GLUCOPHAGE) 1,000 MG PO BID INSULIN DETEMIR (LEVEMIR) 10 UNITS SUBQ BEDTIME METOPROLOL SUCC XL (TOPROL XL) 25 MG PO DAILY ROSUVASTATIN (CRESTOR) 10 MG PO BEDTIME FENOFIBRATE (TRIGLIDE) 160 MG PO BEDTIME ISOSORBIDE MONONITRATE SR (IMDUR) 30 MG PO BEDTI ME METHOCARBAMOL (ROBAXIN) 750 MG PO TID PRN BACK S PASM PREGABALIN (LYRICA) 150 MG PO BEDTIME MONTELUKAST (SINGULAIR) 10 MG PO BEDTIME CHOLECALCIFEROL (VITAMIN D3) (VITAMIN D3) 50,000 UNIT PO DAILY NITROGLYCERIN (NITROSTAT) 0.4 MG SL Q5M PRN PRN CHEST PAIN GABAPENTIN (NEURONTIN) 600 MG PO TID KETOCONAZOLE (NIZORAL 2%) 1 APPLIC TOPICAL BID MUPIROCIN (BACTROBAN 2%) 1 APPLIC TOPICAL TID LOSARTAN (COZAAR) 100 MG PO DAILY HYDROCHLOROTHIAZIDE (HYDRODIURIL) 25 MG PO DAILY Review of Nursing Notes Rev avail, and agree Additional Medical History Diabetes, hypertension, arthritis Smoking status for patients 13 years old or olde r: Never Smoker Physical Exam Vital Signs Vital Signs First Documented: Result Date Time Pulse Ox 100 08/01 1055 B/P 200/90 08/01 1055 B/P Mean 126 08/01 1055 Temp 36.9 08/01 1055 Pulse 77 08/01 1055 Resp 18 08/01 1055 O2 Delivery Room air 08/01 1250 Last Documented: Result Date Time Pulse Ox 99 08/01 1250 B/P 182/90 08/01 1250 B/P Mean 120 08/01 1250 O2 Delivery Room air 08/01 1250 Pulse 80 08/01 1250 Resp 18 08/01 1250 Temp 36.9 08/01 1055 Review of Vital Signs Reviewed Focused PE General/Const General/Const Awake, Alert, Well appearing Resp/Chest Respiratory/Chest Breath sounds NL, Breath soun ds = bilat, No respiratory distress, No rales, No rhonchi, No wheezing Cardiovascular Cardiovascular Heart rate NL, Regular rhythm, H eart sounds NL, Peripheral circulation NL MS Lower Extrem Lower Ext/Pelvis/MS Atraumatic, Inspection NL, Full range of motion, No swelling, Non-tender, No erythema, No deformity, Neurologic intact, Vascular intact, No ligamentous injury, No edema Skin Skin Color NL, Warm, Dry, Intact, Turgor NL, No swelling Neurologic Neurologic Oriented X3, Speech NL, No motor def icits, No sensory deficits Interpretation Diagnostics Lab Results Interpretation Results Recent Impressions: RADIOLOGY - XR KNEE 3 V BI 08/01 1117 Report Impression - Status: SIGNED Entered: 08/02/2019 1242 IMPRESSION: Negative examination of both knees Location: [facility] Impression By: [email or web address] - Michael Paez MD Patient Discharge Departure Vital Signs/Condition Vital Signs First Documented: Result Date Time Pulse Ox 100 08/01 1055 B/P 200/90 08/01 1055 B/P Mean 126 08/01 1055 Temp 36.9 08/01 1055 Pulse 77 08/01 1055 Resp 18 08/01 1055 O2 Delivery Room air 08/01 1250 Last Documented: Result Date Time Pulse Ox 99 08/01 1250 B/P 182/90 08/01 1250 B/P Mean 120 08/01 1250 O2 Delivery Room air 08/01 1250 Pulse 80 08/01 1250 Resp 18 08/01 1250 Temp 36.9 08/01 1055 All vital signs available at the time of this en try have been reviewed. Clinical Impression Clinical Impression Primary Impression: Chronic knee pain Disposition Decision Discharge )( Discharged to Home Yes )( Time 1244 )( Date 08/02/19 Discharge/Care Plan Discharge Note I have spoken with the patie nt and/or caregivers. I have explained the patient's condition, diagnoses and zachary atment plan based on the information available to me at this time. I have answered the patient's and/ or caregiver's questions and addressed any concerns. The patient and/or careg ira have as good an understanding of the patient 's diagnosis, condition and treatment plan as can be expected at this point. The vital signs have bee n stable. The patient's condition is stable and appr opriate for discharge from the emergency department. The patient will pursue further outpatient evalu ation with the primary care physician or other designated or consulting phys ician as outlined in the discharge instructions. The patient and/or caregivers are agreeable to this plan of care and follow-up instructions have been exp lained in detail. The patient and/or caregivers have received these instructio ns in written format and have expressed an understanding of the discharge inst ructions. The patient and/or caregivers are aware that any significant change in condition or worsening of symptoms should prompt an immediate return to [facility] or the closest emergency department or a call to 911. Quality Measures Smoking Cessation Screened, non user Electronically Signed by Corky Ricci MD 08/02/19 at 1653 RPT #:[id number] END OF REPORT 2019-04-11 15:27:00-00:00 [facility] ([facility]) Hospitalist Discharge Summary REPORT#:[id number] REPORT STATUS: Signed DATE:04/11/19 TIME: 1527 PATIENT: ASHLEY SIERRA UNIT #: [id number] ROOM/BED: [place] [address] : 64 AGE: 53 SEX: M ATTEND: Jordin Best DO ADM AUTHOR: Reddy Werner MD * ALL edits or amendments must be made on the [employer]/computer document * PCP PCP PCP: PCP: Lul Best DO Discharge to: home General Information Problem List/A P: 1. Headache Date of admission: Observation Start Date: 04/10/19 Date of admission: 04/09/19 Discharge date: 04/11/19 Hospital course: 53 y/o with chroninc PHIPPS, Dizziness. Also + stres s test. 1. PHIPPS - chronic in nature. ? post concussion vs cervical spine disease. MRI/MRA of brain normal. mri of neck ordered by neurolog y. pain mangement seen. 2. + stress test - cath tomorrow. cath does not show critical CAD, only mild disease that will be treated medically. 3. HTN - resume home medications 4. DM 2 -resume home medations Med Rec Med Rec Discharge meds: Continue taking these medications: LOSARTAN (COZAAR) 100 MG TAB 100 MILLIGRAM ORAL DAILY. HYDROCHLOROTHIAZIDE (HYDRODIURIL) 25 MG TAB 25 MILLIGRAM ORAL DAILY. metFORMIN (GLUCOPHAGE) 500 MG TAB 1,000 MILLIGRAM ORAL TWICE DAILY. INSULIN DETEMIR (LEVEMIR) 100 UNIT/ML VIAL 10 UNITS SUBCUTANEOUS BEDTIME. METOPROLOL SUCC XL (TOPROL XL) 25 MG TAB.SR.24H 25 MILLIGRAM ORAL DAILY. ROSUVASTATIN (CRESTOR) 10 MG TAB 10 MILLIGRAM ORAL BEDTIME. Comments: TAKE 1 TABLET BY MOUTH EVERYDAY AT BEDTIME - SI G Obtained From [facility] FENOFIBRATE (TRIGLIDE) 160 MG TAB 160 MILLIGRAM ORAL BEDTIME. ISOSORBIDE MONONITRATE SR (IMDUR) 30 MG TAB.SR.2 4H 30 MILLIGRAM ORAL BEDTIME. Comments: TAKE 1 TABLET BY MOUTH EVERY DAY - SIG Obtained From [facility] METHOCARBAMOL (ROBAXIN) 750 MG TAB 750 MILLIGRAM ORAL THREE TIMES A DAY. as needed for BACK SPASM Comments: TAKE 2 TABLETS BY MOUTH 3 TIMES A DAY - SIG Obt ained From [facility] PREGABALIN (LYRICA) 150 MG CAP 150 MILLIGRAM ORAL BEDTIME. MONTELUKAST (SINGULAIR) 10 MG TAB 10 MILLIGRAM ORAL BEDTIME. CHOLECALCIFEROL (VITAMIN D3) (VITAMIN D3) 50,000 UNIT CAP 50,000 UNIT ORAL DAILY. NITROGLYCERIN (NITROSTAT) 0.4 MG TAB.SL 0.4 MILLIGRAM SUBLINGUAL EVERY 5 MINUTES NEE DED. as needed for CHEST PAIN GABAPENTIN (NEURONTIN) 600 MG TAB 600 MILLIGRAM ORAL THREE TIMES A DAY. KETOCONAZOLE (NIZORAL 2%) 75 GM CREAM 1 APPLIC TOPICAL TWICE DAILY. Comments: APPLY TO AFFECTED AREA TWICE A DAY - SIG Obtain ed From [facility] MUPIROCIN (BACTROBAN 2%) 2 % OINTMENT 1 APPLIC TOPICAL THREE TIMES A DAY. Comments: APPLY TO AFFECTED AREA 3 TIMES DAILY FOR 7 DAYS . - SIG Obtained From [facility] Start taking the following new medications: BUTALBITAL/APAP/CAFF 50/325/40 MG (FIORICET) 1 T AB TAB 1 TABLET ORAL EVERY 4 HOURS NEEDED. as neede d for HEADACHE Qty = [address] (CYMBALTA) 30 MG CAP.DR 30 MILLIGRAM ORAL BEDTIME. Qty = 30 Refills = 1 Discharge Instructions Diet: diabetic Activity: as tolerated Additional instructions: f/u with his cardiologyst in 2-3 weeks Return to work/school: Yes Date: 04/17/19 Restrictions: No Objective General VS/I O: Vital Signs: Date Time Temp Pulse Resp B/P B/P Pulse O2 O2 F low FiO2 Mean Ox Delivery Rate 04/11 0733 98.1 76 18 152/78 102.4 97 Room air 04/11 0403 97.9 76 18 165/82 109.7 99 2.460410 99 04/10 2313 98.1 70 18 134/68 90.3 98 2.886070 9 8 04/10 1940 97.9 81 18 150/81 103.9 98 2.559264 98 04/10 1708 98.6 84 18 153/83 106.1 98 Room air 24 hour I O ending at 0700: 04/11 0700 04/10 1900 Intake Total 360 Output Total Balance 360 Intake, Oral 360 Number 0 Bowel Movements Number Voids 1 Physical Exam General appearance: alert, awake, oriented Head/Eyes: atraumatic, clear cornea, EOMI, danyell l conjunctiva/sclera, PERRLA Cardiovascular: normal heart sounds, regular rat e rhythm Respiratory: aerating well, clear to auscultatio n, symmetric expansion, no distress Abdomen: non-tender, normal bowel sounds, soft, no distention Extremities: moves all, no cyanosis, no edema Results Findings/Data: Laboratory Tests 04/11 04/11 04/10 04/10 0729 0530 2100 1706 Chemistry Sodium (134 - 147 mEq/L) 134 Potassium (3.4 - 5.0 mEq/L) 3.9 Chloride (100 - 108 mEq/L) 102 Carbon Dioxide (21 - 33 mEq/L) 26 Anion Gap (0 - 20) 10 BUN (7 - 18 mg/dL) 14 Creatinine (0.6 - 1.3 mg/dL) 0.9 Glomerular Filtr Rate (90 - 95) 87.9 L Glucose (70 - 110 mg/dL) 239 H POC Glucose (70 - 110 MG/DL) 257 H 219 H 372 H Calcium (8.0 - 10.5 mg/dL) 9.2 Laboratory Tests 04/11 0530 Coagulation INR (0.8 - 1.2) 1.0 PTT (Jonas) (25.0 - 39.5 Seconds) 32.2 PT Patient/Control Mix (9.3 - 12.9 SECONDS) 11. 2 Laboratory Tests 04/11 05 Hematology WBC (4.5 - 11.0 x10 3/uL) 5.51 RBC (4.00 - 5.60 x10 6/uL) 4.69 Hgb (12.5 - 16.9 g/dL) 14.1 Hct (37.5 - 50.7 %) 41.3 MCV (81.0 - 99.0 fL) 88.1 MCH (27.0 - 33.0 pg) 30.1 MCHC (33.0 - 37.0 g/dL) 34.1 RDW (11.5 - 14.5 %) 12.2 Plt Count (150 - 400 x10 3/uL) 197 MPV (7.0 - 9.0 fL) 9.0 Neut % (Auto) (56.0 - 77.0 %) 68.9 Lymph % (Auto) (14.0 - 32.0 %) 21.8 Bradford % (Auto) (4.8 - 9.0 %) 6.5 Eos % (Auto) (0.3 - 3.7 %) 1.6 Baso % (Auto) (0.0 - 2.0 %) 0.7 Neut # (Auto) (2.0 - 7.6 x10 3/uL) 3.79 Lymph # (Auto) (1.0 - 3.8 x10 3/uL) 1.20 Bradford # (Auto) (0.1 - 0.8 x10 3/uL) 0.36 Eos # (Auto) (0.0 - 0.2 x10 3/uL) 0.09 Baso # (Auto) (0.0 - 0.2 x10 3/uL) 0.04 Abs Immat Gran (auto) (0.00 - 0.03 x10 3/uL) 0. 03 Add Manual Diff NO Immature Gran % (0.0 - 2.0 %) 0.5 Nucleated RBC % (0 - 0 %) 0.0 Nucleated RBCs # (Man) (0.0 - 0.1 x10 3/uL) 0.0 0 Radiology data: Recent Impressions: [facility]NET[facility]ONANCE IMAGING - MRI C-SPINE W/O CON T 04/10 2109 Report Impression - Status: SIGNED Entered: 04/11/2019 0805 IMPRESSION: Mild degenerative changes, as detailed above, wi thout significant foraminal or canal stenosis. SL: [id number] Impression By: [email or web address] - Keyon Aaron M.D. Quality Medications Current medication review: I attest that the foregoing medication list in t he medical record is true, accurate, and complete to the best of my knowled ge. BMI Screening > 25 or < 18.5 Patient's BMI: Current BMI: 40.5 BMI status/follow-up: abnl BMI, pt to F/U w/PCP (to discuss diet exercise) Tobacco Use/Counseling Tobacco use/counseling: non tobacco user HTN Screening/Follow-up Last documented vitals: Last Documented: Result Date Time Pulse Ox 97 04/11 733 B/P 152/78 04/11 733 B/P Mean 102.4 04/11 733 O2 Delivery Room air 04/11 733 Temp 98.1 04/11 733 Pulse 76 04/11 733 Resp 18 04/11 733 FiO2 99 04/11 403 O2 Flow Rate 2.426499 04/11 403 B/P assess/follow-up: normal B/P, no f/u req, pr e-existing hx of HTN at 1530 RPT #:[id number] END OF REPORT 2019-04-11 10:26:00-00:00 [facility] ([facility]) Cath Post Proc-Full REPORT#:[id number] REPORT STATUS: Signed DATE:04/11/19 TIME: 102 PATIENT: ASHLEY SIERRA UNIT #: [id number] ROOM/BED: [place] [address] : 63 AGE: 53 SEX: M ATTEND: Jordin Best DO ADM AUTHOR: Magaly Espinoza MD * ALL edits or amendments must be made on the el [employer]/computer document * Cath Procedure Cath Procedure Start date: 04/11/19 Start time: 1026 Post-procedure diagnosis: CAD Procedure performed: diag coronary angiography Performed by: Magaly Espinoza MD Manager Medical Affairs(s): none Procedure details: Coronary Angiogram Report Indication : Abnormal stress test, chest pain Disability Hearing Officer : Magaly Espinoza MD Patient is brought to the [facility] catheterization laboratory in a stable fasting condition. Right radial access was obtained. 5/6 Syriac slender sheath was placed without any difficulty. Following this a 5 Syriac Senatobia catheter was used to cannulate the right and left coronary ar teries. LEFT Left Main- 0% stenosis LAD - luminal irregularities D1 - 0% stenosis D2 - 0% stenosis LCx - luminal irregularities OM1 - 0% stenosis, small vessel OM2 - 50% stenosis OM3 50-60 percent stenosis RIGHT RCA - 0% stenosis, nondominant vessel Complications : None EBL : 10 CC Impression: 1. Coronary Angiogram mild to moderate c oronary artery disease, no significant obstructive lesions. Plan: 1. Optimize medical management 2. Continue aspirin, statin, beta-nile. Findings: - Complications: none Estimated blood loss in ml's: 10 Specimens removed/altered: none Implants: none Electronically Signed by Magaly Espinoza MD on at 1030 RPT #:[id number] END OF REPORT 2019-04-10 23:33:00-00:00 [facility] Hospitalist Progress Note REPORT#:[id number] REPORT STATUS: Signed DATE:04/10/19 TIME: 2333 PATIENT: ASHLEY SIERRA UNIT #: [id number] ROOM/BED: [place] [address] : 63 AGE: 53 SEX: M ATTEND: Jordin Best DO ADM AUTHOR: Reddy Werner MD * ALL edits or amendments must be made on the el X[employer]/computer document * Subjective Chief Complaint: feeling better. + stress test. Patient reports: Yes: feeling better. Objective General VS/I O: Vital Signs: Date Time Temp Pulse Resp B/P B/P Pulse O2 O2 F low FiO2 Mean Ox Delivery Rate 04/10 2313 98.1 70 18 134/68 90.3 98 2.217532 9 8 04/10 1940 97.9 81 18 150/81 103.9 98 2.192647 98 04/10 1708 98.6 84 18 153/83 106.1 98 Room air 04/10 1146 97.9 81 18 182/95 124.0 98 Room air 04/10 0740 97.7 66 18 164/89 114.1 98 Nasal 2.0 40208 cannula 04/10 0438 98.1 64 16 130/74 92.5 96 Room air 04/09 2353 97.7 60 16 149/80 102.7 99 Room air 24 hour I O ending at 0700: 04/10 0700 04/09 1900 Intake Total 1030.00 Output Total Balance 1030.00 Intake, IV 550.00 Intake, Oral 480 Number 0 Bowel Movements Number Voids 1 Patient 124.5 kg Weight Weight Bed scale Measurement Method Patient Weight Weight (lb): 274 Weight (oz): 7.61 Weight (kg): 124.500 Physical Exam General appearance: alert, awake, oriented Head/Eyes: atraumatic, clear cornea, EOMI, danyell l conjunctiva/sclera, PERRLA Cardiovascular: normal heart sounds, regular rat e rhythm Respiratory: aerating well, clear to auscultatio n, symmetric expansion, no distress Abdomen: non-tender, normal bowel sounds, soft, no distention Extremities: moves all, no cyanosis, no edema Results Findings/Data: Laboratory Tests 04/10 04/10 04/10 04/10 04/10 2100 1706 1144 0738 0430 Chemistry Sodium (134 - 147 mEq/L) 136 Potassium (3.4 - 5.0 mEq/L) 3.8 Chloride (100 - 108 mEq/L) 104 Carbon Dioxide (21 - 33 mEq/L) 25 Anion Gap (0 - 20) 11 BUN (7 - 18 mg/dL) 15 Creatinine (0.6 - 1.3 mg/dL) 0.9 Glomerular Filtr Rate (90 - 95) 87.9 L Glucose (70 - 110 mg/dL) 282 H POC Glucose (70 - 110 MG/DL) 219 H 372 H 210 H 205 H Calcium (8.0 - 10.5 mg/dL) 8.0 Laboratory Tests 04/10 0430 Hematology WBC (4.5 - 11.0 x10 3/uL) 5.08 RBC (4.00 - 5.60 x10 6/uL) 4.33 Hgb (12.5 - 16.9 g/dL) 13.1 Hct (37.5 - 50.7 %) 38.5 MCV (81.0 - 99.0 fL) 88.9 MCH (27.0 - 33.0 pg) 30.3 MCHC (33.0 - 37.0 g/dL) 34.0 RDW (11.5 - 14.5 %) 12.5 Plt Count (150 - 400 x10 3/uL) 185 MPV (7.0 - 9.0 fL) 9.0 Neut % (Auto) (56.0 - 77.0 %) 51.8 L Lymph % (Auto) (14.0 - 32.0 %) 34.6 H Bradford % (Auto) (4.8 - 9.0 %) 9.6 H Eos % (Auto) (0.3 - 3.7 %) 2.4 Baso % (Auto) (0.0 - 2.0 %) 0.8 Neut # (Auto) (2.0 - 7.6 x10 3/uL) 2.63 Lymph # (Auto) (1.0 - 3.8 x10 3/uL) 1.76 Bradford # (Auto) (0.1 - 0.8 x10 3/uL) 0.49 Eos # (Auto) (0.0 - 0.2 x10 3/uL) 0.12 Baso # (Auto) (0.0 - 0.2 x10 3/uL) 0.04 Abs Immat Gran (auto) (0.00 - 0.03 x10 3/uL) 0 .04 H Add Manual Diff NO Immature Gran % (0.0 - 2.0 %) 0.8 Nucleated RBC % (0 - 0 %) 0.0 Nucleated RBCs # (Man) (0.0 - 0.1 x10 3/uL) 0.0 0 Radiology data: Recent Impressions: [facility]ON[facility] IMAGING - MRA NECK W/O CONT 1 06/10 141 Report Impression - Status: SIGNED Entered: 04/10/2019 1530 IMPRESSION: 1. Normal MRI of the brain without contrast 2. Normal MRA of the brain without contrast 3. Normal MRA of the neck without contrast. All qualitative and quantitative assessments of carotid bifurcation and proximal internal carotid artery stenosis ar e made referencing the distal internal carotid artery (NASCET criteria) . SL: [id number] Impression By: [email or web address] - Keyon Aaron M.D. [facility]NET[facility] RESONANCE IMAGING - MRA HEAD W/O CONTRA ST 04/10 141 Report Impression - Status: SIGNED Entered: 04/10/2019 1530 IMPRESSION: 1. Normal MRI of the brain without contrast 2. Normal MRA of the brain without contrast 3. Normal MRA of the neck without contrast. All qualitative and quantitative assessments of carotid bifurcation and proximal internal carotid artery stenosis ar e made referencing the distal internal carotid artery (NASCET criteria) . SL: [id number] Impression By: Enrique Aaron M.D. [facility]ON[facility] IMAGING - MRI BRAIN W/O CONT 04/10 1419 Report Impression - Status: SIGNED Entered: 04/10/2019 1530 IMPRESSION: 1. Normal MRI of the brain without contrast 2. Normal MRA of the brain without contrast 3. Normal MRA of the neck without contrast. All qualitative and quantitative assessments of carotid bifurcation and proximal internal carotid artery stenosis ar e made referencing the distal internal carotid artery (NASCET criteria) . SL: [id number] Impression By: Enrique Aaron M.D. Diagnosis, Assessment Plan Problem List/A P: 1. Headache Code Status/Resusc. Discussion Resuscitation discussion: Discussed with: patient Code status: full code Free Text DxA P Notes Free Text DxA P Notes: 53 y/o with chroninc PHIPPS, Dizziness. Also + stres s test. 1. PHIPPS - chronic in nature. ? post concussion vs cervical spine disease. MRI/MRA of brain normal. mri of neck ordered by neurolog y. pain mangement seen. 2. + stress test - cath tomorrow. 3. HTN - not well control. adjust medications. 4. DM 2 - not well control, will need to adjust medications at 2338 RPT #:[id number] END OF REPORT 2019-04-10 18:08:00-00:00 [facility] ([facility]) Cardiology Consultation REPORT#:[id number] REPORT STATUS: Signed DATE:04/10/19 TIME: 1807 PATIENT: ASHLEY SIERRA UNIT #: [id number] ROOM/BED: [place] [id number] : 64 AGE: 53 SEX: M ATTEND: Jordin Best DO ADM AUTHOR: Magaly Espinoza MD * ALL edits or amendments must be made on the [employer]/computer document * History of Present Illness HPI Reason for consult: hxx of CAD Chief complaint: headache,blurry vision HPI: Mr Sierra is a 53 y.o male with hx of CAD who p resents with headache, blurry vision. He denies any chest pain this time around but had an episode of CP last week for which he took ASA a nd it resolved. He had another episode of CP in November 2018 for which he took NTG. His EKG and troponin s are unremarkable this admission. Echo and stress test ordered by [facility]. He denies any chest pain or sob during my evaluation History - Adult longitudinal Past medical history: Reports: Diabetes mellitus, Hypertension. Smoking status for patients 13 years old or olde r: Never Smoker Allergies: Coded Allergies: No Known Allergies (04/09/19) Review of Systems All systems rev neg: except as marked Objective Physical Exam VS/I O: Vital Signs: Date Time Temp Pulse Resp B/P B/P Pulse O2 O2 F low FiO2 Mean Ox Delivery Rate 04/11 0403 97.9 76 18 165/82 109.7 99 2.378289 99 04/10 2313 98.1 70 18 134/68 90.3 98 2.462967 9 8 04/10 1940 97.9 81 18 150/81 103.9 98 2.398243 98 04/10 1708 98.6 84 18 153/83 106.1 98 Room air 04/10 1146 97.9 81 18 182/95 124.0 98 Room air 04/10 0740 97.7 66 18 164/89 114.1 98 Nasal 2.0 51105 cannula 24 hour I O ending at 0700: 04/11 0700 04/10 1900 Intake Total 360 Output Total Balance 360 Intake, Oral 360 Number 0 Bowel Movements Number Voids 1 Patient Weight Weight (lb): 274 Weight (oz): 7.61 Weight (kg): 124.500 General appearance: alert, awake, oriented, no a cute distress Head/Eyes: atraumatic, PERRL ENT: moist mucosal membranes Neck: no JVD Cardiovascular: CV assessment: regular rate and rhythm, no murm ur Respiratory: clear to auscultation, no distress Abdomen: soft, non-tender Genitourinary: no fitzpatrick Lower extremity: LE assessment: no edema Musculoskeletal: full range of motion Skin: dry, intact Psychiatry: normal affect, normal mood Diagnosis, Assessment Plan Free Text DxA P Notes Free Text DxA P Notes: 1. Abnormal nuclear stress test 2. Discussed with patient. He had chest pain las t week and another episode in November for which he took NTG. He had a coronary angiogram in May 2017 and was told that he had disease of a small vessel which was not amenable for PCI based on patients description. With r ecurrent CP and abnormal nuclear stress it would be reasonable to perform a coronary angiogr am at some point. Pt prefers for it to be done now. No contraindications to cath. No bl eeding, no dye allergy. NPO after midnight. cath tomorrow. Thank you for this consult. [facility] Electronically Signed by Magaly Espinoza MD on at 0651 RPT #:[id number] END OF REPORT 2019-04-10 17:08:00-00:00 [facility] Neurology Consultation Note REPORT#:[id number] REPORT STATUS: Signed DATE:04/10/19 TIME: 1708 PATIENT: ASHLEY SIERRA UNIT #: [id number] ROOM/BED: [place] [address] : 64 AGE: 53 SEX: M ATTEND: Jordin Best DO ADM AUTHOR: Lesia Barney MD * ALL edits or amendments must be made on the [employer]/computer document * History of Present Illness HPI Requesting clinician: Venu Reason for consult: headache/concussion syndrome Chief complaint: head/neck pain, dizziness HPI: The patient is seen with his zak jimenez to supplement the history. They have been together for approximately 3 years. When she first met in the patient did not have any significant hea daches but over time is developed almost daily head and neck pain. He grew up having migrain e headaches for we would have to sleep in a dark room to relieve th e headache but they were only occasional and he has those very rarely nowadays. The patient started having a neck discomfort radiating up into the head. About a year and a h [facility] ago he had an MRI and was told he had some bulging disc but he did not hav e physical therapy as recommended because of cost. He started taking Excedrin and estimates about 6/ day and used to be more than that. He quit taking it altogether for a while and took naproxen instead or Tylenol and says it did not really make much difference. The patient says he had gone to bed early one night with a headache and when he woke up around 3:30 in the m orning it took some Excedrin again but then started having blurred vision and inability to see as well as severe headache. He took a hot shower and it did not re ally help and his urged him to call in sick for work which she did. He w ent back to sleep and when he woke up around 11 AM he still has severe headache and felt dizzy. He went to a local urgent care center and felt faint while th ey are so he was transferred here for further evaluation. He did not lose con sciousness. When he was feeling that way he said his blood pressure was high not low. The patient has sometimes had those feelings when he would stand up suddenly or turn his head quickly. He had had visual aura with migraines i n the past but these were different from that. He cont inues to have significant head pain with tenderness in the lower neck and lower scalp in the occipit al region. About 2 months ago the patient had a heavy obje ct fall on his head work and he did not think he had much injury but had worsened headaches since then. He denies any radiation into his arms or legs. There is urinary frequency and hesitation at night but not during the day and no incont inence. He has had no significant changes in vision memory or walking difficulty. He has tried muscle relaxants which helped somew hat. He has never needed preventive medicine for migraine in the past. He also has a history of diabetes. History - Adult longitudinal Past medical history: Reports: Diabetes mellitus, Hypertension. Family history: Denies: Coagulopathy, Stroke/TIA, Connective tis justice dis. Additional family history: no family history migraine/neurological disorder s Alcohol use: Denies EtOH use Drug use: Denies recreational drugs Smoking status for patients 13 years old or olde r: Never Smoker Other social history: Employed, Good social supp ort, with combined 11 children, only 15 year old still living at home. Medications: Home Medications: Medication Dose/Rte/Freq Days Qty Entered Last Max Daily Dose Reviewed metFORMIN (GLUCOPHAGE) 1,000 MG PO BID 08/20/14 04/09/19 Strength: 500 MG TAB 1526 2120 INSULIN DETEMIR 10 UNITS SUBQ 04/09/19 9 (LEVEMIR) BEDTIME 2118 2118 Strength: 100 UNIT/ML VIAL METOPROLOL SUCC XL 25 MG PO DAILY 04/09/19 (TOPROL XL) 2119 2311 Strength: 25 MG TAB.SR.24H ROSUVASTATIN (CRESTOR) 10 MG PO BEDTIME 9 04/09/19 Strength: 10 MG TAB 2120 2120 FENOFIBRATE (TRIGLIDE) 160 MG PO BEDTIME 04/09/19 Strength: 160 MG TAB 2121 2124 ISOSORBIDE 30 MG PO BEDTIME 04/09/19 04/09/19 MONONITRATE SR 2121 2123 (IMDUR) Strength: 30 MG TAB.SR.24H METHOCARBAMOL 750 MG PO 04/09/19 04/09/19 (ROBAXIN) TID PRN BACK SPASM 2121 2126 Strength: 750 MG TAB PREGABALIN (LYRICA) 150 MG PO BEDTIME 04/09/19 04/09/19 Strength: 150 MG CAP 2122 2123 MONTELUKAST (SINGULAIR) 10 MG PO BEDTIME 04/09/19 Strength: 10 MG TAB 2122 2123 CHOLECALCIFEROL 50,000 UNIT PO DAILY 04/09/19 1 06/09/18 (VITAMIN D3) 2123 2124 (VITAMIN D3) Strength: 50,000 UNIT CAP NITROGLYCERIN 0.4 MG SL 04/09/19 04/09/19 (NITROSTAT) Q5M PRN PRN CHEST 2123 2123 Strength: 0.4 MG TAB.SL PAIN GABAPENTIN (NEURONTIN) 600 MG PO TID 04/09/19 1 06/09/18 Strength: 600 MG TAB 2124 2124 KETOCONAZOLE 1 APPLIC TOPICAL BID 04/09/1903/22 (NIZORAL 2%) 2125 2125 Strength: 75 GM CREAM MUPIROCIN 1 APPLIC TOPICAL TID 04/09/19 9 (BACTROBAN 2%) 2125 2125 Strength: 2 % OINTMENT LOSARTAN (COZAAR) 100 MG PO DAILY 08/20/1403/22 Strength: 100 MG TAB 1522117 HYDROCHLOROTHIAZIDE 25 MG PO DAILY 08/20/14 (HYDRODIURIL) 1522117 Strength: 25 MG TAB Current Hospital Medications: Anti-Infective Agents Sig/Esha Start time Last Medication Dose Route Stop Time Status Admin Ketoconazole 1 APPLIC BID 04/09 2300 AC (NIZORAL 15 GM CREAM) TOPICAL 05/09 2259 Antihistamine Drugs Sig/Esha Start time Last Medication Dose Route Stop Time Status Admin Diphenhydramine HCl 50 MG ONCALL MRI 04/10 1715 CKD (BENADRYL) IV 05/10 1714 Autonomic Drugs Sig/Esha Start time Last Medication Dose Route Stop Time Status Admin Methocarbamol 750 MG TID 04/10 1500 AC 04/10 (ROBAXIN-750) PO 05/10 1459 1600 Methocarbamol 750 MG TID PRN 04/09 2200 DC (ROBAXIN-750) PO 04/10 1459 2242 Blood Formation,Coagulation Sig/Esha Start time Last Medication Dose Route Stop Time Status Admin Enoxaparin Sodium 40 MG 2100 04/09 2330 AC 03/22 9 (lovENOX) SUBQ 05/09 2329 2357 Cardiovascular Drugs Sig/Esha Start time Last Medication Dose Route Stop Time Status Admin Atorvastatin Calcium 20 MG BEDTIME 04/10 2100 A C (LIPITOR) PO 05/10 205 Regadenoson 0 .STK-MED ONE 04/10 0911 DC 04/10 (LEXISCAN SYRINGE) IV 0916 Losartan Potassium 100 MG DAILY 04/10 0900 AC 1 06/10 (COZAAR) PO 05/10 0859 1209 Fenofibrate 160 MG BEDTIME 04/09 2200 AC 04/09 (FENOFIBRATE 160MG PO 05/09 215 2241 TAB) Isosorbide 30 MG BEDTIME 04/09 2200 AC 04/09 Mononitrate PO 05/09 215 2241 (Imdur 30 mg) Nitroglycerin 0.4 MG Q5M PRN PRN 04/09 2200 AC (NITROSTAT) SL 05/09 2159 Central Nervous System Agents Sig/Esha Start time Last Medication Dose Route Stop Time Status Admin Duloxetine HCl 30 MG BEDTIME 04/10 2100 AC (CYMBALTA) PO 05/10 2059 Fentanyl Citrate 100 MCG ONCALL MRI 04/10 171 CKD (SUBLIMAZE) IV 04/15 171 Aspirin 81 MG DAILY 04/10 0900 AC 04/10 (ASPIRIN) PO 05/10 0859 1210 Gabapentin 600 MG TID 04/10 0900 AC 04/10 (NEURONTIN) PO 05/10 0859 1406 Acetaminophen/ 1 TAB Q4H PRN PRN 04/10 0815 AC 04/10 Butalbital/Caffeine PO 05/10 0814 1209 (FIORICET) Hydrocodone Bitart/ 1 TAB Q4H PRN PRN 04/10 081 5 AC Acetaminophen PO 04/15 0806 (NORCO 5/325) Pregabalin 150 MG BEDTIME 04/09 2200 AC 04/09 (LYRICA) PO 05/09 215 2241 Acetaminophen 650 MG Q4H PRN PRN 04/09 2145 AC (TYLENOL) PO 05/09 2144 Hydrocodone Bitart/ 1 TAB Q6H PRN PRN 04/09 214 5 DC Acetaminophen PO 04/14 214 (NORCO 5/325) Morphine Sulfate 4 MG Q4H PRN PRN 04/09 2145 A C 04/10 (morphine SULFATE) IV 04/14 2144 0447 Temazepam 15 MG BEDTIME PRN PRN 04/09 2145 AC (RESTORIL) PO 05/09 2144 Electrolytic, Caloric, And Aracelis Sig/Esha Start time Last Medication Dose Route Stop Time Status Admin Sodium Chloride 1,000 ML .[id number] ONE 04/10 190 0 AC (SODIUM CHLORIDE IV 04/11 0819 0.9%) Hydrochlorothiazide 25 MG DAILY 04/10 0900 AC 1 06/10 (HYDRODIURIL) PO 05/10 0859 1210 Sodium Chloride 1,000 ML .Q10H 04/09 2200 DC (SODIUM CHLORIDE IV 04/10 0759 2242 0.9%) Dextrose/Water 125 ML ASDIR PRN 04/09 214 AC (DEXTROSE 10% IN IV 05/09 214 WATER) Dextrose/Water 250 ML ASDIR PRN 04/09 2145 AC (DEXTROSE 10% IN IV 05/09 2144 WATER) Lactulose 20 GM Q6H PRN PRN 04/09 2145 AC 04/10 (LACTULOSE) PO 05/09 2144 1521 Gastrointestinal Drugs Sig/Esha Start time Last Medication Dose Route Stop Time Status Admin Ondansetron HCl 4 MG Q4H PRN PRN 04/09 2145 AC 04/10 (ZOFRAN) IV 05/09 2144 1400 Hormones And Synthetic Substit Sig/Esha Start time Last Medication Dose Route Stop Time Status Admin Metformin HCl 1,000 MG BID MEALS 04/10 0800 AC 04/10 (GLUCOPHAGE) PO 05/10 0759 1736 Insulin Human Lispro 0 AC HS 04/10 0730 AC 03/23 0 (HUMALOG) SUBQ 05/10 0729 1730 Insulin Glargine 10 UNIT BEDTIME 04/09 2200 AC 04/09 (Lantus) SUBQ 05/09 2159 2243 Glucagon 1 MG ASDIR PRN 04/09 2145 AC (GLUCAGON) IM 05/09 2144 Local Anesthetics (Parenteral) Sig/Esha Start time Last Medication Dose Route Stop Time Status Admin Lidocaine 1 EA DAILY 04/11 0900 AC (LIDODERM) TOPICAL 05/11 0859 Skin And Mucous Membrane Agent Sig/Esha Start time Last Medication Dose Route Stop Time Status Admin Mupirocin 1 APPLIC TID 04/09 2300 AC (BACTROBAN 2% 22 GM TOPICAL 04/14 2259 OINTMENT) Allergies: Coded Allergies: No Known Allergies (04/09/19) Review of Systems Free Text ROS Notes Free Text ROS Notes: Review of systems Constitutional: The patient denies having chills , fever, fatigue, generalized weakness, malaise, or recent weight loss. Skin: the patient denies having any bruising, di aphoresis episodes, itching, rashes, or swelling. Allergy and immunology: the patient denies havin g runny nose sneezing, itchy eyes or dry cough. Head Eyes Ears Nose Throat: The patient denies b lurred vision, double vision, eye pain, light sensitivity in the eyes, discharge from the eyes, hearing loss, earache, drainage from the ears, sore th roat, swelling in the throat, sores in the mouth or lips. Respiratory: The patient den ies having shortness of breath on exertion, wheezing , productive cough or dry cough, pain on breathi ng. Cardiovascular: Patient denies having chest pain at rest or on exertion, swelling in the legs, feeling of heart racing, p alpitations, feeling of faintness. GI: The patient denies having change in bowel phipps bits, bowel incontinence, diarrhea, constipation, trouble swallowing, hear tburn, nausea or vomiting. : The patient denies inontinence of urine, bur jose angel on urination, excessive urination, inability to urin ate, feeling of incomplete emptying of the bladder. Musculoskeletal: The patient denies extremity pain, swelling, joint pain, muscle pain, muscle cramps. Hematology: Patient denies easily bleeding, brui sing, history of anemia. No personal or family history blood clots in legs o r lungs. Endocrinology: The patient denies hot or cold in tolerance, excessive thirst, excessive urination, fainting. Denies use of hor monal therapy. Neurological: The patient reports no focal weakn ess, gait problem, numbness, change in memory, seizures, change in speech, lo ss of consciousness. Psychiatric: Patient denies anxiety, depression, insomnia, hallucinations, confusion. All other systems were reviewed and negative exc ept as described. Objective Physical Exam VS: Last Documented: Result Date Time Pulse Ox 98 04/10 1146 B/P 182/95 04/10 1146 B/P Mean 124.0 04/10 1146 O2 Delivery Room air 04/10 1146 Temp 36.6 04/10 1146 Pulse 81 04/10 1146 Resp 18 04/10 1146 O2 Flow Rate 2.225851 04/10 0740 Patient Weight Weight (lb): 274 Weight (oz): 7.61 Weight (kg): 124.500 Medications: Current Home Medications metFORMIN (GLUCOPHAGE) 1,000 MG PO BID INSULIN DETEMIR (LEVEMIR) 10 UNITS SUBQ BEDTIME METOPROLOL SUCC XL (TOPROL XL) 25 MG PO DAILY ROSUVASTATIN (CRESTOR) 10 MG PO BEDTIME FENOFIBRATE (TRIGLIDE) 160 MG PO BEDTIME ISOSORBIDE MONONITRATE SR (IMDUR) 30 MG PO BEDTI ME METHOCARBAMOL (ROBAXIN) 750 MG PO TID PRN BACK S PASM PREGABALIN (LYRICA) 150 MG PO BEDTIME MONTELUKAST (SINGULAIR) 10 MG PO BEDTIME CHOLECALCIFEROL (VITAMIN D3) (VITAMIN D3) 50,000 UNIT PO DAILY NITROGLYCERIN (NITROSTAT) 0.4 MG SL Q5M PRN PRN CHEST PAIN GABAPENTIN (NEURONTIN) 600 MG PO TID KETOCONAZOLE (NIZORAL 2%) 1 APPLIC TOPICAL BID MUPIROCIN (BACTROBAN 2%) 1 APPLIC TOPICAL TID LOSARTAN (COZAAR) 100 MG PO DAILY HYDROCHLOROTHIAZIDE (HYDRODIURIL) 25 MG PO DAILY Active Meds + DC'd Last 24 Hrs Lidocaine 1 EA DAILY TOPICAL (UNV) Atorvastatin Calcium 20 MG BEDTIME PO Duloxetine HCl 30 MG BEDTIME PO (UNV) Diphenhydramine HCl 50 MG ONCALL MRI IV (UNV) Fentanyl Citrate 100 MCG ONCALL MRI IV (UNV) Methocarbamol 750 MG TID PO Regadenoson 0 .STK-MED ONE IV (DC) Aspirin 81 MG DAILY PO Gabapentin 600 MG TID PO Hydrochlorothiazide 25 MG DAILY PO Losartan Potassium 100 MG DAILY PO Acetaminophen/Butalbital/Caffeine 1 TAB Q4H PRN PRN PO Hydrocodone Bitart/Acetaminophen 1 TAB Q4H PRN P RN PO Metformin HCl 1,000 MG BID MEALS PO Insulin Human Lispro 0 AC HS SUBQ Enoxaparin Sodium 40 MG 2100 SUBQ Ketoconazole 1 APPLIC BID TOPICAL Mupirocin 1 APPLIC TID TOPICAL Fenofibrate 160 MG BEDTIME PO Insulin Glargine 10 UNIT BEDTIME SUBQ Isosorbide Mononitrate 30 MG BEDTIME PO Methocarbamol 750 MG TID PRN PO (DC) Nitroglycerin 0.4 MG Q5M PRN PRN SL Pregabalin 150 MG BEDTIME PO Sodium Chloride 1,000 ML .Q10H IV (DC) Acetaminophen 650 MG Q4H PRN PRN PO Dextrose/Water 125 ML ASDIR PRN IV Dextrose/Water 250 ML ASDIR PRN IV Glucagon 1 MG ASDIR PRN IM Hydrocodone Bitart/Acetaminophen 1 TAB Q6H PRN P RN PO (DC) Lactulose 20 GM Q6H PRN PRN PO Morphine Sulfate 4 MG Q4H PRN PRN IV Ondansetron HCl 4 MG Q4H PRN PRN IV Temazepam 15 MG BEDTIME PRN PRN PO Results Findings/Data: Laboratory Tests 04/10 04/10 04/10 04/09 1144 0738 0430 2300 Chemistry Sodium (134 - 147 mEq/L) 136 Potassium (3.4 - 5.0 mEq/L) 3.8 Chloride (100 - 108 mEq/L) 104 Carbon Dioxide (21 - 33 mEq/L) 25 Anion Gap (0 - 20) 11 BUN (7 - 18 mg/dL) 15 Creatinine (0.6 - 1.3 mg/dL) 0.9 Glomerular Filtr Rate (90 - 95) 87.9 L Glucose (70 - 110 mg/dL) 282 H POC Glucose (70 - 110 MG/DL) 210 H 205 H Hemoglobin A1c (4.8 - 6.0 %A1C) 8.8 H Calcium (8.0 - 10.5 mg/dL) 8.0 04/09 04/09 2300 2200 Chemistry Sodium (134 - 147 mEq/L) 136 Potassium (3.4 - 5.0 mEq/L) 3.5 Chloride (100 - 108 mEq/L) 103 Carbon Dioxide (21 - 33 mEq/L) 26 Anion Gap (0 - 20) 11 BUN (7 - 18 mg/dL) 17 Creatinine (0.6 - 1.3 mg/dL) 0.9 Glomerular Filtr Rate (90 - 95) 87.9 L Glucose (70 - 110 mg/dL) 236 H POC Glucose (70 - 110 MG/DL) 173 H Calcium (8.0 - 10.5 mg/dL) 8.3 Total Bilirubin (<1.5 MG/DL) 0.6 AST (15 - 37 IUnit/L) 10 L ALT (15 - 65 IUnit/L) 26 Total Alk Phosphatase (20 - 125 IUnit/L) 76 Total Protein (6.4 - 8.2 g/dL) 6.5 Albumin (3.4 - 5.0 g/dL) 3.20 L Triglycerides (40 - 150 mg/dL) 392 H Cholesterol (<200 mg/dL) 190 LDL Cholesterol Measurd (0 - 100 mg/dL) 95 HDL Cholesterol (32 - 72 mg/dL) 37.0 Cholesterol/HDL Ratio (3.43 - 4.97 RATIO) 5.14 H TSH (0.42 - 5.47) 1.83 Laboratory Tests 04/10 04/09 0430 2300 Hematology WBC (4.5 - 11.0 x10 3/uL) 5.08 6.66 RBC (4.00 - 5.60 x10 6/uL) 4.33 4.60 Hgb (12.5 - 16.9 g/dL) 13.1 13.9 Hct (37.5 - 50.7 %) 38.5 40.2 MCV (81.0 - 99.0 fL) 88.9 87.4 MCH (27.0 - 33.0 pg) 30.3 30.2 MCHC (33.0 - 37.0 g/dL) 34.0 34.6 RDW (11.5 - 14.5 %) 12.5 12.3 Plt Count (150 - 400 x10 3/uL) 185 191 MPV (7.0 - 9.0 fL) 9.0 8.9 Neut % (Auto) (56.0 - 77.0 %) 51.8 L 57.7 Lymph % (Auto) (14.0 - 32.0 %) 34.6 H 30.8 Bradford % (Auto) (4.8 - 9.0 %) 9.6 H 7.2 Eos % (Auto) (0.3 - 3.7 %) 2.4 2.7 Baso % (Auto) (0.0 - 2.0 %) 0.8 0.8 Neut # (Auto) (2.0 - 7.6 x10 3/uL) 2.63 3.85 Lymph # (Auto) (1.0 - 3.8 x10 3/uL) 1.76 2.05 Bradford # (Auto) (0.1 - 0.8 x10 3/uL) 0.49 0.48 Eos # (Auto) (0.0 - 0.2 x10 3/uL) 0.12 0.18 Baso # (Auto) (0.0 - 0.2 x10 3/uL) 0.04 0.05 Abs Immat Gran (auto) (0.00 - 0.03 x10 3/uL) 0. 04 H 0.05 H Add Manual Diff NO NO Immature Gran % (0.0 - 2.0 %) 0.8 0.8 Nucleated RBC % (0 - 0 %) 0.0 0.0 Nucleated RBCs # (Man) (0.0 - 0.1 x10 3/uL) 0.0 0 0.00 ESR Westergren (0 - 15 mm/hr) 9 Microbiology Date/Time Procedure - Status Source Growth 04/09 2300 MRSA DNA Surveillance Screen - COMP NASAL Radiology Data: Recent Impressions: MAGNETIC RESONANCE IMAGING - MRA NECK W/O CONT 1 06/10 1419 Report Impression - Status: SIGNED Entered: 04/10/2019 1530 IMPRESSION: 1. Normal MRI of the brain without contrast 2. Normal MRA of the brain without contrast 3. Normal MRA of the neck without contrast. All qualitative and quantitative assessments of carotid bifurcation and proximal internal carotid artery stenosis ar e made referencing the distal internal carotid artery (NASCET criteria) . SL: [id number] Impression By: Enrique Aaron M.D. MAGNETIC RESONANCE IMAGING - MRA HEAD W/O CONTRA ST 04/10 1419 Report Impression - Status: SIGNED Entered: 04/10/2019 1530 IMPRESSION: 1. Normal MRI of the brain without contrast 2. Normal MRA of the brain without contrast 3. Normal MRA of the neck without contrast. All qualitative and quantitative assessments of carotid bifurcation and proximal internal carotid artery stenosis ar e made referencing the distal internal carotid artery (NASCET criteria) . SL: [id number] Impression By: Enrique Aaron M.D. MAGNETIC RESONANCE IMAGING - MRI BRAIN W/O CONT 04/10 1419 Report Impression - Status: SIGNED Entered: 04/10/2019 1530 IMPRESSION: 1. Normal MRI of the brain without contrast 2. Normal MRA of the brain without contrast 3. Normal MRA of the neck without contrast. All qualitative and quantitative assessments of carotid bifurcation and proximal internal carotid artery stenosis ar e made referencing the distal internal carotid artery (NASCET criteria) . SL: [id number] Impression By: Enrique Aaron M.D. Results: labs reviewed, current med profile rev' d Free Text Obj Notes Free Text Obj Notes: General: The patient appears awake, aler t and in no acute distress. The weight and body habitus appear normal. HEENT: Head appears to be atraumatic and normoce phalic. Eyes have clear conjunctiva and sclera. Neck is supple and nontender with full range of motion. There is tenderness in the occipital area as we ll as in cervical paraspinal muscles. Nose has moist mucous membranes as does the mouth. Ear canals have no drainage. There is no cervical adenopathy palpat ed. Fundus exam is unremarkable with venous pulsations intact and s harp disc margins. Chest: The lung sounds are clear throughout. The patient is breathing without any visible distress. Distal color is no rmal without any cyanosis or clubbing. Cardiovascular: There is a regular rate and rhyt hm. No cardiac murmurs are detected. Peripheral extremities have no rmal skin temperature and color and no edema. Peripheral pulses are symmetrical. No car otid bruits are detected. Calves are nontender. Abdomen: The abdomen is soft, without distention and there is no pain. Bowel sounds are normal. Musculoskeletal: The joints appear normal size a nd color without tenderness, effusion or disfigurement. Skin: There is no sign of skin lesion, ecchymose s, rash, edema or abnormal texture. Psychiatric: The patient dudley ears to be in normal mood without hallucinations or delusions. Demeanor is normal and they are fluen t in conversation. Neurological: The patient is awake and oriented to time place and situation. The speech and language content are normal. They are able to follow a 2 step command. The pupils are equal round and reactive to light . Visual lei are full to confrontation. Face is symmetrical to motor and sensory. Hearing intact and symmetrical to tuning fork. Blink reflex symmetr ical. Tongue and uvula are midline. Voice quality is normal. Shoulder shrug is strong bilaterally. Motor exam: there is no sign of focal atrophy no r fasciculations. No involuntary movements are seen. There is normal muscle bulk throughout. Tone is normal throughout. Upper extremities and lowe r extremities have no drift. Fine motor movement is done symmetrically. Uriipm-rz-nplm testing is done well. Sensory exam shows no asymmetry in temperature, light touch, joint position sense and vibratory testing. Reflexes are 1-2+ in all extremities and symmetr ical. Plantar responses downgoing bilaterally. Gait is not tested. Diagnosis, Assessment Plan Problem List/A P: 1. Cervicalgia of jduqctfh-aiubdjm-wwamw region 2. Chronic daily headache Free Text DxA P Notes: long history migraine but those are rare. Has phipps d daily neck/head pain gradually worsening over past few years. Also un treated sleep apnea, HTN, DM. Will obtain MRI C spine, start empiric meds for prevention. Will follow after MRI done. [facility]. Electronically Signed by Lesia Barney MD 04/10/19 at 1911 RPT #:[id number] END OF REPORT 2019-04-10 15:11:00-00:00 [id number] [place] [id number] PATIENT NAME: ASHLEY SIERRA ADMIT DATE: 04/09/19 ACCOUNT NO: [id number] ROOM NO: C136 AGE: 53 REPORT TYPE: eNUCLEAR CARDIOLOGY REPORT SEX: M ADMITTING PHYSICIAN:Lul Best DO ATTENDING PHYSICIAN:Lul Best DO AMENDED REPORT Exam Date: 04/10/2019 10:45:00 Exam Type: Nuclear Conclusions Abnormal Nuclear Stress Test 1. Small reversible defect at the apical wall co nsistent with ischemia 2. Fixed defect at the inferior wall consistent with diaphragmatic attenuation artifact 2. Normal LV systolic function, normal wall young on. EF 51% Nuclear Cardiology Conclusion: regadenoson myocardial perfusion with Tc-99m te trofosmin imaging. Global left ventricular systolic function was , with an EF of 51%. There was a small, completely reversible, apical- ante rior defect associated with normal wall motion. This defect was consist ent with ischemia. There was also a second medium, fixed, mid to basal in ferior defect. This defect was consistent with attenuation artifact. Imaging Protocol: This was a gated SPECT myocardial perfusion imag ing study. A one day rest-stress imaging protocol was followed using Tc-99m tetrofosmin (Myoview) injected intravenously. For the rest p ortion of the study, 10 mCi of the radiopharmaceutical was administered at 04/10/2019 08:20:55. Rest imaging was performed at 0835. For the stre ss portion of the study, 30 mCi was administered at 04/10/2019 09:30:54. Stress imaging was performed at 0950. Perfusion Interpretation: Perfusion at stress and rest conditions was norm al. Wall Motion Interpretation: The patient's calculated post stress LVEF was 51 %. Gated imaging under post-stress conditions demonstrated normal wall motion. PATIENT NAME: ASHLEY SIERRA 011 Electronically Signed by Magaly Espinoza MD on at 1512 PATIENT NAME: ASHLEY SIERRA 011 2019-04-10 15:07:00-00:00 [id number] [place] [address] PATIENT NAME: ASHLEY SIERRA ADMIT DATE: 04/09/19 ACCOUNT NO: [id number] ROOM NO: [facility] AGE: 53 REPORT TYPE: eNUCLEAR CARDIOLOGY REPORT SEX: M ADMITTING PHYSICIAN:Lul Best DO ATTENDING PHYSICIAN:Lul Best DO Exam Date: 04/10/2019 10:45:00 Exam Type: Nuclear Conclusions Abnormal Nuclear Stress Test 1. Small reversible defect at the apical wall co nsistent with ischemia 2. Normal LV systolic function, normal wall young on. EF 51% Nuclear Cardiology Conclusion: regadenoson myocardial perfusion with Tc-99m te trofosmin imaging. Global left ventricular systolic function was , with an EF of 51%. There was a small, completely reversible, apical- ante rior defect associated with normal wall motion. This defect was consist ent with ischemia. Imaging Protocol: This was a gated SPECT myocardial perfusion imag ing study. A one day rest-stress imaging protocol was followed using Tc-99m tetrofosmin (Myoview) injected intravenously. For the rest p ortion of the study, 10 mCi of the radiopharmaceutical was administered at 04/10/2019 08:20:55. Rest imaging was performed at 0835. For the stre ss portion of the study, 30 mCi was administered at 04/10/2019 09:30:54. Stress imaging was performed at 0950. Perfusion Interpretation: Perfusion at stress and rest conditions was norm al. Wall Motion Interpretation: The patient's calculated post stress LVEF was 51 %. Gated imaging under post-stress conditions demonstrated normal wall motion. Electronically signed by: MAGALY ESPINOZA MD on 1 06/10/2018 15:07:57 PATIENT NAME: ASHLEY SIERRA 011 Electronically Signed by Magaly Espinoza MD on at 1508 PATIENT NAME: ASHLEY SIERRA 011 2019-04-10 14:46:00-00:00 [id number] [place] [address] PATIENT NAME: ASHLEY SIERRA ADMIT DATE: 04/09/19 ACCOUNT NO: [id number] ROOM NO: G.C136 AGE: 53 REPORT TYPE: eECHOCARDIOGRAM REPORT SEX: M ADMITTING PHYSICIAN:Lul Best DO ATTENDING PHYSICIAN:Lul Best DO Exam Date: 04/10/2019 10:04:00 Exam Type: Transthoracic Echocardiogram Indication: DIZZY, ABNORMAL EKG Rhythm: NSR BP: 130/74 HR: 80 Measurements Name Value Normal Range Ao root diameter (MM) 3.9 cm - LA dimension (AP) MM 4.31 cm (1.9 - 4) LA:Ao ratio (MM) 1.11 ratio (Less Than 1.5) Ao root diameter (MM) in1.65 cm/m2 - LA dimension (MM) index 1.83 cm/m2 - AV cusp separation (MM) 2.23 cm - Name Value Normal Range IVSd (2D) 1.38 cm (0.6 - 1.1) LVPWd (2D) 1.23 cm (0.6 - 1.1) IVS:LVPW ratio (2D) 1.13 ratio - LVIDd (2D) 4.68 cm (3.5 - 5.6) LVIDs (2D) 3.62 cm (2.1 - 4) LVIDd (2D) index 1.98 cm/m2 - LVIDs (2D) index 1.53 cm/m2 - LV FS (2D) 22.77 % - EF Teichholz (2D) 45.77 % (50 - 90) Ao root diameter (2D) 3.57 cm (2 - 3.7) Aortic root diameter (2D1.51 cm/m2 - Name Value Normal Range LA ESV SP 2CH (A/L) 30.57 ml - LA ESV SP 2CH (MOD) 27.9 ml - LV EDV SP 4CH (MOD) 102.57 ml - LV ESV SP 4CH (MOD) 44.91 ml - EF SP 4CH (MOD) 56.21 % - LV EDV SP 2CH (MOD) 104.63 ml - LV ESV SP 2CH (MOD) 39.67 ml - EF SP 2CH (MOD) 62.09 % - LV EDV BP 103.57 ml - LV ESV BP 44.1 ml - PATIENT NAME: ASHLEY SIERRA 011 BP EF (MOD) 57.42 % - LV EDV BP index 43.83 ml/m2 - LV ESV BP index 18.66 ml/m2 - LV mass (2D) 238.2 g - LV mass (2D) index 100.8 g/m2 - Name Value Normal Range MV E-wave Vmax 1.57 m/sec - MV deceleration time 164.18 msec - MV A-wave Vmax 0.64 m/sec - MV E:A ratio 2.47 ratio - IVRT 98.95 msec - Name Value Normal Range AV Vmax 1.7 m/sec - AV peak gradient 11.56 mmHg - LVOT diameter 2.15 cm (1.8 - 2.2) LVOT Vmax 1.51 m/sec - LVOT peak gradient 9.13 mmHg - DOI (Vmax) 0.89 ratio - SEKOU (continuity Vmax) 3.23 cm2 - SEKOU (continuity Vmax) in1.37 cm2/m2 - Ascending Ao 3.1 cm (Less Than 39) Name Value Normal Range TR Vmax 1.99 m/sec - TR peak gradient 15.85 mmHg - RAP 10 mmHg - RVSP 25.85 mmHg (15 - 30) PAP 25.85 mmHg - Name Value Normal Range PV Vmax 0.9 m/sec - PV peak gradient 3.21 mmHg - RVOT Vmax 0.7 m/sec - RVOT peak gradient 1.95 mmHg - Findings Study Quality: This is a technically adequate examination. Left Ventricle: The left ventricular chamber size is normal. Mil d concentric left ventricular hypertrophy is observed. The estimat ed ejection fraction is 50-55%. Insufficient data to evaluate the left v entricular diastolic function. Left Atrium: The left atrium is mildly dilated. Right Ventricle: The right ventricular cavity size is normal. Nor mal right ventricular function is observed. PATIENT NAME: ASHLEY SIERRA 011 Right Atrium: The right atrial cavity size is normal. Aortic Valve: The aortic valve is trileaflet. Systolic excursi on of the aortic valve is normal. Mild to moderate aortic insufficiency is present. Mitral Valve: The mitral valve leaflets appear normal. There i s mild mitral regurgitation observed. Tricuspid Valve: The tricuspid valve appears normal in structure and function. There is trace tricuspid regurgitation. The pulmonary art ulises pressure is estimated at 25.85 mmHg. Pulmonic Valve: The pulmonic valve appears normal in structure a nd function. There is trivial pulmonic regurgitation. Pericardium: There is no pericardial effusion. Aorta: The aortic root appears normal. Pulmonary Artery: The main pulmonary artery appears normal. Conclusions 1. The left ventricular chamber size is normal. 2. Mild concentric left ventricular hypertrophy is observed. 3. The estimated ejection fraction is 50-55%. 4. Insufficient data to evaluate the left ventri cular diastolic function. 5. Mild to moderate aortic insufficiency is pres ent. Electronically signed by: MAGALY ESPINOZA MD on 1 06/10/2018 14:46:06 Electronically Signed by Magaly Espinoza MD on at 1446 PATIENT NAME: ASHLEY SIERRA 011 2019-04-10 11:56:00-00:00 [facility] ([facility]) Stress Test Exam REPORT#:[id number] REPORT STATUS: Signed DATE:04/10/19 TIME: 1156 PATIENT: ASHLEY SIERRA UNIT #: [id number] ROOM/BED: [place] [address] : 64 AGE: 53 SEX: M ATTEND: Jordin Best DO ADM AUTHOR: Chino Garcia NP * ALL edits or amendments must be made on the el Xspand/computer document * Testing Information Testing Information Ordering physician: Dr. Palencia Type of stress: Lexiscan, myocardial perfusion t est Indication(s): atypical angina Clinical history: Cardiac risk factors: AGe, race, DM, HTN, HLD Past cardiac procedures: Procedure/Test: echo Isotope: Myoview Injection method: Myoview Radioisotope was inj ected at rest and spect images were obtained at that time. Radioisotope was injec shae at peak exercise and spect images were obtained 30 minutes later. Stress Test Performance Protocol(s) used: Lexiscan Patient tolerance: well throughout procedure Performance results: Target heart rate: 97, 58% Procedure interventions: Patient brought to the stress lab after informed consent. Baseline EKG showed sinus rhythm and patient had a headache. The patient was injected with Lexiscan, followed by Myoview radioisotope. Overall, the E KG was normal without any evidence of ST changes indicative of ischemia fr om baseline, and the patient tolerated the procedure well . The nuclear images will be reviewed by Dr. Palencia, and the final results will be posted separately. Impressions 1. No chest pain 2. No dysrhythmias noted 3. No ST or T wave abnormalities from baseline i ndicative of ischemia 4. See separate nuclear report Resting BP: 172/88 ECG: Resting: sinus rhythm Stress: sinus rhythm Electronically Signed by Chino Garcia NP on 04/10 at 1158 RPT #:[id number] END OF REPORT 2019-04-10 11:56:00-00:00 [facility] ([facility]) Stress Test Exam REPORT#:[id number] REPORT STATUS: Signed DATE:04/10/19 TIME: 1156 PATIENT: ASHLEY SIERRA UNIT #: [id number] ROOM/BED: [place] [address] : 64 AGE: 53 SEX: M ATTEND: Jordin Best DO ADM AUTHOR: Chino Garcia NP * ALL edits or amendments must be made on the el [employer]/computer document * Testing Information Testing Information Ordering physician: Dr. Palencia Type of stress: Lexiscan, myocardial perfusion t est Indication(s): atypical angina Clinical history: Cardiac risk factors: AGe, race, DM, HTN, HLD Past cardiac procedures: Procedure/Test: echo Isotope: Myoview Injection method: Myoview Radioisotope was inj ected at rest and spect images were obtained at that time. Radioisotope was injec shae at peak exercise and spect images were obtained 30 minutes later. Stress Test Performance Protocol(s) used: Lexiscan Patient tolerance: well throughout procedure Performance results: Target heart rate: 97, 58% Procedure interventions: Patient brought to the stress lab after informed consent. Baseline EKG showed sinus rhythm and patient had a headache. The patient was injected with Lexiscan, followed by Myoview radioisotope. Overall, the E KG was normal without any evidence of ST changes indicative of ischemia fr om baseline, and the patient tolerated the procedure well . The nuclear images will be reviewed by Dr. Palencia, and the final results will be posted separately. Impressions 1. No chest pain 2. No dysrhythmias noted 3. No ST or T wave abnormalities from baseline i ndicative of ischemia 4. See separate nuclear report Resting BP: 172/88 ECG: Resting: sinus rhythm Stress: sinus rhythm Electronically Signed by Chino Garcia NP on 04/10 at 1158 at 1551 RPT #:[id number] END OF REPORT 2019-04-10 06:01:00-00:00 [facility] ([facility]) Pain Management Consult Note REPORT#:[id number] REPORT STATUS: Signed DATE:04/10/19 TIME: 600 PATIENT: ASHLEY SIERRA UNIT #: [id number] ROOM/BED: [place] [address] : 64 AGE: 53 SEX: M ATTEND: Cristela Best DO ADM AUTHOR: Odalys Gann * ALL edits or amendments must be made on the [employer]ogi[employer]/computer document * History of Present Illness Primary Care Physician: Lul Best DO HPI: 53-year-old man who 2 months ago had history of head injury by a rolling pin falling on his head from an upper cabinet since he has been experiencing symptoms of dizziness and wo rsening headache . He PMH of diabetes mellitus type 2 , hypertension, hyperlipidemia, and migraine headaches. Pain management has been consulted to help manag e patient's worsening acute headaches. Patient reports that since he had an object fall on his head he has been having dull to throbbing headache t hat starts at the base of his neck and radiates over his forehead a nd over his eyes. He has headaches on a daily basis with associated factors of dizziness and blurred vision at times rated 10 out of 10 for at least 2 months. He denies using any narcotic medications to manage his pain he typically uses Excedr in to manage his migraines and Tylenol recently for his headaches. 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 Review of Systems Additional notes: 14 point review of systems u ndertaken and negative unless otherwise noted in HPI History Past History Past Medical History: Reports: Diabetes mellitus, Hypertension. Past family history: FATHER Family History: Unknown MOTHER Family History: Unknown Allergies: Coded Allergies: No Known Allergies (04/09/19) Free Text Hx Notes Free text Hx notes: PAST MEDICAL HISTORY: As above and herniated dis ks in his neck and back. Objective Physical Exam VS/I O: Last Documented: Result Date Time Pulse Ox 98 04/10 1146 B/P 182/95 04/10 1146 B/P Mean 124.0 04/10 1146 O2 Delivery Room air 04/10 1146 Temp 97.9 04/10 1146 Pulse 81 04/10 1146 Resp 18 04/10 1146 O2 Flow Rate [id number] 04/10 0740 24 hour I O ending at 0700: 04/10 0700 04/09 1900 Intake Total 1030.00 Output Total Balance 1030.00 Intake, IV 550.00 Intake, Oral 480 Number 0 Bowel Movements Number Voids 1 Patient 124.5 kg Weight Weight Bed scale Measurement Method Patient Weight Weight (lb): 274 Weight (oz): 7.61 Weight (kg): 124.500 General appearance: alert, awake, oriented, no a cute distress Head/Eyes: atraumatic, normocephalic, normal con junctiva/sclera ENT: noraml pharynx, moist mucosal membranes Neck: full range of motion, no lymphadenopathy, supple/no meningismus Cardiovascular: regular rate rhythm Respiratory: clear to auscultation, no distress Abdomen: soft, non-tender, no distention Abdomen quadrants LLQ normal bowel sounds, LUQ normal zahraa l sounds, RLQ normal bowel sounds, RUQ normal bowel sounds Extremities: moves all, no edema, pedal pulses Neuro/MACHINE BANDER AND 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 HELPER: no motor deficits, no sensory deficit s, CNII-XII grossly intact Skin: dry, intact, no rash Spine Cervical: muscle tenderness, muscle spasm Results Findings/data: Laboratory Tests: 04/10 04/10 04/09 04/09 0738 0430 2300 2300 Chemistry Sodium (134 - 147 mEq/L) 136 136 Potassium (3.4 - 5.0 mEq/L) 3.8 3.5 Chloride (100 - 108 mEq/L) 104 103 Carbon Dioxide (21 - 33 mEq/L) 25 26 Anion Gap (0 - 20) 11 11 BUN (7 - 18 mg/dL) 15 17 Creatinine (0.6 - 1.3 mg/dL) 0.9 0.9 Glomerular Filtr Rate (90 - 95) 87.9 L 87.9 L Glucose (70 - 110 mg/dL) 282 H 236 H POC Glucose (70 - 110 MG/DL) 205 H Hemoglobin A1c (4.8 - 6.0 %A1C) 8.8 H Calcium (8.0 - 10.5 mg/dL) 8.0 8.3 Total Bilirubin (<1.5 MG/DL) 0.6 AST (15 - 37 IUnit/L) 10 L ALT (15 - 65 IUnit/L) 26 Total Alk Phosphatase (20 - 125 IUnit/L) 76 Total Protein (6.4 - 8.2 g/dL) 6.5 Albumin (3.4 - 5.0 g/dL) 3.20 L Triglycerides (40 - 150 mg/dL) 392 H Cholesterol (<200 mg/dL) 190 LDL Cholesterol Measurd (0 - 100 mg/dL) 95 HDL Cholesterol (32 - 72 mg/dL) 37.0 Cholesterol/HDL Ratio (3.43 - 4.97 RATIO) 5.14 H TSH (0.42 - 5.47) 1.83 Hematology WBC (4.5 - 11.0 x10 3/uL) 5.08 6.66 RBC (4.00 - 5.60 x10 6/uL) 4.33 4.60 Hgb (12.5 - 16.9 g/dL) 13.1 13.9 Hct (37.5 - 50.7 %) 38.5 40.2 MCV (81.0 - 99.0 fL) 88.9 87.4 MCH (27.0 - 33.0 pg) 30.3 30.2 MCHC (33.0 - 37.0 g/dL) 34.0 34.6 RDW (11.5 - 14.5 %) 12.5 12.3 Plt Count (150 - 400 x10 3/uL) 185 191 MPV (7.0 - 9.0 fL) 9.0 8.9 Neut % (Auto) (56.0 - 77.0 %) 51.8 L 57.7 Lymph % (Auto) (14.0 - 32.0 %) 34.6 H 30.8 Bradford % (Auto) (4.8 - 9.0 %) 9.6 H 7.2 Eos % (Auto) (0.3 - 3.7 %) 2.4 2.7 Baso % (Auto) (0.0 - 2.0 %) 0.8 0.8 Neut # (Auto) (2.0 - 7.6 x10 3/uL) 2.63 3.85 Lymph # (Auto) (1.0 - 3.8 x10 3/uL) 1.76 2.05 Bradford # (Auto) (0.1 - 0.8 x10 3/uL) 0.49 0.48 Eos # (Auto) (0.0 - 0.2 x10 3/uL) 0.12 0.18 Baso # (Auto) (0.0 - 0.2 x10 3/uL) 0.04 0.05 Abs Immat Gran (auto) (0.00 - 0.03 x10 3/uL) 0. 04 H 0.05 H Add Manual Diff NO NO Immature Gran % (0.0 - 2.0 %) 0.8 0.8 Nucleated RBC % (0 - 0 %) 0.0 0.0 Nucleated RBCs # (Man) (0.0 - 0.1 x10 3/uL) 0.0 0 0.00 ESR Westergren (0 - 15 mm/hr) 9 04/09 2200 Chemistry POC Glucose (70 - 110 MG/DL) 173 H Microbiology: Date/Time Procedure - Status Source Growth 04/09 2300 MRSA DNA Surveillance Screen - COMP NASAL Diagnosis, Assessment Plan Free text A P: 53-year-old man who 2 months ago had history of head injury by a rolling pin falling on his head from an upper cabinet since he has been experiencing symptoms of dizziness and wo rsening headache . He PMH of diabetes mellitus type 2 , hypertension, hyperlipidemia, and migraine headaches. Pain management has been consulted to help manag e patient's worsening acute headaches. Acute headaches possible posttraumatic concussio n syndrome -MRI and MRA pending -Morphine IV 4 mg every 4 PRN pain scale 7-10 -[place] 5/325 mg p.o. every 4 as needed pain scal e 4-6 -Fioricet 1 tab every 4 as needed for headaches -Neurology consult -We will wait for neurology and MRI results and consider possible occipital nerve block Dizziness/abnormal EKG -Cardiology consult Cervicalgia -Robaxin 750 mg p.o. 3 times daily Diabetes - Per primary Diabetic peripheral neuropathy -Lyrica 150 mg at bedtime -Gabapentin 600 mg p.o. 3 times daily Patient will require monitor ing while utilizing narcotic medications for adverse effects and will adjust accordingly Plan of care discussed with patient and nurse All diagnostic studies over the last 24 hours re viewed Plan of care and case has been discussed with Dr Albania Medina who is in agreement. Thank you Dr. Lea for this co nsultation we look forward to following this patient with you [place] [employer]PER[employer] MANAGER information: 03/13/2019 1 03/13/2019 Preg abalin 150 Mg Capsule 180.00 90 Al Downey [id number] [facility] (0450) 0 2.01 LME Comm Ins [place] 08/27/2018 2 08/27/2018 Acet aminophen-Cod #3 Tablet 15.00 2 Sa Abd [id number] [facility] ( 9326) 0 33.75 MME Comm Ins [place] 05/16/2017 1 05/16/2017 Acet aminophen-Cod #3 Tablet 20.00 3 [facility] [id number] [facility] (0450) 0 30.00 MME Comm Ins [place] Pharmacies: [facility] [place] [phone] [address] [facility] [address] - [facility] [phone] [address] [facility] [address] Electronically Signed by Odalys Gann on at 1216 RPT #:[id number] END OF REPORT 2019-04-10 06:01:00-00:00 [facility] ([facility]) Pain Management Consult Note REPORT#:[id number] REPORT STATUS: Signed DATE:04/10/19 TIME: 600 PATIENT: ASHLEY SIERRA UNIT #: [id number] ROOM/BED: 6636-1 : 64 AGE: 53 SEX: M ATTEND: Jordin Best DO ADM AUTHOR: Odalys Gann * ALL edits or amendments must be made on the [employer]/Viki document * History of Present Illness Primary Care Physician: Lul Best DO HPI: 53-year-old man who 2 months ago had history of head injury by a rolling pin falling on his head from an upper cabinet since he has been experiencing symptoms of dizziness and wo rsening headache . He PMH of diabetes mellitus type 2 , hypertension, hyperlipidemia, and migraine headaches. Pain management has been consulted to help manag e patient's worsening acute headaches. Patient reports that since he had an object fall on his head he has been having dull to throbbing headache t hat starts at the base of his neck and radiates over his forehead a nd over his eyes. He has headaches on a daily basis with associated factors of dizziness and blurred vision at times rated 10 out of 10 for at least 2 months. He denies using any narcotic medications to manage his pain he typically uses Excedr in to manage his migraines and Tylenol recently for his headaches. 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 Review of Systems Additional notes: 14 point review of systems u ndertaken and negative unless otherwise noted in HPI History Past History Past Medical History: Reports: Diabetes mellitus, Hypertension. Past family history: FATHER Family History: Unknown MOTHER Family History: Unknown Allergies: Coded Allergies: No Known Allergies (04/09/19) Free Text Hx Notes Free text Hx notes: PAST MEDICAL HISTORY: As above and herniated dis ks in his neck and back. Objective Physical Exam VS/I O: Last Documented: Result Date Time Pulse Ox 98 04/10 1146 B/P 182/95 04/10 1146 B/P Mean 124.0 04/10 1146 O2 Delivery Room air 04/10 1146 Temp 97.9 04/10 1146 Pulse 81 04/10 1146 Resp 18 04/10 1146 O2 Flow Rate 2.174741 04/10 0740 24 hour I O ending at 0700: 04/10 0700 04/09 1900 Intake Total 1030.00 Output Total Balance 1030.00 Intake, IV 550.00 Intake, Oral 480 Number 0 Bowel Movements Number Voids 1 Patient 124.5 kg Weight Weight Bed scale Measurement Method Patient Weight Weight (lb): 274 Weight (oz): 7.61 Weight (kg): 124.500 General appearance: alert, awake, oriented, no a cute distress Head/Eyes: atraumatic, normocephalic, normal con junctiva/sclera ENT: noraml pharynx, moist mucosal membranes Neck: full range of motion, no lymphadenopathy, supple/no meningismus Cardiovascular: regular rate rhythm Respiratory: clear to auscultation, no distress Abdomen: soft, non-tender, no distention Abdomen quadrants LLQ normal bowel sounds, LUQ normal zahraa l sounds, RLQ normal bowel sounds, RUQ normal bowel sounds Extremities: moves all, no edema, pedal pulses Neuro/MACHINE BANDER AND CELLOPHANER HELPER: no motor deficits, no sensory deficit s, CNII-XII grossly intact Skin: dry, intact, no rash Spine Cervical: muscle tenderness, muscle spasm Results Findings/data: Laboratory Tests: 04/10 04/10 04/09 04/09 0738 0430 2300 2300 Chemistry Sodium (134 - 147 mEq/L) 136 136 Potassium (3.4 - 5.0 mEq/L) 3.8 3.5 Chloride (100 - 108 mEq/L) 104 103 Carbon Dioxide (21 - 33 mEq/L) 25 26 Anion Gap (0 - 20) 11 11 BUN (7 - 18 mg/dL) 15 17 Creatinine (0.6 - 1.3 mg/dL) 0.9 0.9 Glomerular Filtr Rate (90 - 95) 87.9 L 87.9 L Glucose (70 - 110 mg/dL) 282 H 236 H POC Glucose (70 - 110 MG/DL) 205 H Hemoglobin A1c (4.8 - 6.0 %A1C) 8.8 H Calcium (8.0 - 10.5 mg/dL) 8.0 8.3 Total Bilirubin (<1.5 MG/DL) 0.6 AST (15 - 37 IUnit/L) 10 L ALT (15 - 65 IUnit/L) 26 Total Alk Phosphatase (20 - 125 IUnit/L) 76 Total Protein (6.4 - 8.2 g/dL) 6.5 Albumin (3.4 - 5.0 g/dL) 3.20 L Triglycerides (40 - 150 mg/dL) 392 H Cholesterol (<200 mg/dL) 190 LDL Cholesterol Measurd (0 - 100 mg/dL) 95 HDL Cholesterol (32 - 72 mg/dL) 37.0 Cholesterol/HDL Ratio (3.43 - 4.97 RATIO) 5.14 H TSH (0.42 - 5.47) 1.83 Hematology WBC (4.5 - 11.0 x10 3/uL) 5.08 6.66 RBC (4.00 - 5.60 x10 6/uL) 4.33 4.60 Hgb (12.5 - 16.9 g/dL) 13.1 13.9 Hct (37.5 - 50.7 %) 38.5 40.2 MCV (81.0 - 99.0 fL) 88.9 87.4 MCH (27.0 - 33.0 pg) 30.3 30.2 MCHC (33.0 - 37.0 g/dL) 34.0 34.6 RDW (11.5 - 14.5 %) 12.5 12.3 Plt Count (150 - 400 x10 3/uL) 185 191 MPV (7.0 - 9.0 fL) 9.0 8.9 Neut % (Auto) (56.0 - 77.0 %) 51.8 L 57.7 Lymph % (Auto) (14.0 - 32.0 %) 34.6 H 30.8 [place] % (Auto) (4.8 - 9.0 %) 9.6 H 7.2 Eos % (Auto) (0.3 - 3.7 %) 2.4 2.7 Baso % (Auto) (0.0 - 2.0 %) 0.8 0.8 Neut # (Auto) (2.0 - 7.6 x10 3/uL) 2.63 3.85 Lymph # (Auto) (1.0 - 3.8 x10 3/uL) 1.76 2.05 [place] # (Auto) (0.1 - 0.8 x10 3/uL) 0.49 0.48 Eos # (Auto) (0.0 - 0.2 x10 3/uL) 0.12 0.18 Baso # (Auto) (0.0 - 0.2 x10 3/uL) 0.04 0.05 Abs Immat Gran (auto) (0.00 - 0.03 x10 3/uL) 0. 04 H 0.05 H Add Manual Diff NO NO Immature Gran % (0.0 - 2.0 %) 0.8 0.8 Nucleated RBC % (0 - 0 %) 0.0 0.0 Nucleated RBCs # (Man) (0.0 - 0.1 x10 3/uL) 0.0 0 0.00 ESR Westergren (0 - 15 mm/hr) 9 04/09 2200 Chemistry POC Glucose (70 - 110 MG/DL) 173 H Microbiology: Date/Time Procedure - Status Source Growth 04/09 2300 MRSA DNA Surveillance Screen - COMP NASAL Diagnosis, Assessment Plan Free text A P: 53-year-old man who 2 months ago had history of head injury by a rolling pin falling on his head from an upper cabinet since he has been experiencing symptoms of dizziness and wo rsening headache . He PMH of diabetes mellitus type 2 , hypertension, hyperlipidemia, and migraine headaches. Pain management has been consulted to help manag e patient's worsening acute headaches. Acute headaches possible posttraumatic concussio n syndrome -MRI and MRA pending -Morphine IV 4 mg every 4 PRN pain scale 7-10 -[place] 5/325 mg p.o. every 4 as needed pain scal e 4-6 -Fioricet 1 tab every 4 as needed for headaches -Neurology consult -We will wait for neurology and MRI results and consider possible occipital nerve block Dizziness/abnormal EKG -Cardiology consult Cervicalgia -Robaxin 750 mg p.o. 3 times daily Diabetes - Per primary Diabetic peripheral neuropathy -Lyrica 150 mg at bedtime -Gabapentin 600 mg p.o. 3 times daily Patient will require monitor ing while utilizing narcotic medications for adverse effects and will adjust accordingly Plan of care discussed with patient and nurse All diagnostic studies over the last 24 hours re viewed Plan of care and case has been discussed with Dr Albania Medina who is in agreement. Thank you Dr. Lea for this co nsultation we look forward to following this patient with you [place] [employer] information: 03/13/2019 1 03/13/2019 Preg abalin 150 Mg Capsule 180.00 90 Al Downey [id number] [facility] (0450) 0 2.01 LME Comm Ins [place] 08/27/2018 2 08/27/2018 Acet aminophen-Cod #3 Tablet 15.00 2 Sa Abd [id number] [facility] ( 9726) 0 33.75 MME Comm Ins [place] 05/16/2017 1 05/16/2017 Acet aminophen-Cod #3 Tablet 20.00 3 Me Short Story Writer [id number] [facility] (0450) 0 30.00 MME Comm Ins [place] Pharmacies: [facility] [place] [phone] [facility] [address] - [facility] [phone] [address] [facility] [address] Electronically Signed by Odalys Gann on at 1219 Electronically Signed by Gareth Medina MD on 03/23 10/07 at 1339 RPT #:[id number] END OF REPORT 2019-04-09 21:59:00-00:00 [id number] [place] [id number] PATIENT NAME: ASHLEY SIERRA ADMIT DATE: 04/09/19 ACCOUNT NO: [id number] ROOM NO: [id number].C136 AGE: 53 REPORT TYPE: HISTORY AND PHYSICAL SEX: M ADMITTING PHYSICIAN:Lul Best DO ATTENDING PHYSICIAN:Lul Best DO ADMISSION DATE: 04/09/2019 CHIEF COMPLAINT: Headaches, dizziness, whose tra nsfer from [facility] in [facility] for further treatment. HISTORY OF PRESENT ILLNESS: This is a 53-year-ol d Latin-U[place] man with history of head injury 2 months ago by an object falling on his head with symptom of dizziness and headaches. He also has history of diabetes mellitus type 2 for 5 years, essential hypertension, hype rlipidemia, and migraine headaches. Since his head injury he has been hav ing daily headaches described to be pressure, rated about 10 on scale of 10 and he is on multiple medications also for back pain including Robaxin, Lyrica and Neurontin. Since yesterday, he also noticed some blurry vis ion and numbness around his mouth and dizziness like lightheadedness. Headaches was initially 10 on s betzaida of 10 and now 5 on scale of 10, described to be in the posterior neck and in the forehead area. He appeared pale and diaphoreti c and so his took him to the ER outside and had CAT scan of head that was negative. He does chec k his fingerstick at home, which run mostly above 200 according to the femi ent and today it was 280 and then 147. He normally can walk a mile. His last stress test was done a year ago by Dr. Hopkins his finish sander and was to ld to be negative. REVIEW OF SYSTEMS: Twelve-point review of system s was reviewed and negative. PAST MEDICAL HISTORY: As above and herniated dis ks in his neck and back. PAST SURGICAL HISTORY: None. MEDICATIONS: Include Levemir , Losartan/hydrochlorothiazide, Crestor, metformin, fenofibrate, Cialis, Robaxin, Lyrica, Imdur, Sin gulair, Neurontin, vitamin D, and sublingual nitro. ALLERGIES: NONE. FAMILY HISTORY: No coronary artery disease or di abetes. SOCIAL HISTORY: He denies tobacco, alcohol, or I V drug use. 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 PHYSICAL EXAMINATION: VITAL SIGNS: Temperature not done, blood pressur e 160/94, pulse 71, respirations 16, and 96% saturation. GENERAL: The patient is alert and oriented x3, i n no acute distress. HEENT: Pupils are equal and reactive to light. E xtraocular muscle intact. PATIENT NAME: ASHLEY SIERRA 011 Oral cavity and oropharynx clear. NECK: Without JVD, lymphadenopathy, or thyromega ly. CHEST: Clear to auscultate bilaterally. CARDIOVASCULAR: Regular rhythm. Normal rate. No murmurs, gallops, or rubs. ABDOMEN: Normoactive bowel sounds. Nondistended and nontender. No hepatosplenomegaly. No guarding or rebound. EXTREMITIES: Without clubbing, cyanosis, or ligia a. RECTAL: Deferred. NEUROLOGIC: Nonfocal. LABORATORY DATA AND DIAGNOSTIC STUDIES: Labs torrie w white count 9.6, hemoglobin 14.8. D-dimer less than 100. CK-MB and troponins negative. Liver function tests normal. UA is normal. BNP 34.9, creatinine 1.2, glucose 157, potassium 3.9. Chest x-ray is negative except mild cardiom egaly. CAT scan of head is negative. EKG read by me showing normal sinus rh ythm with T-wave inversion in the lateral leads that cannot rule out ischemia. ASSESSMENT: 1. Post-traumatic concussion syndrome including headaches, dizziness, and he has history of previous migraine, also on multip le medications. 2. Dizziness with abnormal EKG and cardiac risk factors. 3. Diabetes, seemed to be under fair control. PLAN: We will consult neurology and cardiology. Order for MRI, MRA of the brain, MRA of the neck, and echocardiogram, Aliya scan stress test, and resume home medication. I will also asked the pain management to see the patient since he is on multiple medication s without relief and check sed rate, lipid profile, thyroid profile, and give Lovenox for DVT prophy laxis. Dictated By: Galen Lea MD WT: HP:ANGELIA/LIBERTAD/ADRIANA Conf#: [id number]/DID#: [id number] cc: Gareth Palencia MD ____ ____ Authenticated by Galen Lea MD On 04/10/2019 06:50:02 AM Electronically Signed by Galen Lea MD on 03/23 at 0650 PATIENT NAME: ASHLEY SIERRA 011
--- NOTE | 2022-12-14 12:54 | RAD REPORT ---
EXAM DESCRIPTION: RAD - Chest Single View - 12/14/2022 12:48 pm CLINICAL HISTORY: CHEST PAIN Chest pain. COMPARISON: No comparisons FINDINGS: Portable technique limits examination quality. The lungs are grossly clear. The heart is normal in size. No displaced fractures. IMPRESSION: No acute intrathoracic process suspected.
[2022-12-14] MEDS ORDERED: NA CHLORIDE 0.9% 1,000 ML ONE (13:01)
[2022-12-14] MEDS ORDERED: ASPIRIN 81 MG CHEWABLE TABLET ONE (13:01)
[2022-12-14 13:15] LABS: Absolute Lymphocytes (CBC) 1.6 K/uL (0.7-4.9); Hematocrit 44.6 % (39.6-49.0); Lymphocytes % 34.8 % (15.3-44.8); MCV 85.8 fL (80-100)
[2022-12-14 13:16] LABS: Protime INR 1.01
[2022-12-14 13:34] LABS: Bilirubin Direct 0.1 mg/dL (0-0.2); Bilirubin Indirect, Calculated 0.4 mg/dL (0.2-0.8); Bilirubin Total 0.5 mg/dL (0.2-1.0); Magnesium 2.2 mg/dL (1.6-2.4); Potassium 3.9 mEq/L (3.5-5.1); Protein, Total 7.6 g/dL (6.4-8.2); Troponin High Sensitivity 9.3 pg/mL (<58.9)
--- NOTE | 2022-12-14 13:41 | ER ---
Nurse's Notes [facility] Name: Bubba Sierra Age: 57 yrs Sex: Male : 1965 Arrival Date: 12/14/2022 Time: 12: Bed 20 Private MD: Diagnosis: Chest pain, unspecified;Essential (primary) hypertension;Type 2 diabetes mellitus with hyperglycemia Presentation: 12/14 12:30 Chief complaint: Patient states: left sided chest pain that started around 0900 today, aa5 described as pinching. Pt reports taking 81 mg ASA x 2 today. 12:30 Coronavirus screen: At this time, the client does not indicate any symptoms associated aa5 with coronavirus-19. Ebola Screen: Patient denies travel to an Ebola-affected area in the 21 days before illness onset. Initial Sepsis Screen: Does the patient meet any 2 criteria? No. Patient's initial sepsis screen is negative. Does the patient have a suspected source of infection? No. Patient's initial sepsis screen is negative. Risk Assessment: Do you want to hurt yourself or someone else? Patient reports no desire to harm self or others. Onset of symptoms was December 14, 2022. 12:30 Acuity: WALLACE 2 aa5 12:30 Method Of Arrival: Ambulatory aa5 Historical: - Allergies: 12:33 No Known Allergies; aa5 - PMHx: 12:33 Diabetes mellitus; Hypertensive disorder; Myocardial infarction; aa5 - PSHx: 12:33 Heart Stent; aa5 - Immunization history:: Adult Immunizations unknown. - Social history:: Smoking status: Patient denies any tobacco usage or history of. Screenin:30 [facility] ED Fall Risk Assessment (Adult) Score/Fall Risk Level 0 - 2 = Low Risk. Abuse eh3 screen: Denies threats or abuse. Denies injuries from another. Nutritional screening: No deficits noted. Tuberculosis screening: No symptoms or risk factors identified. Assessment: 12:30 General: Appears in no apparent distress. uncomfortable, Behavior is calm, cooperative, eh3 appropriate for age. Pain: Complains of pain in anterior aspect of left upper chest Pain does not radiate. Pain currently is 6 out of 10 on a pain scale. Pain began suddenly, 3 hours ago. Neuro: Level of Consciousness is awake, alert, obeys commands, Oriented to person, place, time, situation. Cardiovascular: Capillary refill < 3 seconds Patient's skin is warm and dry. Respiratory: Airway is patent Respiratory effort is even, unlabored, Respiratory pattern is regular, symmetrical. GI: Abdomen is round. Derm: Skin is pink, warm \T\ dry. Musculoskeletal: Circulation, motion, and sensation intact. 13:00 Reassessment: Patient appears in no apparent distress at this time. Patient and/or 3 family updated on plan of care and expected duration. Pain level reassessed. Patient is alert, oriented x 3, equal unlabored respirations, skin warm/dry/pink. 14:00 Reassessment: Patient appears in no apparent distress at this time. Patient and/or 3 family updated on plan of care and expected duration. Pain level reassessed. Patient is alert, oriented x 3, equal unlabored respirations, skin warm/dry/pink. 15:00 Reassessment: Patient appears in no apparent distress at this time. Patient and/or 3 family updated on plan of care and expected duration. Pain level reassessed. Patient is alert, oriented x 3, equal unlabored respirations, skin warm/dry/pink. 16:00 Reassessment: Patient appears in no apparent distress at this time. Patient and/or 3 family updated on plan of care and expected duration. Pain level reassessed. Patient is alert, oriented x 3, equal unlabored respirations, skin warm/dry/pink. 17:00 Reassessment: Patient appears in no apparent distress at this time. Patient and/or 3 family updated on plan of care and expected duration. Pain level reassessed. Patient is alert, oriented x 3, equal unlabored respirations, skin warm/dry/pink. 17:38 Reassessment: Nurse to nurse report received by Liss on 2nd floor. 3 18:00 Reassessment: Patient appears in no apparent distress at this time. Patient and/or 3 family updated on plan of care and expected duration. Pain level reassessed. Patient is alert, oriented x 3, equal unlabored respirations, skin warm/dry/pink. Vital Signs: 12:30 BP 137 / 74; Pulse 68; Resp 18 S; Temp 98.2(TE); Pulse Ox 100% on R/A; Weight 111.13 kg aa5 (R); Height 5 ft. 9 in. (R); 13:00 BP 124 / 72; Pulse 73; Resp 18; Pulse Ox 96% on R/A; eh3 13:30 BP 127 / 72; Pulse 68; Resp 15; Pulse Ox 96% on R/A; eh3 14:00 BP 127 / 71; Pulse 68; Resp 17; Pulse Ox 95% on R/A; eh3 14:30 BP 123 / 73; Pulse 68; Resp 15; Pulse Ox 95% on R/A; eh3 15:00 BP 119 / 68; Pulse 61; Resp 17; Pulse Ox 98% on R/A; eh3 15:30 BP 115 / 68; Pulse 61; Resp 14; Pulse Ox 97% on R/A; eh3 16:00 BP 121 / 81; Pulse 66; Resp 17; Pulse Ox 96% ; eh3 16:30 BP 132 / 73; Pulse 68; Resp 16; Pulse Ox 98% on R/A; eh3 17:00 BP 118 / 72; Pulse 71; Resp 16; Pulse Ox 98% on R/A; eh3 17:30 BP 117 / 68; Pulse 72; Resp 15; Pulse Ox 97% on R/A; eh3 18:00 BP 122 / 76; Pulse 70; Resp 20; Pulse Ox 97% on R/A; eh3 18:30 BP 119 / 77; Pulse 72; Resp 19; Pulse Ox 96% on R/A; eh3 12:30 Body Mass Index 36.18 (111.13 kg, 175.26 cm) aa5 ED Course: 12:27 Patient arrived in ED. mg5 12:30 Alfredo Reed MD is Attending Physician. chanelle 12:30 Arm band placed on Patient placed in an exam room, on a stretcher. ll1 12:30 Patient has correct armband on for positive identification. Placed in gown. Bed in low eh3 position. Call light in reach. Side rails up X2. Adult w/ patient. Provided Education on: N/a. Client placed on continuous cardiac and pulse oximetry monitoring. NIBP monitoring applied. Door closed. Noise minimized. 12:30 Patient maintains SpO2 saturation greater than 95% on room air. eh3 12:35 Triage completed. aa5 12:40 EKG completed in triage. Results shown to . aa5 12:48 Blanquita Pearson, LUCILA is Primary Nurse. eh3 12:50 XRAY Chest (1 view) In Process Unspecified. EDNE 12:55 Inserted saline lock: 20 gauge in right antecubital area, using aseptic technique. [facility] Blood collected. 13:39 Jeff Main is Hospitalizing Provider. [facility] 16:00 Diet: Patient given snack. Patient given water. Tolerated well. [facility] 19:00 No provider procedures requiring assistance completed. Patient admitted, IV remains in [facility] place. Administered Medications: 12:52 Drug: Aspirin PO Chewable Tablet 324 mg Route: PO; [facility] 13:30 Follow up: Response: No adverse reaction [facility] 13:00 Drug: NS 0.9% IV 1000 ml Route: IV; Rate: 125 ml/hr; Site: right antecubital; [facility] 19:00 Follow up: IV Status: Infusion continued upon admission; IV Intake: 750ml [facility] 14:00 Drug: Enoxaparin Sub-Q 1 mg/kg Route: Sub-Q; Site: right lower abdomen; [facility] 15:00 Follow up: Response: No adverse reaction [facility] Medication: 19:00 VIS not applicable for this client. [facility] Intake: 19:00 IV: 750ml; Total: 750ml. [facility] Outcome: 13:40 Decision to Hospitalize by Provider. [facility] 19:20 Patient left the ED. [facility] 19:20 Admitted to Med/surg accompanied by tech, via stretcher, room 205, Report called to [facility] Liss 19:20 Condition: stable 19:20 Instructed on the need for admit. Signatures: Dispatcher [employer] EDAlfredo Rhoades MD MD cha Calderon, Audri, RN RN harman5 Diego Wolf RN RN 1 Blanquita Pearson RN RN 3 Meghan Rutledge 5
--- NOTE | 2022-12-14 13:41 | EDPHYS ---
Physician Documentation [facility] Name: Bubba Sierra Age: 57 yrs Sex: Male : 1965 Arrival Date: 12/14/2022 Time: 12: Bed 20 Private MD: ED Physician Alfredo Reed HPI: 12/14 13:32 This 57 yrs old Male presents to ER via Ambulatory with complaints of Chest chanelle Pain. 13:32 The patient or guardian reports chest pain that is located primarily in the substernal chanelle area. Onset: just prior to arrival, this morning. The pain does not radiate. Associated signs and symptoms: The patient has no apparent associated signs or symptoms. The chest pain is described as a heaviness, sharp. Duration: The patient or guardian reports a single episode, that lasted 10 minute(s). Severity of pain: At its worst the pain was mild moderate in the emergency department the pain has resolved and did so just prior to arrival. The patient has experienced a previous episode, last year. Historical: - Allergies: 12:33 No Known Allergies; aa5 - PMHx: 12:33 Diabetes mellitus; Hypertensive disorder; Myocardial infarction; aa5 - PSHx: 12:33 Heart Stent; aa5 - Immunization history:: Adult Immunizations unknown. - Social history:: Smoking status: Patient denies any tobacco usage or history of. ROS: 13:33 Constitutional: Negative for fever, chills, and weight loss, Eyes: Negative for injury, chanelle pain, redness, and discharge, ENT: Negative for injury, pain, and discharge, Neck: Negative for injury, pain, and swelling, Respiratory: Negative for shortness of breath, cough, wheezing, and pleuritic chest pain, Abdomen/GI: Negative for abdominal pain, nausea, vomiting, diarrhea, and constipation, Back: Negative for injury and pain, : Negative for injury, bleeding, discharge, and swelling, MS/Extremity: Negative for injury and deformity, Skin: Negative for injury, rash, and discoloration, Neuro: Negative for headache, weakness, numbness, tingling, and seizure, Psych: Negative for depression, anxiety, suicide ideation, homicidal ideation, and hallucinations, Allergy/Immunology: Negative for hives, rash, and allergies, Endocrine: Negative for neck swelling, polydipsia, polyuria, polyphagia, and marked weight changes, Hematologic/Lymphatic: Negative for swollen nodes, abnormal bleeding, and unusual bruising. 13:33 Cardiovascular: Positive for chest pain. Exam: 13:33 Constitutional: This is a well developed, well nourished patient who is awake, alert, chanelle and in no acute distress. Head/Face: Normocephalic, atraumatic. Eyes: Pupils equal round and reactive to light, extra-ocular motions intact. Lids and lashes normal. Conjunctiva and sclera are non-icteric and not injected. Cornea within normal limits. Periorbital areas with no swelling, redness, or edema. ENT: Nares patent. No nasal discharge, no septal abnormalities noted. Tympanic membranes are normal and external auditory canals are clear. Oropharynx with no redness, swelling, or masses, exudates, or evidence of obstruction, uvula midline. Mucous membranes moist. Neck: Trachea midline, no thyromegaly or masses palpated, and no cervical lymphadenopathy. Supple, full range of motion without nuchal rigidity, or vertebral point tenderness. No Meningismus. Chest/axilla: Normal chest wall appearance and motion. Nontender with no deformity. No lesions are appreciated. Cardiovascular: Regular rate and rhythm with a normal S1 and S2. No gallops, murmurs, or rubs. Normal PMI, no JVD. No pulse deficits. Respiratory: Lungs have equal breath sounds bilaterally, clear to auscultation and percussion. No rales, rhonchi or wheezes noted. No increased work of breathing, no retractions or nasal flaring. Abdomen/GI: Soft, non-tender, with normal bowel sounds. No distension or tympany. No guarding or rebound. No evidence of tenderness throughout. Back: No spinal tenderness. No costovertebral tenderness. Full range of motion. Skin: Warm, dry with normal turgor. Normal color with no rashes, no lesions, and no evidence of cellulitis. MS/ Extremity: Pulses equal, no cyanosis. Neurovascular intact. Full, normal range of motion. Neuro: Awake and alert, GCS 15, oriented to person, place, time, and situation. Cranial nerves II-XII grossly intact. Motor strength 5/5 in all extremities. Sensory grossly intact. Cerebellar exam normal. Normal gait. Psych: Awake, alert, with orientation to person, place and time. Behavior, mood, and affect are within normal limits. 13:33 ECG was reviewed by the Attending Physician. Vital Signs: 12:30 BP 137 / 74; Pulse 68; Resp 18 S; Temp 98.2(TE); Pulse Ox 100% on R/A; Weight 111.13 kg aa5 (R); Height 5 ft. 9 in. (R); 13:00 BP 124 / 72; Pulse 73; Resp 18; Pulse Ox 96% on R/A; eh3 13:30 BP 127 / 72; Pulse 68; Resp 15; Pulse Ox 96% on R/A; eh3 14:00 BP 127 / 71; Pulse 68; Resp 17; Pulse Ox 95% on R/A; eh3 14:30 BP 123 / 73; Pulse 68; Resp 15; Pulse Ox 95% on R/A; eh3 15:00 BP 119 / 68; Pulse 61; Resp 17; Pulse Ox 98% on R/A; eh3 15:30 BP 115 / 68; Pulse 61; Resp 14; Pulse Ox 97% on R/A; eh3 16:00 BP 121 / 81; Pulse 66; Resp 17; Pulse Ox 96% ; eh3 16:30 BP 132 / 73; Pulse 68; Resp 16; Pulse Ox 98% on R/A; eh3 17:00 BP 118 / 72; Pulse 71; Resp 16; Pulse Ox 98% on R/A; eh3 17:30 BP 117 / 68; Pulse 72; Resp 15; Pulse Ox 97% on R/A; eh3 18:00 BP 122 / 76; Pulse 70; Resp 20; Pulse Ox 97% on R/A; eh3 18:30 BP 119 / 77; Pulse 72; Resp 19; Pulse Ox 96% on R/A; eh3 12:30 Body Mass Index 36.18 (111.13 kg, 175.26 cm) aa5 MDM: 12:30 Patient medically screened. [facility] 13:36 Differential diagnosis: abnormal EKG, acute myocardial infarction, acute pericarditis, chanelle anxiety, coronary artery disease chest wall pain, congestive heart failure Cholelithiasis costochondritis, esophagitis, gastritis, gastroesophageal reflux disease (GERD), hiatal hernia, pancreatitis, peptic ulcer disease, pleurisy, pneumonia, pneumothorax, pulmonary embolus, stable angina, unstable angina. HEART Score: History: Slightly Suspicious (0), ECG: Non specific repolarization disturbance / LBTB / PM (1), Age: > 45 and < 65 years (1), Risk Factors: > or = 3 Risk factors for atherosclerotic disease (2), [Hypercholesterolemia] [Hypertension] [DM] [+ Family HX] [Obesity] Troponin: < or = 1 x Normal Limit (0). The patient was given aspirin in the Emergency Department. NAZARIO Risk Score: 1 - Three or more CAD risk factors, 1- Known CAD, 1 - ASA use in past 7 days, 1 - Recent [<24hrs] Severe Angina, TOTAL SCORE = 4. Data reviewed: vital signs, nurses notes, lab test result(s), EKG, radiologic studies, plain films. Consideration of Admission/Observation Escalation of care including admission/observation considered. I considered the following discharge prescriptions or medication management in the emergency department Medications were administered in the Emergency Department. See MAR. Test considered but Not performed: CT: NO CT CHEST. 12/14 12:31 Order name: Basic Metabolic Panel [facility] 12/14 12:31 Order name: CBC with Diff; Complete Time: 13:28 [facility] 12/14 12:31 Order name: LFT's [facility] 12/14 12:31 Order name: Magnesium [facility] 12/14 12:31 Order name: NT PRO-BNP [facility] 12/14 12:31 Order name: PT-INR; Complete Time: 13:28 [facility] 12/14 12:31 Order name: Troponin HS [facility] 12/14 12:31 Order name: Lipase [facility] 12/14 17:03 Order name: Hemoglobin A1c [facility] 12/14 17:08 Order name: Phosphorus [facility] 12/14 17:08 Order name: T4 Free [facility] 12/14 17:08 Order name: Magnesium [facility] 12/14 17:08 Order name: Thyroid Stimulating Hormone [facility] 12/14 18:04 Order name: Glucose, Ancillary Testing [facility] 12/14 18:45 Order name: Troponin High Sensitivity [facility] 12/14 12:31 Order name: XRAY Chest (1 view); Complete Time: 13:28 [facility] 12/14 12:31 Order name: EKG; Complete Time: 12:32 [facility] 12/14 16:31 Order name: Diet Ada 1800 Speedy; Complete Time: 16:31 eh3 12/14 12:31 Order name: Cardiac monitoring; Complete Time: 12:43 [facility] 12/14 12:31 Order name: EKG - Nurse/Tech; Complete Time: 12:43 [facility] 12/14 12:31 Order name: IV Saline Lock; Complete Time: 13:07 [facility] 12/14 12:31 Order name: Labs collected and sent; Complete Time: 13:08 [facility] 12/14 12:31 Order name: O2 Per Protocol; Complete Time: 12:43 [facility] 12/14 12:31 Order name: O2 Sat Monitoring; Complete Time: 12:43 [facility] EC:33 Rate is 70 beats/min. Rhythm is regular. QRS [place] is Normal. TN interval is normal. QRS chanelle interval is normal. QT interval is normal. No Q waves. T waves are Normal. No ST changes noted. Clinical impression: NSR w/ Non-specific ST/T Changes and No evidence of ischemia. Administered Medications: 12:52 Drug: Aspirin PO Chewable Tablet 324 mg Route: PO; 3 13:30 Follow up: Response: No adverse reaction 3 13:00 Drug: NS 0.9% IV 1000 ml Route: IV; Rate: 125 ml/hr; Site: right antecubital; 3 19:00 Follow up: IV Status: Infusion continued upon admission; IV Intake: 750ml eh3 14:00 Drug: Enoxaparin Sub-Q 1 mg/kg Route: Sub-Q; Site: right lower abdomen; eh3 15:00 Follow up: Response: No adverse reaction 3 Disposition Summary: 12/14/22 13:40 Hospitalization Ordered Hospitalization Status: Observation chanelle Provider: Jeff Main cha Location: Telemetry/MedSurg (observation) chanelle Condition: Stable chanelle Problem: new chanelle Symptoms: have improved chanelle Bed/Room Type: Standard chanelle Room Assignment: 205(12/14/22 17:12) bd Diagnosis - Chest pain, unspecified chanelle - Essential (primary) hypertension chanelle - Type 2 diabetes mellitus with hyperglycemia chanelle Forms: - Medication Reconciliation Form chanelle - SBAR form chanelle Signatures: Dispatcher [employer] Yesenia Mesa Corey, MD MD cha Calderon, Audri RN RN aa5 Blanquita Pearson RN RN eh3 Corrections: (The following items were deleted from the chart) 17:12 13:40 chanelle bd
[2022-12-14] MEDS ORDERED: ENOXAPARIN 100 MG/ML SYR SQ ONE (14:15)
[2022-12-14] MEDS ORDERED: ACETAMINOPHEN 325 MG TABLET PO PRN (15:39)
[2022-12-14] MEDS ORDERED: HYDROCODONE/APAP 5/325 MG TAB PO PRN (15:39)
[2022-12-14] MEDS ORDERED: ONDANSETRON 4 MG/2 ML VIAL IV PRN (15:48)
[2022-12-14] MEDS ORDERED: GLUCAGON 1 MG/VIAL IM PRN (15:50)
[2022-12-14] MEDS ORDERED: D10W 250 ML BAG IV PRN (15:50)
--- NOTE | 2022-12-14 15:52 | P.HP ---
Certification for Inpatient Patient admitted to: Observation With expected LOS: <2 Midnights Patient will require the following post-hospital care: None Practitioner: I am a practitioner with admitting privileges, knowledge of patient current condition, hospital course, and medical plan of care. Services: Services provided to patient in accordance with Admission requirements found in Title 42 Section 412.3 of the Code of Federal Regulations Patient History Date of Service: 12/14/22 Reason for admission: Chest pain History of Present Illness: Patient is a 57-year-old male with a past medical history significant for DM 2, CAD, hypertension, VT, chronic back pain who presents with complaint of chest pain located in the substernal chest Onset this morning. Patient rated pain as 9/10 in severity and described pain as sharp in quality. Patient reported that chest pain has been intermittent. Patient also reports chronic back pain. Patient reported associated signs and symptoms of headache, diaphoresis and bilateral lower extremity edema. Patient denies any other signs and symptoms. Symptoms are aggravated or relieved by nothing. Patient decided to present to the hospital for medical evaluation. Allergies No Known Allergies Allergy (Verified 12/14/22 19:36) Home Medications: Aspirin 81 mg PO DAILY 12/14/22 Cetirizine HCl 10 mg PO DAILY 12/14/22 Empagliflozin/Metformin HCl [Synjardy Xr 12.5-1,000 mg Tab] 2 tab PO DAILY 12/14/22 Ezetimibe 10 mg PO DAILY 12/14/22 Fenofibrate 160 mg PO DAILY 12/14/22 Gabapentin 600 mg PO TID 12/14/22 Icosapent Ethyl [Vascepa] 2 cap PO BID 12/14/22 Losartan Potassium 100 mg PO DAILY 12/14/22 Metoprolol Succinate 50 mg PO DAILY 12/14/22 Montelukast [Singulair] 10 mg PO BEDTIME 12/14/22 Pregabalin 150 mg PO BID 12/14/22 Rosuvastatin Calcium 40 mg PO DAILY 12/14/22 Semaglutide [Ozempic] 1 mg SQ EVERY 7TH DAY 12/14/22 Sertraline [Zoloft] 25 mg PO DAILY 12/14/22 Tadalafil [Cialis] 5 mg PO DAILY 12/14/22 Ticagrelor [Brilinta] 90 mg PO Q12H 12/14/22 hydroCHLOROthiazide [Hydrochlorothiazide] 25 mg PO DAILY 12/14/22 methocarbamoL [Methocarbamol] 750 mg PO TID 12/14/22 - Past Medical/Surgical History -: HTN -: HLD -: DM 2 -: Chronic Back Pain -: VT -: CAD Past Surgical History: Reviewed- Non-Contributory - Family History Family History: Reviewed- Non-Contributory - Social History Smoking Status: Never smoker Alcohol use: Yes CD- Drugs: No Caffeine use: Yes Place of Residence: Home Review of Systems General: Sweats Eyes: Unremarkable ENT: Unremarkable Respiratory: Unremarkable Cardiovascular: Chest Pain Gastrointestinal: Unremarkable Genitourinary: Unremarkable Musculoskeletal: Pedal edema Integumentary: Unremarkable Neurological: Other (GRANT) Lymphatics: Unremarkable Physical Examination - Physical Exam General: Alert, In no apparent distress, Oriented x3, Cooperative HEENT: Atraumatic, PERRLA, Mucous membr. moist/pink, EOMI, Sclerae nonicteric Neck: Supple, 2+ carotid pulse no bruit, No LAD, Without JVD or thyroid abnormality Respiratory: Clear to auscultation bilaterally, Normal air movement Cardiovascular: Regular rate/rhythm, Normal S1 S2, Edema Capillary refill: <2 Seconds Gastrointestinal: Normal bowel sounds, No tenderness Musculoskeletal: No clubbing, Swelling Integumentary: No rashes, No significant lesion Neurological: Normal gait, Normal speech, Normal strength at 5/5 x4 extr, Normal tone, Normal affect Lymphatics: No axilla or inguinal lymphadenopathy - Studies Laboratory Data (last 24 hrs) 12/14/22 13:00: PT 11.1, INR 1.01 12/14/22 13:00: WBC 4.50, Hgb 14.7, Hct 44.6, Plt Count 236 12/14/22 13:00: Sodium 136, Potassium 3.9, BUN 23 H, Creatinine 1.17, Glucose 104, Magnesium 2.2, Total Bilirubin 0.5, AST 18, ALT 35, Alkaline Phosphatase 45, Lipase 180 H Assessment and Plan - Plan --Chest pain. To rule out ACS. We will trend troponin levels--so far negative. Cardiology consulted. Echocardiogram pending to assess cardiac structures and functions. Telemetry to monitor for any significant arrhythmia. We will await further recommendation from cnc machine operator. -- DM2 with neuropathy. BS monitoring with sliding scale insulin. Continue gabapentin for his neuropathy. --History of CAD and VT. Continue aspirin and statin. --Hypertension. Stable. Continue home medications. --Hyperlipidemia. Continue home medications. --Allergies rhinitis. Continue home medications. --CKD 2. Baseline functions unknown. We will continue to monitor renal functions. --DVT prophylaxis with Lovenox subQ Discharge Plan: Home Plan to discharge in: 48 Hours - Advance Directives Does patient have a Living Will: No Does patient have a Durable POA for Healthcare: No - Code Status/Comfort Care Code Status Assessed: Yes Physician Review: Patient Assessed, Agree with Above Assessment and Plan Critical Care: No
[2022-12-14] MEDS: INSULIN -REGULAR HUMAN 50 UNIT/0.5 ML ML SQ SCH ×2 (16:30→21:00)
[2022-12-14 17:07] LABS: Magnesium 2.2 mg/dL (1.6-2.4); Phosphorus 3.6 mg/dL (2.5-4.9); Thyroid Stimulating Hormone 1.3 uIU/mL (0.358-3.740)
[2022-12-14 19:49] VITALS: BMI 35.9
[2022-12-14 19:53] VITALS: O2SAT 96
[2022-12-15 00:47] LABS: Urine Bilirubin NEGATIVE (Negative); Urine Blood Negative (Negative); Urine Clarity Clear (Clear); Urine Color Light-Yellow (Yellow); Urine Glucose 4+ (Over) (Negative); Urine Protein NEGATIVE (Negative); Urine Urobilinogen Normal (Normal)
[2022-12-15 03:17] LABS: Absolute Lymphocytes (CBC) 2.4 K/uL (0.7-4.9); Hematocrit 41.2 % (39.6-49.0); Lymphocytes % 48.4 % (15.3-44.8); MCV 86.5 fL (80-100); MPV 7.1 fL (7.6-11.3); RBC Red Blood Cell Count 4.77 M/uL (4.33-5.43)
[2022-12-15 03:45] LABS: BUN Blood Urea Nitrogen 24 mg/dL (7-18); Bicarbonate 30 mEq/L (21-32); Glomerular Filtration Rate 67 ml/min (=/>90); Glucose Level 137 mg/dL (74-106); HDL Cholesterol 21 mg/dL (40-60); Sodium Level 134 mEq/L (136-145)
[2022-12-15 03:49] LABS: Potassium 3.5 mEq/L (3.5-5.1)
[2022-12-15 04:00] LABS: LDL, Direct 38 mg/dL (100-129)
[2022-12-15] MEDS: INSULIN -REGULAR HUMAN 50 UNIT/0.5 ML ML SQ SCH ×4 (07:30→21:00)
[2022-12-15] MEDS ORDERED: ASPIRIN 81 MG CHEWABLE TABLET PO SCH (09:00)
[2022-12-15] MEDS ORDERED: POTASSIUM CL SA 10 MEQ TAB PO ONE (09:00)
[2022-12-15] MEDS: ENOXAPARIN 40 MG/0.4 ML SQ SCH (09:46)
--- NOTE | 2022-12-15 13:22 | EKG ---
Test Date: 2022-12-14 Test Time: 12:40:29 Fire Operations Forester: JOE MEASUREMENT RESULTS: Intervals: Rate: 70 ID: [id number] QRSD: 90 QT: 366 QTc: 395 Belcher: P: 53 ID: [id number] QRS: -5 T: 29 INTERPRETIVE STATEMENTS: Normal sinus rhythm Low voltage QRS Borderline ECG No previous ECG available for comparison Electronically Signed On 12-15-22 13:19:49 CDT by Ivan Mccallum
[2022-12-15] MEDS: TICAGRELOR 90 MG TABLET PO SCH (16:45)
[2022-12-15] MEDS ORDERED: HOME MED 1 EA UNK (Gabapentin [Gabapentin] 600 MG Tablet) PO SCH (21:00)
[2022-12-15] MEDS ORDERED: MONTELUKAST 10 MG TAB PO SCH (21:00)
[2022-12-15] MEDS: PREGABALIN 150 MG CAP PO SCH (21:31)
[2022-12-15] MEDS: GABAPENTIN 300 MG CAP PO SCH (21:32)
--- NOTE | 2022-12-15 23:39 | CON ---
Date of Consultation: 12/15/2022 Reason For Consultation: Chest pain. History Of Present Illness: A 57-year-old male with history of diabetes, coronary artery disease, hy pertension, history of [place] in the past, presented to the emergency room with chest pain, substernal, 9 /10, sharp in nature, not related to exertion, but he said that it has been intermittent. No exertio nal shortness of breath or chest pain and no nausea or vomiting or diaphoresis. Past Medical History: As outlined above in HPI, hypertension, dyslipidemia, diabetes, coronary arter y disease. Medications: Refer consultation sheet for detailed list. Allergies: NO KNOWN DRUG ALLERGIES. Family History: No premature coronary artery disease or cancer. Social History: He does not smoke or drink. Does not use any drugs. Review of Systems: All systems reviewed and negative except as mentioned in HPI. Physical Examination: Vital Signs: Reviewed. Head and Neck: Pupils are equal, reactive to light. Intact eye movements. No JVD. No cervical nod es. Neck is supple. Thyroid is not enlarged. Lungs: Clear to auscultation bilaterally. No rhonchi, rales, or crackles. No accessory muscle use. Heart: Regular rate and rhythm. No extra sounds. Abdomen: Soft, nontender. Bowel sounds positive. No organomegaly. No masses or hernia. No rigidi ty or rebound. Extremities: No edema, clubbing, cyanosis. Intact pulses. Skin: No rashes. Neurologic: Alert, awake, oriented x3. No acute focal deficits appreciated. Investigations: BUN is 24, creatinine 1.24, and hemoglobin is 13.6. Cardiac enzymes are negative x3 . Assessment And Recommendations: 1.Chest pain in the setting of the presence of coronary artery disease. Cardiac enzymes are negativ e. Recommend exercise nuclear stress test and an echo to further evaluate and plan accordingly to co ntinue aspirin 81 mg and rosuvastatin. 2.Dyslipidemia. Continue rosuvastatin 40 mg q.h.s. 3.Hypertension. Blood pressure is controlled. Continue current management. SR/ТАТЬЯНАL Voice ID: [id number] Report ID: [id number]
[2022-12-16 03:14] LABS: Potassium 3.7 mEq/L (3.5-5.1)
--- NOTE | 2022-12-16 06:55 | ECHO ---
HEIGHT: 5 ft 9 in WEIGHT: 245 lb 0 oz DATE OF STUDY: 12/15/[address]: Allen Flood 2-DIMENSIONAL: YES M.MODE: YES DOPPLER: YES COLOR FLOW: YES TDS: YES PORTABLE: YES DEFINITY: BUBBLE STUDY: DIAGNOSIS: CHEST PAIN CARDIAC HISTORY: CATHERIZATION: YES SURGERY: NO PROSTHETIC VALVE: NO PACEMAKER: NO MEASUREMENTS (cm) DIASTOLIC (NORMALS) SYSTOLIC (NORMALS) IVSd 1.1 (0.6-1.2) LA Diam 2.4 (1.9-4.0) LVEF 57% LVIDd 46 (3.5-5.7) LVIDs 3.3 (2.0-3.5) %FS 30% LVPWd 1.2 (0.6-1.2) Ao Diam 2.8 (2.0-3.7) 2 DIMENSIONAL ASSESSMENT: RIGHT ATRIUM: NORMAL LEFT ATRIUM: NORMAL RIGHT VENTRICLE: NORMAL LEFT VENTRICLE: NORMAL TRICUSPID VALVE: MILD TRICUSPID REGURGITATION MITRAL VALVE: NORMAL PULMONIC VALVE: NORMAL AORTIC VALVE: MILD AORTIC INSUFFICIENCY PERICARDIAL EFFUSION: NONE AORTIC ROOT: NORMAL LEFT VENTRICULAR WALL MOTION: NORMAL DOPPLER/COLOR FLOW: SEE BELOW COMMENTS: 1. NORMAL LEFT VENTRICULAR EJECTION FRACTION 55-60% 2. NORMAL WALL MOTION 3. MILD AORTIC INSUFFICIENCY 4. MILD TRICUSPID REGURGITATION TECHNOLOGIST: URBANO TUCKER
[2022-12-16] MEDS: INSULIN -REGULAR HUMAN 50 UNIT/0.5 ML ML SQ SCH (07:30)
[2022-12-16] MEDS ORDERED: REGADENOSON 0.4 MG/5 ML SYR IV ONE (07:43)
[2022-12-16 08:59] VITALS: BP 116/72; TEMP 97.3
[2022-12-16] MEDS ORDERED: ROSUVASTATIN 10 MG TAB PO SCH (09:00)
[2022-12-16] MEDS ORDERED: ASPIRIN 81 MG CHEWABLE TABLET PO SCH (09:00)
[2022-12-16] MEDS ORDERED: LOSARTAN POTASSIUM 50 MG TABLET PO SCH (09:00)
[2022-12-16] MEDS ORDERED: EMPAGLIFLOZIN PO SCH (09:00)
[2022-12-16] MEDS ORDERED: HOME MED 1 EA UNK (Losartan Potassium [Losartan Potassium] 100 MG Tablet) PO SCH (09:00)
[2022-12-16] MEDS ORDERED: SERTRALINE HCL 50 MG TAB PO SCH (09:00)
[2022-12-16] MEDS ORDERED: METFORMIN HCL PO SCH (09:00)
[2022-12-16] MEDS ORDERED: CETIRIZINE HCL 5 MG TABLET PO SCH (09:00)
[2022-12-16] MEDS ORDERED: HOME MED 1 EA UNK (Rosuvastatin Calcium [Rosuvastatin Calcium] 40 MG Tablet) PO SCH (09:00)
[2022-12-16] MEDS ORDERED: [UNRECOGNIZED DRUG - OTHER] PO SCH (09:00)
[2022-12-16] MEDS ORDERED: POTASSIUM CL SA 10 MEQ TAB PO ONE (09:00)
[2022-12-16] MEDS ORDERED: METOPROLOL XL 50 MG TAB PO SCH (09:00)
[2022-12-16] MEDS: ENOXAPARIN 40 MG/0.4 ML SQ SCH (09:00)
[2022-12-16] MEDS ORDERED: CETIRIZINE HCL 10 MG PO SCH (09:00)
[2022-12-16] MEDS ORDERED: FENOFIBRATE 160 MG TAB PO SCH (09:00)
[2022-12-16] MEDS: PREGABALIN 150 MG CAP PO SCH (10:56)
[2022-12-16] MEDS: TICAGRELOR 90 MG TABLET PO SCH (10:56)
[2022-12-16] MEDS: GABAPENTIN 300 MG CAP PO SCH (10:56)
--- NOTE | 2022-12-16 12:39 | RAD REPORT ---
EXAM DESCRIPTION: NM - Rest Stress Cardiac Imaging - 12/16/2022 9:14 am CLINICAL HISTORY: Chest pain. COMPARISON: None. TECHNIQUE: The patient was administered 10.5 mCi of Tc 99m Sestamibi prior to resting SPECT imaging of the heart. The patient was then administered 30. 3 mCi of Tc 99m Sestamibi following exercise or p harmacologic stress. Multiplanar SPECT images were reviewed. FINDINGS: Moderate area of diminished radiotracer activity involves the apical left ventricular myoc ardium on stress images. There is mild reaccumulation of radiotracer on rest images. The left ventricular ejection fraction equals 44% IMPRESSION: Moderate mostly fixed perfusion defect apical left ventricular myocardium probably an in farct with mild lyssa-infarct ischemia
--- NOTE | 2022-12-16 14:21 | TREADPHA ---
DX: CHEST PAIN Date of Study: 12/16/2022 Ht: 5' 9 " Wt: 245 lb 0 oz Consulting Physician: DIANA MEDICATIONS: TYLENOL, NORCO, ASPIRIN, ZYRTEC, DEXTROSE, LOVENOX, TRICOR, NEURONTIN, GLUCAGEN, NOVOLIN-R, COZAAR, TOPROL XL, SINGULAIR, ZOFRAN, KLOR-CON, LYRICA, CRESTOR, ZOLOFT, BRILINTA HISTORY: CARDIAC STENTS TIMES ONE (ONE YEAR AGO), DIABETES MELLITUS TYPE II, HYPERLIPIDEMIA PHYSICIAL EXAMINATION: RESTING B.P.: 124/73 RESTING H.R.: 67 RESTING EKG: NORMAL SINUS RHYTHM PROTOCOL: PHARMACOLOGIC EXERCISE TIME: 3:30 B.P. AT PEAK STRESS: 126/51 IMPRESSION: LEXISCAN STRESS TEST PERFORMED ORDERED. CARDIOLITE INJECTED (SEE NUCLEAR MEDICINE REPORT). NO SUPRAVENTRICULAR TACHYCARDIA, VENTRICULAR TACHYCARDIA OR ARRHYTHMIAS NOTED DURING PROCEDURE. NO SHORTNESS OF BREATH OR CHEST PAIN NOTED. NO ELECTROCARDIOGRAM CHANGES OF ISCHEMIA WITH LEXISCAN.
--- NOTE | 2022-12-16 21:00 | PN ---
Date of Progress Note: 12/16/2022 Subjective: Seen by bedside. Review of Systems: No chest pain. No shortness of breath. No nausea, vomiting, or diarrhea. All other systems reviewe d are negative. Physical Examination: Vital Signs: Reviewed. Head and Neck: Pupils are equal, reactive to light. Intact eye movements. No JVD. No cervical lym phadenopathy. Neck is supple. Thyroid is not enlarged. Lungs: Clear to auscultation bilaterally. No rhonchi, wheezing, or crackles. No accessory muscle u se. Heart: Regular rate and rhythm. No extra sounds. Abdomen: Soft, nontender. Bowel sounds positive. No organomegaly. No masses or hernia. No rigidi ty or rebound. Extremities: No edema, clubbing, or cyanosis. Intact pulses. Skin: No rashes. No nodules. Neurologic: Alert, awake, and oriented x3. No acute focal deficits appreciated. Investigations: An EF is normal on echo and no wall motion abnormalities. Stress test without signi ficant ischemia. Assessment And Recommendation: 1.Chest pain, atypical with negative stress test and normal ejection fraction. The patient can be r eleased from Cardiology standpoint. Follow up as an outpatient. 2.Hypertension. Blood pressure is controlled. Continue current management. 3.Dyslipidemia. Continue Crestor. SR/MODL Voice ID: [id number] Report ID: [id number]
== END 2022-12-16 12:20 | disposition home or self-care (01) ==
LOC: ER 12:26 → ERHOLD 15:38 → 2ND 18:34
PROVIDERS: ADMIT Hospitalist; ATTEND Hospitalist
DX: R07.9 Chest pain, unspecified (principal); I25.10 Atherosclerotic heart disease of native coronary artery without angina pectoris; I25.2 Old myocardial infarction; E11.22 Type 2 diabetes mellitus with diabetic chronic kidney disease; I12.9 Hypertensive chronic kidney disease with stage 1 through stage 4 chronic kidney disease, or unspecified chronic kidney disease; N18.2 Chronic kidney disease, stage 2 (mild); M54.9 Dorsalgia, unspecified; G89.29 Other chronic pain; R51.9 Headache, unspecified; R61 Generalized hyperhidrosis; R60.9 Edema, unspecified; E78.5 Hyperlipidemia, unspecified; J30.9 Allergic rhinitis, unspecified
CPT/HCPCS: 96361; 93005; 93017; 93306; 85025 ×2; 80048 ×3; 36415 ×2; 83721; 83735 ×2; 84100; 85610; 80061; 82947 ×7; 80076; 84443; 81003; 83036; 84484 ×3; 84439; 83690; 83880; 71045; 78452; 96360; 96372; 99285; J1650 ×2; J2785; J7030; A9500

== ENCOUNTER 2025-03-03 12:04 | Emergency (ER) | payer MEDICARE, OTHER ==
[2025-03-03] MEDS ORDERED: HYDROCODONE/APAP 5/325 MG TAB ONE (13:09)
--- NOTE | 2025-03-03 13:39 | RAD REPORT ---
EXAMINATION: XR RIGHT FOOT CLINICAL INDICATION: Male, 59 years old. PAIN TECHNIQUE: Multiple views of the right foot were obtained. COMPARISON: No prior exam. FINDINGS: No acute fracture or dislocation. Moderate calcaneal spurs, slightly larger along the plant ar aspect.
--- NOTE | 2025-03-03 13:54 | ER ---
Nurse's Notes [facility] Name: Bubba Sierra Age: 59 yrs Sex: Male : 1965 Arrival Date: 03/03/2025 Time: 12:04 Bed 9 Private MD: Diagnosis: Pain in right foot Presentation: 03/03 12:39 Chief complaint: Patient states: stepped up onto a step yesterday and felt a pop in me1 right foot. Pain to bottom of foot since, 02/28 with weight bearing. Coronavirus screen: Vaccine status: Patient reports being unvaccinated. Ebola Screen: No symptoms or risks identified at this time. Initial Sepsis Screen: Does the patient meet any 2 criteria? No. Patient's initial sepsis screen is negative. Does the patient have a suspected source of infection? No. Patient's initial sepsis screen is negative. Risk Assessment: Do you want to hurt yourself or someone else? Patient reports no desire to harm self or others. Onset of symptoms was March 02, 2025 at 10:45. 12:39 Method Of Arrival: Wheelchair me1 12:39 Acuity: WALLACE 4 me1 Historical: - Allergies: 12:40 No Known Allergies; me1 - PMHx: 12:40 diabetes mellitus; Hypertensive disorder; Myocardial infarction; me1 - PSHx: 12:40 heart stent; me1 - Immunization history:: Adult Immunizations up to date. - Infectious Disease History:: Denies. - Social history:: Smoking status: Patient denies any tobacco usage or history of. Vital Signs: 12:39 BP 111 / 62; Pulse 66; Resp 17; Temp 98; Pulse Ox 98% ; Weight 105.23 kg; Height 5 ft. me1 9 in. ; Pain 02/28; 12:39 Body Mass Index 34.26 (105.23 kg, 175.26 cm) me1 12:39 Pain Scale: Adult me1 ED Course: 12:07 Patient arrived in ED. cj3 12:18 Isabella Valverde FNP-C is PHCP. kb 12:18 Shawn Fernández MD is Attending Physician. kb 12:40 Triage completed. me1 12:40 Arm band placed on Patient placed in an exam room. me1 13:31 Foot Right 3 View XRAY In Process Unspecified. EDMS 14:22 Patrizia Mai, RN is Primary Nurse. iw Administered Medications: 13:11 Drug: HYDROcodone-acetaminophen PO 5 mg-325 mg 1 tabs PO once Route: PO; [facility] 13:30 Follow up: Response: No adverse reaction iw Outcome: 13:54 Discharge ordered by . kb 14:22 Patient left the ED. iw Signatures: Dispatcher [employer] EDAL Isabella Valverde, SENIOR DB2 SYSTEMS PROGRAMMER-C SENIOR DB2 SYSTEMS PROGRAMMER-Ckb Patrizia Mai, LUCILA RN Sammi Nguyen RN RN ma1 Michelle Lao 3 Rut Smith, LUCILA RN 1
--- NOTE | 2025-03-03 13:54 | EDPHYS ---
Physician Documentation [facility] Name: Bubba Sierra Age: 59 yrs Sex: Male : 1965 Arrival Date: 03/03/2025 Time: 12:04 Bed 9 Private MD: ED Physician Shawn Fernández HPI: 03/03 14:01 This 59 yrs old Male presents to ER via Wheelchair with complaints of Foot kb Injury - RT. 14:01 Patient is a 5-year-old male who presents for right foot pain that started yesterday. kb States he felt a pop in the bottom of his foot when he stepped up onto a step. States has been unable to bear full weight since then.. Historical: - Allergies: 12:40 No Known Allergies; me1 - PMHx: 12:40 diabetes mellitus; Hypertensive disorder; Myocardial infarction; me1 - PSHx: 12:40 heart stent; me1 - Immunization history:: Adult Immunizations up to date. - Infectious Disease History:: Denies. - Social history:: Smoking status: Patient denies any tobacco usage or history of. ROS: 13:53 Constitutional: As per HPI kb Exam: 13:53 Constitutional: This is a well developed, well nourished patient who is awake, alert, kb and in no acute distress. Head/Face: Normocephalic, atraumatic. ENT: Moist Mucous membranes Respiratory: Respirations even and unlabored. No increased work of breathing. Talking in full sentences Skin: Warm, dry with normal turgor. Normal color. Neuro: Awake and alert, GCS 15, oriented to person, place, time, and situation. 13:53 Musculoskeletal/extremity: Extremities: grossly normal except: noted in the arch of right foot: pain, tenderness, ROM: intact in all extremities, Circulation is intact in all extremities. Sensation intact. Weight bearing: is unable to bear weight, Vital Signs: 12:39 BP 111 / 62; Pulse 66; Resp 17; Temp 98; Pulse Ox 98% ; Weight 105.23 kg; Height 5 ft. me1 9 in. ; Pain 10/10; 12:39 Body Mass Index 34.26 (105.23 kg, 175.26 cm) me1 12:39 Pain Scale: Adult me1 MDM: 12:19 Medical Screening Exam initiated kb 14:02 Differential diagnosis: closed fracture, tendonitis, Sprain, strain. Data reviewed: kb vital signs, nurses notes. Historians other than the Patient: Spouse/Significant Other: Significant other. Counseling: I had a detailed discussion with the patient and/or guardian regarding the historical points, exam findings, and any diagnostic results supporting the discharge/admit diagnosis, radiology results, the need for outpatient follow up, a family practitioner, to return to the emergency department if symptoms worsen or persist or if there are any questions or concerns that arise at home. 14:04 Independent interpretation of the following test(s) in the Emergency Department X-Ray: kb My interpretation is No acute fracture. 03/03 12:41 Order name: Foot Right 3 View XRAY; Complete Time: 13:40 kb 03/03 13:54 Order name: Crutches; Complete Time: 14:22 kb Administered Medications: 13:11 Drug: HYDROcodone-acetaminophen PO 5 mg-325 mg 1 tabs PO once Route: PO; [facility] 13:30 Follow up: Response: No adverse reaction iw Disposition: 17:50 Co-signature as Attending Physician, Shawn Fernández MD I reviewed the patient's care rn provided by the Advanced Practice Provider and agree with the diagnosis and treatment plan. Disposition Summary: 03/03/25 13:54 Discharge Ordered Notes: Location: Home Condition: Stable kb Diagnosis - Pain in right foot kb Followup: kb - With: Emergency Department - When: As needed - Reason: Worsening of condition Followup: kb - With: Private Physician - When: 2 - 3 days - Reason: Recheck today's complaints, Continuance of care, Re-evaluation by your physician Discharge Instructions: - Discharge Summary Sheet kb - Musculoskeletal Pain kb - Foot Pain kb Forms: - Medication Reconciliation Form kb - Antibiotic Education kb - Prescription Opioid Use kb - Patient Portal Instructions kb - Leadership Thank You Letter Prescriptions: - Ibuprofen 800 mg Oral Tablet - take 1 tablet ORAL route every 8 hours As needed take with food; 30 tablet; Refills: 0, Product Selection Permitted Signatures: Dispatcher [employer] Isabella Aguero FNP-C FNP-Shawn Kay MD MD rn Eddleman, Michelle RN RN pa1 Rut Smith RN RN 1 Patrizia Mai RN
[2025-03-03 18:33] VITALS: BP 111/62; TEMP 98; O2SAT 98
== END 2025-03-03 14:22 | disposition home or self-care (01) ==
LOC: ER 12:04
DX: S99.921A Unspecified injury of right foot, initial encounter (principal); M79.671 Pain in right foot; I25.2 Old myocardial infarction; I10 Essential (primary) hypertension; E11.9 Type 2 diabetes mellitus without complications; X58.XXXA Exposure to other specified factors, initial encounter; Y93.39 Activity, other involving climbing, rappelling and jumping off
CPT/HCPCS: 99282